=== PATIENT | male | born 1950 | race Caucasian/White ===

== ENCOUNTER → 2016-12-16 | Outpatient (CLI) | payer BC ==
[~2016-12-16] MED LIST: ASPI-232 PO; CRG625 PO; MELO7.5T5 PO; MULT-106 PO; OMEG120013 PO; RAMI5CAP PO
[2016-12-16 14:03] LABS: BASO % 0.3 %; BASO ABS # 0.02 K/uL (0-0.2); COMPLETE YES; EOS % 5.6 %; HEMATOCRIT 41.6 % (42-52); IG% 0.2 %; LYMPH % 34.9 %; LYMPH ABS # 2.01 K/uL (1.2-3.4); MEAN CELL VOLUME 87.9 fL (80-100); MEAN CORPUSCULAR HEMOGLOBIN 30.7 pg (25-34); MEAN CORPUSCULAR HGB CONC 34.9 g/dl (32-36); PLATELET COUNT 183 K/uL (130-400); RED BLOOD COUNT 4.73 M/uL (4.7-6.1); WHITE BLOOD COUNT 5.76 K/uL (4.8-10.8)
[2016-12-16 14:41] LABS: ALB/GLOB RATIO 1.2 (0.9-2); ALT/SGPT 40 U/L (12-78); AST/SGOT 21 U/L (15-37); BLOOD UREA NITROGEN 21 mg/dl (7-18); BUN/CREATININE RATIO 18.6 (10-20); CARBON DIOXIDE 28 mmol/L (21-32); CHLORIDE 106 mmol/L (98-107); GLUCOSE 117 mg/dl (70-99); POTASSIUM 4.4 mmol/L (3.5-5.1); SODIUM 141 mmol/L (136-145)
[2016-12-16 14:47] LABS: ALKALINE PHOSPHATASE 65 U/L (45-117); TOTAL IRON BINDING CAPACITY 312 mcg/dl (250-450)
[2016-12-16 15:02] LABS: CALCIUM 9.8 mg/dl (8.5-10.1)
--- NOTE | 2016-12-23 07:00 | CODING QUERY MEDICAL NECESSITY ---
CQSUPPORTING DIAGNOSIS NEEDED A supporting diagnosis is required for the test/procedure performed on this patient in order for us to be reimbursed by the patient's insurance. Please provide a supporting diagnosis for the following test/procedure listed below next to the test name along with your signature. *If there is no additional diagnosis for this patient that would support the following test/procedure please document that below next to the test/procedure. Test(s)/Procedure(s) that require a supporting diagnosis: DOS 12/16/16 PROSTATE SPECIFIC (PSA) TEST Provider Signature: Date: Thank you Gemini [facility] Once completed, please kindly fax back to [phone] For questions please call [phone]
== END | disposition home or self-care (01) ==
LOC: C.LABBC 10:42
PROVIDERS: ATTEND Family Medicine
DX: I10 Essential (primary) hypertension (principal); R39.9 Unspecified symptoms and signs involving the genitourinary system; D64.9 Anemia, unspecified; Z12.5 Encounter for screening for malignant neoplasm of prostate

== ENCOUNTER → 2017-04-16 | Outpatient (CLI) | payer BC ==
[2017-04-16 12:13] LABS: BASO % 0.5 %; BASO ABS # 0.03 K/uL (0-0.2); COMPLETE YES; HEMATOCRIT 39.4 % (42-52); IG% 0.3 %; LYMPH % 29.2 %; LYMPH ABS # 1.75 K/uL (1.2-3.4); MEAN CELL VOLUME 85.8 fL (80-100); MEAN CORPUSCULAR HEMOGLOBIN 31.2 pg (25-34); MEAN CORPUSCULAR HGB CONC 36.3 g/dl (32-36); MEAN PLATELET VOLUME 9.4 fL (7.4-10.4); MONO % 12.7 %; NEUT % 51.3 %; PLATELET COUNT 175 K/uL (130-400); RED BLOOD COUNT 4.59 M/uL (4.7-6.1)
[2017-04-16 12:26] LABS: ALT/SGPT 43 U/L (12-78); BLOOD UREA NITROGEN 20 mg/dl (7-18); BUN/CREATININE RATIO 20.3 (10-20); CALCIUM 9.5 mg/dl (8.5-10.1); CARBON DIOXIDE 29 mmol/L (21-32); CHLORIDE 105 mmol/L (98-107); CREATININE 0.98 mg/dl (0.60-1.40); GLUCOSE 99 mg/dl (70-99); POTASSIUM 4.3 mmol/L (3.5-5.1); SODIUM 138 mmol/L (136-145)
[2017-04-16 12:36] LABS: ALB/GLOB RATIO 1.1 (0.9-2); ALKALINE PHOSPHATASE 61 U/L (45-117); AST/SGOT 30 U/L (15-37)
[2017-04-16 13:49] LABS: LYME DISEASE AB IGM NEG (NEG)
[2017-04-16 13:52] LABS: LYME DISEASE AB IGG NEG (NEG)
== END | disposition home or self-care (01) ==
LOC: C.LAB1850 11:17
PROVIDERS: ATTEND Internal Medicine Cardiovascular Disease
DX: I25.10 Atherosclerotic heart disease of native coronary artery without angina pectoris (principal); I42.8 Other cardiomyopathies; I50.22 Chronic systolic (congestive) heart failure

== ENCOUNTER → 2017-06-09 | Outpatient (CLI) | payer BC ==
--- NOTE | 2017-06-09 15:59 | DIAGNOSTIC IMAGING REPORT ---
R FOOT MIN 3 VIEWS ROUTINE CLINICAL HISTORY: M77.40 Metatarsalgia Right foot pain at metatarsal area 1st thro pain COMPARISON: None. 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 Moderate degenerative change of the intertarsal joints. No evidence for fracture. There is no evidence for soft tissue swelling. IMPRESSION: Moderate generalized degenerative change of the intertarsal, tarsometatarsal joints, and to lesser extent interphalangeal joints. The above report was generated using voice recognition software. It may contain grammatical, syntax or spelling errors. Electronically signed by: Eliseo Rios M.D. 06/09/2017 3:58 PM Dictated Date/Time: 06/09/2017 3:56 PM
== END | disposition home or self-care (01) ==
LOC: C.RADBC 14:34
PROVIDERS: ATTEND Family Medicine
DX: M77.40 Metatarsalgia, unspecified foot (principal)

== ENCOUNTER → 2017-08-26 | Outpatient (CLI) | payer BC ==
[2017-08-26 10:14] LABS: BLOOD UREA NITROGEN 18 mg/dl (7-18); CALCIUM 9.4 mg/dl (8.5-10.1); CARBON DIOXIDE 28 mmol/L (21-32); CHOLESTEROL 159 mg/dl (0-200); CREATININE 1.03 mg/dl (0.60-1.40); GLUCOSE 103 mg/dl (70-99); POTASSIUM 4.1 mmol/L (3.5-5.1); SODIUM 140 mmol/L (136-145)
[2017-08-26 10:18] LABS: LDL CHOLESTEROL CALCULATED 96 mg/dl
== END | disposition home or self-care (01) ==
LOC: C.LAB1850 08:54
PROVIDERS: ATTEND Family Medicine
DX: I25.10 Atherosclerotic heart disease of native coronary artery without angina pectoris (principal); E78.00 Pure hypercholesterolemia, unspecified; I10 Essential (primary) hypertension

== ENCOUNTER → 2017-08-26 | Outpatient (CLI) | payer BC ==
--- NOTE | 2017-08-26 12:38 | DIAGNOSTIC IMAGING REPORT ---
R EXTREMITY NONVASCULAR LIMITED CLINICAL HISTORY: Injury of the plantar plate. COMPARISON STUDY: Right foot radiographs June 09, 2017. FINDINGS: Within the right first interspace, located between the first and second metatarsals, note is made of a 1 x 0.9 x 0.6 cm complex hypoechoic abnormality. This contains no color flow. There is a smaller adjacent 0.5 x 0.2 x 0.5 cm hypoechoic abnormality which is also nonspecific. IMPRESSION: 1. 1 cm hypoechoic abnormality within the right first interspace, located between the first and second metatarsals. The sonographic appearance is nonspecific and differential considerations include a distended bursa, small hematoma or a Das's neuroma. 2. Adjacent tiny 5 mm hypoechoic abnormality which is nonspecific. Electronically signed by: Tony Beaver M.D. 08/26/2017 12:36 PM Dictated Date/Time: 08/26/2017 12:28 PM
== END | disposition home or self-care (01) ==
LOC: C.ULTR 11:32
PROVIDERS: ATTEND Podiatrist Foot & Ankle Surgery
DX: M77.51 Other enthesopathy of right foot and ankle (principal); R93.7 Abnormal findings on diagnostic imaging of other parts of musculoskeletal system

== ENCOUNTER 2018-04-01 10:12 | Emergency (ER) | payer OTHER, BC ==
[~2018-04-01] VITALS: Ht 172.7 cm; Wt 80.2 kg
[2018-04-01 10:15] VITALS: TEMP 36.9; Ht 172.7 cm; Wt 80.2 kg
[2018-04-01] MEDS ORDERED: LIDOCAINE 1% BUFFERED INJ 20 ML VIAL INFIL STA (10:31)
[2018-04-01] MEDS ORDERED: PROPARACAINE HCL 0.5% OP SOLN 15 ML BTL OP STA (10:31)
[2018-04-01] MEDS ORDERED: CRG25 PO (10:44)
[2018-04-01] MEDS ORDERED: CIPROFLOXACIN HCL 0.3% OP SOLN 2.5 ML BTL OP STA (11:57)
--- NOTE | 2018-04-01 12:04 | EMERGENCY ROOM VISIT NOTE ---
ED Visit Note First contact with patient: 10:24 Chief Complaint: "Laceration inside of nose". History of Present Illness: This patient is a 67-year-old male who presents to the Emergency Department via private vehicle accompanied by female for evaluation of their right sided nasal laceration and right eye injury. Patient sustained the laceration while walking today when he struck his foot against a garbage can and fell forward injuring the nose and having his corrective glasses press against his face. They report a minimal amount of bleeding initially. They report no loss of consciousness. They deny any headache, visual disturbance, nausea, vomiting, or neck pain. Patient rates his current discomfort as a 0/10. Patient's Tetanus status is believed to be currently up-to -date. He notes burning of the right eye therefore prompting his arrival. Medications: As noted below Allergies: None PMH: No pertinent SHx: Patient is currently employed and lives locally. ROS: All pertinent positive and negative review of systems are appropriately documented in the History of Present Illness. Physical Exam: VITAL SIGNS - Vital signs and nursing notes were reviewed. Stable GENERAL -67-year-old male appearing his stated age. Communicates well with provider and answers questions appropriately. HEAD - Normocephalic, Atraumatic. No Lemon's Sign or Raccoon's Eyes. No depressed skull fractures palpable. EYES - PERRL with EOMI bilaterally. Sclera without noticeable foreign body or excoriations. There is mild conjunctival bulbar injection noted in the right eye. Without subconjunctival hemorrhage. Palpebral conjunctiva pink and moist with no injection or discharge noted. Slit lamp examination performed as further described. EARS - No deformities of external structures noted on gross examination bilaterally. Handle of malleus, umbo, cone of light, pars tensa/flaccid all easily visualized. NOSE - Midline and without cyanosis. Without discharge. MOUTH/OROPHARYNX - Without perioral cyanosis. Tongue midline with equal elevation of palate bilaterally. No tonsillar hypertrophy, erythema, or exudates noted. Fair dentition noted. NECK - FROM assessed. No cervical lymphadenopathy noted. Slit Lamp Examination was performed of the right eye(s). Alcaine drops were applied to the affected eye(s) for proper anesthetization. The affected eye(s) were stained with Fluorescein stain to precipitate adequate visualization of any conjunctival/scleral excoriations or ulcers. The patient's face was comfortably rested on the chin guard of the slit lamp apparatus. The lights were dimmed and the affected eye(s) were thoroughly examined under microscopy using the blue light. There was diffuse uptake was present within the entire right cornea with a small/mild area of sparing. Additionally, the eye(s) were examined under microscopy using the regular light. Close examination revealed suspect a corneal laceration. Patient tolerated the procedure well and no complications were met. ED Course: Patient was seen and evaluated by myself. Patient had no focal neurological deficits. Patient's exam is otherwise unremarkable. Patient reports no headaches , visual disturbances, nausea, vomiting, or over-lethargy. The laceration was very small. It will not require repair. It was cleansed. I was concerned about the eye. Slit-lamp reveals corneal laceration. I discussed this with the attending and subsequently the on-call eap specialist, Dr. Haynes. He will see the patient in the office. He recommended Ciloxan eyedrops. He will see the patient today in just over 1 hour at 1 PM. Patient was educated upon this and was discharged to go directly to the office. He was given Ciloxan eyedrops. Female driving. Patient educated on worrisome symptoms for return visit to the Emergency Department. Patient discharged to home in good condition. IMPRESSION: Eye Pain In the evaluation and treatment of this patient, the following differential diagnoses were considered: Corneal Abrasion, Conjunctivitis, Eye Contusion, Globe Injury, Orbital Floor Injury (Blowout Fracture), Corneal Ulcer, Keratitis , Herpes Zoster Opthalmic, Blepharitis, Orbital Cellulitis, Iritis, Scleritis/ Episcleritis, Uveitis, Temporal Arteritis, Subconjunctival hemorrhage. Problem List Medical Problems: (1) CAD (coronary artery disease) Status: Chronic (2) Cardiomyopathy Status: Chronic (3) HTN (hypertension) Status: Chronic (4) Hypercholesteremia Status: Chronic (5) Inguinal hernia Status: Chronic (6) Pacemaker Status: Chronic Surgical Problems: (1) H/O knee surgery Status: Resolved Current/Historical Medications Scheduled Aspirin (Aspir-81), 81 TAB PO QPM Carvedilol (Carvedilol), 25 MG PO BID Meloxicam (Mobic), 7.5 MG PO QPM Multiple Vitamins W/ Minerals (One Daily Mens), 1 TAB PO QPM Ramipril (Ramipril), 5 MG PO QPM Allergies Coded Allergies: No Known Allergies (Verified , `, 04/01/18) Vital Signs Date Time Temp Pulse Resp B/P (MAP) Pulse Ox O2 Delivery O2 Flow Rate FiO2 04/01/18 12:13 71 18 116/82 96 Room Air 04/01/18 10:15 36.9 68 18 108/69 97 Room Air Medications Administered Medications (Trade) Dose Ordered Sig/Sydnee Route Start Time Stop Time Status Last Admin Dose Admin Proparacaine HCl (Alcaine 0.5% Oph Soln) 2 drops NOW STAT OP 04/01/18 10:31 04/01/18 10:32 DC 04/01/18 12:12 2 DROPS Ciprofloxacin HCl (Ciprofloxacin 0.3% Op Soln) 2 drops NOW STAT OP 04/01/18 11:57 04/01/18 11:58 DC 04/01/18 12:12 2 DROPS Departure Information Impression Primary Impression: Corneal laceration of right eye Dispostion Home / Self-Care Condition GOOD Referrals Leia Rucker MD (PCP) Kavin Haynes M.D. Patient Instructions My [facility] Additional Instructions You have been treated in the Emergency Department for injury to your right eye. You were prescribed Ciloxan eyedrops to be used as directed by Dr. Haynes or 1 of his associates today. Until then 1 drop every 4 hours. This is an antibiotic. Stop this medication and contact a medical provider if you were to develop any significant adverse side effects including: wheezing, shortness of breath, passing out, vomiting, or a diffuse rash. Always take antibiotics as directed and COMPLETE the ENTIRE course regardless of the improvement of your symptoms. For pain control, you can use the following [id number] medicines (if >12 yo): - Regular strength (325mg/tab) Tylenol (acetaminophen) 2 tabs every 4-6 hours as needed. Do not exceed 12 tablets in a 24 hour period. Avoid taking more than 3 grams (3000 mg) of Tylenol per day. This includes any other sources of acetaminophen you may take on a regular basis. - Regular strength (200 mg/tab) Advil (ibuprofen) 1-2 tabs every 4-6 hours as needed. Do not exceed a dose of 3200 mg per day. Avoid rubbing your eyes for the next few days as this can cause irritation. Wear sunglasses when outside to help minimize your pain. You should relax in a quiet, dark room to help minimize your symptoms. You should seek evaluation of your right eye injury by an eap specialist following your visit to the Emergency Department. They will see you at 1:00 PM. Return to the emergency department if you develop the following symptoms despite treatment course outlined above: blurry vision, loss of vision, fever, intractable pain, increased redness, swelling, or purulent discharge.
[2018-04-01 12:13] VITALS: BP 116/82; PULSE 71; O2SAT 96
== END 2018-04-01 12:20 | disposition home or self-care (01) ==
LOC: C.EDB 10:13
DX: S05.31XA Ocular laceration without prolapse or loss of intraocular tissue, right eye, initial encounter (principal); S01.21XA Laceration without foreign body of nose, initial encounter; W01.10XA Fall on same level from slipping, tripping and stumbling with subsequent striking against unspecified object, initial encounter; I25.10 Atherosclerotic heart disease of native coronary artery without angina pectoris; I10 Essential (primary) hypertension; I42.9 Cardiomyopathy, unspecified; E78.5 Hyperlipidemia, unspecified; Z95.0 Presence of cardiac pacemaker; K40.90 Unilateral inguinal hernia, without obstruction or gangrene, not specified as recurrent; Z79.82 Long term (current) use of aspirin; Z79.899 Other long term (current) drug therapy

== ENCOUNTER 2022-08-08 18:19 | Inpatient (IN) ==
--- NOTE | 2022-08-08 18:42 | ED Triage Note ---
Date of Service August 08, 2022 History of Present Illness This patient was briefly evaluated while in triage. An abbreviated physical exam was performed. This patient is a 72-year-old Male who presents to the ED for evaluation of sharp pain in the right shoulder and shortness of breath. He had a bronchoscopy yesterday and states that symptoms started today. He called and was told to come in. He states it is very painful to take a deep breath. Physical Exam VITALS: Vitals are noted on the nurse's note and reviewed by myself. GENERAL: This is a 72-year-old male, in no acute distress, sitting up in chair. SKIN: The skin was without rashes. HEART: Regular rate and rhythm without murmurs gallops or rubs. LUNGS: Clear to auscultation bilaterally without wheezes, rales or rhonchi. No retractions or accessory muscle use. NEURO: Patient was alert and oriented to person place and time. Initial orders for labs and / or imaging were placed and patient was placed in the waiting area until a bed is available. Please see further documentation for the full ED course.
[2022-08-08] MEDS ORDERED: ONDANSETRON INJ 2 MG/ML 2 ML VIAL IV STA (18:58)
[2022-08-08] MEDS ORDERED: fentaNYL citrate 100 MCG/2 ML VIAL IV STA (18:59)
--- NOTE | 2022-08-08 19:08 | Emergency Department Note ---
Impression & Plan Pneumothorax ADMIT ED Provider Note HPI: The patient is a 72-year-old gentleman with history of idiopathic interstitial pneumonia, nonischemic cardiomyopathy, status post pacemaker, presents emergency department today with chief complaint of right-sided chest pain after he had a bronchoscopy done yesterday by Dr. Benjamin. Patient states that around 1 PM he developed some right-sided chest discomfort that was relatively high in his chest and back. Patient states he did feel some shortness of breath as well. On arrival here to the ED the patient is saturating at 89% on room air, he was placed on 2 L nasal cannula oxygen with good improvement. Patient is otherwise nontoxic-appearing on my initial assessment. ROS: -Cardio: Right-sided chest discomfort -Pulmonary: Shortness of breath *10 point review systems was conducted and is otherwise negative unless stated above *Outpatient medications and allergy history reviewed PE: General: Alert HEENT: Normocephalic, trachea midline Eyes: Extraocular eye movement is intact, no scleral erythema Pulmonary: Clear to auscultation bilaterally, no wheezing Cardio: Regular rate and rhythm GI: Abdomen is soft, nontender : No suprapubic tenderness MSK: No evidence of trauma or malformation of the extremities, no edema Skin: No evidence of rash Neuro: Alert, no focal deficits Psychiatric: Cooperative fashion consultant sales: - An order was placed for continuous cardiac monitoring - Patient was noted to be in paced rhythm with a rate of 80 EKG: Rate: 82 Rhythm: Paced rhythm Intervals: QRS 164 ms, QTC 549ms ST changes: No ST elevation Time: 1842 Interventions provided in ED: -Fentanyl, Zofran Medical Decision Making: Initial chest x-ray interpreted by myself did not show any obvious pneumothorax, given the patient's chest discomfort and recent bronchoscopy, CT angiography of the chest was ordered and does show evidence of a trace pneumothorax on the right side. There is also changes consistent with his interstitial lung disease and possible superimposed infectious or inflammatory pneumonitis. Patient does have a leukocytosis and a left shift, therefore cultures were drawn, patient remained stable on 2 L nasal cannula oxygen here in the ED. Venous blood gas shows some element of respiratory acidosis with hypercarbia, patient was therefore given DuoNeb breathing treatment and IV Solu-Medrol. Case was discussed with on-call pulmonology, Dr. Banks, who was in agreement for observation admission, initiation of IV antibiotics with Levaquin, and continuation of supplemental oxygen for the time being. Following our discussion chest tube will be deferred given that the patient is hemodynamically stable on 2 L nasal cannula oxygen in the pneumothoraxes small. Repeat chest x- ray will be performed in the morning and pulmonology will see the patient at that time to determine further management based off those results. On my reassessment the patient is resting comfortably in bed, he is in agreement to this plan, [facility] and the patient was placed for admission in stable condition. * CRITICAL CARE TIME: (45) minutes -Stabilization of hypoxia with oxygen saturations less than 90% on room air requiring supplemental oxygen for improvement, time spent at the bedside, discussion with other physicians and arrangement of admission. Diagnosis: 1. Hypoxia, acute 2. Trace pneumothorax, right-sided 3. Bilateral pneumonia 4. Interstitial lung disease patient 5. Respiratory acidosis with hypercarbia Disposition: Admission Eliseo Onofre DO Emergency Medicine Past Med/Surg History Medical History (Updated 08/08/22 @ 22:12 by Eliseo Onofre DO) Abnormal TSH noted 02/2020 due to use of prednisone, repeat labs normal in 03/2020 including TSI Bibasilar crackles Biventricular ICD (implantable cardioverter-defibrillator) in place original placed in 2013, follows with Dr Mcnulty; new one placed 06/2022, [facility] BPH with obstruction/lower urinary tract symptoms CAD (coronary artery disease) Chronic systolic congestive heart failure Dyspnea on exertion HTN (hypertension) Hx of gastric ulcer Hypercholesteremia Idiopathic interstitial pneumonia Interstitial lung disease Left bundle branch block Non-ischemic cardiomyopathy (04/14/14) Osteoarthritis Pneumothorax on left ~2013. chest tube drain placed and treated inpatient. Rib fractures hx Surgical History History of arthroscopy of knee right History of colonoscopy History of esophagogastroduodenoscopy (EGD) History of eye surgery at age 4 - right eye surgery History of inguinal hernia repair x 2 Hx of eye surgery age 4 Family History Father Emphysema, unspecified Mother Urinary bladder cancer Brother Prediabetes Denies family history of Ovarian cancer Prostate cancer Myocardial infarction Breast cancer Colorectal cancer Social History Smoking Status: Never smoker Second Hand Exposure: No; Hx Alcohol Use: No Hx Substance Use: No Preferred Language: Maltese Communication Ability: Effective Visual Impairment: No Limitations Hearing Ability: Normal Religious Studies Professor Required: No Beliefs That Will Affect Care: None marital status: Current Living Situation: Spouse current occupational status: retired current occupation: Retired [employer] for [employer]. 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 How many Children do You have: 2 Feels Safe at Home: Yes Childhood Exposure to Second-Hand Smoke: No Dental Care, Regularly: No Physical Activity Frequency: Daily Seatbelt Use: always Sunscreen Use: No Assistive Devices: None Allergies Allergies Allergy/AdvReac Type Severity Reaction Status Date / Time morphine Allergy Unknown Difficulty Verified 08/08/22 20:26 Breathing Home Meds Home Medications Medication Instructions Recorded Confirmed [id number] acid-vit 1 tab PO QPM 03/21/20 08/08/22 K-lycop 400 mcg-20 mcg-370 mcg tablet (One-A-Day Men's 50 Plus) cholecalciferol (vitamin D3) 50 2,000 unit PO QPM 04/13/21 08/08/22 mcg (2,000 unit) capsule ramipril 2.5 mg capsule 2.5 mg PO Q2D 10/24/21 08/08/22 cholecalciferol (vitamin D3) 25 25 mcg PO QAM 05/06/22 08/08/22 mcg (1,000 unit) capsule acetaminophen 500 mg tablet 1,000 mg PO Q6H PRN Pain 07/30/22 08/08/22 amiodarone 200 mg tablet 200 mg PO QPM 07/30/22 08/08/22 diphenhydramine 25 1 tab PO HS 07/30/22 08/08/22 mg-acetaminophen 500 mg tablet (Acetaminophen PM) albuterol sulfate 90 mcg/actuation 2 inh inhalation Q4 PRN shortness 08/08/22 08/08/22 aerosol inhaler of breath or wheezing aspirin 81 mg tablet,delayed 81 mg PO QPM 08/08/22 08/08/22 release tadalafil 5 mg tablet 5 mg PO DAILY 08/08/22 08/08/22 Previous Rx's Medication Instructions Recorded gabapentin 400 mg capsule 400 mg PO TID PRN Pain #270 caps 05/13/22 atorvastatin 10 mg tablet 10 mg PO QPM #90 tabs 06/13/22 carvedilol 12.5 mg tablet 12.5 mg PO BID #180 tabs 06/13/22 meloxicam 7.5 mg tablet 7.5 mg PO BID #180 tabs 08/07/22 Results & Data (ED) Vital Signs Vital Signs - 24 hr 08/08/22 18:36 08/08/22 18:39 08/08/22 19:19 Temperature 36.8 C Temperature Source Temporal Artery Scan Pulse Rate 76 Pulse Rate [Right Finger] Pulse Rhythm [Right Finger] Pulse Strength [Right Finger] Respiratory Rate 18 Respiratory Effort / Characteristics Non-Labored Spontaneous Spontaneous Respiratory Depth Normal Normal Respiratory Pattern Regular Blood Pressure 93/55 L Blood Pressure [Right Arm] Blood Pressure Mean 67 Blood Pressure Mean [Right Arm] Blood Pressure Position Sitting Pulse Oximetry 92 89 L Oxygen Delivery Method Room Air Room Air Room Air Oxygen Flow Rate Sepsis Recent Fever Within 48 Hours No Sepsis New/Unexplained Change in Mental Status No Sepsis Action Taken by Nursing No Action Required Oxygen Flow Rate - Titration 2 Pulse Oximetry Post Tiitration 98 08/08/22 21:54 Temperature Temperature Source Pulse Rate Pulse Rate [Right Finger] 87 Pulse Rhythm [Right Finger] Regular Pulse Strength [Right Finger] Normal Respiratory Rate 19 Respiratory Effort / Characteristics Non-Labored Spontaneous Respiratory Depth Normal Respiratory Pattern Regular Blood Pressure Blood Pressure [Right Arm] 102/65 Blood Pressure Mean Blood Pressure Mean [Right Arm] 77 Blood Pressure Position Pulse Oximetry 96 Oxygen Delivery Method Nasal Cannula Oxygen Flow Rate 2 Sepsis Recent Fever Within 48 Hours Sepsis New/Unexplained Change in Mental Status Sepsis Action Taken by Nursing Oxygen Flow Rate - Titration Pulse Oximetry Post Tiitration Laboratory Data Result diagrams: 08/08/22 18:48 08/08/22 18:48 Lab Results 08/08/22 08/08/22 08/08/22 Range/Units 18:48 18:48 20:16 WBC 11.16 H (4.8-10.8) K/ul RBC 3.87 L (4.63-6.08) M/uL Hgb 12.0 L (14.0-18.0) g/dl Hct 36.1 L (40.1-51.0) % MCV 93.3 (80.0-100.0) fL MCH 31.0 (25.0-34.0) pg MCHC 33.2 (32.0-36.0) g/dL RDW Std Deviation 43.7 (36.4-46.3) fL RDW Coeff of Bull 12.9 (11.5-14.5) % Plt Count 220 (130-400) K/uL MPV 9.3 L (9.4-12.4) fL Immature Gran % (Auto) 0.4 % Neut % (Auto) 68.4 % Lymph % (Auto) 18.5 % Sheridan % (Auto) 10.6 % Eos % (Auto) 1.7 % Baso % (Auto) 0.4 % Neut # (Auto) 7.63 H (1.4-6.5) K/uL Lymph # (Auto) 2.06 (1.2-3.4) K/uL Sheridan # (Auto) 1.18 H (0.24-0.82) K/uL Eos # (Auto) 0.19 (0-0.50) K/uL Baso # (Auto) 0.05 (0-0.2) K/uL Immature Gran # (Auto) 0.05 H (0.00-0.02) K/uL VBG pH 7.32 L (7.36-7.41) VBG pCO2 59 H (38-50) mmHg VBG pO2 26 mmHg VBG HCO3 30 mmol/L VBG O2 Saturation < 60.0 % VBG Base Excess 2.8 mEq/L Sodium 136 (136-145) mmol/L Potassium 4.1 (3.5-5.1) mmol/L Chloride 102 (98-107) mmol/L Carbon Dioxide 30 (21-32) mmol/L Anion Gap 4 (3-11) BUN 29 H (6-23) mg/dl Creatinine 1.31 (0.6-1.4) mg/dl Est Cr Clr Drug Dosing 48.6 ml/min Est GFR ( Amer) 62.2 ml/min Est GFR (Non-Af Amer) 53.6 ml/min BUN/Creatinine Ratio 22.1 H (10-20) Glucose 114 H (70-99(Fasting)) mg/dl Calcium 9.2 (8.5-10.1) mg/dl Total Bilirubin 1.2 H (0.2-1.0) mg/dl AST 22 (13-39) U/L ALT 22 (7-52) U/L Alkaline Phosphatase 106 H (34-104) U/L Troponin I High Sens 10.5 (0-20) pg/ml Total Protein 7.6 (6.0-8.3) gm/dl Albumin 3.5 (3.4-5.0) gm/dl Globulin 4.1 H (2.5-4.0) gm/dl Albumin/Globulin Ratio 0.9 (0.9-2) Administered Medications Levofloxacin/Dextrose (Levaquin/D5w) 750 mg in 150 mls @ 100 mls/hr IV NOW STA Stop: 08/08/22 22:46 Last Admin: 08/08/22 21:42 Dose: 100 mls/hr Documented By: SVETLANA Discontinued Medications Albuterol (Albut/Ipratrop 3mg/0.5mg Neb 3 Ml Vial) 3 ml NEB NOW STA; Protocol Stop: 08/08/22 21:01 Last Admin: 08/08/22 21:11 Dose: 3 ml Documented By: SVETLANA Fentanyl Citrate (Fentanyl Citrate 100 Mcg/2 Ml Vial) 50 mcg IV NOW STA Stop: 08/08/22 19:00 Last Admin: 08/08/22 19:17 Dose: 50 mcg Documented By: SVETLANA Sodium Chloride (Nss) 500 mls @ 999 mls/hr IV .Q31M ONE Stop: 08/08/22 19:39 Last Infusion: 08/08/22 19:53 Dose: 0 mls/hr Documented By: Admin: 08/08/22 19:13 Dose: 999 mls/hr Documented By: SVETLANA Ioversol (Optiray 320 500ml) 110 ml IV ONCE ONE Stop: 08/08/22 20:00 Last Admin: 08/08/22 20:01 Dose: 110 ml Documented By: THANH Methylprednisolone (Methylprednisolone 125 Mg/2 Ml Vial) 125 mg IV NOW STA Stop: 08/08/22 21:01 Last Admin: 08/08/22 21:09 Dose: 125 mg Documented By: SVETLANA Ondansetron HCl (Ondansetron Inj 2 Mg/Ml 2 Ml Vial) 4 mg IV NOW STA Stop: 08/08/22 18:59 Last Admin: 08/08/22 19:14 Dose: 4 mg Documented By: SVETLANA Imaging Data Radiologist's Impression: Chest X-Ray 08/08/22 18:38 SINGLE VIEW CHEST CLINICAL HISTORY: Shoulder pain. Dyspnea. Recent bronchoscopy. FINDINGS: An AP, portable, upright chest radiograph is compared to study dated 07/30/2022 and correlated with chest CT dated 07/24/2022. The examination is degraded by portable technique and patient rotation. A 3-lead cardiac AICD is unchanged in position and partially obscures the left lower chest. The heart is enlarged noting atherosclerotic calcification of the thoracic aorta. The pulmonary vasculature is noncongested. Bibasilar opacities and trace pleural effusions are similar previous. No pneumothorax is seen. The skeletal structures are osteopenic. The bony thorax is grossly intact. IMPRESSION: 1. Cardiomegaly and AICD without radiographic evidence of congestive failure. 2. Bibasilar opacities and trace pleural effusions are similar to previous. ACT 112: Negative or not required by law. Electronically signed by: Anders Gaspar M.D. 08/08/2022 7:20 PM Chest CTA 08/08/22 18:56 CT ANGIOGRAM OF THE CHEST CLINICAL HISTORY: Atypical chest pain. Recent bronchoscopy. COMPARISON STUDY: Chest CT dated 07/24/2022. Chest x-ray dated 08/08/2022. TECHNIQUE: Following the IV administration of 110 cc of Optiray 320, CT angiogram of the chest was performed from the upper abdomen to the thoracic inlet utilizing the pulmonary embolus protocol. Images are reviewed in the axial, sagittal, and coronal planes. 3-D MIPS images are created and assessed. IV contrast was administered without complication. A dose lowering technique was utilized adhering to the principles of ALARA. The examination is degraded by motion artifact. CT DOSE: 278.15 mGy.cm FINDINGS: Thyroid: Imaged portions of the thyroid gland are normal in size and attenuation. Thoracic aorta: There is atherosclerotic calcification of the thoracic aorta, which is normal in caliber and demonstrates standard 3-vessel arch anatomy. No dissection is seen. Pulmonary vasculature: The pulmonary trunk is normal in caliber. There are no filling defects identified in main, lobar, or segmental pulmonary branches to suggest pulmonary embolus. Heart: A cardiac AICD is present in the left chest wall. The heart is enlarged and without pericardial effusion. Lungs and pleural spaces: Evaluation of the lung parenchyma is degraded by motion artifact. There is trace right apical and basilar pneumothorax. Again seen is dense bibasilar consolidation/fibrosis. Milder airspace opacities/fibrotic change is seen in the upper lobes with a subpleural distribution. The trachea and central airways are clear. Trace pleural effusions are noted. There is no significant traction bronchiectasis. No honeycombing is seen. Scattered calcified granulomas are noted. Mediastinum: Mildly enlarged mediastinal lymph nodes are unchanged. These measure up to 11 mm short axis. Heike: There are enlarged bilateral hilar nodes. These measure up to 17 mm short axis. Axillae: There is no axillary lymphadenopathy. Upper abdomen: Partially visualized upper abdominal viscera is within normal limits. Skeletal structures: The skeletal structures are osteopenic. No lytic or blastic bony lesions are seen. There are healed left-sided rib fractures. IMPRESSION: 1. There is no evidence of pulmonary embolus in the main, lobar, or segmental pulmonary arteries. 2. Trace right apical and basilar pneumothorax. 3. Cardiomegaly and AICD. 4. Interstitial/fibrotic lung disease with a lower lobe predominance as above. This is similar to the 07/24/[address] Correlate clinically for evidence of a superimposed infectious/inflammatory pneumonitis. 5. Trace pleural effusions. 6. Enlarged mediastinal and hilar lymph nodes are nonspecific and likely related to chronic lung disease. 7. Additional findings as above. ACT 112: Negative or not required by law. Electronically signed by: Anders Gaspar M.D. 08/08/2022 8:43 PM Discharge Plan Visit Data Chief Complaint: Shortness of Breath/Dyspnea Stated Complaint: SHOULDER PAIN ED Provider: Eliseo Onofre Discharge Problem: Pneumothorax Patient Disposition: Admitted As Inpatient Condition: Good Forms Stand Alone Forms: My [facility] Prescriptions Prescriptions: No Action gabapentin 400 mg capsule 400 mg PO TID PRN (Reason: Pain) Qty: 270 3RF atorvastatin 10 mg tablet 10 mg PO QPM Qty: 90 3RF carvedilol 12.5 mg tablet 12.5 mg PO BID Qty: 180 3RF meloxicam 7.5 mg tablet 7.5 mg PO BID Qty: 180 1RF One-A-Day Men's 50 Plus 400-20-370 mcg tablet 1 tab PO QPM cholecalciferol (vitamin D3) 50 mcg (2,000 unit) capsule 2,000 unit PO QPM cholecalciferol (vitamin D3) 25 mcg (1,000 unit) capsule 25 mcg PO QAM ramipril 2.5 mg capsule 2.5 mg PO Q2D acetaminophen 500 mg Tablet 1,000 mg PO Q6H PRN (Reason: Pain) Label Comments: usually takes 2 tabs every morning and evening. diphenhydramine-acetaminophen [Acetaminophen PM] 25-500 mg Tablet 1 tab PO HS amiodarone 200 mg tablet 200 mg PO QPM tadalafil 5 mg tablet 5 mg PO DAILY Rx Instructions: take for 10 days ordered 08/06/22 albuterol sulfate 90 mcg/actuation HFA aerosol inhaler 2 inh inhalation Q4 PRN (Reason: shortness of breath or wheezing) aspirin [Aspirin Low-Strength] 81 mg Tablet,Delayed Release (Dr/Ec) 81 mg PO QPM Referrals Referrals: Shankar Aguirre III, CRNP [Primary Care Provider] -
[2022-08-08] MEDS ORDERED: SODIUM CHLORIDE 0.9% 500 ML IV ONE (19:09)
[2022-08-08 19:21] LABS: Basophils # (auto) 0.05 K/uL (0-0.2); Basophils % (auto) 0.4 %; Eosinophils # (auto) 0.19 K/uL (0-0.50); Eosinophils % (auto) 1.7 %; Hematocrit (blood only) 36.1 % (40.1-51.0); Immature Granulocytes # (auto) 0.05 K/uL (0.00-0.02); Immature Granulocytes % (auto) 0.4 %; Lymphocytes # (auto) 2.06 K/uL (1.2-3.4); Lymphocytes % (auto) 18.5 %; Mean Corpuscular Hgb Conc 33.2 g/dL (32.0-36.0); Mean Corpuscular Volume 93.3 fL (80.0-100.0); Mean Platelet Volume 9.3 fL (9.4-12.4); Monocytes # (auto) 1.18 K/uL (0.24-0.82); Monocytes % (auto) 10.6 %; Neutrophils # (auto) 7.63 K/uL (1.4-6.5); Neutrophils % (auto) 68.4 %; Platelet Count 220 K/uL (130-400); RDW Coefficient of Variation 12.9 % (11.5-14.5); RDW Standard Deviation 43.7 fL (36.4-46.3); Red Blood Count 3.87 M/uL (4.63-6.08); White Blood Count 11.16 K/ul (4.8-10.8)
--- NOTE | 2022-08-08 19:22 | XRay Report ---
SINGLE VIEW CHEST CLINICAL HISTORY: Shoulder pain. Dyspnea. Recent bronchoscopy. FINDINGS: An AP, portable, upright chest radiograph is compared to study dated 07/30/2022 and correla ambrosio with chest CT dated 07/24/2022. The examination is degraded by portable technique and patient rot ation. A 3-lead cardiac AICD is unchanged in position and partially obscures the left lower chest. Th e heart is enlarged noting atherosclerotic calcification of the thoracic aorta. The pulmonary vascula ture is noncongested. Bibasilar opacities and trace pleural effusions are similar previous. No pneumo thorax is seen. The skeletal structures are osteopenic. The bony thorax is grossly intact. IMPRESSION: 1. Cardiomegaly and AICD without radiographic evidence of congestive failure. 2. Bibasilar opacities and trace pleural effusions are similar to previous. ACT 112: Negative or not required by law. Electronically signed by: Anders Gaspar M.D. 08/08/2022 7:20 PM
[2022-08-08 19:28] LABS: Albumin Globulin Ratio 0.9 (0.9-2); Albumin Level 3.5 gm/dl (3.4-5.0); BUN Creatinine Ratio 22.1 (10-20); Bilirubin,Total 1.2 mg/dl (0.2-1.0); Calcium 9.2 mg/dl (8.5-10.1); Creatinine Clr Calc Pharmacy 48.6 ml/min; Est GFR (African American) 62.2 ml/min; Est GFR (Non-African American) 53.6 ml/min; Globulin 4.1 gm/dl (2.5-4.0); Potassium 4.1 mmol/L (3.5-5.1); Total Protein 7.6 gm/dl (6.0-8.3)
[2022-08-08 19:31] LABS: Troponin I High Sensitivity 10.5 pg/ml (0-20)
[2022-08-08] MEDS ORDERED: OPTIRAY 320 500ml IV ONE (19:59)
[2022-08-08 20:37] LABS: Base Excess VBG 2.8 mEq/L; HCO3 VBG 30 mmol/L; Oxygen Saturation VBG < 60.0 %; PCO2 VBG 59 mmHg (38-50); PO2 VBG 26 mmHg; pH VBG 7.32 (7.36-7.41)
--- NOTE | 2022-08-08 20:46 | CT Scan Report ---
CT ANGIOGRAM OF THE CHEST CLINICAL HISTORY: Atypical chest pain. Recent bronchoscopy. COMPARISON STUDY: Chest CT dated 07/24/2022. Chest x-ray dated 08/08/2022. TECHNIQUE: Following the IV administration of 110 cc of Optiray 320, CT angiogram of the chest was pe rformed from the upper abdomen to the thoracic inlet utilizing the pulmonary embolus protocol. Images are reviewed in the axial, sagittal, and coronal planes. 3-D MIPS images are created and assessed. I V contrast was administered without complication. A dose lowering technique was utilized adhering to the principles of ALARA. The examination is degraded by motion artifact. CT DOSE: 278.15 mGy.cm FINDINGS: Thyroid: Imaged portions of the thyroid gland are normal in size and attenuation. Thoracic aorta: There is atherosclerotic calcification of the thoracic aorta, which is normal in michael john and demonstrates standard 3-vessel arch anatomy. No dissection is seen. Pulmonary vasculature: The pulmonary trunk is normal in caliber. There are no filling defects identif ied in main, lobar, or segmental pulmonary branches to suggest pulmonary embolus. Heart: A cardiac AICD is present in the left chest wall. The heart is enlarged and without pericardia l effusion. Lungs and pleural spaces: Evaluation of the lung parenchyma is degraded by motion artifact. There is trace right apical and basilar pneumothorax. Again seen is dense bibasilar consolidation/fibrosis. Mi lder airspace opacities/fibrotic change is seen in the upper lobes with a subpleural distribution. Th e trachea and central airways are clear. Trace pleural effusions are noted. There is no significant t raction bronchiectasis. No honeycombing is seen. Scattered calcified granulomas are noted. Mediastinum: Mildly enlarged mediastinal lymph nodes are unchanged. These measure up to 11 mm short a xis. Heike: There are enlarged bilateral hilar nodes. These measure up to 17 mm short axis. Axillae: There is no axillary lymphadenopathy. Upper abdomen: Partially visualized upper abdominal viscera is within normal limits. Skeletal structures: The skeletal structures are osteopenic. No lytic or blastic bony lesions are see n. There are healed left-sided rib fractures. IMPRESSION: 1. There is no evidence of pulmonary embolus in the main, lobar, or segmental pulmonary arteries. 2. Trace right apical and basilar pneumothorax. 3. Cardiomegaly and AICD. 4. Interstitial/fibrotic lung disease with a lower lobe predominance as above. This is similar to the 07/24/[address] Correlate clinically for evidence of a superimposed infectious/inflammatory pne umonitis. 5. Trace pleural effusions. 6. Enlarged mediastinal and hilar lymph nodes are nonspecific and likely related to chronic lung dise ase. 7. Additional findings as above. ACT 112: Negative or not required by law. Electronically signed by: Anders Gaspar M.D. 08/08/2022 8:43 PM
[2022-08-08] MEDS ORDERED: ALBUT/IPRATROP 3MG/0.5MG NEB 3 ML VIAL NEB STA (21:00)
[2022-08-08] MEDS ORDERED: methylPREDNISolone 125 MG/2 ML VIAL IV STA (21:00)
[2022-08-08] MEDS ORDERED: levoFLOXacin/D5W 750 MG/150 ML BAG IV STA (21:17)
[2022-08-08 22:18] LABS: Influenza A virus by PCR Negative (Neg); Influenza B virus by PCR Negative (Neg); RSV by PCR Negative (Neg); SARS CoV2 RNA(COVID-19) Ceph NEGATIVE (Negative)
--- NOTE | 2022-08-08 22:26 | History & Physical Report ---
Date of Service August 08, 2022 Assessment & Plan (1) Pneumothorax: Plan: Hypoxia, SOB and pleuritic right-sided chest pain following bronchoscopy (with biopsies) on 08/07, with CTA chest showing trace right apical and basilar pneumothorax. Patient is hemodynamically stable. - VBG with pH 7.32/pCO2 59, pHCO3 30 - suggestive of acute on chronic respiratory acidosis, likely due to PTX as acute exacerbation of chronic interstitial lung disease - Pulmonary consulted and do not recommend urgent intervention and/or chest tube placement at this time - follow for further recs in AM - NPO pending Pulm evaluation - wean supplemental O2 as necessary to maintain sats >90% (2) Interstitial lung disease: Plan: Diagnosed in 06/2022, f/w [facility]. With progressive dyspnea on exertion and chronic cough for several months. S/p bronchoscopy/biopsies on 08/07 with biopsies pending; thus far Amiodarone toxicity is higher on ddx. Rheumatologic disorder also possibility although Rheumatology has low clinical suspicion for this - CB positive and reflex profile pending. - Pulm consulted as stated above - given Levofloxacin in ED - will defer further abx to primary team/pulmonology, as I have low suspicion patient has infectious lung disease at this time - of note patient's QTc is chronically elevated and was 549ms when checked today (although PPM/ICD in place) - check MRSA nares and procalcitonin - given SoluMedrol 125mg IV in ED - defer on further steroids as patient's SOB/hypoxia largely due to PTX - PRN Albuterol nebs ordered - trend CBC in AM (3) Paroxysmal atrial fibrillation: Plan: PPM in place, rate-controlled. On chronic Amiodarone and Carvedilol - continue both. - follow bronchoscopy path results - may need to have discussion with [facility] as outpatient if path results are concerning for Amiodarone-induced pneumonitis (4) Chronic systolic congestive heart failure: Plan: With non-ischemic/dilated cardiomyopathy, diagnosed in 2003, with ICD in place. EF 30-35% when checked in 03/2021. Appears euvolemic on exam. - check TTE - consider Entresto if not trialed thus far - defer to Cardiology (5) CAD (coronary artery disease): Plan: Non-obstructive. Continue home baby ASA. (6) HTN (hypertension): Plan: Normotensive. Continue home Carvedilol and Ramipril QOD. (7) Hypercholesteremia: Plan: Continue home Atorvastatin (8) BPH (benign prostatic hyperplasia): Plan: Continue home Tadalafil Plan FEN/GI: NPO DVT Prophylaxis: SCDs, defer chemoppx in case of possible Pulm procedure Code Status: DNR/DNI Disposition: med/tele History of Present Illness Primary Care Provider: Shankar Aguirre, III, [place] Piter Chapman is a 72yo male with PMHx significant for interstitial lung disease (diagnosed in 06/2022), idiopathic dilated cardiomyopathy, chronic HFrEF (last TTE in 03/2021 with EF 30-35%, s/p ICD/PPM), paroxysmal a-fib (on Amiodarone and Carvedilol, no AC), HTN and BPH. Patient presented to [facility] ED on 08/08 for right-sided pleuritic chest pain and shortness of breath following his bronchoscopy done on 08/[address] Frias ([facility]). Of note patient was diagnosed with interstitial lung disease in 06/2022 (largely bibasilar) and had bronchoscopy with biopsies done on 08/07, which are pending. Additionally CB was positive and reflex is pending. Patient denies fever/chills, congestion/cough, N/V, abdominal pain, diarrhea, dysuria or rash. He is a never smoker and denies alcohol/drug use. He is proficient in ADLs/iADLs. In the ED the patient was hypoxic to 89% on room air and improved to high 90s on 2L/min nasal cannula. Afebrile and hemodynamically stable. VBG with pH 7.32/pCO2 59, pHCO3 30. WBC 11.16 (neutrophilic predominance and mild L shift). Hgb 12 (from 13.4 on 07/29). COVID-19/flu/RSV negative. CTA chest showing trace right apical and basilar pneumothorax. Also with interstitial/fibrotic lung disease with a lower lobe predominance, similar to the 07/24/[address] Also with enlarged mediastinal and hilar lymph nodes that are nonspecific and likely related to chronic lung disease. In ED patient was given NSS 500cc bolus, Zofran 4mg IV, Fentanyl 50mcg x1, SoluMedrol 125mg IV, and Albuterol nebs. Was also given Levofloxacin 750mg IV, b lood cx taken before initiation of abx. Pulmonary was consulted by ED provider and did not recommend chest tube or urgent intervention for trace PTX. Allergies Allergy/AdvReac Type Severity Reaction Status Date / Time morphine Allergy Unknown Difficulty Verified 08/08/22 20:26 Breathing Home Medications Medication Instructions Recorded Confirmed Type iyaegdhhmocx-edg-zsikn acid-vit 1 tab PO QPM 03/21/20 08/08/22 History K-lycop 400 mcg-20 mcg-370 mcg tablet (One-A-Day Men's 50 Plus) cholecalciferol (vitamin D3) 50 2,000 unit PO QPM 04/13/21 08/08/22 History mcg (2,000 unit) capsule ramipril 2.5 mg capsule 2.5 mg PO Q2D 10/24/21 08/08/22 History cholecalciferol (vitamin D3) 25 25 mcg PO QAM 05/06/22 08/08/22 History mcg (1,000 unit) capsule gabapentin 400 mg capsule 400 mg PO TID PRN Pain #270 caps 05/13/22 08/08/22 Rx atorvastatin 10 mg tablet 10 mg PO QPM #90 tabs 06/13/22 08/08/22 Rx carvedilol 12.5 mg tablet 12.5 mg PO BID #180 tabs 06/13/22 08/08/22 Rx acetaminophen 500 mg tablet 1,000 mg PO Q6H PRN Pain 07/30/22 08/08/22 History amiodarone 200 mg tablet 200 mg PO QPM 07/30/22 08/08/22 History diphenhydramine 25 1 tab PO HS 07/30/22 08/08/22 History mg-acetaminophen 500 mg tablet (Acetaminophen PM) meloxicam 7.5 mg tablet 7.5 mg PO BID #180 tabs 08/07/22 08/08/22 Rx albuterol sulfate 90 mcg/actuation 2 inh inhalation Q4 PRN shortness 08/08/22 08/08/22 History aerosol inhaler of breath or wheezing aspirin 81 mg tablet,delayed 81 mg PO QPM 08/08/22 08/08/22 History release tadalafil 5 mg tablet 5 mg PO DAILY 08/08/22 08/08/22 History Past Med/Surg History Medical History (Updated 08/09/22 @ 08:00 by Saad Frias MD) Abnormal TSH noted 02/2020 due to use of prednisone, repeat labs normal in 03/2020 including TSI Bibasilar crackles Biventricular ICD (implantable cardioverter-defibrillator) in place original placed in 2013, follows with Dr Mcnulty; new one placed 06/2022, [facility] BPH with obstruction/lower urinary tract symptoms CAD (coronary artery disease) Chronic systolic congestive heart failure Dyspnea on exertion HTN (hypertension) Hx of gastric ulcer Hypercholesteremia Idiopathic interstitial pneumonia Interstitial lung disease Left bundle branch block Non-ischemic cardiomyopathy (04/14/14) Osteoarthritis Paroxysmal atrial fibrillation Pneumothorax on left ~2013. chest tube drain placed and treated inpatient. Rib fractures hx Surgical History History of arthroscopy of knee right History of colonoscopy History of esophagogastroduodenoscopy (EGD) History of eye surgery at age 4 - right eye surgery History of inguinal hernia repair x 2 Hx of eye surgery age 4 Family History Father Emphysema, unspecified Mother Urinary bladder cancer Brother Prediabetes Denies family history of Ovarian cancer Prostate cancer Myocardial infarction Breast cancer Colorectal cancer Social History Smoking Status: Never smoker Second Hand Exposure: No; Do You Dip or Chew Tobacco: No; Tobacco Cessation Education Requested by Patient: No Hx Alcohol Use: No Hx Substance Use: No Preferred Language: Greek Communication Ability: Effective Visual Impairment: No Limitations Hearing Ability: Normal Automobile Body Repair Chief Required: No Beliefs That Will Affect Care: None marital status: Current Living Situation: Spouse current occupational status: retired 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 How many Children do You have: 2 Other Information That Helps Us Care for You: No Feels Safe at Home: Yes Safety Concerns: Feels Safe At This Time Childhood Exposure to Second-Hand Smoke: No Dental Care, Regularly: No Physical Activity Frequency: Daily Seatbelt Use: always Sunscreen Use: No Assistive Devices: None Review of Systems Review of Systems: All systems reviewed & are unremarkable except as noted in HPI & below Physical Exam Physical Exam: General: A&Ox3. NAD. Cooperative. HEENT: Atraumatic, normocephalic. Pulm: Bibasilar rales without wheezes/rhonchi. Symmetrical chest rise. No increase work of breathing. No respiratory distress. Cardiac: RRR, -mrg. Radial pulses intact and symmetrical. No LE edema. Chest: no increase in chest pain with palpation of chest wall Abdominal: soft, non-tender, non-distended, BS x 4 Skin: warm, dry, no rash Results & Data Results & Data ([facility]) Vital Signs (Past 12 Hours) Vital Signs Temp Pulse Pulse Resp BP BP Pulse Ox 08/08/22 21:54 87 19 102/65 96 08/08/22 19:19 89 L 08/08/22 18:39 08/08/22 18:36 36.8 C 76 18 93/55 L 92 O2 Del Method O2 Flow Rate 08/08/22 21:54 Nasal Cannula 2 08/08/22 19:19 Room Air 08/08/22 18:39 Room Air 08/08/22 18:36 Room Air Supervising Physician Co-Signing Physician Notes Pt seen and examined in concert with . Agree with the documented findings as noted in the resident documentation in both the history and the Physical eaxma and discussed with him the overall plan in detail. Resident Activity Tracking Resident Involvement: Resident Care Provided Care Provided: Adult Hospital Medicine (1) Pneumothorax Pneumothorax type: other pneumothorax Qualified Code(s): J93.83 - Other pneumothorax
[2022-08-09] MEDS ORDERED: ACETAMINOPHEN 1,000 MG/100 ML VIAL IV PRN (00:47)
[2022-08-09] MEDS ORDERED: RAMIPRIL 2.5 MG PO SCH (00:47)
[2022-08-09] MEDS ORDERED: GABAPENTIN 400 MG CAP PO PRN (00:47)
[2022-08-09] MEDS ORDERED: ALBUTEROL 0.083% NEBU SOLN 3 ML VIAL NEB PRN (00:47)
[2022-08-09] MEDS ORDERED: COUGH DROP (SUGAR FREE) LOZ 24 LOZ/1 BOX BUCCAL STA (02:10)
--- NOTE | 2022-08-09 06:45 | Hospitalist Progress Note ---
Date of Service August 09, 2022 Assessment & Plan (1) Pneumothorax: Plan: 72 year old male w/ PmHx of significant for interstitial lung disease (diagnosed in 06/2022), idiopathic dilated cardiomyopathy, chronic HFrEF (last TTE in 03/2021 with EF 30-35%, s/p ICD/PPM), paroxysmal a-fib (on Amiodarone and Carvedilol, no AC), HTN and BPH admitted for acute hypoxic respiratory failure and pneumothorax. Acute Hypoxic Respiratory Failure/Pneumothorax: -CTA demonstrating trace R apical and basilar pneumothorax, not visible on repeat CXR. Appreciate pulmonary recommendations, should resolve on own, nothing over 5lbs next 2 weeks. ILD: -Follows with pulmonology, possibly side effect of amiodarone use. Per pulmonology, start prednisone 40mg 10 days, empirically treat w/ cefdinir and doxy for 7 days; serologic workup negative, Riya 1 antibody pending. Stopped amiodarone. Paroxysmal atrial fibrillation: -Rate controlled, amiodarone stopped in setting of possible amiodarone induced lung injury. Cardiology consulted, stop amiodarone and continue carvedilol, follow up outpatient. Chronic systolic CHF: -TTE w/ EF 35-40%, moderate global hypokinesis. Per cardiology may be a good candidate for spironolactone or SGLT2 inhibitor. Trend I&O's, daily weights. CAD: -Non-obstructive. Continue home baby ASA. Hypertension: -Normotensive. Continue home Carvedilol and Ramipril QOD. Hyperlipidemia: Continue home Atorvastatin BPH: Continue home Tadalafil FEN/GI: NPO DVT Prophylaxis: SCDs, can add chemoprophylaxis if staying tomorrow. Code Status: DNR/DNI Disposition: med/tele. (2) Interstitial lung disease: (3) Paroxysmal atrial fibrillation: (4) Chronic systolic congestive heart failure: (5) CAD (coronary artery disease): (6) HTN (hypertension): (7) Hypercholesteremia: (8) BPH (benign prostatic hyperplasia): Admission and Anticipated Discharge Date Admission Date: August 08, 2022 Supervising Physician Co-Signing Physician Notes Attending attestation Pt seen and examined in concert with Dr. Omer. In agreement with the documented findings as noted in the resident documentation with any exceptions or additions as noted here. Gradual improvement in subjective respiratory complaint without fever, chills, chest pain. VS, nursing notes reviewed. On examination, S1/S2 nl RRR no MCG. CTAB. Abd NT/ND BS+ve Acute hypoxic respiratory failure - O2 per protocol, treatment of inciting factors below. ILD with interstitial PNA - pulm consultation - empiric abx therapy with doxy and cefdinir. 10 day pred burst to start today. d/c amiodarone after d/w cardiology Paroxysmal atrial fibrillation - cardiology consult - agree w/ intention to d/c amiodarone if available options for appropriate control. Contniue carvediol. Moderate-high risk for PE, so would advise re: AC unless contraindicated. Pneumothorax - monitor to resolution Else see resident documentation as noted. Subjective Patient seen at the bedside this morning saying he came in to the hospital due to right sided chest pain that developed last night. He states he usually has a degree of shortness of breath due to his lung condition. Denies any current chest pain, worsening shortness of breath, fevers, chills. Review of Systems Review of Systems: As per HPI. Physical Exam Constitutional: WD/WN, vitals as above Eyes: PERRL, conjunctivae normal, anicteric sclerae Respiratory: Bilateral bibasilar crackles, clear to auscultation elsewhere. Cardiovascular: RRR, no murmur, no edema Gastrointestinal (Abdomen): normal bowel sounds, soft, nontender, no hepatosplenomegaly Psychiatric: A+Ox3, euthymic affect Results & Data Results & Data ([facility]) Vital Signs (Past 12 Hours) Vital Signs Temp Pulse Pulse Resp BP Pulse Ox Pulse Ox 08/09/22 04:14 77 08/09/22 03:55 36.3 C L 77 18 136/77 96 08/09/22 03:55 08/09/22 00:38 08/09/22 01:00 74 22 118/70 99 08/09/22 00:47 99 08/08/22 23:30 36.6 C 77 18 127/86 98 08/08/22 21:54 87 19 102/65 96 08/08/22 19:19 89 L O2 Del Method O2 Del Method O2 Flow Rate O2 Flow Rate 08/09/22 04:14 08/09/22 03:55 Nasal Cannula 2 08/09/22 03:55 Nasal Cannula 2 08/09/22 00:38 Nasal Cannula 2 08/09/22 01:00 Nasal Cannula 2 08/09/22 00:47 Nasal Cannula 2 08/08/22 23:30 Room Air 08/08/22 21:54 Nasal Cannula 2 08/08/22 19:19 Room Air Resident Activity Tracking Resident Involvement: Resident Care Provided Care Provided: Adult Hospital Medicine (1) Pneumothorax Pneumothorax type: other pneumothorax Qualified Code(s): J93.83 - Other pneumothorax
--- NOTE | 2022-08-09 08:04 | Pulmonary Consultation ---
Date of Consultation August 09, 2022 Assessment & Plan (1) Idiopathic interstitial pneumonia: Possible [employer] from amio induced lung injury. D/c amio. Start prednisone at 40 mg for 10 days. Stop amio. Consult cards for a fib. Empirically treat with cefdinir and doxy for 7 days. Bronchoscopy results nonspecific. Mixed inflammation noted on cell counts. Biopsy results do not reveal granulomas. Multiple giant nucleated cells seen possibly related to ILD. Serologic work-up for ILD essentially unremarkable. Riya 1 antibody pending. (2) Pneumothorax: Tiny. Will resolve without intervention. Repeat cxr today. Avoid lifting over 5 lbs next two weeks. Avoid over strenuous activity next month. Pneumothorax type: other pneumothorax Qualified Code(s): J93.83 - Other pneumothorax (3) Paroxysmal atrial fibrillation: cards consult (4) On amiodarone therapy: Discontinue due to lung injury Plan Okay for discharge home tomorrow. History of Present Illness Reason for Consultation: Pneumothorax and ILD Attending Physician: Asher Perez MD History of Present Illness 72-year-old male with a history of an abnormal CT chest recently underwent bronchoscopy and had a small iatrogenic pneumothorax. He is chronically on amiodarone for atrial fibrillation. Presents for increasing shortness of breath and chest pain. Found to have a small pneumo on CT chest. Vital signs otherwise stable. Saturating well with supplemental nasal cannula. No other acute concerns. Chest pain has largely resolved. Allergies Allergy/AdvReac Type Severity Reaction Status Date / Time morphine Allergy Unknown Difficulty Verified 08/08/22 20:26 Breathing Home Medications Medication Instructions Recorded Confirmed Type abrdxarrsgrk-flc-ytjxj acid-vit 1 tab PO QPM 03/21/20 08/08/22 History K-lycop 400 mcg-20 mcg-370 mcg tablet (One-A-Day Men's 50 Plus) cholecalciferol (vitamin D3) 50 2,000 unit PO QPM 04/13/21 08/08/22 History mcg (2,000 unit) capsule ramipril 2.5 mg capsule 2.5 mg PO Q2D 10/24/21 08/08/22 History cholecalciferol (vitamin D3) 25 25 mcg PO QAM 05/06/22 08/08/22 History mcg (1,000 unit) capsule gabapentin 400 mg capsule 400 mg PO TID PRN Pain #270 caps 05/13/22 08/08/22 Rx atorvastatin 10 mg tablet 10 mg PO QPM #90 tabs 06/13/22 08/08/22 Rx carvedilol 12.5 mg tablet 12.5 mg PO BID #180 tabs 06/13/22 08/08/22 Rx acetaminophen 500 mg tablet 1,000 mg PO Q6H PRN Pain 07/30/22 08/08/22 History amiodarone 200 mg tablet 200 mg PO QPM 07/30/22 08/08/22 History diphenhydramine 25 1 tab PO HS 07/30/22 08/08/22 History mg-acetaminophen 500 mg tablet (Acetaminophen PM) meloxicam 7.5 mg tablet 7.5 mg PO BID #180 tabs 08/07/22 08/08/22 Rx albuterol sulfate 90 mcg/actuation 2 inh inhalation Q4 PRN shortness 08/08/22 08/08/22 History aerosol inhaler of breath or wheezing aspirin 81 mg tablet,delayed 81 mg PO QPM 08/08/22 08/08/22 History release tadalafil 5 mg tablet 5 mg PO DAILY 08/08/22 08/08/22 History Patient History Medical History (Updated 08/09/22 @ 08:00 by Saad Frias MD) Abnormal TSH noted 02/2020 due to use of prednisone, repeat labs normal in 03/2020 including TSI Bibasilar crackles Biventricular ICD (implantable cardioverter-defibrillator) in place original placed in 2013, follows with Dr Mcnulty; new one placed 06/2022, [facility] BPH with obstruction/lower urinary tract symptoms CAD (coronary artery disease) Chronic systolic congestive heart failure Dyspnea on exertion HTN (hypertension) Hx of gastric ulcer Hypercholesteremia Idiopathic interstitial pneumonia Interstitial lung disease Left bundle branch block Non-ischemic cardiomyopathy (04/14/14) Osteoarthritis Paroxysmal atrial fibrillation Pneumothorax on left ~2013. chest tube drain placed and treated inpatient. Rib fractures hx Surgical History History of arthroscopy of knee right History of colonoscopy History of esophagogastroduodenoscopy (EGD) History of eye surgery at age 4 - right eye surgery History of inguinal hernia repair x 2 Hx of eye surgery age 4 Family History Father Emphysema, unspecified Mother Urinary bladder cancer Brother Prediabetes Denies family history of Ovarian cancer Prostate cancer Myocardial infarction Breast cancer Colorectal cancer Social History Smoking Status: Never smoker Second Hand Exposure: No; Do You Dip or Chew Tobacco: No; Tobacco Cessation Education Requested by Patient: No Hx Alcohol Use: No Hx Substance Use: No Preferred Language: Hebrew Communication Ability: Effective Visual Impairment: No Limitations Hearing Ability: Normal Blow Down Operator Required: No Beliefs That Will Affect Care: None marital status: Current Living Situation: Spouse current occupational status: retired 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 How many Children do You have: 2 Other Information That Helps Us Care for You: No Feels Safe at Home: Yes Safety Concerns: Feels Safe At This Time Childhood Exposure to Second-Hand Smoke: No Dental Care, Regularly: No Physical Activity Frequency: Daily Seatbelt Use: always Sunscreen Use: No Assistive Devices: None Review of Systems Review of Systems: All systems reviewed & are unremarkable except as noted in HPI & below Physical Exam Physical Exam: Constitutional: Patient appears to be of their stated age. Patient is in no apparent distress. Patient is well-developed. Eyes: Pupils are equal round and reactive to light. Conjunctivae are normal. Anicteric sclera. Ears nose, mouth and throat: Deferred Neck: Trachea is midline. Visual inspection is normal. Respiratory: Fine Velcro crackles noted bilaterally. No increased work of breathing. Cardiovascular: Regular rate and rhythm. No murmurs. No edema. Gastrointestinal: Normal bowel sounds, soft, nontender and nondistended. No hepatosplenomegaly noted. Musculoskeletal: No cyanosis. Patient is able to move all extremities. Strength is 5 out of 5 in the upper and lower extremities. Skin: No rashes, warm dry and intact. Neurologic: No obvious focal neurological deficits seen. Psychiatric: Alert and oriented x3 with a euthymic affect. Results & Data Results & Data ([facility]) Vital Signs (Past 12 Hours) Vital Signs Temp Pulse Pulse Resp BP Pulse Ox Pulse Ox 08/09/22 07:54 36.4 C L 84 18 122/69 91 08/09/22 04:14 77 08/09/22 03:55 36.3 C L 77 18 136/77 96 08/09/22 03:55 08/09/22 00:38 08/09/22 01:00 74 22 118/70 99 08/09/22 00:47 99 08/08/22 23:30 36.6 C 77 18 127/86 98 08/08/22 21:54 87 19 102/65 96 O2 Del Method O2 Del Method O2 Flow Rate O2 Flow Rate 08/09/22 07:54 Nasal Cannula 2 08/09/22 04:14 08/09/22 03:55 Nasal Cannula 2 08/09/22 03:55 Nasal Cannula 2 08/09/22 00:38 Nasal Cannula 2 08/09/22 01:00 Nasal Cannula 2 08/09/22 00:47 Nasal Cannula 2 08/08/22 23:30 Room Air 08/08/22 21:54 Nasal Cannula 2 PG Care Time/CCT Total # of Minutes Spent Total Time Spent with Patient: Total time spent is greater than 50% in coordination of care (as documented) at patient's floor/unit and/or counseling patient: Coding Level of Care Code 30749 Initial Inpt Care Lvl 2 Diagnoses Idiopathic interstitial pneumonia J84.111 Pneumothorax J93.83 Pneumothorax type: other pneumothorax Paroxysmal atrial fibrillation I48.0 On amiodarone therapy Z79.899
--- NOTE | 2022-08-09 08:31 | XCELERA ---
[id number]
[2022-08-09] MEDS ORDERED: ENALAPRIL MALEATE 10 MG TAB PO SCH (09:00)
--- NOTE | 2022-08-09 09:24 | XRay Report ---
TWO VIEW CHEST CLINICAL HISTORY: Follow-up pneumothorax. FINDINGS: PA and lateral chest radiographs are compared to chest x-ray and chest CT dated 08/08/2022. A 3-lead cardiac AICD is unchanged in position and partially obscures the left lower chest. The hea rt is enlarged noting atherosclerotic calcification of the thoracic aorta. The pulmonary vasculature is noncongested. Bibasilar opacities and trace pleural effusions are similar previous. No pneumothora x is seen by x-ray. The skeletal structures are osteopenic. The bony thorax is grossly intact. IMPRESSION: 1. Cardiomegaly and AICD without radiographic evidence of congestive failure. 2. Bibasilar opacities and trace pleural effusions are similar to previous. 3. The trace right pneumothorax seen by CT is not apparent on x-ray. ACT 112: Negative or not required by law. Electronically signed by: Anders Gaspar M.D. 08/09/2022 9:23 AM
[2022-08-09] MEDS: CEFDINIR 300 MG CAP PO SCH ×2 (09:25→21:10)
[2022-08-09] MEDS: DOXYCYCLINE HYCLATE 100 MG CAP PO SCH ×2 (09:25→21:09)
[2022-08-09] MEDS: carvediloL 12.5 MG TAB PO SCH ×2 (09:26→21:10)
[2022-08-09] MEDS: predniSONE 20 MG TAB PO SCH (09:27)
--- NOTE | 2022-08-09 12:56 | Electrocardiogram Report ---
Test Reason : Blood Pressure : / mmHG Vent. Rate : 082 BPM Atrial Rate : 082 BPM P-R Int : 176 ms QRS Dur : 164 ms QT Int : 470 ms P-R-T Axes : 000 -12 205 degrees QTc Int : 549 ms AV dual-paced rhythm Abnormal ECG When compared with ECG of 07-AUG-2022 12:12, Vent. rate has increased BY 7 BPM Confirmed by Barry Liang ([id number]) on 08/09/2022 12:55:41 PM Referred By: REFERRED SELF Confirmed By:Giovanny Liang
--- NOTE | 2022-08-09 17:28 | Cardiology Consultation ---
Date of Consultation August 09, 2022 Assessment & Plan (1) Paroxysmal atrial fibrillation: (2) Non-ischemic cardiomyopathy: (3) CAD (coronary artery disease): (4) Left bundle branch block: (5) Biventricular ICD (implantable cardioverter-defibrillator) in place: Plan 1. Initial lung disease: There is some concern that he has experienced pulmonary toxicity from amiodarone. While there is no definitive test in this regard, supportive evidence would be his CT scan and predominant some macrophages on biopsy specimens. It seems that he was started on amiodarone in 2019 after his defibrillator detected several episodes rapid ventricular rates. This is felt to represent one-to-one conduction of an ectopic atrial tachycardia. This arrhythmia peers to have been variably described in his record as an ectopic atrial tachycardia, paroxysmal atrial flutter and/or atrial fibrillation. He has no symptoms of palpitations. More recent device interrogations have not revealed any atrial arrhythmias. He was seem reasonable discontinue the amiodarone and monitor him through his device. He will continue his carvedilol. Recurrent arrhythmias could be treated with alternative antiarrhythmic such as dofetilide or dronedarone. The patient currently has a biventricular ICD in the ultimate treatment would be AV node ablation. 2. Nonischemic cardiomyopathy: Patient currently on carvedilol and low-dose ramipril. He continues to have severely reduced LV systolic function. Intensification of his medical regimen seems to be hampered by relatively low blood pressures. He may be a good candidate for the addition of spironolactone and an SGLT 2 inhibitor. well compensated currently. 3. Normally functioning biventricular ICD 4. Coronary disease: Nonobstructive at the time of evaluation several years ago. Continue aggressive secondary prevention with daily dose of aspirin and atorvastatin History of Present Illness Reason for Consultation: Possible amiodarone toxicity Requesting Physician: Altagracia Attending Physician: Asher Perez MD History of Present Illness The patient is a 72-year-old gentleman with a longstanding history of nonischemic cardiomyopathy, nonobstructive coronary disease, left bundle branch block and prior implantation of a biventricular ICD who recently underwent invasive evaluation for interstitial lung disease. Patient underwent bronchoscopy due to significant changes on high-resolution CT obtained recently. Subsequently the patient had significant chest discomfort and was readmitted to the hospital with diagnosis of pneumonia and pneumothorax. Biopsies taken during his bronchoscopy revealed predominant some macrophages. CT scan was felt to be consistent with drug toxicity. Patient states that he is not severely limited by breathing difficulty. When at ascending stairs or working in cold weather he does have breathing trouble. He can walk on flat surfaces without limitation. He denies chest pain. He has not noticed any palpitations. No dizziness or lightheadedness. No coughing or subjective fevers or chills. Allergies Allergy/AdvReac Type Severity Reaction Status Date / Time morphine Allergy Unknown Difficulty Verified 08/08/22 20:26 Breathing Home Medications Medication Instructions Recorded Confirmed Type [id number] acid-vit 1 tab PO QPM 03/21/20 08/08/22 History K-lycop 400 mcg-20 mcg-370 mcg tablet (One-A-Day Men's 50 Plus) cholecalciferol (vitamin D3) 50 2,000 unit PO QPM 04/13/21 08/08/22 History mcg (2,000 unit) capsule ramipril 2.5 mg capsule 2.5 mg PO Q2D 10/24/21 08/08/22 History cholecalciferol (vitamin D3) 25 25 mcg PO QAM 05/06/22 08/08/22 History mcg (1,000 unit) capsule gabapentin 400 mg capsule 400 mg PO TID PRN Pain #270 caps 05/13/22 08/08/22 Rx atorvastatin 10 mg tablet 10 mg PO QPM #90 tabs 06/13/22 08/08/22 Rx carvedilol 12.5 mg tablet 12.5 mg PO BID #180 tabs 06/13/22 08/08/22 Rx acetaminophen 500 mg tablet 1,000 mg PO Q6H PRN Pain 07/30/22 08/08/22 History amiodarone 200 mg tablet 200 mg PO QPM 07/30/22 08/08/22 History diphenhydramine 25 1 tab PO HS 07/30/22 08/08/22 History mg-acetaminophen 500 mg tablet (Acetaminophen PM) meloxicam 7.5 mg tablet 7.5 mg PO BID #180 tabs 08/07/22 08/08/22 Rx albuterol sulfate 90 mcg/actuation 2 inh inhalation Q4 PRN shortness 08/08/22 08/08/22 History aerosol inhaler of breath or wheezing aspirin 81 mg tablet,delayed 81 mg PO QPM 08/08/22 08/08/22 History release tadalafil 5 mg tablet 5 mg PO DAILY 08/08/22 08/08/22 History Patient History Medical History (Updated 08/09/22 @ 08:00 by Saad Frias MD) Abnormal TSH noted 02/2020 due to use of prednisone, repeat labs normal in 03/2020 including TSI Bibasilar crackles Biventricular ICD (implantable cardioverter-defibrillator) in place original placed in 2013, follows with Dr Mcnulty; new one placed 06/2022, [facility] BPH with obstruction/lower urinary tract symptoms CAD (coronary artery disease) Chronic systolic congestive heart failure Dyspnea on exertion HTN (hypertension) Hx of gastric ulcer Hypercholesteremia Idiopathic interstitial pneumonia Interstitial lung disease Left bundle branch block Non-ischemic cardiomyopathy (04/14/14) Osteoarthritis Paroxysmal atrial fibrillation Pneumothorax on left ~2013. chest tube drain placed and treated inpatient. Rib fractures hx Surgical History History of arthroscopy of knee right History of colonoscopy History of esophagogastroduodenoscopy (EGD) History of eye surgery at age 4 - right eye surgery History of inguinal hernia repair x 2 Hx of eye surgery age 4 Family History Father Emphysema, unspecified Mother Urinary bladder cancer Brother Prediabetes Denies family history of Ovarian cancer Prostate cancer Myocardial infarction Breast cancer Colorectal cancer Social History Smoking Status: Never smoker Second Hand Exposure: No; Do You Dip or Chew Tobacco: No; Tobacco Cessation Education Requested by Patient: No Hx Alcohol Use: No Hx Substance Use: No Preferred Language: Vincentian Communication Ability: Effective Visual Impairment: No Limitations Hearing Ability: Normal Morale Officer Required: No Beliefs That Will Affect Care: None marital status: Current Living Situation: Spouse current occupational status: retired 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 How many Children do You have: 2 Other Information That Helps Us Care for You: No Feels Safe at Home: Yes Safety Concerns: Feels Safe At This Time Childhood Exposure to Second-Hand Smoke: No Dental Care, Regularly: No Physical Activity Frequency: Daily Seatbelt Use: always Sunscreen Use: No Assistive Devices: None Review of Systems Review of Systems: Per HPI Physical Exam Physical Exam: The patient is alert and oriented. Mood and affect appeared normal. He answered all questions appropriately. HEENT: Pupils are equal and reactive to light and accommodation. Extraocular movements are intact. The sclerae are anicteric. Neuro: Cranial nerves intact Lungs: Clear to auscultation bilaterally. Occasional crackle in the right base. Cardiac: Heart demonstrates a regular rate and rhythm. Normal S1 and S2. Holosystolic murmur. Pulses: The patient has palpable radial pulses bilaterally that are equal in intensity Extremities: There was no evidence of hypoperfusion. There is no cyanosis or clubbing. There is no edema. Skin: I did not appreciate any rashes on examination today. Results & Data ([facility]) Vital Signs (Past 12 Hours) Vital Signs Temp Pulse Pulse Resp BP Pulse Ox O2 Del Method 08/09/22 15:56 37.0 C 75 18 108/66 96 Room Air 08/09/22 15:00 77 08/09/22 11:23 36.5 C 81 18 120/68 92 Nasal Cannula 08/09/22 07:15 73 08/09/22 07:15 Nasal Cannula 08/09/22 08:36 36.7 C 78 16 120/71 97 Nasal Cannula 08/09/22 07:54 36.4 C L 84 18 122/69 91 Nasal Cannula O2 Flow Rate 08/09/22 15:56 08/09/22 15:00 08/09/22 11:23 2 08/09/22 07:15 08/09/22 07:15 2 08/09/22 08:36 2 08/09/22 07:54 2 Laboratory Results Abnormal Lab Results 08/08/22 08/08/22 08/08/22 18:48 18:48 18:48 WBC 11.16 H RBC 3.87 L Hgb 12.0 L Hct 36.1 L MCV 93.3 MCH 31.0 MCHC 33.2 RDW Std Deviation 43.7 RDW Coeff of Bull 12.9 Plt Count 220 MPV 9.3 L Immature Gran % (Auto) 0.4 Neut % (Auto) 68.4 Lymph % (Auto) 18.5 Banner % (Auto) 10.6 Eos % (Auto) 1.7 Baso % (Auto) 0.4 Neut # (Auto) 7.63 H Lymph # (Auto) 2.06 Banner # (Auto) 1.18 H Eos # (Auto) 0.19 Baso # (Auto) 0.05 Immature Gran # (Auto) 0.05 H VBG pH VBG pCO2 VBG pO2 VBG HCO3 VBG O2 Saturation VBG Base Excess Sodium 136 Potassium 4.1 Chloride 102 Carbon Dioxide 30 Anion Gap 4 BUN 29 H Creatinine 1.31 Est Cr Clr Drug Dosing 48.6 Est GFR ( Amer) 62.2 Est GFR (Non-Af Amer) 53.6 BUN/Creatinine Ratio 22.1 H Glucose 114 H Calcium 9.2 Total Bilirubin 1.2 H AST 22 ALT 22 Alkaline Phosphatase 106 H Troponin I High Sens 10.5 C-Reactive Protein Total Protein 7.6 Albumin 3.5 Globulin 4.1 H Albumin/Globulin Ratio 0.9 Procalcitonin 0.05 Nasal Screen MRSA (PCR) SARS-CoV-2 (PCR) Influenza Type A (PCR) Influenza Type B (PCR) RSV (RT-PCR) 08/08/22 08/08/22 08/08/22 20:16 20:16 21:13 WBC RBC Hgb Hct MCV MCH MCHC RDW Std Deviation RDW Coeff of Bull Plt Count MPV Immature Gran % (Auto) Neut % (Auto) Lymph % (Auto) Banner % (Auto) Eos % (Auto) Baso % (Auto) Neut # (Auto) Lymph # (Auto) Banner # (Auto) Eos # (Auto) Baso # (Auto) Immature Gran # (Auto) VBG pH 7.32 L VBG pCO2 59 H VBG pO2 26 VBG HCO3 30 VBG O2 Saturation < 60.0 VBG Base Excess 2.8 Sodium Potassium Chloride Carbon Dioxide Anion Gap BUN Creatinine Est Cr Clr Drug Dosing Est GFR ( Amer) Est GFR (Non-Af Amer) BUN/Creatinine Ratio Glucose Calcium Total Bilirubin AST ALT Alkaline Phosphatase Troponin I High Sens C-Reactive Protein 1.67 H Total Protein Albumin Globulin Albumin/Globulin Ratio Procalcitonin Nasal Screen MRSA (PCR) SARS-CoV-2 (PCR) NEGATIVE Influenza Type A (PCR) Negative Influenza Type B (PCR) Negative RSV (RT-PCR) Negative 08/08/22 23:46 WBC RBC Hgb Hct MCV MCH MCHC RDW Std Deviation RDW Coeff of Bull Plt Count MPV Immature Gran % (Auto) Neut % (Auto) Lymph % (Auto) Banner % (Auto) Eos % (Auto) Baso % (Auto) Neut # (Auto) Lymph # (Auto) Banner # (Auto) Eos # (Auto) Baso # (Auto) Immature Gran # (Auto) VBG pH VBG pCO2 VBG pO2 VBG HCO3 VBG O2 Saturation VBG Base Excess Sodium Potassium Chloride Carbon Dioxide Anion Gap BUN Creatinine Est Cr Clr Drug Dosing Est GFR ( Amer) Est GFR (Non-Af Amer) BUN/Creatinine Ratio Glucose Calcium Total Bilirubin AST ALT Alkaline Phosphatase Troponin I High Sens C-Reactive Protein Total Protein Albumin Globulin Albumin/Globulin Ratio Procalcitonin Nasal Screen MRSA (PCR) Negative SARS-CoV-2 (PCR) Influenza Type A (PCR) Influenza Type B (PCR) RSV (RT-PCR) Diagnostic Findings Echocardiogram obtained today revealed moderately reduced LV systolic function with ejection fraction 35-40%. Stage I diastolic dysfunction. Mild aortic regurgitation and moderate to severe mitral regurgitation. PG Care Time/CCT Total # of Minutes Spent Total Time Spent with Patient: Total time spent is greater than 50% in coordination of care (as documented) at patient's floor/unit and/or counseling patient: Coding Level of Care Code 39987 Initial Inpt Care Lvl 3 Diagnoses Paroxysmal atrial fibrillation I48.0 Non-ischemic cardiomyopathy I42.8 CAD (coronary artery disease) I25.10 Left bundle branch block I44.7 Biventricular ICD (implantable cardioverter-defibrillator) in place Z95.810
[2022-08-09] MEDS ORDERED: ATORVASTATIN 10 MG TAB PO SCH (21:00)
[2022-08-09] MEDS ORDERED: ASPIRIN 81 MG ECTAB PO SCH (21:00)
[2022-08-09] MEDS ORDERED: AMIODARONE 200 MG TAB PO SCH (21:00)
[2022-08-10 07:34] LABS: Basophils # (auto) 0.02 K/uL (0-0.2); Basophils % (auto) 0.2 %; Eosinophils # (auto) 0.06 K/uL (0-0.50); Eosinophils % (auto) 0.5 %; Hematocrit (blood only) 34.4 % (40.1-51.0); Hemoglobin 11.7 g/dl (14.0-18.0); Immature Granulocytes # (auto) 0.08 K/uL (0.00-0.02); Immature Granulocytes % (auto) 0.6 %; Mean Corpuscular Hemoglobin 30.9 pg (25.0-34.0); Mean Corpuscular Volume 90.8 fL (80.0-100.0); Mean Platelet Volume 9.7 fL (9.4-12.4); Monocytes # (auto) 1.37 K/uL (0.24-0.82); Monocytes % (auto) 10.4 %; Neutrophils % (auto) 69.3 %; Platelet Count 236 K/uL (130-400); RDW Coefficient of Variation 12.6 % (11.5-14.5); RDW Standard Deviation 41.2 fL (36.4-46.3); Red Blood Count 3.79 M/uL (4.63-6.08); White Blood Count 13.13 K/ul (4.8-10.8)
[2022-08-10 08:05] LABS: BUN Creatinine Ratio 35.2 (10-20); Calcium 9.1 mg/dl (8.5-10.1); Creatinine Clr Calc Pharmacy 69.9 ml/min; Est GFR (African American) 96.6 ml/min; Est GFR (Non-African American) 83.3 ml/min; Potassium 4.2 mmol/L (3.5-5.1)
[2022-08-10] MEDS: carvediloL 12.5 MG TAB PO SCH (08:39)
[2022-08-10] MEDS: CEFDINIR 300 MG CAP PO SCH (08:40)
[2022-08-10] MEDS: DOXYCYCLINE HYCLATE 100 MG CAP PO SCH (08:40)
[2022-08-10] MEDS: predniSONE 20 MG TAB PO SCH (08:40)
--- NOTE | 2022-08-10 12:35 | Pulmonology Progress Note ---
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 D/c amio. Start prednisone at 40 mg for 10 days. Stop amio. Consult cards for a fib. Empirically treat with cefdinir and doxy for 7 days. Bronchoscopy results nonspecific. Mixed inflammation noted on cell counts. Biopsy results do not reveal granulomas. Multiple giant nucleated cells seen possibly related to ILD. Serologic work-up for ILD essentially unremarkable. Riya 1 antibody pending. Will need outpatient follow-up with me. (2) Pneumothorax: Plan: Avoid lifting over 5 lbs next two weeks. Avoid over strenuous activity next month. Pneumothorax type: other pneumothorax Qualified Code(s): J93.83 - Other pneumothorax (3) Paroxysmal atrial fibrillation: Plan: Appreciate cardiology input. (4) On amiodarone therapy: Plan: Discontinued due to lung injury Plan Okay for discharge home. Admission and Anticipated Discharge Date Admission Date: August 08, 2022 Subjective Patient seen and examined. Less pain today. Cough is improved. Minimal shortness of breath at rest. Review of Systems Review of Systems: All systems reviewed & are unremarkable except as noted in HPI & below Physical Exam Physical Exam: Constitutional: Patient appears to be of their stated age. Patient is in no apparent distress. Patient is well-developed. Eyes: Pupils are equal round and reactive to light. Conjunctivae are normal. Anicteric sclera. Ears nose, mouth and throat: Deferred Neck: Trachea is midline. Visual inspection is normal. Respiratory: Fine Velcro crackles noted bilaterally. No increased work of breathing. Cardiovascular: Regular rate and rhythm. No murmurs. No edema. Gastrointestinal: Normal bowel sounds, soft, nontender and nondistended. No hepatosplenomegaly noted. Musculoskeletal: No cyanosis. Patient is able to move all extremities. Strength is 5 out of 5 in the upper and lower extremities. Skin: No rashes, warm dry and intact. Neurologic: No obvious focal neurological deficits seen. Psychiatric: Alert and oriented x3 with a euthymic affect. Results & Data Results & Data ([facility]) Vital Signs (Past 12 Hours) Vital Signs Temp Pulse Resp BP Pulse Ox O2 Del Method O2 Flow Rate 08/10/22 12:24 36.5 C 75 18 106/66 95 08/10/22 11:21 Nasal Cannula 2 08/10/22 11:20 36.5 C 75 18 106/66 95 Room Air 08/10/22 08:07 36.5 C 77 20 121/76 96 Room Air 08/10/22 04:02 36.6 C 76 20 112/67 93 Nasal Cannula 2 PG Care Time/CCT Total # of Minutes Spent Total Time Spent with Patient: Total time spent is greater than 50% in coordination of care (as documented) at patient's floor/unit and/or counseling patient: Coding Level of Care Code 75918 Subseq Hosp Care Lvl 1 Diagnoses Idiopathic interstitial pneumonia J84.111 Pneumothorax J93.83 Pneumothorax type: other pneumothorax Paroxysmal atrial fibrillation I48.0 On amiodarone therapy Z79.899
--- NOTE | 2022-08-10 14:29 | Discharge Summary ---
Date of Service August 10, 2022 Admission HPI Per Admitting Provider Piter Chapman is a 72yo male with PMHx significant for interstitial lung disease (diagnosed in 06/2022), idiopathic dilated cardiomyopathy, chronic HFrEF (last TTE in 03/2021 with EF 30-35%, s/p ICD/PPM), paroxysmal a-fib (on Amiodarone and Carvedilol, no AC), HTN and BPH. Patient presented to [facility] ED on 08/08 for right-sided pleuritic chest pain and shortness of breath following his bronchoscopy done on 08/[address] Frias ([facility]). Of note patient was diagnosed with interstitial lung disease in 06/2022 (largely bibasilar) and had bronchoscopy with biopsies done on 08/07, which are pending. Additionally CB was positive and reflex is pending. Patient denies fever/chills, congestion/cough, N/V, abdominal pain, diarrhea, dysuria or rash. He is a never smoker and denies alcohol/drug use. He is pr oficient in ADLs/iADLs. In the ED the patient was hypoxic to 89% on room air and improved to high 90s on 2L/min nasal cannula. Afebrile and hemodynamically stable. VBG with pH 7.32/pCO2 59, pHCO3 30. WBC 11.16 (neutrophilic predominance and mild L shift). Hgb 12 (from 13.4 on 07/29). COVID-19/flu/RSV negative. CTA chest showing trace right apical and basilar pneumothorax. Also with interstitial/fibrotic lung disease with a lower lobe predominance, similar to the 07/24/[address] Also with enlarged mediastinal and hilar lymph nodes that are nonspecific and likely related to chronic lung disease. In ED patient was given NSS 500cc bolus, Zofran 4mg IV, Fentanyl 50mcg x1, SoluMedrol 125mg IV, and Albuterol nebs. Was also given Levofloxacin 750mg IV, blood cx taken before initiation of abx. Pulmonary was consulted by ED provider and did not recommend chest tube or urgent intervention for trace PTX. Principal Diagnosis Interstitial lung disease secondary to amiodarone Discharge Exam Constitutional WD/WN, vitals as above Eyes + anicteric sclerae Neck trachea midline, no thyromegaly Respiratory normal respiratory effort; no respiratory distress Auscultation: lungs clear to auscultation bilaterally Cardiovascular RRR, no murmur, no edema Chest (Breasts) Chest: + pacemaker Gastrointestinal (Abdomen) Percussion/Palpation: abdomen soft; abdomen nontender Musculoskeletal Head/Neck/Chest: head atraumatic Skin no rashes, warm and dry Neurologic moves all extremities Psychiatric A+Ox3, euthymic affect Discharge Data Allergies Allergy/AdvReac Type Severity Reaction Status Date / Time morphine Allergy Unknown Difficulty Verified 08/08/22 20:26 Breathing Consultations 08/08/22 21:18 Consult Pulmonology Routine 08/08/22 21:41 ED Decision to Admit Stat 08/09/22 07:55 Consult Cardiology Routine Ordered Studies 08/08/22 18:56 CT angio chest PE protocol Stat Hospital Course (1) Pneumothorax: 72 year old male w/ PmHx of significant for interstitial lung disease (diagnosed in 06/2022), idiopathic dilated cardiomyopathy, chronic HFrEF (last TTE in 03/2021 with EF 30-35%, s/p ICD/PPM), paroxysmal a-fib (on Amiodarone and Carvedilol, no AC), HTN and BPH admitted for acute hypoxic respiratory failure and pneumothorax. Acute Hypoxic Respiratory Failure/Pneumothorax: -CTA demonstrating trace R apical and basilar pneumothorax, not visible on repeat CXR. Appreciate pulmonary recommendations, should resolve on own, nothing over 5lbs next 2 weeks. ILD: -Follows with pulmonology, possibly side effect of amiodarone use. Per pulmonology, start prednisone 40mg 10 days, empirically treat w/ cefdinir and doxy for 7 days; serologic workup negative, Riya 1 antibody pending. Stopped amiodarone. Meds sent to pharmacy. Paroxysmal atrial fibrillation: -Rate controlled, amiodarone stopped in setting of possible amiodarone induced lung injury. Cardiology consulted, stop amiodarone and continue carvedilol, follow up outpatient. Chronic systolic CHF: -TTE w/ EF 35-40%, moderate global hypokinesis. Per cardiology may be a good candidate for spironolactone or SGLT2 inhibitor. CAD: -Non-obstructive. Continue home baby ASA. Hypertension: -Normotensive. Continue home Carvedilol and Ramipril QOD. Hyperlipidemia: Continue home Atorvastatin BPH: Continue home Tadalafil FEN/GI: Regular Code Status: DNR/DNI Disposition: D/C home (2) Interstitial lung disease: (3) Paroxysmal atrial fibrillation: (4) Chronic systolic congestive heart failure: (5) CAD (coronary artery disease): (6) HTN (hypertension): (7) Hypercholesteremia: (8) BPH (benign prostatic hyperplasia): Total Time Total Time Spent Total Time Spent (In Minutes): 30 Discharge Plan Discharge Items Patient Disposition: Home - Self-Care Reason For Visit: TRACE RIGHT PNEUMOTHORAX, HYPOXIA Discharge Diagnosis: Pneumothorax Condition on Discharge: Good Activity: Per Instructions section Non-emergency contact: Primary Care Provider, Remedial Reading Teacher and Filler Shredder Machine Call non-emergency contact if: your symptoms worsen, your pain is worsening and your temperature is above 101 Follow-up/Referrals: Kavin Mcnulty MD [Physician] - (next appt. is scheduled for 09/27/2022 *please call if sooner appt. is indicated) Shankar Aguirre III, CRNP [Primary Care Provider] - (*call to schedule for 1 week follow up next scheduled appt is 11/18/2022) Saad Frias MD [Physician] - (next appt. 08/26/2022 *please call if sooner appointment is indicated.) Diet: Regular Addtl Attending Provider Instructions: A discharge summary will be sent to your primary care physician to ensure continuity of care. You came into the hospital for right sided chest pain and shortness of breath. On imaging you were found to have air in the space in between your lung and the chest wall, otherwise known as a pneumothorax, as well as some fluid at the bases of your lungs. A repeat chest X-ray was obtained which did not show any worsening of the pneumothorax. The amiodarone you were on was stopped while you were in the hospital and you were started on three new medications to take short term, as listed below. Please be sure to avoid lifting anything over 5lbs over the next two weeks and please avoid strenuous activity over the next month. Follow-up: * You should be seen by your primary physician within the next week. * You should follow up with your all around patternmaker within the next few weeks. * You should follow up with your supervisor machine setter within the next few weeks. Medications: Your medication list has been reviewed and reconciled upon discharge to ensure accuracy and continuity of care. An updated list of all your medications is included with your hospital discharge paperwork. Please review this list close ly, and make note of any changes. * You were started on the steroid medication prednisone while in the hospital. Please continue to take prednisone 40mg daily for another 9 days. * You were started on the antibiotics cefdinir and doxycycline while in the hospital. Please complete the course of antibiotics by taking the Cefdinir 300mg twice a day and Doxycycline 100mg twice a day for 6 more days (7 days total). * Please stop taking your amiodarone and follow up with cardiology outpatient for further medication management. Take your medications as instructed; do not skip a dose of your medicines. Make sure all of your doctors know every medicine you are taking (including qxfu-uny-fkacaws medicines, vitamins, and supplements). let your primary care provider know before taking any new medicines because some of these may interact with your current medications, or may make your symptoms worse. CONTACT YOUR PRIMARY CARE PROVIDER if you experience any of the following: * Fevers or shaking chills * Shortness of breath not relieved by inhalers, fainting * Sudden abdominal distension not relieved by catheterization. * Difficulty following your treatment plan, or difficulty taking medications CALL 911 OR GO TO THE EMERGENCY DEPARTMENT if you experience any of the following: * Sudden, severe abdominal pain or nausea/vomiting * Severe chest pain, or chest pain that radiates (moves) to your jaw or arm * Sudden, severe shortness of breath or difficulty breathing It was was our pleasure taking care of you here at [facility] . Thank you for allowing us to participate in your care. Pending Studies at Discharge: No Stand-Alone Forms: My [facility], Smoking Cessation Medications and DC Order Prescriptions: New doxycycline hyclate 100 mg Capsule 100 mg PO BID 6 Days Qty: 12 0RF prednisone 20 mg Tablet 40 mg PO DAILY 9 Days Qty: 18 0RF cefdinir 300 mg Capsule 300 mg PO BID 6 Days Qty: 12 0RF Continued gabapentin 400 mg capsule 400 mg PO TID PRN (Reason: Pain) Qty: 270 3RF atorvastatin 10 mg tablet 10 mg PO QPM Qty: 90 3RF carvedilol 12.5 mg tablet 12.5 mg PO BID Qty: 180 3RF meloxicam 7.5 mg tablet 7.5 mg PO BID Qty: 180 1RF One-A-Day Men's 50 Plus 400-20-370 mcg tablet 1 tab PO QPM cholecalciferol (vitamin D3) 50 mcg (2,000 unit) capsule 2,000 unit PO QPM cholecalciferol (vitamin D3) 25 mcg (1,000 unit) capsule 25 mcg PO QAM ramipril 2.5 mg capsule 2.5 mg PO Q2D acetaminophen 500 mg Tablet 1,000 mg PO Q6H PRN (Reason: Pain) Label Comments: usually takes 2 tabs every morning and evening. diphenhydramine-acetaminophen [Acetaminophen PM] 25-500 mg Tablet 1 tab PO HS tadalafil 5 mg tablet 5 mg PO DAILY Rx Instructions: take for 10 days ordered 08/06/22 albuterol sulfate 90 mcg/actuation HFA aerosol inhaler 2 inh inhalation Q4 PRN (Reason: shortness of breath or wheezing) aspirin 81 mg Tablet,Delayed Release (Dr/Ec) 81 mg PO QPM Discontinued amiodarone 200 mg tablet 200 mg PO QPM Discharge Orders: Discharge Order (Routine); Ordered 08/10/22 Ordered By: Paul Carlson/Other Patient Handouts: Pneumothorax (Collapsed Lung) Admission Data Admit Date/Time: 08/08/22 22:51 Attending Provider: Asher Perez Admit Provider: Gabe Jeff Primary Care Provider: Shankar Aguirre III Other Providers: Saad Frias ; Chun Viera ; Ced Aparicio ; Kd Mcdermott ; Kavin Mcnulty ; Erick Kowalski ; Josh Yang ; Casa Thomason Jr ; Sd Wright ; Lynn Valle ; Caroline Antonio ; Asher Villanueva ; Barry Liang ; Piter Phillips ; Jovanna Fallon ; Sakina Godoy ; Tomi Easley ; Kyle Ibarra ; Luis M Inman ; Erick Mckeon V. Other Interventions: Discharge Summary Assessment (RN) Last Done: 08/10/22 12:24 Supervising Physician Co-Signing Physician Notes Attending attestation Pt seen and examined in concert with Dr. Rucker. In agreement with the documented findings as noted in the resident documentation with any exceptions or additions as noted here. Ongoing mild nonproductive cough with baseline respiratory status subjectively. VS, nursing notes reviewed. On examination, S1/S2 nl RRR no MCG. CTAB. Abd NT/ND BS+ve Acute hypoxic respiratory failure with interstitial PNA - pulm consult - complete course of cefdinir, doxycycline and prednisone. Riya 1 ab pending. Amiodarone discontinued, see below. Paroxysmal atrial fibrillation HFrEF - would be good candidate for spironolactone or SGLT2i, consider at follow up Else see resident documentation as noted. Total attending physician time spent with this patient's care on the day of disharge: 40 minutes.
== END 2022-08-10 14:10 | disposition home or self-care (01) | DRG 166 ==
LOC: ED 18:19 → EDINP 22:51 → SUATTDRO 22:51 → 2W 08-09 00:47

== ENCOUNTER 2023-08-13 11:01 | Inpatient (IN) ==
[2023-08-13 12:12] LABS: Basophils # (auto) 0.04 K/uL (0.00-0.20); Basophils % (auto) 0.5 %; Eosinophils # (auto) 0.22 K/uL (0.00-0.50); Eosinophils % (auto) 2.5 %; Hematocrit (blood only) 42.3 % (42.0-52.0); Hemoglobin 13.7 g/dl (14.0-18.0); Immature Granulocytes # (auto) 0.04 K/uL (0.01-0.20); Immature Granulocytes % (auto) 0.5 %; Lymphocytes # (auto) 2.77 K/uL (1.20-3.40); Lymphocytes % (auto) 31.7 %; Mean Corpuscular Hemoglobin 30.9 pg (25.0-34.0); Mean Corpuscular Hgb Conc 32.4 g/dL (32.0-36.0); Mean Corpuscular Volume 95.5 fL (80.0-100.0); Monocytes # (auto) 0.95 K/uL (0.11-0.59); Monocytes % (auto) 10.9 %; Neutrophils # (auto) 4.72 K/uL (1.40-6.50); Neutrophils % (auto) 53.9 %; Platelet Count 245 K/uL (130-400); RDW Coefficient of Variation 14.1 % (11.5-14.5); RDW Standard Deviation 48.9 fL (36.4-46.3); Red Blood Count 4.43 M/uL (4.70-6.10); White Blood Count 8.74 K/ul (4.8-10.8)
[2023-08-13 12:27] LABS: Albumin Globulin Ratio 1.1 (0.9-2); Calcium 9.7 mg/dl (8.6-10.3); Creatinine Clr Calc Pharmacy 47.3 ml/min; Est GFR (African American) 63.5 ml/min; Est GFR (Non-African American) 54.8 ml/min; Globulin 3.7 gm/dl (2.5-4.0); Potassium 4.4 mmol/L (3.5-5.1); Total Protein 7.7 gm/dl (6.0-8.3)
--- NOTE | 2023-08-13 12:31 | XRay Report ---
XR chest 1V not portable CLINICAL HISTORY: Shortness of breath. COMPARISON STUDY: Chest CT November 27, 2022. Chest radiograph August 12, 2023. FINDINGS: Left subclavian pacer/ICD is in place. Cardiomegaly is unchanged. No pneumothorax or pleura l effusion is present. Lower lung interstitial thickening and opacities are similar to prior exam. Pu lmonary vascularity is within normal limits. The appearance of the chest is unchanged. IMPRESSION: 1. No significant change in appearance of chest. Lower lung interstitial thickening and opacities whi ch are probably chronic. No superimposed consolidation. 2. Cardiomegaly. No evidence for pulmonary edema. ACT 112: Negative or not required by law. Electronically signed by: Tony Beaver M.D. 08/13/2023 12:30 PM
[2023-08-13] MEDS ORDERED: OPTIRAY 320 500ml IV ONE (13:26)
--- NOTE | 2023-08-13 13:55 | CT Scan Report ---
CT SCAN OF THE ABDOMEN AND PELVIS WITH IV CONTRAST CLINICAL HISTORY: Generalized abdominal pain. COMPARISON STUDY: Renal ultrasound dated 01/01/2021. TECHNIQUE: Following the IV administration of 90 cc of Optiray 320, CT scan of the abdomen and pelvi s is performed from the lung bases to the proximal femora. Images are reviewed in the axial, sagittal , and coronal planes. IV contrast was administered without complication. A dose lowering technique wa s utilized adhering to the principles of ALARA. CT DOSE: 837.74 mGy.cm FINDINGS: Lung bases: The heart is markedly enlarged and without pericardial effusion. Pacemaker leads are in p lace. There are [id number] pleural effusions with dependent consolidation. Intralobular septal thickening is seen at both lung bases. Liver: The contrast-enhanced liver is enlarged, measuring 19.8 cm in length. Attenuation is heterogen eous. Nodularity of the hepatic surface contour suggest morphologic changes of cirrhosis. There is no intrahepatic biliary ductal dilatation. The main portal vein appears patent. There are small calcifi ed hepatic granulomas. Gallbladder: Gallstones are noted. The gallbladder is distended, and the wall is thickened/edematous. There is pericholecystic infiltration and fluid. Findings are suspicious for acute cholecystitis. Spleen: The spleen is mildly enlarged, measuring 13.3 cm in length. Pancreas: Unremarkable. Adrenal glands: Unremarkable. Kidneys: The contrast enhanced kidneys are normal in size and without hydronephrosis. The kidneys enh ance symmetrically. A 4.7 cm exophytic cyst arises from the right kidney. Abdominal vasculature: The abdominal aorta is normal in course and caliber noting moderate atheroscle rotic calcification. Bowel: There is no bowel obstruction. The appendix is well-visualized and normal. Peritoneum: No intraperitoneal free air is identified. There is a small volume of perihepatic and per isplenic ascites. Ascitic fluid is also seen in the pelvis. There is a fat-containing umbilical herni a. Lymphadenopathy: None. Pelvic viscera: The prostate gland is enlarged and heterogeneous. The bladder wall is thickened and t rabeculated indicating chronic outlet obstruction. There is pericystic inflammation. Skeletal structures: The skeletal structures are osteopenic. No lytic or blastic lesions are seen. Th ere is mild to moderate lumbosacral spondylosis. IMPRESSION: 1. Marked cardiomegaly and cardiac pacemaker with evidence of congestive failure. 2. Small to moderate pleural effusions with dependent consolidation. 3. The liver is enlarged, heterogeneous, and with morphologic change of cirrhosis. 4. There are calcified gallstones, and the gallbladder is distended. The gallbladder wall is thickene d and edematous with pericholecystic infiltration and fluid. Although these findings could be related to adjacent hepatocellular disease and fluid overload, acute cholecystitis is not excluded. Clinical correlation will be required. If warranted a nuclear hepatobiliary scan could be considered for furt her assessment. 5. Small volume abdominopelvic ascites. 6. Mild splenomegaly. 7. Prostatomegaly with evidence of chronic bladder outlet obstruction. There is pericystic infiltrati on. Correlate with clinical findings and urinalysis. 8. Additional findings as above. ACT 112: Negative or not required by law. Electronically signed by: Anders Gaspar M.D. 08/13/2023 1:54 PM
--- NOTE | 2023-08-13 14:31 | Emergency Department Note ---
Impression & Plan Abdominal pain ED Provider Note HISTORY OF PRESENT ILLNESS: Patient is a 73-year-old male presenting with lower abdominal pain. Patient reports that he started having lower abdominal pain the last few days. States the pain initially was generalized on his abdomen but seems to have localized in his right upper and lower quadrants and across his lower abdomen over the last 24 hours. He reports that the pain was significantly worse last night when he was lying on his side. He denies any abdominal surgical history. Denies any fevers. Denies any nausea, vomiting or diarrhea. He denies any chest pain. He reports he has been having a cough and shortness of breath over the last few days. He denies any changes in bowel habits. He states that in the last week he has had subjective fevers and chills ROS: as above PHYSICAL EXAM: Constitutional: Patient appears in no acute distress. HENT: Head: Normocephalic and atraumatic. Eyes: EOMI, PERRL Mouth/Throat: Mucous membranes moist. Neck: Trachea midline. Neck supple. Cardiovascular: RRR, No murmurs, rubs or gallops. Intact distal pulses. Pulmonary/Chest: No respiratory distress. Breath sounds clear and equal bilaterally. No wheezes or rales. Abdominal: Abdomen soft, no rebound or guarding. Generalized tenderness to palpation Musculoskeletal: No edema, tenderness or deformity noted. Skin: Warm and dry. No rash, erythema, pallor or cyanosis Psychiatric: Appropriate mood and affect for situation. Neurological: Alert and keenly responsive. CN II-XII grossly intact, moving all extremities equally and fully. MDM: - Vitals signs showed tachycardia - History obtained via patient. Patient presents with lower abdominal pain. Patient reports started having lower abdominal pain in the last few days. Pain was initially generalized to his abdomen but seems to be localized to his right lower and upper quadrants and across his lower abdomen. Reports pain was significantly worse last night while he was lying on his side. Denies any history of abdominal surgeries. Denies any measured fevers at home, but reports in the last week he has had subjective fevers and chills - Chronic conditions affecting care: paroxysmal Afib; HTN; CAD; HLD - Differential diagnoses include, but are not limited to: appendicitis; cholecystitis; viral syndrome; diverticulitis; colitis; dehydration; electrolyte abnormality - Order placed for continuous cardiac monitoring. At this time, monitor showed rate of 85 bpm with normal sinus rhythm, per my interpretation. - External medical records reviewed. - Laboratory workup interpreted by myself showed normal WBC; stable electrolytes; elevated bilirubin (2.0); normal lipase - CXR negative for pneumonia, per my interpretation. - COVID/flu/RSV negative - CT abdomen/pelvis with IV contrast showed small to moderate pleural effusions, cirrhosis, also noted to have a gallbladder that is distended with calcified gallstones with some pericholecystic infiltration and fluid. Differential includes related to adjacent hepatocellular disease and fluid overload versus acute cholecystitis. - Patient offered pain meds in ER but declined. - US RUQ showed findings consistent with US. Bravo's sign equivocal. - On reassessment, patient reports pain is worse after his ultrasound. He does not want pain medication at this time. - HIDA scan was ordered, but cannot be obtained until morning. - Discussed case with surgeon director of teacher education, Dr. Gibson. He reviewed the images and patient's past medical history and recommended admission to medicine. Recommended that HIDA scan be obtained and cardiac clearance for surgery be performed by the inpatient medicine team. Reports that his PA-C will evaluate in evening. Requests zosyn be ordered. - IV zosyn ordered. - Discussion was had with neonatal intensive care unit nurse about patient's case and need for admission - Hospitalist, Dr. Hinkle, consulted for admission - Patient admitted to [facility] hospitalist service for further evaluation and management. ASSESSMENT AND PLAN: Diagnosis: abdominal pain Plan: admit Past Med/Surg History Medical History Defibrillator discharge Sustained ventricular tachycardia NSVT (nonsustained ventricular tachycardia) Pneumothorax Community acquired pneumonia Idiopathic interstitial pneumonia Hypotension Presence of combination internal cardiac defibrillator (ICD) and pacemaker Paroxysmal atrial fibrillation Idiopathic interstitial pneumonia Interstitial lung disease Dyspnea on exertion Bibasilar crackles Hx of gastric ulcer BPH with obstruction/lower urinary tract symptoms Abnormal TSH Biventricular ICD (implantable cardioverter-defibrillator) in place Chronic systolic congestive heart failure Left bundle branch block Osteoarthritis Rib fractures Pneumothorax on left HTN (hypertension) Hypercholesteremia CAD (coronary artery disease) Non-ischemic cardiomyopathy (04/14/14) Surgical History Hx of eye surgery History of esophagogastroduodenoscopy (EGD) History of colonoscopy History of inguinal hernia repair History of arthroscopy of knee History of eye surgery Family History Father Emphysema, unspecified Mother Urinary bladder cancer Brother Prediabetes Denies family history of Ovarian cancer Prostate cancer Myocardial infarction Breast cancer Colorectal cancer Social History Smoking Status: Never smoker Second Hand Exposure: Yes (father smoked); Do You Dip or Chew Tobacco: No; Hx Alcohol Use: No Hx Substance Use: No Preferred Language: Bulgarian Communication Ability: Effective Visual Impairment: No Limitations Hearing Ability: Normal Timber Framer Required: No Beliefs That Will Affect Care: None marital status: Current Living Situation: Spouse current occupational status: retired current occupation: Retired [employer]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 How many Children do You have: 2 Feels Safe at Home: Yes Childhood Exposure to Second-Hand Smoke: No Diet: regular Dental Care, Regularly: No Physical Activity Frequency: Daily Seatbelt Use: always Sunscreen Use: No Assistive Devices: Denture - Upper, Denture - Lower and Glasses Allergies Allergies Allergy/AdvReac Type Severity Reaction Status Date / Time morphine Allergy Unknown Difficulty Verified 08/13/23 10:26 Breathing mycophenolate mofetil AdvReac Intermediate Dizziness Verified 08/13/23 10:26 Home Meds Home Medications Medication Instructions Recorded Confirmed [id number]-ydj-tyeyt acid-vit 1 tab PO QPM 03/21/20 08/13/23 K-lycop 400 mcg-20 mcg-370 mcg tablet (One-A-Day Men's 50 Plus (with vitamin K)) acetaminophen 500 mg tablet 1,000 mg PO Q6H PRN Pain 07/30/22 08/13/23 aspirin 81 mg tablet,delayed 81 mg PO QPM 08/08/22 08/13/23 release cholecalciferol (vitamin D3) 25 25 mcg PO QPM 03/05/23 08/13/23 mcg (1,000 unit) capsule cholecalciferol (vitamin D3) 50 50 mcg PO QAM 03/05/23 08/13/23 mcg (2,000 unit) capsule tadalafil 5 mg tablet 5 mg PO QPM 06/17/23 08/13/23 ferrous sulfate 325 mg (65 mg 325 mg PO DAILY 06/25/23 08/13/23 iron) tablet Previous Rx's Medication Instructions Recorded albuterol sulfate 90 mcg/actuation 2 inh inhalation Q4 PRN shortness 01/20/23 aerosol inhaler of breath or wheezing #3 Inhalers gabapentin 400 mg capsule 400 mg PO TID PRN Pain #270 caps 04/21/23 atorvastatin 10 mg tablet 10 mg PO QPM #90 tabs 06/18/23 metoprolol succinate 25 mg 25 mg PO DAILY #90 tabs 06/25/23 tablet,extended release 24 hr clarithromycin 500 mg tablet 500 mg PO BID #28 tabs 06/30/23 metronidazole 500 mg tablet 500 mg PO TID #42 tabs 06/30/23 meloxicam 7.5 mg tablet 7.5 mg PO BID #180 tabs 07/01/23 pantoprazole 40 mg tablet,delayed See Rx Instructions .Route 07/30/23 release .COMPLEX #60 tabs Results & Data (ED) Vital Signs Vital Signs - 24 hr 08/13/23 11:13 08/13/23 13:30 08/13/23 15:37 Temperature 36.5 C Temperature Source Temporal Artery Scan Pulse Rate 123 H Pulse Rate [Left Finger] 77 85 Respiratory Rate 18 20 18 Respiratory Depth Normal Blood Pressure 115/81 Blood Pressure [Right Arm] 105/76 108/82 Blood Pressure Mean 92 Blood Pressure Mean [Right Arm] 85 90 Blood Pressure Position Sitting Blood Pressure Position [Right Arm] Sitting Pulse Oximetry 98 98 96 Oxygen Delivery Method Room Air Sepsis Recent Fever Within 48 Hours No Sepsis New/Unexplained Change in Mental Status No Sepsis Action Taken by Nursing No Action Required 08/13/23 17:40 08/13/23 17:40 08/13/23 17:44 Temperature Temperature Source Pulse Rate 119 H 122 H Pulse Rate [Left Finger] 119 H Respiratory Rate 24 24 Respiratory Depth Blood Pressure Blood Pressure [Right Arm] 121/90 Blood Pressure Mean Blood Pressure Mean [Right Arm] 100 Blood Pressure Position Blood Pressure Position [Right Arm] Pulse Oximetry 95 98 Oxygen Delivery Method Room Air Room Air Sepsis Recent Fever Within 48 Hours Sepsis New/Unexplained Change in Mental Status Sepsis Action Taken by Nursing Laboratory Data 08/13/23 11:32 08/13/23 11:32 Lab Results 08/13/23 08/13/23 08/13/23 Range/Units 11:32 14:42 16:23 WBC 8.74 (4.8-10.8) K/ul RBC 4.43 L (4.70-6.10) M/uL Hgb 13.7 L (14.0-18.0) g/dl Hct 42.3 (42.0-52.0) % MCV 95.5 (80.0-100.0) fL MCH 30.9 (25.0-34.0) pg MCHC 32.4 (32.0-36.0) g/dL RDW Std Deviation 48.9 H (36.4-46.3) fL RDW Coeff of Bull 14.1 (11.5-14.5) % Plt Count 245 (130-400) K/uL MPV 10.0 (9.4-12.4) fL Immature Gran % (Auto) 0.5 % Neut % (Auto) 53.9 % Lymph % (Auto) 31.7 % [place] % (Auto) 10.9 % Eos % (Auto) 2.5 % Baso % (Auto) 0.5 % Neut # (Auto) 4.72 (1.40-6.50) K/uL Lymph # (Auto) 2.77 (1.20-3.40) K/uL [place] # (Auto) 0.95 H (0.11-0.59) K/uL Eos # (Auto) 0.22 (0.00-0.50) K/uL Baso # (Auto) 0.04 (0.00-0.20) K/uL Immature Gran # (Auto) 0.04 (0.01-0.20) K/uL Sodium 138 (136-145) mmol/L Potassium 4.4 (3.5-5.1) mmol/L Chloride 105 (98-107) mmol/L Carbon Dioxide 26 (21-32) mmol/L Anion Gap 7 (3-11) BUN 23 (6-23) mg/dl Creatinine 1.28 (0.6-1.4) mg/dl Est Cr Clr Drug Dosing 47.3 ml/min Est GFR ( Amer) 63.5 ml/min Est GFR (Non-Af Amer) 54.8 ml/min BUN/Creatinine Ratio 18.0 (10-20) Glucose 105 H (70-99(Fasting)) mg/dl Calcium 9.7 (8.6-10.3) mg/dl Total Bilirubin 2.0 H (0.2-1.0) mg/dl AST 25 (13-39) U/L ALT 17 (7-52) U/L Alkaline Phosphatase 144 H (34-104) U/L Total Protein 7.7 (6.0-8.3) gm/dl Albumin 4.0 (3.4-5.0) gm/dl Globulin 3.7 (2.5-4.0) gm/dl Albumin/Globulin Ratio 1.1 (0.9-2) Lipase 21 (11-82) U/L Urine Color Dark Yellow Urine Appearance Clear (Clear) Urine pH 5.5 (4.5-7.5) Ur Specific [place] > 1.045 H (1.000-1.030) Urine Protein Negative (Negative) Urine Glucose (UA) Negative (Negative) Urine Ketones Negative (Negative) Urine Blood Negative (Negative) Urine Nitrite Negative (Negative) Urine Bilirubin Negative (Negative) Urine Urobilinogen Negative (Negative) Ur Leukocyte Esterase Negative (Negative) SARS-CoV-2 (PCR) NEGATIVE (Negative) Influenza Type A (PCR) Negative (Neg) Influenza Type B (PCR) Negative (Neg) RSV (RT-PCR) Negative (Neg) Administered Medications Discontinued Medications Ioversol (Optiray 320 500ml) 90 ml IV ONCE ONE Stop: 08/13/23 13:27 Last Admin: 08/13/23 13:26 Dose: 90 ml Documented By: JULIANNA Imaging Data Radiologist's Impression: Abdomen/Pelvis CT 08/13/23 11:19 CT SCAN OF THE ABDOMEN AND PELVIS WITH IV CONTRAST CLINICAL HISTORY: Generalized abdominal pain. COMPARISON STUDY: Renal ultrasound dated 01/01/2021. TECHNIQUE: Following the IV administration of 90 cc of Optiray 320, CT scan of the abdomen and pelvis is performed from the lung bases to the proximal femora. Images are reviewed in the axial, sagittal, and coronal planes. IV contrast was administered without complication. A dose lowering technique was utilized adhering to the principles of ALARA. CT DOSE: 837.74 mGy.cm FINDINGS: Lung bases: The heart is markedly enlarged and without pericardial effusion. Pacemaker leads are in place. There are uopox-lw-dlewlaes pleural effusions with dependent consolidation. Intralobular septal thickening is seen at both lung bases. Liver: The contrast-enhanced liver is enlarged, measuring 19.8 cm in length. Attenuation is heterogeneous. Nodularity of the hepatic surface contour suggest morphologic changes of cirrhosis. There is no intrahepatic biliary ductal dilatation. The main portal vein appears patent. There are small calcified hepatic granulomas. Gallbladder: Gallstones are noted. The gallbladder is distended, and the wall is thickened/edematous. There is pericholecystic infiltration and fluid. Findings are suspicious for acute cholecystitis. Spleen: The spleen is mildly enlarged, measuring 13.3 cm in length. Pancreas: Unremarkable. Adrenal glands: Unremarkable. Kidneys: The contrast enhanced kidneys are normal in size and without hydronephrosis. The kidneys enhance symmetrically. A 4.7 cm exophytic cyst arises from the right kidney. Abdominal vasculature: The abdominal aorta is normal in course and caliber noting moderate atherosclerotic calcification. Bowel: There is no bowel obstruction. The appendix is well-visualized and normal. Peritoneum: No intraperitoneal free air is identified. There is a small volume of perihepatic and perisplenic ascites. Ascitic fluid is also seen in the pelvis. There is a fat-containing umbilical hernia. Lymphadenopathy: None. Pelvic viscera: The prostate gland is enlarged and heterogeneous. The bladder wall is thickened and trabeculated indicating chronic outlet obstruction. There is pericystic inflammation. Skeletal structures: The skeletal structures are osteopenic. No lytic or blastic lesions are seen. There is mild to moderate lumbosacral spondylosis. IMPRESSION: 1. Marked cardiomegaly and cardiac pacemaker with evidence of congestive failure. 2. Small to moderate pleural effusions with dependent consolidation. 3. The liver is enlarged, heterogeneous, and with morphologic change of cirrhosis. 4. There are calcified gallstones, and the gallbladder is distended. The gallbladder wall is thickened and edematous with pericholecystic infiltration and fluid. Although these findings could be related to adjacent hepatocellular disease and fluid overload, acute cholecystitis is not excluded. Clinical correlation will be required. If warranted a nuclear hepatobiliary scan could be considered for further assessment. 5. Small volume abdominopelvic ascites. 6. Mild splenomegaly. 7. Prostatomegaly with evidence of chronic bladder outlet obstruction. There is pericystic infiltration. Correlate with clinical findings and urinalysis. 8. Additional findings as above. ACT 112: Negative or not required by law. Electronically signed by: Anders Gaspar M.D. 08/13/2023 1:54 PM Chest X-Ray 08/13/23 11:19 XR chest 1V not portable CLINICAL HISTORY: Shortness of breath. COMPARISON STUDY: Chest CT November 27, 2022. Chest radiograph August 12, 2023. FINDINGS: Left subclavian pacer/ICD is in place. Cardiomegaly is unchanged. No pneumothorax or pleural effusion is present. Lower lung interstitial thickening and opacities are similar to prior exam. Pulmonary vascularity is within normal limits. The appearance of the chest is unchanged. IMPRESSION: 1. No significant change in appearance of chest. Lower lung interstitial thickening and opacities which are probably chronic. No superimposed consolidation. 2. Cardiomegaly. No evidence for pulmonary edema. ACT 112: Negative or not required by law. Electronically signed by: Tony Beaver M.D. 08/13/2023 12:30 PM Gallbladder Ultrasound 08/13/23 15:56 ULTRASOUND RIGHT UPPER QUADRANT ABDOMEN CLINICAL HISTORY: Generalized abdominal pain. COMPARISON STUDY: Abdominal CT dated 08/13/2023 TECHNIQUE: Real-time, grayscale, and color flow sonography of the right upper quadrant of the abdomen was performed. Images are reviewed in the transverse and longitudinal planes. FINDINGS: Liver: The liver is enlarged, cirrhotic in morphology, and heterogeneous in echotexture. There is nodularity of the hepatic surface contour. There is no intrahepatic biliary ductal dilatation. The main portal vein is patent. Gallbladder: There are small gallstones and the gallbladder is distended. The gallbladder wall is thickened and edematous, with trace pericholecystic fluid. A sonographic Bravo's sign is equivocal. The common bile duct measures up to 0.5 cm in diameter. Pancreas: Not visualized due to overlying bowel gas. Right kidney: Survey images of the right kidney demonstrate normal size and echotexture. There is no hydronephrosis. A 6 cm cyst is incidentally noted. Ascites: There is trace perihepatic ascites. Pleural spaces: A right pleural effusion is noted. IMPRESSION: 1. The liver is enlarged, heterogeneous, and cirrhotic in morphology. 2. Cholelithiasis within an abnormal appearing gallbladder as detailed above. This could be related to fluid overload and adjacent hepatocellular disease. Acute cholecystitis is not excluded. If there is concern for acute cholecystitis a nuclear hepatobiliary scan should be obtained. 3. There is no intra or extrahepatic biliary ductal dilatation. 4. Small volume perihepatic ascites and right pleural effusion. ACT 112: Negative or not required by law. Electronically signed by: Anders Gaspar M.D. 08/13/2023 5:14 PM Discharge Plan Visit Data Chief Complaint: Abdominal Pain Stated Complaint: ABD PAIN ED Provider: Chelle Mcduffie Discharge Problem: Abdominal pain Forms Stand Alone Forms: [facility] [employer] Prescriptions Prescriptions: No Action albuterol sulfate 90 mcg/actuation HFA aerosol inhaler 2 inh inhalation Q4 PRN (Reason: shortness of breath or wheezing) Qty: 3 3RF gabapentin 400 mg capsule 400 mg PO TID PRN (Reason: Pain) Qty: 270 3RF atorvastatin 10 mg tablet 10 mg PO QPM Qty: 90 3RF clarithromycin 500 mg tablet 500 mg PO BID Qty: 28 0RF metronidazole 500 mg tablet 500 mg PO TID Qty: 42 0RF meloxicam 7.5 mg tablet 7.5 mg PO BID Qty: 180 3RF pantoprazole 40 mg tablet,delayed release (DR/EC) See Rx Instructions .ROUTE .COMPLEX Qty: 60 5RF Dose Instruction: TAKE 1 TABLET BY MOUTH TWICE A DAY Rx Instructions: TAKE 1 TABLET BY MOUTH TWICE A DAY One-A-Day Men's 50 Plus(vit K) 400-20-370 mcg tablet 1 tab PO QPM cholecalciferol (vitamin D3) 50 mcg (2,000 unit) capsule 50 mcg PO QAM cholecalciferol (vitamin D3) 25 mcg (1,000 unit) capsule 25 mcg PO QPM ferrous sulfate 325 mg (65 mg iron) tablet 325 mg PO DAILY metoprolol succinate 25 mg tablet extended release 24 hr 25 mg PO DAILY Qty: 90 3RF acetaminophen 500 mg Tablet 1,000 mg PO Q6H PRN (Reason: Pain) Patient Comments: usually takes 2 tabs every morning and evening. aspirin 81 mg Tablet,Delayed Release (Dr/Ec) 81 mg PO QPM tadalafil 5 mg tablet 5 mg PO QPM Referrals Referrals: Shankar Aguirre III, CRNP [Primary Care Provider] -
[2023-08-13 15:41] LABS: Influenza A virus by PCR Negative (Neg); Influenza B virus by PCR Negative (Neg); RSV by PCR Negative (Neg); SARS CoV2 RNA(COVID-19) Ceph NEGATIVE (Negative)
--- NOTE | 2023-08-13 17:16 | Ultrasound Report ---
ULTRASOUND RIGHT UPPER QUADRANT ABDOMEN CLINICAL HISTORY: Generalized abdominal pain. COMPARISON STUDY: Abdominal CT dated 08/13/2023 TECHNIQUE: Real-time, grayscale, and color flow sonography of the right upper quadrant of the abdomen was performed. Images are reviewed in the transverse and longitudinal planes. FINDINGS: Liver: The liver is enlarged, cirrhotic in morphology, and heterogeneous in echotexture. There is nod ularity of the hepatic surface contour. There is no intrahepatic biliary ductal dilatation. The main portal vein is patent. Gallbladder: There are small gallstones and the gallbladder is distended. The gallbladder wall is thi ckened and edematous, with trace pericholecystic fluid. A sonographic Bravo's sign is equivocal. The common bile duct measures up to 0.5 cm in diameter. Pancreas: Not visualized due to overlying bowel gas. Right kidney: Survey images of the right kidney demonstrate normal size and echotexture. There is no hydronephrosis. A 6 cm cyst is incidentally noted. Ascites: There is trace perihepatic ascites. Pleural spaces: A right pleural effusion is noted. IMPRESSION: 1. The liver is enlarged, heterogeneous, and cirrhotic in morphology. 2. Cholelithiasis within an abnormal appearing gallbladder as detailed above. This could be related t o fluid overload and adjacent hepatocellular disease. Acute cholecystitis is not excluded. If there i s concern for acute cholecystitis a nuclear hepatobiliary scan should be obtained. 3. There is no intra or extrahepatic biliary ductal dilatation. 4. Small volume perihepatic ascites and right pleural effusion. ACT 112: Negative or not required by law. Electronically signed by: Anders Gaspar M.D. 08/13/2023 5:14 PM
[2023-08-13 17:20] LABS: Appearance Urine Clear (Clear); Bilirubin Urine Negative (Negative); Blood Urine Negative (Negative); Color Urine Dark Yellow; Glucose Urine UA Negative (Negative); Ketones Urine Negative (Negative); Leukocyte Esterase Urine Negative (Negative); Nitrite Urine Negative (Negative); Protein Urine Negative (Negative); Specific Gravity Urine > 1.045 (1.000-1.030); Urobilinogen Urine Negative (Negative); pH Urine 5.5 (4.5-7.5)
[2023-08-13] MEDS ORDERED: PIPERACILLIN/TAZOBACTAM 4.5 GM/100 ML BAG IV ONE (17:44)
--- NOTE | 2023-08-13 18:01 | History & Physical Report ---
Date of Service August 13, 2023 Assessment & Plan (1) Abdominal pain: Plan: Acute generalized abdominal pain on the evening of 08/12 patient was lying on his side in bed No leukocytosis; afebrile Abdomen/pelvic CT revealed gallbladder distention/wall thickening, which might correlate with hepatocellular disease or acute cholecystitis; enlarged liver; small abdominal pelvic ascites Gallbladder ultrasound revealed liver enlargement/cirrhosis; cannot rule out acute cholecystitis and recommended nuclear hepatobiliary scan HIDA scan ordered; will be done on 08/14 General surgery consulted Elevated total bilirubin at 2.0 Elevated alk phos at 144 Lipase WNL UA negative Of note, patient was previously on metronidazole and clarithromycin for stomach infection, and reports he just finished the course on 08/13 Started on Zosyn 4.5 g IV in the ED Continue Zosyn 4.5 g IV q6h in the setting of acute cholecystitis Hepatitis panel ordered, pending CB and anti-smooth muscle ab (ASMA), ordered, pending; variants of autoimmune hepatitis; anti-LKM-1 unavailable per lab A.m. CBC, BMP, LFTs (2) CAD (coronary artery disease): Plan: Hold aspirin the night of 08/13, then restart 08/14 pending general surgery (3) Interstitial lung disease: Plan: Patient notes ongoing JUAN CXR reveals cardiomegaly but no significant changes in appearance; lower lung interstitial thickening; chronic (4) BPH (benign prostatic hyperplasia): Plan: Continue to hold tadalafil (5) Hypercholesteremia: Plan: Continue atorvastatin (6) Tachycardia: Plan: Patient in the 120-130 bpm range in the ED EKG revealed an atrial sensed ventricular paced rhythm at 119 bpm; QTc 492 Pacemaker interrogation ordered, pending Heparin drip started overnight Continuous telemetry monitoring (7) Pleural effusion: Plan: Abdomen/pelvic CT revealed small to moderate pleural effusions with dependent consolidation Lasix 40 mg IV daily BNP ordered, pending (8) Biventricular ICD (implantable cardioverter-defibrillator) in place: Plan: Pacemaker interrogated in the ED; full report attached to paper chart Per [employer], episodes of nighttime sinus tachycardia have been increasing since mid July; suspected due to elevated transthoracic fluid or increased fluid status in setting of heart failure or new ascites Cardiology consulted Plan Disposition: Admit to [facility] telemetry DNR/DNI Keep n.p.o. for now, then advance to AHA diet as tolerated VTE PPx: SCDs, heparin drip History of Present Illness Chief Complaint: Abdominal pain Primary Care Provider: Shankar Aguirre III, BRADFORD Piter is a pleasant 73-year-old male with PMH of ILD, BPH, biventricular ICD, CHF, HTN, and CAD. Patient presented for transverse umbilical pain with acute worsening while lying in bed last night on 08/12. He first noticed the pain in and he was lying on his right side. Rates it 4 out of 10 at worst. He characterizes it as an achy pain to palpation. Lying still alleviates the pain, however it is worse with movement and going to the bathroom. He has had no prior experiences like this 1. He denies recent changes in diet over the holiday season. He denies right scapular pain. No sick contacts. Of note, he also endorses increased fatigue; no energy. He has been had ongoing JUAN secondary to his ILD, however he has noticed it has been worse when getting up to go to the bathroom. Cold air also makes the JUAN worse. He denies SOB at rest. He was also recently on a course of metronidazole and clarithromycin for stomach infection, but reports that he finished his course today. He took all of his regular morning medications. He declines pain medication at time of admission. He denies history of alcohol use, tobacco use, or recreational drug use. Father with history of liver disease (may have been due to alcohol); however, step-brother with liver disease, which may not have been due to alcohol. He is tachycardic at 121 bpm at time of admission; vitals otherwise stable. ED Course: Zosyn 4.5 g IV ROS: Patient endorses chills, cold sweats (lasted week), mild ALDANA, dizziness, lightheadedness, JUAN (ongoing), and generalized abdominal pain. Patient denies fever, chest pain, chest palpitations, N/V/D, dysuria, blood in urine/stool, burning with urination, or numbness/tingling going down the legs. Allergies Allergy/AdvReac Type Severity Reaction Status Date / Time morphine Allergy Unknown Difficulty Verified 08/13/23 10:26 Breathing mycophenolate mofetil AdvReac Intermediate Dizziness Verified 08/13/23 10:26 Home Medications Medication Instructions Recorded Confirmed Type [id number] acid-vit 1 tab PO QPM 03/21/20 08/13/23 History K-lycop 400 mcg-20 mcg-370 mcg tablet (One-A-Day Men's 50 Plus (with vitamin K)) acetaminophen 500 mg tablet 1,000 mg PO Q6H PRN Pain 07/30/22 08/13/23 History aspirin 81 mg tablet,delayed 81 mg PO QPM 08/08/22 08/13/23 History release albuterol sulfate 90 mcg/actuation 2 inh inhalation Q4 PRN shortness 01/20/23 08/13/23 Rx aerosol inhaler of breath or wheezing #3 Inhalers cholecalciferol (vitamin D3) 25 25 mcg PO QPM 03/05/23 08/13/23 History mcg (1,000 unit) capsule cholecalciferol (vitamin D3) 50 50 mcg PO QAM 03/05/23 08/13/23 History mcg (2,000 unit) capsule gabapentin 400 mg capsule 400 mg PO TID PRN Pain #270 caps 04/21/23 08/13/23 Rx tadalafil 5 mg tablet 5 mg PO QPM 06/17/23 08/13/23 History atorvastatin 10 mg tablet 10 mg PO QPM #90 tabs 06/18/23 08/13/23 Rx ferrous sulfate 325 mg (65 mg 325 mg PO DAILY 06/25/23 08/13/23 History iron) tablet metoprolol succinate 25 mg 25 mg PO DAILY #90 tabs 06/25/23 08/13/23 Rx tablet,extended release 24 hr clarithromycin 500 mg tablet 500 mg PO BID #28 tabs 06/30/23 08/13/23 Rx metronidazole 500 mg tablet 500 mg PO TID #42 tabs 06/30/23 08/13/23 Rx meloxicam 7.5 mg tablet 7.5 mg PO BID #180 tabs 07/01/23 08/13/23 Rx pantoprazole 40 mg tablet,delayed See Rx Instructions .Route 07/30/23 08/13/23 Rx release .COMPLEX #60 tabs Past Med/Surg History Medical History Defibrillator discharge Sustained ventricular tachycardia NSVT (nonsustained ventricular tachycardia) Pneumothorax Community acquired pneumonia Idiopathic interstitial pneumonia Hypotension recent [place] cardio visit --- checks BP at home and hypotensive, light headed. see cardio note. Presence of combination internal cardiac defibrillator (ICD) and pacemaker medtronic. checked 1 mo [address] Mcnulty. Paroxysmal atrial fibrillation Idiopathic interstitial pneumonia Interstitial lung disease Dyspnea on exertion Bibasilar crackles Hx of gastric ulcer BPH with obstruction/lower urinary tract symptoms Abnormal TSH noted 02/2020 due to use of prednisone, repeat labs normal in 03/2020 including TSI Biventricular ICD (implantable cardioverter-defibrillator) in place original placed in 2013, follows with Dr Mcnulty; new one placed 06/2022, [facility] Chronic systolic congestive heart failure Left bundle branch block Osteoarthritis Rib fractures hx Pneumothorax on left ~2013. chest tube drain placed and treated inpatient. HTN (hypertension) Hypercholesteremia CAD (coronary artery disease) Non-ischemic cardiomyopathy (04/14/14) Surgical History Hx of eye surgery age 4 History of esophagogastroduodenoscopy (EGD) History of colonoscopy History of inguinal hernia repair x 2 History of arthroscopy of knee right History of eye surgery at age 4 - right eye surgery Family History Father Emphysema, unspecified Mother Urinary bladder cancer Brother Prediabetes Denies family history of Ovarian cancer Prostate cancer Myocardial infarction Breast cancer Colorectal cancer Social History Smoking Status: Never smoker Second Hand Exposure: Yes (father smoked); Do You Dip or Chew Tobacco: No; Hx Alcohol Use: No Hx Substance Use: No Preferred Language: Cymraes Communication Ability: Effective Visual Impairment: No Limitations Hearing Ability: Normal Supervisor [employer] Required: No Beliefs That Will Affect Care: None marital status: Current Living Situation: Spouse current occupational status: retired 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 How many Children do You have: 2 Feels Safe at Home: Yes Childhood Exposure to Second-Hand Smoke: No Diet: regular Dental Care, Regularly: No Physical Activity Frequency: Daily Seatbelt Use: always Sunscreen Use: No Assistive Devices: Denture - Upper, Denture - Lower and Glasses Review of Systems Review of Systems: See HPI above Physical Exam Physical Exam: General: no acute distress; pleasant affect; non-toxic appearing; well- nourished; cooperative HEENT: normocephalic, atraumatic; no scleral icterus; moist mucus membrane; vision and hearing grossly intact Neck: supple; no lymphadenopathy; trachea midline Skin: warm, dry without signs of tenting; no cyanosis; no rashes, bruising, lesions, or erythema noted CV: chest wall NTP; RR, tachycardic at 120 bpm; S1/S2 normal; no murmurs/rubs/gallops; pulses intact and symmetric at radial, DP, and PT Lungs: no acute respiratory distress; symmetrical chest wall expansion; wheezing across the lower lung barbosa bilaterally best auscultated posteriorly ABD: Soft; BS present; positive for rebound/guarding in the RUQ; positive for small abdominopelvic ascites; LUQ NTP; positive Bravo sign; negative Rovsing sign MSK: no tics or fasciculations; no edema noted in the LEs b/l, nonerythematous Neuro: A&Ox3; normal mood and affect; fluent speech; no focal deficits; sensation grossly intact in LEs B/L Results & Data Results & Data Vital Signs (Past 12 Hours) Vital Signs Temp Pulse Pulse Resp BP BP Pulse Ox 08/13/23 17:44 122 H 08/13/23 17:40 119 H 24 121/90 98 08/13/23 17:40 119 H 24 95 08/13/23 15:37 85 18 108/82 96 08/13/23 13:30 77 20 105/76 98 08/13/23 11:13 36.5 C 123 H 18 115/81 98 O2 Del Method 08/13/23 17:44 08/13/23 17:40 Room Air 08/13/23 17:40 Room Air 08/13/23 15:37 08/13/23 13:30 08/13/23 11:13 Room Air Laboratory Results Abnormal lab results 08/13/23 08/13/23 Range/Units 11:32 16:23 RBC 4.43 L (4.70-6.10) M/uL Hgb 13.7 L (14.0-18.0) g/dl RDW Std Deviation 48.9 H (36.4-46.3) fL [place] # (Auto) 0.95 H (0.11-0.59) K/uL Glucose 105 H (70-99(Fasting)) mg/dl Total Bilirubin 2.0 H (0.2-1.0) mg/dl Alkaline Phosphatase 144 H (34-104) U/L Ur Specific [place] > 1.045 H (1.000-1.030) Diagnostic Findings Abdomen/Pelvis CT 08/13/23 11:19 CT SCAN OF THE ABDOMEN AND PELVIS WITH IV CONTRAST CLINICAL HISTORY: Generalized abdominal pain. COMPARISON STUDY: Renal ultrasound dated 01/01/2021. TECHNIQUE: Following the IV administration of 90 cc of Optiray 320, CT scan of the abdomen and pelvis is performed from the lung bases to the proximal femora. Images are reviewed in the axial, sagittal, and coronal planes. IV contrast was administered without complication. A dose lowering technique was utilized adhering to the principles of ALARA. CT DOSE: 837.74 mGy.cm FINDINGS: Lung bases: The heart is markedly enlarged and without pericardial effusion. Pacemaker leads are in place. There are sfsvh-hy-zvmhtkvn pleural effusions with dependent consolidation. Intralobular septal thickening is seen at both lung bases. Liver: The contrast-enhanced liver is enlarged, measuring 19.8 cm in length. Attenuation is heterogeneous. Nodularity of the hepatic surface contour suggest morphologic changes of cirrhosis. There is no intrahepatic biliary ductal dilatation. The main portal vein appears patent. There are small calcified hepatic granulomas. Gallbladder: Gallstones are noted. The gallbladder is distended, and the wall is thickened/edematous. There is pericholecystic infiltration and fluid. Findings are suspicious for acute cholecystitis. Spleen: The spleen is mildly enlarged, measuring 13.3 cm in length. Pancreas: Unremarkable. Adrenal glands: Unremarkable. Kidneys: The contrast enhanced kidneys are normal in size and without hydronephrosis. The kidneys enhance symmetrically. A 4.7 cm exophytic cyst arises from the right kidney. Abdominal vasculature: The abdominal aorta is normal in course and caliber noting moderate atherosclerotic calcification. Bowel: There is no bowel obstruction. The appendix is well-visualized and normal. Peritoneum: No intraperitoneal free air is identified. There is a small volume o f perihepatic and perisplenic ascites. Ascitic fluid is also seen in the pelvis. There is a fat-containing umbilical hernia. Lymphadenopathy: None. Pelvic viscera: The prostate gland is enlarged and heterogeneous. The bladder wall is thickened and trabeculated indicating chronic outlet obstruction. There is pericystic inflammation. Skeletal structures: The skeletal structures are osteopenic. No lytic or blastic lesions are seen. There is mild to moderate lumbosacral spondylosis. IMPRESSION: 1. Marked cardiomegaly and cardiac pacemaker with evidence of congestive failure. 2. Small to moderate pleural effusions with dependent consolidation. 3. The liver is enlarged, heterogeneous, and with morphologic change of cirrhosis. 4. There are calcified gallstones, and the gallbladder is distended. The gallbladder wall is thickened and edematous with pericholecystic infiltration and fluid. Although these findings could be related to adjacent hepatocellular disease and fluid overload, acute cholecystitis is not excluded. Clinical correlation will be required. If warranted a nuclear hepatobiliary scan could be considered for further assessment. 5. Small volume abdominopelvic ascites. 6. Mild splenomegaly. 7. Prostatomegaly with evidence of chronic bladder outlet obstruction. There is pericystic infiltration. Correlate with clinical findings and urinalysis. 8. Additional findings as above. ACT 112: Negative or not required by law. Electronically signed by: Anders Gaspar M.D. 08/13/2023 1:54 PM Chest X-Ray 08/13/23 11:19 XR chest 1V not portable CLINICAL HISTORY: Shortness of breath. COMPARISON STUDY: Chest CT November 27, 2022. Chest radiograph August 12, 2023. FINDINGS: Left subclavian pacer/ICD is in place. Cardiomegaly is unchanged. No pneumothorax or pleural effusion is present. Lower lung interstitial thickening and opacities are similar to prior exam. Pulmonary vascularity is within normal limits. The appearance of the chest is unchanged. IMPRESSION: 1. No significant change in appearance of chest. Lower lung interstitial thickening and opacities which are probably chronic. No superimposed cons olidation. 2. Cardiomegaly. No evidence for pulmonary edema. ACT 112: Negative or not required by law. Electronically signed by: Tony Beaver M.D. 08/13/2023 12:30 PM Gallbladder Ultrasound 08/13/23 15:56 ULTRASOUND RIGHT UPPER QUADRANT ABDOMEN CLINICAL HISTORY: Generalized abdominal pain. COMPARISON STUDY: Abdominal CT dated 08/13/2023 TECHNIQUE: Real-time, grayscale, and color flow sonography of the right upper quadrant of the abdomen was performed. Images are reviewed in the transverse and longitudinal planes. FINDINGS: Liver: The liver is enlarged, cirrhotic in morphology, and heterogeneous in echotexture. There is nodularity of the hepatic surface contour. There is no intrahepatic biliary ductal dilatation. The main portal vein is patent. Gallbladder: There are small gallstones and the gallbladder is distended. The gallbladder wall is thickened and edematous, with trace pericholecystic fluid. A sonographic Bravo's sign is equivocal. The common bile duct measures up to 0.5 cm in diameter. Pancreas: Not visualized due to overlying bowel gas. Right kidney: Survey images of the right kidney demonstrate normal size and ec hotexture. There is no hydronephrosis. A 6 cm cyst is incidentally noted. Ascites: There is trace perihepatic ascites. Pleural spaces: A right pleural effusion is noted. IMPRESSION: 1. The liver is enlarged, heterogeneous, and cirrhotic in morphology. 2. Cholelithiasis within an abnormal appearing gallbladder as detailed above. This could be related to fluid overload and adjacent hepatocellular disease. Acute cholecystitis is not excluded. If there is concern for acute cholecystitis a nuclear hepatobiliary scan should be obtained. 3. There is no intra or extrahepatic biliary ductal dilatation. 4. Small volume perihepatic ascites and right pleural effusion. ACT 112: Negative or not required by law. Electronically signed by: Anders Gaspar M.D. 08/13/2023 5:14 PM Code Status & VTE Plan Code Status DNR/DNI VTE Prophylaxis Plan VTE Prophylaxis will be ordered: Yes Supervising Physician Co-Signing Physician Notes Patient seen and examined, chart reviewed, case discussed with JONES Herzog PA-C and I agree with the assessment and plan as above except as otherwise noted Labs and images reviewed 73-year-old male who is recommended for admission for suspected Meron with abnormal gallbladder on ultrasound. Changes could be due to adjacent hepatocellular disease, patient is pending a HIDA scan 08/14/2023 and is n.p.o. pending this. He has had no chest pain; however he does have a history of chronic systolic congestive heart failure and nonischemic cardiomyopathy with biventricular ICD in place. Interrogation for this is pending. He reports he is also been in A-fib in the past although is not currently on a blood thinner. Patient is in a atrial sensed ventricular paced tachycardia rhythm on EKG, normal Trope. Patient is placed on a heparin drip for prophylactic coverage due to history of pAfib on admission this can be held 6 hours prior to any anticipated surgery. No signs of ischemia. Do not recommend progression to surgery until patient is volume optimized, currently w/ has evidence of CHF with pleural effusion and tachycardic. Patient has cirrhosis on CT. He has no history of alcohol abuse or drug use. His cirrhosis is with associated small volume of abdominopelvic ascites. He has limited knowledge of his family history but does know that both his father and stepbrother had liver issues, father may have been due to alcohol but stepbrothers was not. Will obtain acute hepatitis panel and autoimmune serologies. Volume of ascites is small and may not be amenable to first-time diagnostic tap, therapeutic tap not currently required. Can discuss with IR during the daytime. He does have a hx of CHF, Patient does have some shortness of breath, suspect this is due to small-moderate pleural effusions with dependent consolidation, although no significant pleural edema is noted on x- ray. Interrogation reviewed, sinus tach which has been ? due to thoracic fluid in the past. Diuresis with 40mg IV lasix BID ordered, BNP is 2270. Agree/w above. PG Care Time/CCT Total # of Minutes Spent Total Time Spent with Patient: Total time spent is greater than 50% in coordination of care (as documented) at patient's floor/unit and/or counseling patient: Coding [place] [address] INT INP/OBS CARE 3/75MIN Patient Type Established Medical Decision Making High Complexity Diagnoses Abdominal pain R10.9 Coronary artery disease involving tribe coronary artery of tribe heart without angina pectoris I25.10 Associated angina: without angina Coronary Disease-Associated Artery/Lesion type: tribe artery [place] vs. transplanted heart: tribe heart Interstitial lung disease J84.9 BPH (benign prostatic hyperplasia) N40.0 Hypercholesteremia E78.00 Tachycardia R00.0 Pleural effusion J90 Biventricular ICD (implantable cardioverter-defibrillator) in place Z95.810 (2) CAD (coronary artery disease) Associated angina: without angina Coronary Disease-Associated Artery/Lesion type: tribe artery [place] vs. transplanted heart: tribe heart Qualified Code(s): I25.10 - Atherosclerotic heart disease of tribe coronary artery without angina pectoris
--- NOTE | 2023-08-13 19:12 | Surgery Consultation ---
Date of Consultation August 13, 2023 Assessment & Plan (1) Cholelithiasis: The patient has been admitted on the hospital service. From surgical perspective we recommend the following: It is unclear as to the cause of the patient's abdominal pain. He does have an abnormal appearing gall bladder on both CAT scan and ultrasound with noted gallstones. There is also concern the patient has cirrhotic appearing morphology of his liver. Due to the patient's other medical comorbidities feel be prudent to ascertain whether or not he is suffering from cholecystitis, and therefore a HIDA scan has been ordered which will likely be completed tomorrow. If the patient's HIDA scan is positive for cholecystitis, a consult with cardiology will be prudent as the patient does have symptoms consistent with congestive heart failure (paroxysmal nocturnal dyspnea, dyspnea on exertion) and he will require cardiac clearance/optimization. If the patient is felt to be too high risk for surgical intervention in the setting of cholecystitis less invasive measures (cholecystostomy tube,AXIOS stent) can be discussed with the patient at that time. If the patient's HIDA scan is negative for acute cholecystitis additional etiologies of his abdominal pain should be considered. Of note the patient does have a recent history of H. pylori infection/gastritis and this could certainly be contributing to his abdominal pain. Additional recommendations to be forthcoming based on his clinical course as unfolds and pending items as they are completed Supervising Physician Co-Signing Physician Notes Pnt d/w RUI Pena, labs and imaging reviewed, agree with above. admitted with dyspnea and abd pain, CT and US concerning for cholelithiasis and gbw edema. No post prandial pain, has had epigastric and RUQ pain. Wbc normal. Will obtain HIDA. Significant medical comorbidities, needs cards consult given history of chf and bvICD. If too high risk and concern for HIDA, may need perc malena tube or axio stent. History of Present Illness Reason for Consultation: Right upper quadrant abdominal pain History of Present Illness This is a 73-year-old male who presented to the emergency department at the recommendation of his primary care provider as the patient has been having increased shortness of breath and fatigue over the past several weeks. The patient was seen by his primary care team where he underwent and a chest x-ray that was that was negative for pneumonia and did not appear to have findings co nsistent with CHF. The patient does have a significant cardiovascular history and due to his symptomatology was felt that emergency room visit was best for the patient. I visited with the patient in the emergency department and he does note that he has been more short of breath and fatigued as noted above. He notes that he is more short of breath with even minimal activity. He says that since 08/04/2023 he has gained approximately 8 pounds. He denies any lower extremity edema but he does report paroxysmal nocturnal dyspnea. He denies orthopnea. Patient reports he has a significant history of cardiovascular disease including nonobstructive coronary artery disease. He has had a biventricular ICD placed and follows locally with Dr. Kavin Mcnulty. He was most recently seen in the cardiology office on 07/09/2023 where he was noted to be stable and was without significant cardiovascular symptoms at that time. Review of Dr. Mcnulty's notes show that back in 2001 patient was noted to have an ejection fraction of 20 to 25% but with appropriate medical treatment his ejection fraction had improved to approximate 35 to 40% x 2021. The patient does deny any chest pain. He notes that he tries to stay active but he says that even walking short distances make him short of breath. He does note that his defibrillator did fire approximately 1 month ago. General surgery was asked to see the patient due to concern for abdominal pain. With in addition to the symptoms noted above the patient says that last night he developed some right upper quadrant pain that persisted through today. He specifically denied any nausea or vomiting denies any fevers, shakes, or chills. He denies any postprandial pain over the past several months. He denies any abdominal surgeries other than a right inguinal herniorrhaphy. Patient also does report a history of a gastric ulcer. He has undergone an EGD for this problem in June 2023. Patient did have biopsies taken at that time where patient was noted to have chronic gastritis and he was noted to be positive for H. pylori. He notes that he has completed treatment for H. pylori. Since arrival to the emergency department the patient has had labs and imaging which independent reviewed. A chest x-ray showed no evidence of pulmonary edema or pneumonia. Patient had a CT scan of the abdomen pelvis. This showed the patient had small to moderate pleural effusions. He was noted to have calcified gallstones with a distended gallbladder. The gallbladder wall did appear thickened with pericholecystic infiltration and fluid. A gallbladder ultrasound was performed that showed gallstones with an abnormal appearing gallbladderthe gallbladder was noted to be distended and the gallbladder wall was noted be thickened and edematous with trace pericholecystic fluid. Of note, the patient's liver was noted to be enlarged and appear to be cirrhotic in morphology. Labs include a CBC her white blood cell count and platelet count were normal. Hemoglobin hematocrit 13.7 and 42.3. Chemistry profile showed sodium and potassium along with the BUN and creatinine were normal. Patient did have an elevated total bilirubin at 2.0 (review of records show that patient's bilirubin is chronically elevated ranging from 1.2-2.0 (, there is no elevation of transaminases, alkaline phosphatase had a slight elevation at 144, and the lipase was nonelevated. Urinalysis was negative for infection. Patient was tested for COVID, influenza a and B, as well as RSV all of which were negative. At the time of my interview the patient was resting comfortably in bed and he was in no distress Allergies Allergy/AdvReac Type Severity Reaction Status Date / Time morphine Allergy Unknown Difficulty Verified 08/13/23 10:26 Breathing mycophenolate mofetil AdvReac Intermediate Dizziness Verified 08/13/23 10:26 Home Medications Medication Instructions Recorded Confirmed Type redztoamjiia-hdg-tpazq acid-vit 1 tab PO QPM 03/21/20 08/13/23 History K-lycop 400 mcg-20 mcg-370 mcg tablet (One-A-Day Men's 50 Plus (with vitamin K)) acetaminophen 500 mg tablet 1,000 mg PO Q6H PRN Pain 07/30/22 08/13/23 History aspirin 81 mg tablet,delayed 81 mg PO QPM 08/08/22 08/13/23 History release albuterol sulfate 90 mcg/actuation 2 inh inhalation Q4 PRN shortness 01/20/23 08/13/23 Rx aerosol inhaler of breath or wheezing #3 Inhalers cholecalciferol (vitamin D3) 25 25 mcg PO QPM 03/05/23 08/13/23 History mcg (1,000 unit) capsule cholecalciferol (vitamin D3) 50 50 mcg PO QAM 03/05/23 08/13/23 History mcg (2,000 unit) capsule gabapentin 400 mg capsule 400 mg PO TID PRN Pain #270 caps 04/21/23 08/13/23 Rx tadalafil 5 mg tablet 5 mg PO QPM 06/17/23 08/13/23 History atorvastatin 10 mg tablet 10 mg PO QPM #90 tabs 06/18/23 08/13/23 Rx ferrous sulfate 325 mg (65 mg 325 mg PO DAILY 06/25/23 08/13/23 History iron) tablet metoprolol succinate 25 mg 25 mg PO DAILY #90 tabs 06/25/23 08/13/23 Rx tablet,extended release 24 hr clarithromycin 500 mg tablet 500 mg PO BID #28 tabs 06/30/23 08/13/23 Rx metronidazole 500 mg tablet 500 mg PO TID #42 tabs 06/30/23 08/13/23 Rx meloxicam 7.5 mg tablet 7.5 mg PO BID #180 tabs 07/01/23 08/13/23 Rx pantoprazole 40 mg tablet,delayed See Rx Instructions .Route 07/30/23 08/13/23 Rx release .COMPLEX #60 tabs Patient History Medical History Defibrillator discharge Sustained ventricular tachycardia NSVT (nonsustained ventricular tachycardia) Pneumothorax Community acquired pneumonia Idiopathic interstitial pneumonia Hypotension recent [facility] cardio visit --- checks BP at home and hypotensive, light headed. see cardio note. Presence of combination internal cardiac defibrillator (ICD) and pacemaker medtronic. checked 1 mo [address] Mcnulty. Paroxysmal atrial fibrillation Idiopathic interstitial pneumonia Interstitial lung disease Dyspnea on exertion Bibasilar crackles Hx of gastric ulcer BPH with obstruction/lower urinary tract symptoms Abnormal TSH noted 02/2020 due to use of prednisone, repeat labs normal in 03/2020 including TSI Biventricular ICD (implantable cardioverter-defibrillator) in place original placed in 2013, follows with Dr Mcnulty; new one placed 06/2022, [facility] Chronic systolic congestive heart failure Left bundle branch block Osteoarthritis Rib fractures hx Pneumothorax on left ~2013. chest tube drain placed and treated inpatient. HTN (hypertension) Hypercholesteremia CAD (coronary artery disease) Non-ischemic cardiomyopathy (04/14/14) Surgical History Hx of eye surgery age 4 History of esophagogastroduodenoscopy (EGD) History of colonoscopy History of inguinal hernia repair x 2 History of arthroscopy of knee right History of eye surgery at age 4 - right eye surgery Family History Father Emphysema, unspecified Mother Urinary bladder cancer Brother Prediabetes Denies family history of Ovarian cancer Prostate cancer Myocardial infarction Breast cancer Colorectal cancer Social History Smoking Status: Never smoker Second Hand Exposure: Yes (father smoked); Do You Dip or Chew Tobacco: No; Hx Alcohol Use: No Hx Substance Use: No Preferred Language: German Communication Ability: Effective Visual Impairment: No Limitations Hearing Ability: Normal Homoeopath Required: No Beliefs That Will Affect Care: None marital status: Current Living Situation: Spouse current occupational status: retired current occupation: Retired [employer] for [employer]. 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 How many Children do You have: 2 Feels Safe at Home: Yes Childhood Exposure to Second-Hand Smoke: No Diet: regular Dental Care, Regularly: No Physical Activity Frequency: Daily Seatbelt Use: always Sunscreen Use: No Assistive Devices: Denture - Upper, Denture - Lower and Glasses Review of Systems Constitutional: + fatigue and + weight gain; no fever an d no chills Eyes: + corrective lenses Ear, Nose, Mouth, Throat: no hearing loss Respiratory: + dyspnea on exertion; no cough Cardiovascular: + paroxysmal nocturnal dyspnea; no chest pain, no palpitations, no syncope and no edema Gastrointestinal: + abdominal pain; no vomiting Genitourinary: no dysuria Musculoskeletal: no back pain Integumentary: no rash Neurologic: no localized weakness Physical Exam Constitutional: WD/WN, vitals as above Eyes: no conjunctival abnormality ENMT: Ears: no hearing impairment and no external ear abnormality Mouth: no oropharynx abnormality Neck: trachea midline Respiratory: normal respiratory effort; no respiratory distress and no labored breathing Cardiovascular: Rate/Rhythm: regular rate and regular rhythm Vessels: rad ial pulses present Gastrointestinal (Abdomen): Abdomen soft, nonrigid, nondistended. There is no rebound tenderness or guarding but patient did have pain with palpation in the right upper quadrant and also the epigastric areas Musculoskeletal: No calf tenderness, no lower extremity edema Skin: no rashes Neurologic: moves all extremities Psychiatric: A+Ox3, euthymic affect Results & Data Vital Signs (Past 12 Hours) Vital Signs Temp Pulse Pulse Resp BP BP Pulse Ox 08/13/23 18:30 109/77 08/13/23 18:30 121 H 18 98 08/13/23 18:00 120 H 20 97 08/13/23 18:00 121/90 08/13/23 18:00 121/90 08/13/23 17:44 119 H 18 98 08/13/23 17:44 122 H 08/13/23 17:40 119 H 24 121/90 98 08/13/23 17:40 119 H 24 95 08/13/23 15:37 85 18 108/82 96 08/13/23 13:30 77 20 105/76 98 08/13/23 11:13 36.5 C 123 H 18 115/81 98 O2 Del Method 08/13/23 18:30 08/13/23 18:30 08/13/23 18:00 08/13/23 18:00 08/13/23 18:00 08/13/23 17:44 08/13/23 17:44 08/13/23 17:40 Room Air 08/13/23 17:40 Room Air 08/13/23 15:37 08/13/23 13:30 08/13/23 11:13 Room Air PG Care Time/CCT Total # of Minutes Spent Total Time Spent with Patient: Total time spent is greater than 50% in coordination of care (as documented) at patient's floor/unit and/or counseling patient: Coding Level of Care Code 35027 INT INP/OBS CARE MIN Diagnoses Cholelithiasis K80.20
[2023-08-13] MEDS ORDERED: Heparin IV Adult Wt-Based Low-Dose *NO* INITIAL Bolus Protocol IV SCH (20:00)
[2023-08-13] MEDS: HEPARIN SODIUM/DEXTROSE 25,000 UNITS/500 ML BAG IV SCH (20:44)
[2023-08-13] MEDS ORDERED: FUROSEMIDE 40 MG/4 ML VIAL IV ONE (20:54)
[2023-08-13 20:58] LABS: INR 1.2 (0.9-1.1); Partial Thromboplastin Time 29 Seconds (21-31); Prothrombin Time 13.5 Seconds (9.0-12.0)
[2023-08-13] MEDS ORDERED: ALBUTEROL HFA 8 GM INHALER INH PRN (22:06)
[2023-08-13] MEDS: CHOLECALCIFEROL 1,000 UNITS 25 MCG TAB PO SCH (23:46)
[2023-08-13] MEDS: PIPERACILLIN/TAZOBACTAM 4.5 GM in DEXTROSE 5% MINI-B 100 ML IV SCH (23:46)
[2023-08-13] MEDS: PANTOprazole 40 MG TAB PO SCH (23:46)
[2023-08-13] MEDS: ATORVASTATIN 10 MG TAB PO SCH (23:46)
[2023-08-14 03:07] LABS: Basophils # (auto) 0.05 K/uL (0.00-0.20); Basophils % (auto) 0.6 %; Eosinophils # (auto) 0.17 K/uL (0.00-0.50); Eosinophils % (auto) 1.9 %; Hematocrit (blood only) 40.5 % (42.0-52.0); Hemoglobin 13.3 g/dl (14.0-18.0); Immature Granulocytes # (auto) 0.04 K/uL (0.01-0.20); Immature Granulocytes % (auto) 0.5 %; Lymphocytes # (auto) 2.06 K/uL (1.20-3.40); Lymphocytes % (auto) 23.5 %; Mean Corpuscular Hgb Conc 32.8 g/dL (32.0-36.0); Mean Corpuscular Volume 94.4 fL (80.0-100.0); Monocytes # (auto) 0.95 K/uL (0.11-0.59); Monocytes % (auto) 10.8 %; Neutrophils # (auto) 5.49 K/uL (1.40-6.50); Neutrophils % (auto) 62.7 %; Platelet Count 232 K/uL (130-400); RDW Coefficient of Variation 14.2 % (11.5-14.5); RDW Standard Deviation 48.9 fL (36.4-46.3); Red Blood Count 4.29 M/uL (4.70-6.10); White Blood Count 8.76 K/ul (4.8-10.8)
[2023-08-14 03:17] LABS: Albumin Level 3.7 gm/dl (3.4-5.0); BUN Creatinine Ratio 17.7 (10-20); Bilirubin Direct 0.6 mg/dl (0-0.2); Bilirubin,Total 2.6 mg/dl (0.2-1.0); Calcium 9.1 mg/dl (8.6-10.3); Creatinine Clr Calc Pharmacy 46.6 ml/min; Est GFR (African American) 62.3 ml/min; Est GFR (Non-African American) 53.8 ml/min; Potassium 4.3 mmol/L (3.5-5.1); Total Protein 7.1 gm/dl (6.0-8.3)
[2023-08-14 03:33] LABS: ANTI-Xa, UFH(UnfractionatedHep < 0.10 IU/ml (0.3-0.7)
[2023-08-14] MEDS ORDERED: Nursing to Pharmacy Communication SCH (04:00)
[2023-08-14] MEDS ORDERED: HEPARIN IV BOLUS 4,500 UNITS in SYRINGE 0 ML IV ONE (04:00)
[2023-08-14 04:23] LABS: Magnesium 1.9 mg/dl (1.7-2.4)
[2023-08-14] MEDS ORDERED: FUROSEMIDE 40 MG/4 ML VIAL IV SCH (09:00)
[2023-08-14] MEDS: PIPERACILLIN/TAZOBACTAM 4.5 GM in DEXTROSE 5% MINI-B 100 ML IV SCH ×3 (09:26→23:26)
[2023-08-14] MEDS: METOPROLOL SUCC 25MG EXT REL TAB PO SCH (09:27)
[2023-08-14] MEDS: FUROSEMIDE 40 MG/4 ML VIAL IV SCH ×2 (09:27→18:44)
[2023-08-14] MEDS: FERROUS SULFATE 325 MG TAB PO SCH (09:28)
[2023-08-14] MEDS: CHOLECALCIFEROL 1,000 UNITS 25 MCG TAB PO SCH ×2 (09:28→20:25)
[2023-08-14] MEDS: PANTOprazole 40 MG TAB PO SCH ×2 (09:30→20:25)
[2023-08-14 10:09] LABS: ANTI-Xa, UFH(UnfractionatedHep 0.32 IU/ml (0.3-0.7)
--- NOTE | 2023-08-14 11:01 | Nuclear Medicine Report ---
NUCLEAR MEDICINE HEPATOBILIARY SCAN HISTORY: RUQ abdominal pain COMPARISON: Abdominal ultrasound 08/13/2023.. TECHNIQUE: Immediately following the intravenous administration of 4.8 mCi Tc-99m Choletec, dynamic a nterior abdominal imaging was performed. FINDINGS: Uniform hepatic tracer accumulation is shown. Prompt intrahepatic biliary excretion is seen. The gall bladder, common bile duct, and small bowel are all visualized by 30 minutes. This appearance represen ts the normal sequence of biliary excretion. IMPRESSION: 1. No evidence for cystic duct obstruction. ACT 112: Negative or not required by law. Electronically signed by: Henry Burton M.D. 08/14/2023 11:00 AM
--- NOTE | 2023-08-14 12:07 | Surgery Progress Note ---
Date of Service August 14, 2023 Assessment & Plan (1) Cholelithiasis: Plan: mult med problems and comorbidities, cholelithiasis w/ poss chronic cholecystitis, but HIDA shows no acute cholecystitis, wbc normal. Appears to have chf exacerbation. No indication for acute surgical intervention pnt may start diet from surgery standpoint high risk for surgery given cardiac history surgery will sign off, call with questions or concerns (2) Biventricular ICD (implantable cardioverter-defibrillator) in place: (3) CAD (coronary artery disease): (4) Chronic systolic congestive heart failure: Admission and Anticipated Discharge Date Admission Date: August 13, 2023 Subjective admitted with chf and dyspnea, abd pain. CT and RUQUS with cholelithiasis, thickened gbw, HIDA just completed and negative. Pain more mid abdomen banding. No postprandial pain. Would like something to eat. Physical Exam Constitutional: WD/WN, vitals as above Gastrointestinal (Abdomen): normal bowel sounds, soft, nontender, no hepatosplenomegaly Results & Data Vital Signs (Past 12 Hours) Vital Signs Temp Pulse Pulse Resp BP BP Pulse Ox 08/14/23 11:14 36.4 C L 129 H 18 110/73 97 08/14/23 09:00 117 H 21 97 08/14/23 08:13 36.8 C 127 H 24 116/91 97 08/14/23 08:11 116/91 08/14/23 08:11 128 H 16 97 08/14/23 08:00 128 H 17 97 08/14/23 07:51 130 H 08/14/23 07:00 126 H 25 H 96 08/14/23 06:00 126 H 21 95 08/14/23 05:49 100 H 19 97 08/14/23 05:00 124 H 20 111/92 95 08/14/23 04:30 124 H 21 115/87 91 08/14/23 04:00 124 H 22 120/86 94 08/14/23 03:45 130 H 22 122/82 96 08/14/23 03:16 145 H 20 117/89 98 08/14/23 03:07 127 H 17 122/75 96 08/14/23 02:30 136 H 21 97 08/14/23 02:12 121 H 08/14/23 02:00 126 H 19 132/79 93 08/14/23 01:00 123 H 23 95 O2 Del Method 08/14/23 11:14 Room Air 08/14/23 09:00 08/14/23 08:13 Room Air 08/14/23 08:11 08/14/23 08:11 08/14/23 08:00 08/14/23 07:51 08/14/23 07:00 08/14/23 06:00 08/14/23 05:49 Room Air 08/14/23 05:00 Room Air 08/14/23 04:30 Room Air 08/14/23 04:00 Room Air 08/14/23 03:45 Room Air 08/14/23 03:16 Room Air 08/14/23 03:07 Room Air 08/14/23 02:30 Room Air 08/14/23 02:12 08/14/23 02:00 08/14/23 01:00 Laboratory Results Laboratory Results - last 24 hr 08/13/23 08/13/23 08/13/23 11:32 14:42 16:23 WBC 8.74 RBC 4.43 L Hgb 13.7 L Hct 42.3 MCV 95.5 MCH 30.9 MCHC 32.4 RDW Std Deviation 48.9 H RDW Coeff of Bull 14.1 Plt Count 245 MPV 10.0 Immature Gran % (Auto) 0.5 Neut % (Auto) 53.9 Lymph % (Auto) 31.7 [place] % (Auto) 10.9 Eos % (Auto) 2.5 Baso % (Auto) 0.5 Neut # (Auto) 4.72 Lymph # (Auto) 2.77 [place] # (Auto) 0.95 H Eos # (Auto) 0.22 Baso # (Auto) 0.04 Immature Gran # (Auto) 0.04 PT INR APTT PTT Ratio Heparin Anti-Xa, Unfract Sodium 138 Potassium 4.4 Chloride 105 Carbon Dioxide 26 Anion Gap 7 BUN 23 Creatinine 1.28 Est Cr Clr Drug Dosing 47.3 Est GFR ( Amer) 63.5 Est GFR (Non-Af Amer) 54.8 BUN/Creatinine Ratio 18.0 Glucose 105 H Calcium 9.7 Magnesium Total Bilirubin 2.0 H Direct Bilirubin AST 25 ALT 17 Alkaline Phosphatase 144 H B-Natriuretic Peptide Total Protein 7.7 Albumin 4.0 Globulin 3.7 Albumin/Globulin Ratio 1.1 Lipase 21 Urine Color Dark Yellow Urine Appearance Clear Urine pH 5.5 Ur Specific [place] > 1.045 H Urine Protein Negative Urine Glucose (UA) Negative Urine Ketones Negative Urine Blood Negative Urine Nitrite Negative Urine Bilirubin Negative Urine Urobilinogen Negative Ur Leukocyte Esterase Negative CB Screen Anti-Mitochondrial Ab Anti-Smooth Muscle Ab SARS-CoV-2 (PCR) NEGATIVE Hepatitis A IgM Ab Hep Bs Antigen Hep Bs Ag Confirmation Hep B Core IgM Ab Hepatitis C Ab (EIA) Influenza Type A (PCR) Negative Influenza Type B (PCR) Negative RSV (RT-PCR) Negative 08/13/23 08/14/23 08/14/23 19:59 02:43 09:23 WBC 8.76 RBC 4.29 L Hgb 13.3 L Hct 40.5 L MCV 94.4 MCH 31.0 MCHC 32.8 RDW Std Deviation 48.9 H RDW Coeff of Bull 14.2 Plt Count 232 MPV 10.0 Immature Gran % (Auto) 0.5 Neut % (Auto) 62.7 Lymph % (Auto) 23.5 [place] % (Auto) 10.8 Eos % (Auto) 1.9 Baso % (Auto) 0.6 Neut # (Auto) 5.49 Lymph # (Auto) 2.06 [place] # (Auto) 0.95 H Eos # (Auto) 0.17 Baso # (Auto) 0.05 Immature Gran # (Auto) 0.04 PT 13.5 H INR 1.2 H APTT 29 PTT Ratio 1.0 Heparin Anti-Xa, Unfract < 0.10 L 0.32 Sodium 137 Potassium 4.3 Chloride 103 Carbon Dioxide 24 Anion Gap 10 BUN 23 Creatinine 1.30 Est Cr Clr Drug Dosing 46.6 Est GFR ( Amer) 62.3 Est GFR (Non-Af Amer) 53.8 BUN/Creatinine Ratio 17.7 Glucose 93 Calcium 9.1 Magnesium 1.9 Total Bilirubin 2.6 H Direct Bilirubin 0.6 H AST 23 ALT 17 Alkaline Phosphatase 121 H B-Natriuretic Peptide 2270 H Total Protein 7.1 Albumin 3.7 Globulin Albumin/Globulin Ratio Lipase Urine Color Urine Appearance Urine pH Ur Specific [place] Urine Protein Urine Glucose (UA) Urine Ketones Urine Blood Urine Nitrite Urine Bilirubin Urine Urobilinogen Ur Leukocyte Esterase CB Screen Pending Anti-Mitochondrial Ab Pending Anti-Smooth Muscle Ab Pending SARS-CoV-2 (PCR) Hepatitis A IgM Ab Pending Hep Bs Antigen Pending Hep Bs Ag Confirmation Pending Hep B Core IgM Ab Pending Hepatitis C Ab (EIA) Pending Influenza Type A (PCR) Influenza Type B (PCR) RSV (RT-PCR) Diagnostic Findings NUCLEAR MEDICINE HEPATOBILIARY SCAN HISTORY: RUQ abdominal pain COMPARISON: Abdominal ultrasound 08/13/2023.. TECHNIQUE: Immediately following the intravenous administration of 4.8 mCi Tc- 99m Choletec, dynamic anterior abdominal imaging was performed. FINDINGS: Uniform hepatic tracer accumulation is shown. Prompt intrahepatic biliary excretion is seen. The gallbladder, common bile duct, and small bowel are all visualized by 30 minutes. This appearance represents the normal sequence of biliary excretion. IMPRESSION: 1. No evidence for cystic duct obstruction. PG Care Time/CCT Total # of Minutes Spent Total Time Spent with Patient: Total time spent is greater than 50% in coordination of care (as documented) at patient's floor/unit and/or counseling patient: Coding Level of Care Code 51158 SUB INP/OBS CARE MIN Diagnoses Calculus of gallbladder without cholecystitis without obstruction K80.20 Cholelithiasis location: gallbladder Cholecystitis presence: without cholecystitis Biliary obstruction: without biliary obstruction Biventricular ICD (implantable cardioverter-defibrillator) in place Z95.810 Coronary artery disease involving elim [place] coronary artery of [place] heart without angina pectoris I25.10 Coronary Disease-Associated Artery/Lesion type: elim [place] artery [place] vs. transplanted heart: elim [place] heart Associated angina: without angina Chronic systolic congestive heart failure I50.22 (1) Cholelithiasis Cholelithiasis location: gallbladder Cholecystitis presence: without cholecystitis Biliary obstruction: without biliary obstruction Qualified Cod e(s): K80.20 - Calculus of gallbladder without cholecystitis without obstruction (3) CAD (coronary artery disease) Coronary Disease-Associated Artery/Lesion type: [place] artery [place] vs. transplanted heart: elim [place] heart Associated angina: without angina Qualified Code(s): I25.10 - Atherosclerotic heart disease of elim ira coronary artery without angina pectoris
--- NOTE | 2023-08-14 14:20 | Electrocardiogram Report ---
Test Reason : Blood Pressure : / mmHG Vent. Rate : 119 BPM Atrial Rate : 119 BPM P-R Int : 138 ms QRS Dur : 138 ms QT Int : 350 ms P-R-T Axes : 265 261 061 degrees QTc Int : 492 ms Atrial-sensed ventricular-paced rhythm Biventricular pacemaker detected Abnormal ECG When compared with ECG of 10-JUN-2023 14:10, (unconfirmed) Vent. rate has increased BY 42 BPM Confirmed by Kavin Mcnulty ([id number]) on 08/14/2023 2:19:49 PM Referred By: Shankar Aguirre Confirmed By:Kavin Mcnulty
--- NOTE | 2023-08-14 15:38 | Cardiology Consultation ---
Date of Consultation August 14, 2023 Assessment & Plan (1) Chronic systolic congestive heart failure: -mild decompensation currently. -recent weight gain, increase in dyspnea, PND, and elevated neck veins on examination. -agree with intravenous Lasix 40 mg b.i.d. -continue diuretics until BUN and creatinine increase. (2) Non-ischemic cardiomyopathy: -minimal disease on cardiac catheterization 2001. -intolerant to ACEI/ARB secondary to hypotension. -continue metoprolol succinate. (3) Biventricular ICD (implantable cardioverter-defibrillator) in place: -functioning properly on interrogation yesterday. (4) Abdominal pain: -workup in progress. (5) Preop cardiovascular exam: -acceptable cardiac risk for surgery once CHF is compensated. History of Present Illness Attending Physician: Julio aSez MD History of Present Illness Mr. Chapman is a 73-year-old male admitted yesterday with abdominal discomfort and possible acute cholecystitis. He was also in mild volume overload. This consultation was ordered to assist in his cardiac management. Note, patient is well known to me from the outpatient setting. The patient was in his usual state of health until approximately 24 hours prior to presentation. He began to note significant abdominal discomfort, especially in the right upper quadrant. He presented to the emergency room for further evaluation. Gallbladder distention with wall thickening consistent with acute cholecystitis. He is also found to have cirrhosis. Over the last week, he has noted progressive exertional dyspnea has had numerous episodes of PND. His weight has gone from his typical dry weight of 155 lb up to 162 lb. He was started on diuretics in the emergency room and has noted significant improvement. He has a longstanding history of an idiopathic dilated cardiomyopathy. He does follow daily weights at home, however, has never require diuretic therapy. He is intolerant to ACEI/ARB therapy due to hypotension. He also carries a history of nonobstructive coronary artery disease. A cardiac catheterization performed in 2001 noted luminal irregularities in the right coronary artery. He has never experienced exertional angina pectoris. Interrogation of his device has revealed very brief episodes of atrial fibrillation and atrial flutter lasting no more than several seconds. He has never panel on anticoagulation therapy. Currently, patient is resting comfortably in bed without complaints. Past medical and surgical history 1. Nonobstructive coronary artery disease-2001, see above 2. Idiopathic dilated cardiomyopathy 3. Moderate left ventricular aewrmchpcgc-57-96%, July 2022 4. Chronic systolic CHF 5. LBBB 6. Biventricular ICD-June 2022 7. Paroxysmal atrial fibrillation/flutter-Very brief episodes, no anticoagulation 8. Paroxysmal ventricular tachycardia 9. Hypertension 10. Statin intolerant hypercholesterolemia 11. Idiopathic interstitial lung disease 12. History of gastric ulcer 13. BPH 14. Inguinal hernia repair x2 Social history and lives with his No tobacco alcohol Family history Noncontributory Review of systems A 10 point review systems was undertaken and negative except that described above. Allergies Allergy/AdvReac Type Severity Reaction Status Date / Time morphine Allergy Unknown Difficulty Verified 08/13/23 10:26 Breathing mycophenolate mofetil AdvReac Intermediate Dizziness Verified 08/13/23 10:26 Home Medications Medication Instructions Recorded Confirmed Type hnqelxeokxtg-omp-lumlk acid-vit 1 tab PO QPM 03/21/20 08/13/23 History K-lycop 400 mcg-20 mcg-370 mcg tablet (One-A-Day Men's 50 Plus (with vitamin K)) acetaminophen 500 mg tablet 1,000 mg PO Q6H PRN Pain 07/30/22 08/13/23 History aspirin 81 mg tablet,delayed 81 mg PO QPM 08/08/22 08/13/23 History release albuterol sulfate 90 mcg/actuation 2 inh inhalation Q4 PRN shortness 01/20/23 08/13/23 Rx aerosol inhaler of breath or wheezing #3 Inhalers cholecalciferol (vitamin D3) 25 25 mcg PO QPM 03/05/23 08/13/23 History mcg (1,000 unit) capsule cholecalciferol (vitamin D3) 50 50 mcg PO QAM 03/05/23 08/13/23 History mcg (2,000 unit) capsule gabapentin 400 mg capsule 400 mg PO TID PRN Pain #270 caps 04/21/23 08/13/23 Rx tadalafil 5 mg tablet 5 mg PO QPM 06/17/23 08/13/23 History atorvastatin 10 mg tablet 10 mg PO QPM #90 tabs 06/18/23 08/13/23 Rx ferrous sulfate 325 mg (65 mg 325 mg PO DAILY 06/25/23 08/13/23 History iron) tablet metoprolol succinate 25 mg 25 mg PO DAILY #90 tabs 06/25/23 08/13/23 Rx tablet,extended release 24 hr clarithromycin 500 mg tablet 500 mg PO BID #28 tabs 06/30/23 08/13/23 Rx metronidazole 500 mg tablet 500 mg PO TID #42 tabs 06/30/23 08/13/23 Rx meloxicam 7.5 mg tablet 7.5 mg PO BID #180 tabs 07/01/23 08/13/23 Rx pantoprazole 40 mg tablet,delayed See Rx Instructions .Route 07/30/23 08/13/23 Rx release .COMPLEX #60 tabs Patient History Medical History Defibrillator discharge Sustained ventricular tachycardia NSVT (nonsustained ventricular tachycardia) Pneumothorax Community acquired pneumonia Idiopathic interstitial pneumonia Hypotension recent [place] cardio visit --- checks BP at home and hypotensive, light headed. see cardio note. Presence of combination internal cardiac defibrillator (ICD) and pacemaker medtronic. checked [address] Mcnulty. Paroxysmal atrial fibrillation Idiopathic interstitial pneumonia Interstitial lung disease Dyspnea on exertion Bibasilar crackles Hx of gastric ulcer BPH with obstruction/lower urinary tract symptoms Abnormal TSH noted 02/2020 due to use of prednisone, repeat labs normal in 03/2020 including TSI Biventricular ICD (implantable cardioverter-defibrillator) in place original placed in 2013, follows with Dr Mcnulty; new one placed 06/2022, [facility] Chronic systolic congestive heart failure Left bundle branch block Osteoarthritis Rib fractures hx Pneumothorax on left ~2013. chest tube drain placed and treated inpatient. HTN (hypertension) Hypercholesteremia CAD (coronary artery disease) Non-ischemic cardiomyopathy (04/14/14) Surgical History Hx of eye surgery age 4 History of esophagogastroduodenoscopy (EGD) History of colonoscopy History of inguinal hernia repair x 2 History of arthroscopy of knee right History of eye surgery at age 4 - right eye surgery Family History Father Emphysema, unspecified Mother Urinary bladder cancer Brother Prediabetes Denies family history of Ovarian cancer Prostate cancer Myocardial infarction Breast cancer Colorectal cancer Social History Smoking Status: Never smoker Second Hand Exposure: No; Do You Dip or Chew Tobacco: No; Hx Alcohol Use: No Hx Substance Use: No Preferred Language: [place] Communication Ability: Effective Visual Impairment: No Limitations Hearing Ability: Normal Oracle Ebs Consultant Required: No Beliefs That Will Affect Care: None marital status: Current Living Situation: Spouse current occupational status: retired 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 How many Children do You have: 2 Feels Safe at Home: Yes Childhood Exposure to Second-Hand Smoke: No Diet: regular Dental Care, Regularly: No Physical Activity Frequency: Daily Seatbelt Use: always Sunscreen Use: No Assistive Devices: Glasses Physical Exam Physical Exam: In general this is a well-developed well-nourished white male in no acute distress. HEENT exam is negative. Neck reveals normal carotid upstrokes without bruits. Jugular venous pressure is 8 cm of water at 90. There is no thyromegaly. Cardiovascular exam reveals a regular rhythm with a normal S1 and S2. No murmurs, S3, or S4 are noted. Lungs are clear without rales, rhonchi, or wheezes. Chest reveals a palpable device in the left subclavicular region. Abdomen is soft without bruits. Extremities reveal intact radial artery and posterior tibial pulses bilaterally. There is no peripheral edema. Results & Data Vital Signs (Past 12 Hours) Vital Signs Temp Pulse Pulse Resp BP BP Pulse Ox 08/14/23 12:27 129 H 08/14/23 11:14 36.4 C L 129 H 18 110/73 97 08/14/23 09:00 117 H 21 97 08/14/23 08:13 36.8 C 127 H 24 116/91 97 08/14/23 08:11 116/91 08/14/23 08:11 128 H 16 97 08/14/23 08:00 128 H 17 97 08/14/23 07:51 130 H 08/14/23 07:00 126 H 25 H 96 08/14/23 06:00 126 H 21 95 08/14/23 05:49 100 H 19 97 08/14/23 05:00 124 H 20 111/92 95 08/14/23 04:30 124 H 21 115/87 91 08/14/23 04:00 124 H 22 120/86 94 08/14/23 03:45 130 H 22 122/82 96 08/14/23 03:16 145 H 20 117/89 98 O2 Del Method 08/14/23 12:27 08/14/23 11:14 Room Air 08/14/23 09:00 08/14/23 08:13 Room Air 08/14/23 08:11 08/14/23 08:11 08/14/23 08:00 08/14/23 07:51 08/14/23 07:00 08/14/23 06:00 08/14/23 05:49 Room Air 08/14/23 05:00 Room Air 08/14/23 04:30 Room Air 08/14/23 04:00 Room Air 08/14/23 03:45 Room Air 08/14/23 03:16 Room Air Laboratory Results CBC notes hemoglobin 13.3, hematocrit of 40.5, white count 8.76, and platelet count of 211100. Electrolytes note a sodium of 137, potassium 4.3, chloride 103, bicarb 24, BUN twenty-three, creatinine 1.3, and glucose of 93. BNP is elevated 2207. Diagnostic Findings EKG notes sinus tachycardia with appropriate biventricular pacing. PG Care Time/CCT Total # of Minutes Spent Total Time Spent with Patient: Total time spent is greater than 50% in coordination of care (as documented) at patient's floor/unit and/or counseling patient: Coding Level of Care Code 19043 INT INP/OBS CARE MIN Diagnoses Chronic systolic congestive heart failure I50.22 Non-ischemic cardiomyopathy I42.8 Biventricular ICD (implantable cardioverter-defibrillator) in place Z95.810 Abdominal pain R10.9 Preop cardiovascular exam Z01.810
[2023-08-14 17:56] LABS: ANTI-Xa, UFH(UnfractionatedHep 0.12 IU/ml (0.3-0.7)
[2023-08-14] MEDS ORDERED: HEPARIN SOD (PORCINE) 1000 UNIT/ML IV ONE (19:30)
[2023-08-14] MEDS: HEPARIN SODIUM/DEXTROSE 25,000 UNITS/500 ML BAG IV SCH (20:23)
[2023-08-14] MEDS: GABAPENTIN 400 MG CAP PO PRN (20:24)
[2023-08-14] MEDS: ATORVASTATIN 10 MG TAB PO SCH (20:24)
[2023-08-14] MEDS: ASPIRIN 81 MG ECTAB PO SCH (20:25)
--- NOTE | 2023-08-14 20:25 | Hospitalist Progress Note ---
Date of Service August 14, 2023 Assessment & Plan (1) Abdominal pain: Plan: etiology? biliary tract disease? musculoskeletal abdominal wall pain? other? although CT abd and RUQ U/s show gallstones, GB wall thickening, etc -- HIDA scan was negative he still has mild RUQ pain but tolerated clears t.bili/d.bili and alk phos are both mildly high but this is chronic lipase is normal u/a is unremarkable remains on zosyn to cover for possibility of cholecystitis cont clears repeat LFTs in am serial exams appreciate gen surg consultation (2) Cholelithiasis: Plan: see discussion above in #1 acute cholecystitis? but HIDA negative (3) Acute on chronic systolic heart failure: Plan: radiographic and clinical evidence of decompensated CHF cont IV lasix BID cont BB last echo 07/2022 - EF 35-40% uncertain why he is not on Entresto or BORIS/ARB therapy (4) CAD (coronary artery disease): Plan: cont asa cont metoprolol cont lipitor (5) Interstitial lung disease: Plan: noted (6) BPH (benign prostatic hyperplasia): Plan: Continue to hold tadalafil (7) Hypercholesteremia: Plan: Continue atorvastatin (8) Tachycardia: Plan: pacer interrogation completed report suggests he had had a 9 min run of VT that was not shocked? some episodes of paroxysmal atrial tachycardia or afib was noted uncertain why he is being paced in the 120s and 130s pacemaker mediated tachycardia? sinus tach? (which would be appropriate in the setting of decompensated CHF) other? defer management to cardiology (9) Pleural effusion: Plan: 2nd decompensated CHF cont diuresis (10) Biventricular ICD (implantable cardioverter-defibrillator) in place: Plan: as above (11) Non-ischemic cardiomyopathy: (12) Paroxysmal atrial fibrillation: Plan: heparin drip ?a.fib seen on pacemaker interrogation? (13) Sustained ventricular tachycardia: Plan: history of and pacemaker interrogation suggested nearly a 10-min episode of VT which did not lead to a shock? (14) Gastritis: Plan: as seen on EGD fall 2022 cont PPI (15) H. pylori infection: Plan: was H Pylori + on biopsy from stomach via EGD completed antibiotic treatment for such Plan family updated at bedside cared d/w cardiology Admission and Anticipated Discharge Date Admission Date: August 13, 2023 Subjective tele overnight - tachycardia with pacing patient reports no dyspnea at rest ongoing dyspnea with exertion no chest pain abd pain is improved first he stated that the pain was a band-like discomfort near the umbilical area that stretched from left to right when he rolled over in bed he "noticed the pain" and that moving seemed to bring it on the pain then shifted to closer to the RUQ he never had vomiting no chest pain daughter was present and said that while in the ER his pain was worsened when he would stand up and walk to the bathroom he did report that he took the clear liquids and this did NOT cause any abdominal pain Review of Systems Review of Systems: gen - no fevers, no chills cv - no chest pain GI - no blood per rectum pulm - no cough Physical Exam Physical Exam: gen - NAD, nontoxic, looks well eyes - no icterus mouth - MMM heart - tachy, s1 s2 neck - JVD present 1/2 way up back lungs - b/l basilar rales, no increased work of breathing abd - tender RUQ w/ deep palpation, ND, soft, no HSM, no peritoneal signs ext - no edema, pulses 2+ b/l psych - a/o x 3 Results & Data Results & Data Vital Signs (Past 12 Hours) Vital Signs Temp Pulse Pulse Resp BP Pulse Ox O2 Del Method 08/14/23 19:56 36.5 C 125 H 18 97/62 L 96 Room Air 08/14/23 16:52 133 H 08/14/23 15:39 36.7 C 125 H 14 101/69 95 Room Air 08/14/23 12:27 129 H 08/14/23 11:14 36.4 C L 129 H 18 110/73 97 Room Air 08/14/23 09:00 117 H 21 97 Laboratory Results Laboratory Results - last 24 hr 08/13/23 08/14/23 08/14/23 19:59 02:43 09:23 WBC 8.76 RBC 4.29 L Hgb 13.3 L Hct 40.5 L MCV 94.4 MCH 31.0 MCHC 32.8 RDW Std Deviation 48.9 H RDW Coeff of Bull 14.2 Plt Count 232 MPV 10.0 Immature Gran % (Auto) 0.5 Neut % (Auto) 62.7 Lymph % (Auto) 23.5 [place] % (Auto) 10.8 Eos % (Auto) 1.9 Baso % (Auto) 0.6 Neut # (Auto) 5.49 Lymph # (Auto) 2.06 [place] # (Auto) 0.95 H Eos # (Auto) 0.17 Baso # (Auto) 0.05 Immature Gran # (Auto) 0.04 PT 13.5 H INR 1.2 H APTT 29 PTT Ratio 1.0 Heparin Anti-Xa, Unfract < 0.10 L 0.32 Sodium 137 Potassium 4.3 Chloride 103 Carbon Dioxide 24 Anion Gap 10 BUN 23 Creatinine 1.30 Est Cr Clr Drug Dosing 46.6 Est GFR ( Amer) 62.3 Est GFR (Non-Af Amer) 53.8 BUN/Creatinine Ratio 17.7 Glucose 93 Calcium 9.1 Magnesium 1.9 Total Bilirubin 2.6 H Direct Bilirubin 0.6 H AST 23 ALT 17 Alkaline Phosphatase 121 H B-Natriuretic Peptide 2270 H Total Protein 7.1 Albumin 3.7 CB Screen Pending Anti-Mitochondrial Ab Pending Anti-Smooth Muscle Ab Pending Hepatitis A IgM Ab Pending Hep Bs Antigen Pending Hep Bs Ag Confirmation Pending Hep B Core IgM Ab Pending Hepatitis C Ab (EIA) Pending 08/14/23 17:09 WBC RBC Hgb Hct MCV MCH MCHC RDW Std Deviation RDW Coeff of Bull Plt Count MPV Immature Gran % (Auto) Neut % (Auto) Lymph % (Auto) [place] % (Auto) Eos % (Auto) Baso % (Auto) Neut # (Auto) Lymph # (Auto) [place] # (Auto) Eos # (Auto) Baso # (Auto) Immature Gran # (Auto) PT INR APTT PTT Ratio Heparin Anti-Xa, Unfract 0.12 L Sodium Potassium Chloride Carbon Dioxide Anion Gap BUN Creatinine Est Cr Clr Drug Dosing Est GFR ( Amer) Est GFR (Non-Af Amer) BUN/Creatinine Ratio Glucose Calcium Magnesium Total Bilirubin Direct Bilirubin AST ALT Alkaline Phosphatase B-Natriuretic Peptide Total Protein Albumin CB Screen Anti-Mitochondrial Ab Anti-Smooth Muscle Ab Hepatitis A IgM Ab Hep Bs Antigen Hep Bs Ag Confirmation Hep B Core IgM Ab Hepatitis C Ab (EIA) PG Care Time/CCT Total # of Minutes Spent Total Time Spent with Patient: Total time spent is greater than 50% in coordination of care (as documented) at patient's floor/unit and/or counseling patient: Coding Level of Care Code 88128 SUB INP/OBS CARE 50MIN Diagnoses Abdominal pain R10.9 Calculus of gallbladder without cholecystitis without obstruction K80.20 Cholelithiasis location: gallbladder Cholecystitis presence: without cholecystitis Biliary obstruction: without biliary obstruction Acute on chronic systolic heart failure I50.23 Coronary artery disease involving [place] coronary artery of [place] heart without angina pectoris I25.10 Associated angina: without angina Coronary Disease-Associated Artery/Lesion type: [place] artery [place] vs. transplanted heart: [place] heart Interstitial lung disease J84.9 BPH (benign prostatic hyperplasia) N40.0 Hypercholesteremia E78.00 Tachycardia R00.0 Pleural effusion J90 Biventricular ICD (implantable cardioverter-defibrillator) in place Z95.810 Non-ischemic cardiomyopathy I42.8 Paroxysmal atrial fibrillation I48.0 Sustained ventricular tachycardia I47.20 Gastritis K29.70 H. pylori infection A04.8 (2) Cholelithiasis Cholelithiasis location: gallbladder Cholecystitis presence: without cholecystitis Biliary obstruction: without biliary obstruction Qualified Code( s): K80.20 - Calculus of gallbladder without cholecystitis without obstruction (4) CAD (coronary artery disease) Associated angina: without angina Coronary Disease-Associated Artery/Lesion type: [place] artery [place] vs. transplanted heart: [place] heart Qualified Code(s): I25.10 - Atherosclerotic heart disease of [place] coronary artery without angina pectoris
[2023-08-14] MEDS: ACETAMINOPHEN 325 MG TAB PO PRN (20:27)
[2023-08-15 02:52] LABS: Basophils # (auto) 0.04 K/uL (0.00-0.20); Basophils % (auto) 0.5 %; Eosinophils # (auto) 0.31 K/uL (0.00-0.50); Eosinophils % (auto) 4.2 %; Hematocrit (blood only) 38.3 % (42.0-52.0); Hemoglobin 12.8 g/dl (14.0-18.0); Immature Granulocytes # (auto) 0.02 K/uL (0.01-0.20); Immature Granulocytes % (auto) 0.3 %; Lymphocytes # (auto) 2.67 K/uL (1.20-3.40); Lymphocytes % (auto) 36.1 %; Mean Corpuscular Hemoglobin 31.1 pg (25.0-34.0); Mean Corpuscular Hgb Conc 33.4 g/dL (32.0-36.0); Mean Corpuscular Volume 93.2 fL (80.0-100.0); Mean Platelet Volume 9.6 fL (9.4-12.4); Monocytes # (auto) 0.94 K/uL (0.11-0.59); Monocytes % (auto) 12.7 %; Neutrophils # (auto) 3.42 K/uL (1.40-6.50); Neutrophils % (auto) 46.2 %; Platelet Count 241 K/uL (130-400); RDW Coefficient of Variation 13.9 % (11.5-14.5); RDW Standard Deviation 46.9 fL (36.4-46.3); Red Blood Count 4.11 M/uL (4.70-6.10)
[2023-08-15 03:02] LABS: ANTI-Xa, UFH(UnfractionatedHep 0.41 IU/ml (0.3-0.7)
[2023-08-15 03:10] LABS: Albumin Level 3.4 gm/dl (3.4-5.0); BUN Creatinine Ratio 14.7 (10-20); Bilirubin Direct 0.5 mg/dl (0-0.2); Bilirubin,Total 2.3 mg/dl (0.2-1.0); Calcium 8.6 mg/dl (8.6-10.3); Creatinine Clr Calc Pharmacy 40.4 ml/min; Est GFR (African American) 52.4 ml/min; Est GFR (Non-African American) 45.2 ml/min; Potassium 3.5 mmol/L (3.5-5.1); Total Protein 6.9 gm/dl (6.0-8.3)
[2023-08-15] MEDS: PIPERACILLIN/TAZOBACTAM 4.5 GM in DEXTROSE 5% MINI-B 100 ML IV SCH ×3 (08:04→23:45)
[2023-08-15] MEDS: PANTOprazole 40 MG TAB PO SCH ×2 (10:23→20:08)
[2023-08-15] MEDS: METOPROLOL SUCC 25MG EXT REL TAB PO SCH (10:23)
[2023-08-15] MEDS: CHOLECALCIFEROL 1,000 UNITS 25 MCG TAB PO SCH ×2 (10:23→20:08)
[2023-08-15] MEDS: FERROUS SULFATE 325 MG TAB PO SCH (10:23)
[2023-08-15] MEDS: GABAPENTIN 400 MG CAP PO PRN ×2 (10:23→20:08)
--- NOTE | 2023-08-15 10:53 | XRay Report ---
KUB CLINICAL HISTORY: Generalized abdominal pain. FINDINGS: 2 AP supine abdominal radiographs are correlated with abdominal CT dated 08/13/2023. There is a nonobstructed abdominal bowel gas pattern. Mild fecal retention is seen throughout the colon. No e vidence of intraperitoneal free air is identified on these supine images. There are no abnormal abdom inal calcifications. Phleboliths are noted in the pelvis. The skeletal structures are osteopenic and appear intact. There is moderate lumbosacral spondylosis. The heart is enlarged and pacemaker leads a re partially imaged. There are small pleural effusions. IMPRESSION: No acute intra-abdominal abnormality is identified. Electronically signed by: Anders Gaspar M.D. 08/15/2023 10:51 AM
[2023-08-15] MEDS: FUROSEMIDE 40 MG/4 ML VIAL IV SCH (12:10)
--- NOTE | 2023-08-15 12:24 | Cardiology Progress Note ---
Date of Service August 15, 2023 Assessment & Plan (1) Chronic systolic congestive heart failure: Plan: -improved with intravenous Lasix. -we discussed the concept of daily weights and sliding-scale diuretics. -he will use Lasix 40 mg p.o. daily p.r.n. weight gain on hospital discharge. (2) Non-ischemic cardiomyopathy: Plan: -minimal disease on cardiac catheterization 2001. -intolerant to ACEI/ARB secondary to hypotension. -continue metoprolol succinate. (3) Biventricular ICD (implantable cardioverter-defibrillator) in place: Plan: -functioning properly on interrogation. (4) Abdominal pain: Plan: -workup in progress. (5) Paroxysmal ventricular tachycardia: Plan: -noted on telemetry and recent interrogation. -fortunately, no recent defibrillations. -continue metoprolol succinate. Admission and Anticipated Discharge Date Admission Date: August 13, 2023 Subjective The patient is resting comfortably in bed without complaints of chest pain or dyspnea. No PND overnight. He is anxious for hospital discharge. Physical Exam Physical Exam: In general this is a well-developed well-nourished white male in no acute distress. HEENT exam is negative. Neck reveals normal carotid upstrokes without bruits. Jugular venous pressure is 6 cm of water at 90. There is no thyromegaly. Cardiovascular exam reveals a regular rhythm with a normal S1 and S2. No murmurs, S3, or S4 are noted. Lungs are clear without rales, rhonchi, or wheezes. Chest reveals a palpable device in the left subclavicular region. Abdomen is soft without bruits. Extremities reveal intact radial artery and posterior tibial pulses bilaterally. There is no peripheral edema. Results & Data Vital Signs (Past 12 Hours) Vital Signs Temp Pulse Resp BP Pulse Ox O2 Del Method 08/15/23 07:24 36.5 C 94 H 16 95/63 L 95 Room Air 08/15/23 04:04 36.4 C 89 16 101/74 97 Room Air Diagnostic Findings manager monitoring notes paroxysmal ventricular tachycardia and appropriate ventricular pacing. No defibrillations. No atrial fibrillation. PG Care Time/CCT Total # of Minutes Spent Total Time Spent with Patient: Total time spent is greater than 50% in coordination of care (as documented) at patient's floor/unit and/or counseling patient: Coding Level of Care Code 19890 SUB INP/OBS CARE 3/50MIN Diagnoses Chronic systolic congestive heart failure I50.22 Non-ischemic cardiomyopathy I42.8 Biventricular ICD (implantable cardioverter-defibrillator) in place Z95.810 Abdominal pain R10.9 Paroxysmal ventricular tachycardia I47.29
[2023-08-15 17:23] LABS: Adenovirus F 40/41 PCR Not Detected (NotDetected); Astrovirus PCR Not Detected (NotDetected); Campylobacter PCR Not Detected (NotDetected); Cryptosporidium PCR Not Detected (NotDetected); Cyclospora cayetanensis PCR Not Detected (NotDetected); Entamoeba histolytica PCR Not Detected (NotDetected); Enteroaggregative E.coli(EAEC) Not Detected (NotDetected); Enteropathogenic E.coli (EPEC) Not Detected (NotDetected); Enterotoxigenic E.coli (ETEC) Not Detected (NotDetected); Giardia lamblia PCR Not Detected (NotDetected); Norovirus GI/GII PCR Not Detected (NotDetected); Plesiomonas shigelloides PCR Not Detected (NotDetected); Rotavirus A PCR Not Detected (NotDetected); Salmonella PCR Not Detected (NotDetected); Sapovirus PCR Not Detected (NotDetected); Shiga-like Toxin E.coli (STEC) Not Detected (NotDetected); Shigella/Enteroinvasive E.coli Not Detected (NotDetected); Vibrio cholerae PCR Not Detected (NotDetected); Vibrio species PCR Not Detected (NotDetected); Yersinia enterocolitica PCR Not Detected (NotDetected)
[2023-08-15] MEDS: ASPIRIN 81 MG ECTAB PO SCH (20:08)
[2023-08-15] MEDS: ATORVASTATIN 10 MG TAB PO SCH (20:08)
[2023-08-15] MEDS: ACETAMINOPHEN 325 MG TAB PO PRN (20:12)
--- NOTE | 2023-08-15 20:22 | Hospitalist Progress Note ---
Date of Service August 15, 2023 Assessment & Plan (1) Abdominal pain: Plan: etiology? biliary tract disease? musculoskeletal abdominal wall pain? other? although CT abd and RUQ U/s show gallstones, GB wall thickening, etc -- HIDA scan was negative he still has mild RUQ pain but tolerating clears - AND pain is better today no N/V t.bili/d.bili and alk phos are both mildly high but this is chronic lipase is normal u/a is unremarkable remains on zosyn to cover for possibility of cholecystitis advanced to full liquids then low fat diet in am repeat LFTs in am serial exams appreciate gen surg consultation no plans for surgical intervention of gall bladder KUB x-ray - normal checked c diff and stool panel due to liquid stools -- fully negative diarrhea likely abx-associated diarrhea (2) Cholelithiasis: Plan: see discussion above in #1 acute cholecystitis? but HIDA negative (3) Acute on chronic systolic heart failure: Plan: pt's dry weight is 155# he is 155.5# today Cr philip overnight likely euvolemic thus placed IV lasix on hold resume PO lasix tomorrow if Cr is stable cont BB last echo 07/2022 - EF 35-40% per Dr Mcnulty not on Entresto or BORIS/ARB therapy due to issues with hypotension and med intolerance (4) CAD (coronary artery disease): Plan: cont asa cont metoprolol cont lipitor no ischemic symptoms (5) Interstitial lung disease: Plan: noted mild (6) BPH (benign prostatic hyperplasia): Plan: Continue to hold tadalafil (7) Hypercholesteremia: Plan: Continue atorvastatin (8) Tachycardia: Plan: pacer interrogation completed report suggests he had had a 9 min run of VT that was not shocked? some episodes of paroxysmal atrial tachycardia or afib were noted uncertain why he is being paced in the 120s and 130s pacemaker mediated tachycardia? sinus tach? (which would be appropriate in the setting of decompensated CHF) other? defer management to cardiology Dr Mcnulty reports that pacer interrogations only show brief (seconds in duration) a.fib thus anticoagulation has been deferred (9) Pleural effusion: Plan: 2nd decompensated CHF cont diuresis improved (10) Biventricular ICD (implantable cardioverter-defibrillator) in place: Plan: as above (11) Non-ischemic cardiomyopathy: (12) Paroxysmal atrial fibrillation: Plan: stop heparin drip see discussion above re: tachycardia (13) Sustained ventricular tachycardia: Plan: history of and pacemaker interrogation suggested nearly a 10-min episode of VT which did not lead to a shock? defer management to cardiology (14) Gastritis: Plan: as seen on EGD fall 2022 cont PPI (15) H. pylori infection: Plan: was H Pylori + on biopsy from stomach via EGD completed antibiotic treatment for such Plan family updated at bedside cared d/w cardiology home tomorrow if tolerating diet, labs are stable, and abdominal pain is minimal or resolved if pain persists MRCP? other? Admission and Anticipated Discharge Date Admission Date: August 13, 2023 Subjective tele - rates >100 often times with pacing pt feels better today abd pain is much better tolerating clear liquid diet - isn't making his pain any worse no nausea no vomiting having multiple liquid stools breathing is improved no orthopnea or PND no chest pain took multiple laps in hallway - dyspnea on exertion near baseline Review of Systems Review of Systems: gen - no fevers or chills cv - no edema pulm - no cough GI - abd pain much improved Physical Exam Physical Exam: gen - NAD, looks well eyes - no icterus mouth - MMM heart - tachy, s1 s2, no murmur neck - JVD appears resolved lungs - CTA b/l, no rales or wheezes abd - tender RUQ w/ deep palpation but not as severe as yesterday, ND, soft, no HSM, no peritoneal signs ext - no edema, pulses 2+ b/l psych - a/o x 3 Results & Data Results & Data Vital Signs (Past 12 Hours) Vital Signs Temp Pulse Resp BP Pulse Ox O2 Del Method 08/15/23 18:25 36.4 C L 95 H 16 106/71 96 Room Air 08/15/23 15:13 36.7 C 121 H 16 102/72 98 Room Air 08/15/23 12:19 35.5 C L 91 H 16 95/64 L 96 Room Air Laboratory Results Laboratory Results - last 24 hr 08/15/23 08/15/23 08/15/23 02:31 15:25 15:35 WBC 7.40 RBC 4.11 L Hgb 12.8 L Hct 38.3 L MCV 93.2 MCH 31.1 MCHC 33.4 RDW Std Deviation 46.9 H RDW Coeff of Bull 13.9 Plt Count 241 MPV 9.6 Immature Gran % (Auto) 0.3 Neut % (Auto) 46.2 Lymph % (Auto) 36.1 [place] % (Auto) 12.7 Eos % (Auto) 4.2 Baso % (Auto) 0.5 Neut # (Auto) 3.42 Lymph # (Auto) 2.67 [place] # (Auto) 0.94 H Eos # (Auto) 0.31 Baso # (Auto) 0.04 Immature Gran # (Auto) 0.02 Heparin Anti-Xa, Unfract 0.41 Sodium 136 Potassium 3.5 Chloride 97 L Carbon Dioxide 29 Anion Gap 10 BUN 22 Creatinine 1.50 H Est Cr Clr Drug Dosing 40.4 Est GFR ( Amer) 52.4 Est GFR (Non-Af Amer) 45.2 BUN/Creatinine Ratio 14.7 Glucose 154 H Calcium 8.6 Total Bilirubin 2.3 H Direct Bilirubin 0.5 H AST 20 ALT 15 Alkaline Phosphatase 105 H Total Protein 6.9 Albumin 3.4 Stl C. cayetanensis PCR Not Detected Stool Rotavirus A PCR Not Detected Stl Adenov F 40/41 PCR Not Detected Stool Astrovirus (PCR) Not Detected Stool Campylobacter PCR Not Detected Stl C. diff Tox B Gene Negative Cdiff Gene Stool Cryptosporidium PCR Not Detected Stl E.coli Shiga Tox PCR Not Detected Stl Enterotoxigenic E PCR Not Detected Stool EPEC (PCR) Not Detected Stool EAEC (PCR) Not Detected Stl E. histolytica PCR Not Detected Stool Giardia [place]lia PCR Not Detected Stool Salmonella PCR Not Detected Stool Sapovirus (PCR) Not Detected Stl P. shigelloides PCR Not Detected Stl Shigella/EIEC PCR Not Detected St Y.enterocolitica PCR Not Detected Stool Vibrio (PCR) Not Detected Stl Vibrio cholerae PCR Not Detected Stl Norovirus GI/GII PCR Not Detected C. difficile Tox B Gene Cancelled Diagnostic Findings KUB X-Ray 08/15/23 09:33 KUB CLINICAL HISTORY: Generalized abdominal pain. FINDINGS: 2 AP supine abdominal radiographs are correlated with abdominal CT dated 08/13/2023. There is a nonobstructed abdominal bowel gas pattern. Mild fecal retention is seen throughout the colon. No evidence of intraperitoneal free air is identified on these supine images. There are no abnormal abdominal calcifications. Phleboliths are noted in the pelvis. The skeletal structures are osteopenic and appear intact. There is moderate lumbosacral spondylosis. The heart is enlarged and pacemaker leads are partially imaged. There are small pleural effusions. IMPRESSION: No acute intra-abdominal abnormality is identified. Electronically signed by: Anders Gaspar M.D. 08/15/2023 10:51 AM PG Care Time/CCT Total # of Minutes Spent Total Time Spent with Patient: Total time spent is greater than 50% in coordination of care (as documented) at patient's floor/unit and/or counseling patient: Coding Level of Care Code 81944 SUB INP/OBS CARE 3/50MIN Diagnoses Abdominal pain R10.9 Calculus of gallbladder without cholecystitis without obstruction K80.20 Biliary obstruction: without biliary obstruction Cholecystitis presence: without cholecystitis Cholelithiasis location: gallbladder Acute on chronic systolic heart failure I50.23 Coronary artery disease involving [place] coronary artery of [place] heart without angina pectoris I25.10 Associated angina: without angina Coronary Disease-Associated Artery/Lesion type: [place] artery [place] vs. transplanted heart: [place] heart Interstitial lung disease J84.9 BPH (benign prostatic hyperplasia) N40.0 Hypercholesteremia E78.00 Tachycardia R00.0 Pleural effusion J90 Biventricular ICD (implantable cardioverter-defibrillator) in place Z95.810 Non-ischemic cardiomyopathy I42.8 Paroxysmal atrial fibrillation I48.0 Sustained ventricular tachycardia I47.20 Gastritis K29.70 H. pylori infection A04.8 (2) Cholelithiasis Biliary obstruction: without biliary obstruction Cholecystitis presence: without cholecystitis Cholelithiasis location: gallbladder Qualified Code(s): K80.20 - Calculus of gallbladder without cholecystitis without obstruction (4) CAD (coronary artery disease) Associated angina: without angina Coronary Disease-Associated Artery/Lesion type: [place] artery [place] vs. transplanted heart: [place] heart Qualified Code(s): I25.10 - Atherosclerotic heart disease of [place] coronary artery without angina pectoris
[2023-08-16 07:16] LABS: Basophils # (auto) 0.04 K/uL (0.00-0.20); Basophils % (auto) 0.5 %; Eosinophils # (auto) 0.38 K/uL (0.00-0.50); Eosinophils % (auto) 4.9 %; Hematocrit (blood only) 37.7 % (42.0-52.0); Hemoglobin 12.5 g/dl (14.0-18.0); Immature Granulocytes # (auto) 0.02 K/uL (0.01-0.20); Immature Granulocytes % (auto) 0.3 %; Lymphocytes # (auto) 2.43 K/uL (1.20-3.40); Lymphocytes % (auto) 31.6 %; Mean Corpuscular Hemoglobin 31.3 pg (25.0-34.0); Mean Corpuscular Hgb Conc 33.2 g/dL (32.0-36.0); Mean Corpuscular Volume 94.5 fL (80.0-100.0); Mean Platelet Volume 9.6 fL (9.4-12.4); Monocytes # (auto) 1.01 K/uL (0.11-0.59); Monocytes % (auto) 13.1 %; Neutrophils # (auto) 3.81 K/uL (1.40-6.50); Neutrophils % (auto) 49.6 %; Platelet Count 261 K/uL (130-400); RDW Coefficient of Variation 13.8 % (11.5-14.5); RDW Standard Deviation 47.1 fL (36.4-46.3); Red Blood Count 3.99 M/uL (4.70-6.10); White Blood Count 7.69 K/ul (4.8-10.8)
[2023-08-16 07:37] LABS: Albumin Level 3.6 gm/dl (3.4-5.0); BUN Creatinine Ratio 12.9 (10-20); Bilirubin Direct 0.4 mg/dl (0-0.2); Bilirubin,Total 1.8 mg/dl (0.2-1.0); Calcium 9.2 mg/dl (8.6-10.3); Creatinine Clr Calc Pharmacy 48.9 ml/min; Est GFR (Non-African American) 56.9 ml/min; Potassium 3.3 mmol/L (3.5-5.1); Total Protein 7.1 gm/dl (6.0-8.3)
[2023-08-16] MEDS ORDERED: POTASSIUM CHLORIDE CRTAB 20 MEQ TABCR PO STA (08:09)
[2023-08-16] MEDS: PANTOprazole 40 MG TAB PO SCH ×2 (08:27→20:34)
[2023-08-16] MEDS: CHOLECALCIFEROL 1,000 UNITS 25 MCG TAB PO SCH ×2 (08:28→20:34)
[2023-08-16] MEDS: FERROUS SULFATE 325 MG TAB PO SCH (08:28)
[2023-08-16] MEDS: METOPROLOL SUCC 25MG EXT REL TAB PO SCH (08:28)
[2023-08-16] MEDS: PIPERACILLIN/TAZOBACTAM 4.5 GM in DEXTROSE 5% MINI-B 100 ML IV SCH ×3 (08:28→23:19)
[2023-08-16] MEDS: GABAPENTIN 400 MG CAP PO PRN ×2 (08:29→20:34)
[2023-08-16] MEDS ORDERED: FUROSEMIDE 40 MG TAB PO SCH (09:00)
[2023-08-16] MEDS ORDERED: METOPROLOL TARTRATE 1 MG/ML VIAL IV ONE ×4 (16:09→16:54)
[2023-08-16] MEDS: METOPROLOL TARTRATE 1 MG/ML VIAL IV SCH ×2 (16:20→17:15)
[2023-08-16 17:06] LABS: BUN Creatinine Ratio 12.6 (10-20); Calcium 9.4 mg/dl (8.6-10.3); Creatinine Clr Calc Pharmacy 38.1 ml/min; Est GFR (African American) 48.8 ml/min; Est GFR (Non-African American) 42.1 ml/min; Potassium 4.1 mmol/L (3.5-5.1); Troponin I High Sensitivity 45.1 pg/ml (0-20)
--- NOTE | 2023-08-16 17:09 | Billing Data ---
Date of Service August 16, 2023 Coding Level of Care Code 13207 CRITICAL CARE
--- NOTE | 2023-08-16 17:09 | Critical Care Consultation ---
Date of Consultation August 16, 2023 Assessment & Plan (1) Acute dyspnea: (2) Wide-complex tachycardia: (3) Abdominal pain: (4) Cholelithiasis: (5) H. pylori infection: (6) Gastritis: (7) Paroxysmal atrial fibrillation: (8) Acute on chronic systolic heart failure: (9) BPH (benign prostatic hyperplasia): (10) CAD (coronary artery disease): Plan (1) Acute dyspnea/chest tightness/syncopal-like episode - code purple called - trend HS troponins: 45 - EKG --> atrial-sensed, ventricular-paced rhythm - patient given total of 15 mg metoprolol, IV (2) Abdominal pain/cholelithiasis biliary tract disease, musculoskeletal abdominal wall pain, other all possibilities although CT abd and RUQ U/s show gallstones, GB wall thickening, etc -- HIDA scan was negative he still has mild RUQ pain but tolerating clears - AND pain is better today no N/V t.bili/d.bili and alk phos are both mildly high but this is chronic lipase is normal, UA was unremarkable remains on Zosyn to cover for possibility of cholecystitis advanced to full liquids then low fat diet in am repeat LFTs, serial exams gen surg consultation: no plans for surgical intervention of gall bladder KUB x-ray - normal checked c diff and stool panel due to liquid stools -- fully negative diarrhea likely abx-associated diarrhea possibly acute cholecystitis, but HIDA negative (3) Acute on chronic systolic heart failure: pt's dry weight is 155 lbs, he is 155.5 lbs today Cr philip overnight, 1.59 <-- 1.24 <-- 1.50 <-- 1.30 likely euvolemic thus placed IV lasix on hold, resume PO lasix tomorrow if Cr is stable continue beta-jean last echo 07/2022 - EF 35-40% per Dr Mcnulty not on Entresto or BORIS/ARB therapy due to issues with hypotension and med intolerance (4) CAD (coronary artery disease): cont aspirin, metoprolol, Lipitor no ischemic symptoms (5) Interstitial lung disease noted, mild in nature (6) BPH (benign prostatic hyperplasia) Continue to hold tadalafil (7) Hypercholesteremia: Continue atorvastatin (8) Tachycardia: pacer interrogation completed report suggests he had had a 9 min run of VT that was not shocked?\\ some episodes of paroxysmal atrial tachycardia or afib were noted pacemaker mediated tachycardia? defer management to cardiology Dr Mcnulty reports that pacer interrogations only show brief (seconds in duration) a.fib thus anticoagulation has been deferred (9) Pleural effusion 2nd decompensated CHF cont diuresis, improved (10) Biventricular ICD (implantable cardioverter-defibrillator) in place as above (11) Non-ischemic cardiomyopathy: (12) Paroxysmal atrial fibrillation: stop heparin drip see discussion above re: tachycardia (13) Sustained ventricular tachycardia, Hx of and pacemaker interrogation suggested nearly a 10-min episode of VT which did not lead to a shock defer management to cardiology (15) Gastritis/ H. pylori infection as seen on EGD fall 2022 was H Pylori + on biopsy from stomach via EGD completed antibiotic treatment for such, continue PPI Supervising Physician Co-Signing Physician Notes Dr. Carranza was resident physician during care of patient. I separately evaluated patient for velasco portions of the history and the exam. I was present during the critical portion of medical decision making, and I discussed the case with the resident. I generally agree with the findings and plan. Responded to code purple, patient has a wide-complex tachycardia. Per discussion with cardiology and the hospitalist medicine patient has a history of atrial tachycardia paroxysmal atrial fibrillation, he is typically 100% pacemak er dependent: Atrial sensed ventricularly paced. Bedside evaluation he was tachycardic 130s to 160s with [id number] variability. His blood pressure was high 80s lower 90s systolic MAP greater than 65 and he maintained normal mentation. I believe the rhythm to be atrial in nature given the [id number] variability. 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 He was treated with multiple aliquots of 2.5 mg metoprolol and mildly volume expanded with 500 mL of saline. He is down approximately 6 kg during this admission from diuresis secondary to volume overload. I believe he can tolerate mild volume expansion, we are obtaining an echo to further evaluate his left ventricular function which I suspect could be mildly improved given significant diuresis during his hospital course. Repeat electrolytes are pending: He has a very mild acute kidney injury, I suspect we have reached his dry weight. Potassium was greater than 4 magnesium was greater than 2. At no point was the patient complaining of chest pain he did have mild shortness of breath. He received a total of 15 mg of IV metoprolol, current vital signs revealed a paced tachycardia at 116, blood pressure is 85/64 patient feels improved compared to the toni lozano. We are obtaining an echocardiogram, the pacemaker has been interrogated, cardiology has been in touch with electrophysiology who will weigh in on underlying rhythms and antiarrhythmics. Will get an extra dose of metoprolol 25 mg by mouth, he may require mildly increasing his dose. He is on antibiotics for possible biliary tract infection, I have reviewed his HIDA scan which did not demonstrate evidence of cystic duct obstruction, gallbladder ultrasound was reviewed. At baseline he has cholelithiasis. Repeat troponin is mildly elevated, I will's obtain another at approximately 2100. I have personally spent 70 minutes of critical care time in the direct management of this patient. This is a life/limb threatening event. This includes time spent evaluating patient, direct bedside care, chart review, placing orders, interpretation of diagnostic studies, discussion with consultants, patient, and/or family members regarding treatment decisions, as well as other required patient management activities. This time is exclusive of all separately billable procedures, and teaching time and separate from and in addition to any other critical care service time. History of Present Illness Reason for Consultation: Toni lozano, patient felt extremely tired, "wiped out" while sitting in armchair, did not lose consciousness Attending Physician: Julio Saez MD History of Present Illness Piter griggs a pleasant 73 yo M with PMHx of ILD, BPH, biventricular ICD, CHF, HTN, and CAD. Patient presented for transverse umbilical pain with acute worsening while lying in bed last night on 08/12. He first noticed the pain in and he was lying on his right side. Rates it 4 out of 10 at worst. He characterizes it as an achy pain to palpation. Lying still alleviates the pain, however it is worse with movement and going to the bathroom. Patient never experienced similar pain prior to this. Denied recent changes in diet over the holiday season. Denied right scapular pain. Toni lozano was called on patient while on hospital due to patient's apparent respiratory distress. Patient described the episode as feeling like he was severely "wiped out", very tired, w/ chest tightness, shortness of breath, but that he did not lose consciousness. Allergies Allergy/AdvReac Type Severity Reaction Status Date / Time morphine Allergy Unknown Difficulty Verified 08/13/23 10:26 Breathing mycophenolate mofetil AdvReac Intermediate Dizziness Verified 08/13/23 10:26 Home Medications Medication Instructions Recorded Confirmed Type [id number] acid-vit 1 tab PO QPM 03/21/20 08/13/23 History K-lycop 400 mcg-20 mcg-370 mcg tablet (One-A-Day Men's 50 Plus (with vitamin K)) acetaminophen 500 mg tablet 1,000 mg PO Q6H PRN Pain 07/30/22 08/13/23 History aspirin 81 mg tablet,delayed 81 mg PO QPM 08/08/22 08/13/23 History release albuterol sulfate 90 mcg/actuation 2 inh inhalation Q4 PRN shortness 01/20/23 08/13/23 Rx aerosol inhaler of breath or wheezing #3 Inhalers cholecalciferol (vitamin D3) 25 25 mcg PO QPM 03/05/23 08/13/23 History mcg (1,000 unit) capsule cholecalciferol (vitamin D3) 50 50 mcg PO QAM 03/05/23 08/13/23 History mcg (2,000 unit) capsule gabapentin 400 mg capsule 400 mg PO TID PRN Pain #270 caps 04/21/23 08/13/23 Rx tadalafil 5 mg tablet 5 mg PO QPM 06/17/23 08/13/23 History atorvastatin 10 mg tablet 10 mg PO QPM #90 tabs 06/18/23 08/13/23 Rx ferrous sulfate 325 mg (65 mg 325 mg PO DAILY 06/25/23 08/13/23 History iron) tablet metoprolol succinate 25 mg 25 mg PO DAILY #90 tabs 06/25/23 08/13/23 Rx tablet,extended release 24 hr clarithromycin 500 mg tablet 500 mg PO BID #28 tabs 06/30/23 08/13/23 Rx metronidazole 500 mg tablet 500 mg PO TID #42 tabs 06/30/23 08/13/23 Rx meloxicam 7.5 mg tablet 7.5 mg PO BID #180 tabs 07/01/23 08/13/23 Rx pantoprazole 40 mg tablet,delayed See Rx Instructions .Route 07/30/23 08/13/23 Rx release .COMPLEX #60 tabs Patient History Medical History (Updated 08/16/23 @ 18:56 by Barry Carranza MD) Sustained ventricular tachycardia Paroxysmal atrial fibrillation Defibrillator discharge NSVT (nonsustained ventricular tachycardia) Pneumothorax Community acquired pneumonia Idiopathic interstitial pneumonia Hypotension recent PR cardio visit --- checks BP at home and hypotensive, light headed. see cardio note. Presence of combination internal cardiac defibrillator (ICD) and pacemaker medtronic. checked [address] Mcnulty. Idiopathic interstitial pneumonia Interstitial lung disease Dyspnea on exertion Bibasilar crackles Hx of gastric ulcer BPH with obstruction/lower urinary tract symptoms Abnormal TSH noted 02/2020 due to use of prednisone, repeat labs normal in 03/2020 including TSI Biventricular ICD (implantable cardioverter-defibrillator) in place original placed in 2013, follows with Dr Mcnulty; new one placed 06/2022, [facility] Chronic systolic congestive heart failure Left bundle branch block Osteoarthritis Rib fractures hx Pneumothorax on left ~2013. chest tube drain placed and treated inpatient. HTN (hypertension) Hypercholesteremia CAD (coronary artery disease) Non-ischemic cardiomyopathy (04/14/14) Surgical History Hx of eye surgery age 4 History of esophagogastroduodenoscopy (EGD) History of colonoscopy History of inguinal hernia repair x 2 History of arthroscopy of knee right History of eye surgery at age 4 - right eye surgery Family History Father Emphysema, unspecified Mother Urinary bladder cancer Brother Prediabetes Denies family history of Ovarian cancer Prostate cancer Myocardial infarction Breast cancer Colorectal cancer Social History Smoking Status: Never smoker Second Hand Exposure: No; Do You Dip or Chew Tobacco: No; Hx Alcohol Use: No Hx Substance Use: No Preferred Language: Persian Communication Ability: Effective Visual Impairment: No Limitations Hearing Ability: Normal Mobile Developer Required: No Beliefs That Will Affect Care: None marital status: Current Living Situation: Spouse current occupational status: retired 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 How many Children do You have: 2 Feels Safe at Home: Yes Childhood Exposure to Second-Hand Smoke: No Diet: regular Dental Care, Regularly: No Physical Activity Frequency: Daily Seatbelt Use: always Sunscreen Use: No Assistive Devices: Glasses Review of Systems Constitutional: + fatigue, + weakness and + weight gain (secondary to fluid retention); no fever Eyes: no acute changes Respiratory: + cough (m) and + dyspnea; no chest christiana estion and no hemoptysis Cardiovascular: + chest pain at rest (chest pain starts in bottom of chest, radiating to top of chest); no radiating jaw, neck or arm pain Gastrointestinal: + abdominal pain (RUQ pain); no nausea a nd no vomiting Neurologic: no loss of sensation, no tingling and no numbness Physical Exam Constitutional: well nourished, healthy appearing and cooperative Respiratory: normal respiratory effort, lungs clear to auscultation Cardiovascular: Rate/Rhythm: regular rhythm and + tachycardic Gastrointestinal (Abdomen): Percussion/Palpation: + abdomen tender (positive Bravo's sign, pain w/ inspiration in RUQ) Neurologic: PERRL, EOMI, accommodation nl, no face palsy, no dysarthria CN's II-XI intact bilaterally Psychiatric: A+Ox3, euthymic affect Results & Data Results & Data Vital Signs (Past 12 Hours) Vital Signs Temp Pulse Pulse Resp BP BP Pulse Ox 08/16/23 17:06 104 H 85/64 L 08/16/23 17:01 111 H 93/70 L 08/16/23 16:38 111 H 91/70 L 08/16/23 16:37 111 H 89/66 L 08/16/23 16:36 112 H 89/66 L 08/16/23 16:35 120 H 88/70 L 08/16/23 16:15 125 H 08/16/23 16:10 140 H 08/16/23 15:03 36.8 C 122 H 18 94/62 L 94 08/16/23 11:35 36.8 C 114 H 18 94/69 L 92 08/16/23 07:54 08/16/23 07:42 36.5 C 108 H 18 105/74 96 08/16/23 06:27 36.8 C 111 H 18 98/66 L 95 O2 Del Method 08/16/23 17:06 08/16/23 17:01 08/16/23 16:38 08/16/23 16:37 08/16/23 16:36 08/16/23 16:35 08/16/23 16:15 08/16/23 16:10 08/16/23 15:03 Room Air 08/16/23 11:35 Room Air 08/16/23 07:54 Room Air 08/16/23 07:42 Room Air 08/16/23 06:27 Room Air (4) Cholelithiasis Cholelithiasis location: gallbladder Cholecystitis presence: without cholecystitis Biliary obstruction: without biliary obstruction Qualified Code(s): K80.20 - Calculus of gallbladder without cholecystitis without obstruction (10) CAD (coronary artery disease) Coronary Disease-Associated Artery/Lesion type: [place] artery [place] vs. transplanted heart: [place] heart Associated angina: without angina Qualified Code(s): I25.10 - Atherosclerotic heart disease of [place] coronary artery without angina pectoris
[2023-08-16] MEDS ORDERED: Nursing to Pharmacy Communication SCH (17:15)
[2023-08-16] MEDS ORDERED: METOPROLOL TARTRATE 25 MG TAB PO STA (17:19)
--- NOTE | 2023-08-16 17:24 | Hospitalist Progress Note ---
Date of Service August 16, 2023 Assessment & Plan (1) Wide-complex tachycardia: Plan: Patient has prior h/o sustained VT, nonsustained VT, PAF, and PAT. He has a LBBB at baseline. Recent pacemaker interrogation done earlier in this hospitalization showed VT. There has been NSVT on telemetry during the stay. During the patient's code purple today he was weak and had chest tightness. He was tachycardic in the 130s. Underlying rhythm? wide-complex atrial based rhythm vs VT. Again he has had multiple atrial and ventricular rhythms in the past. He has not tolerated amiodarone in the past per records. Appreciate the assistance of on-call cardiology as well as Dr Sorto from ICU. Plan - replete any low K or low mag (labs pending). STAT device interrogation. STAT echocardiogram. Hopefully with the repeat interrogation we can identify the rhythm and then determine the best treatment for it. (2) Abdominal pain: Plan: IMPROVED etiology? biliary tract disease? musculoskeletal abdominal wall pain? other? although CT abd and RUQ U/s show gallstones, GB wall thickening, etc -- HIDA scan was negative has minimal RUQ pain - only has it with palpation of the abdomen (and it is in a focal area of about 1 inch). tolerating full liquids. advance diet to low-fat / AHA. t.bili/d.bili and alk phos remain mildly high but this is chronic lipase is normal u/a is unremarkable remains on zosyn to cover for possibility of cholecystitis serial exams appreciate gen surg consultation no plans for surgical intervention of gall bladder checked c diff and stool panel due to liquid stools -- fully negative diarrhea likely abx-associated diarrhea (3) Cholelithiasis: Plan: see discussion above in #1 acute cholecystitis? but HIDA negative (4) Acute on chronic systolic heart failure: Plan: pt's dry weight is 155# he is about 155 pounds today but has mild JVD on exam with crackles in the bases uncertain if rales are from his ILD or pulmonary edema will give PO lasix today 40mg x 1 continue metoprolol succinate last echo 07/2022 - EF 35-40% per Dr Mcnulty not on Entresto or BORIS/ARB therapy due to issues with hypotension and med intolerance (5) CAD (coronary artery disease): Plan: per old records he had a cath in the early showing minimal luminal irregularities cont asa cont metoprolol cont lipitor no ischemic symptoms to date although had chest tightness this afternoon -- however, I do not suspect the tightness is ischemic in nature (6) Interstitial lung disease: Plan: mild not on O2 at home has JUAN at baseline likely due to his ILD (7) BPH (benign prostatic hyperplasia): Plan: Continue to hold tadalafil (8) Hypercholesteremia: Plan: Continue atorvastatin (9) Pleural effusion: Plan: 2nd decompensated CHF improved with diuresis (10) Biventricular ICD (implantable cardioverter-defibrillator) in place: Plan: interrogation done earlier in the stay will repeat interrogation now (11) Non-ischemic cardiomyopathy: Plan: again heart cath early did not show any obstructive CAD --> only minimal luminal irregularities seen thus, cardiomyopathy is non-ischemic in nature (12) Paroxysmal atrial fibrillation: Plan: h/o brief episodes of such in the past none seen recently no anticoagulation needed at this time (13) Sustained ventricular tachycardia: Plan: history of see #1 above (14) Gastritis: Plan: as seen on EGD fall 2022 cont PPI (15) H. pylori infection: Plan: was H Pylori + on biopsy from stomach via EGD completed antibiotic treatment for such Plan updated pt's daughter, Jennifer, at [phone] shortly after the toni lozano complex medical management including multiple bedside visits, toni lozano involvement, discussions with cardiology, discussions with ICU, etc total time 90 minutes Admission and Anticipated Discharge Date Admission Date: August 13, 2023 Subjective saw patient twice today first visit was this am he reported minimal to no RUQ abd pain he still is having a slight discomfort over the central abdomen that travels horizontally from right to left and vice versa does not radiate to the flanks or back moving makes the latter discomfort worse no nausea no vomiting JUAN is at baseline he is tolerating full liquids 2nd visit was mid-afternoon I wanted to see how his lunch had gone and if it had caused any abdominal symptoms when I came to see him he was lying in bed he looked ashen he said "I feel really weak doc" he c/o chest tightness all across the chest with no radiation to the jaw or either arm denied feeling sweaty or hot denied dyspnea he stated he had gone for walk earlier in the afternoon (did 4-5 laps without incident), then took a shower after the above he sat in the chair about 30 minutes after sitting in the chair he had the sudden onset of severe weakness it was nearly to the point of feeling like he could pass out he managed to walk back to the bed patient placed on monitor and EKG obtained EKG showed ventricular paced rhythm at ~125 BPM I asked staff to call a code purple Additional IV was placed BSG was >100 Initial BP was upper 90s systolic O2 sats were normal the entire time he continued to c/o chest tightness and weakness I sent the EKG via [place] to on-call cardiology By this point Dr Sorto from the ICU was at bedside Dr Wright, on-call cardiology, suggested a dose of IV lopressor 2.5mg to try & identify the rhythm labs were sent at this point including BMP/mag/troponin 250cc bolus was given just prior to the first dose of lopressor While preparations were being made to transfer Mr Chapman to ICU additional fluid boluses in 250cc aliquots were given and additional doses of IV lopressor 2.5mg were ordered by Dr Sorto patient then transferred to ICU thereafter Review of Systems Review of Systems: gen - no fevers or chills cv - chest tightness during code purple; no chest pain/tightness prior to today; no orthopnea; no PND; no edema pulm - no cough; baseline JUNA GI - minimal RUQ discomfort - NOT worsened with eating; no N/V; had liquid stool yesterday, none today Physical Exam Physical Exam: on AM rounds: gen - NAD, looks well mouth - MMM heart - tachy, s1 s2, no murmur neck - ? mild JVD lungs - mild b/l basilar rales, apices clear; no wheezes abd - focal tenderness (over about a 1" area) in the RUQ w/ deep palpation only; pain nearly resolved;, ND, soft, no HSM, no peritoneal signs ext - no edema, pulses 2+ b/l psych - a/o x 3 Results & Data Results & Data Vital Signs (Past 12 Hours) Vital Signs Temp Pulse Pulse Resp BP BP Pulse Ox 08/16/23 17:06 104 H 85/64 L 08/16/23 17:01 111 H 93/70 L 08/16/23 16:38 111 H 91/70 L 08/16/23 16:37 111 H 89/66 L 08/16/23 16:36 112 H 89/66 L 08/16/23 16:35 120 H 88/70 L 08/16/23 16:15 125 H 08/16/23 16:10 140 H 08/16/23 15:03 36.8 C 122 H 18 94/62 L 94 08/16/23 11:35 36.8 C 114 H 18 94/69 L 92 08/16/23 07:54 08/16/23 07:42 36.5 C 108 H 18 105/74 96 08/16/23 06:27 36.8 C 111 H 18 98/66 L 95 O2 Del Method 08/16/23 17:06 08/16/23 17:01 08/16/23 16:38 08/16/23 16:37 08/16/23 16:36 08/16/23 16:35 08/16/23 16:15 08/16/23 16:10 08/16/23 15:03 Room Air 08/16/23 11:35 Room Air 08/16/23 07:54 Room Air 08/16/23 07:42 Room Air 08/16/23 06:27 Room Air Laboratory Results Laboratory Results - last 24 hr 08/16/23 08/16/23 08/16/23 06:42 15:56 15:57 WBC 7.69 RBC 3.99 L Hgb 12.5 L Hct 37.7 L MCV 94.5 MCH 31.3 MCHC 33.2 RDW Std Deviation 47.1 H RDW Coeff of Bull 13.8 Plt Count 261 MPV 9.6 Immature Gran % (Auto) 0.3 Neut % (Auto) 49.6 Lymph % (Auto) 31.6 [place] % (Auto) 13.1 Eos % (Auto) 4.9 Baso % (Auto) 0.5 Neut # (Auto) 3.81 Lymph # (Auto) 2.43 [place] # (Auto) 1.01 H Eos # (Auto) 0.38 Baso # (Auto) 0.04 Immature Gran # (Auto) 0.02 Sodium 135 L 132 L Potassium 3.3 L 4.1 D Chloride 98 98 Carbon Dioxide 31 26 Anion Gap 6 8 BUN 16 20 Creatinine 1.24 1.59 H D Est Cr Clr Drug Dosing 48.9 38.1 Est GFR ( Amer) 66.0 48.8 Est GFR (Non-Af Amer) 56.9 42.1 BUN/Creatinine Ratio 12.9 12.6 Glucose 91 97 POC Glucose 117 H Calcium 9.2 9.4 Magnesium 2.0 Total Bilirubin 1.8 H Direct Bilirubin 0.4 H AST 22 ALT 16 Alkaline Phosphatase 101 Troponin I High Sens 45.1 H Total Protein 7.1 Albumin 3.6 Diagnostic Findings EKG this afternoon - ventricular paced rhythm at 125 BPM PG Care Time/CCT Total # of Minutes Spent Total Time Spent with Patient: Total time spent is greater than 50% in coordination of care (as documented) at patient's floor/unit and/or counseling patient: Prolonged Care Time Prolonged Care Time: Yes Total Prolonged Care Time: 90 Coding Level of Care Code 83320 SUB INP/OBS CARE 3/50MIN (25 - SIGNIFICANT, SEPARATELY IDENTIFIABLE ) Diagnoses Wide-complex tachycardia R00.0 Abdominal pain R10.9 Calculus of gallbladder without cholecystitis without obstruction K80.20 Cholelithiasis location: gallbladder Cholecystitis presence: without cholecystitis Biliary obstruction: without biliary obstruction Acute on chronic systolic heart failure I50.23 Coronary artery disease involving [place] coronary artery of [place] heart without angina pectoris I25.10 Coronary Disease-Associated Artery/Lesion type: [place] artery [place] vs. transplanted heart: [place] heart Associated angina: without angina Interstitial lung disease J84.9 BPH (benign prostatic hyperplasia) N40.0 Hypercholesteremia E78.00 Pleural effusion J90 Biventricular ICD (implantable cardioverter-defibrillator) in place Z95.810 Non-ischemic cardiomyopathy I42.8 Paroxysmal atrial fibrillation I48.0 Sustained ventricular tachycardia I47.20 Gastritis K29.70 H. pylori infection A04.8 Additional Codes Prolonged Care Time - Prolonged Care Time: Yes ([id number]) (3) Cholelithiasis Cholelithiasis location: gallbladder Cholecystitis presence: without cholecystitis Biliary obstruction: without biliary obstruction Qualified Code(s): K80.20 - Calculus of gallbladder without cholecystitis without obstruction (5) CAD (coronary artery disease) Coronary Disease-Associated Artery/Lesion type: [place] artery [place] vs. transplanted heart: [place] heart Associated angina: without angina Qualified Code(s): I25.10 - Atherosclerotic heart disease of [place] coronary artery without angina pectoris
[2023-08-16] MEDS: MAGNESIUM SULFATE / D5W 1 GM/100 ML BAG IV SCH ×2 (20:33→23:14)
[2023-08-16] MEDS: ASPIRIN 81 MG ECTAB PO SCH (20:34)
[2023-08-16] MEDS: ATORVASTATIN 10 MG TAB PO SCH (20:34)
--- NOTE | 2023-08-16 20:50 | XCELERA ---
[id number]
[2023-08-16] MEDS ORDERED: ACETAMINOPHEN 325 MG TAB PO PRN (21:10)
[2023-08-16] MEDS ORDERED: LIDOCAINE 5% 1 PATCH TD STA (21:14)
--- NOTE | 2023-08-16 21:23 | Communication Note ---
Date of Service: August 16, [id number]: Called to bedside for patient with reported uncontrollable pain. He initially called to the EMD and was transferred to the charge nurse because he was in severe pain, however he did not push his call mahan or complain to the nurse that is taking care of him. His pain is on his right side, sharp in nature and hurts worse when he breaths in or moves the pain is not constant and waxes and wanes. Palpated the area and is worse in his intercostals along the last 3 ribs when palpated. Abdomen is soft without evidence of acute abdomen. He has had this throughout his admission and was originally evaluated and worked up for cholecystitis and is without evidence of gall stones or gallbladder disease with imaging and HIDA scan. KUB from this morning reveals non- obstructive bowel gas pattern and fecal retention. He feels that he can just not get comfortable and also has multiple complaints regarding the temperature in his room as well as the noise from the vent. Will continue to provide reassurance and follow physical exam through the evening. A/P - Acute pain- appears at this time to be most consistent with musculoskeletal pain along the intercostals on the right side. This may also be attributed to fluid volume status in relation to hepatic congestion from worsening EF and heart failure. He has been started on a diet and appears to have been tolerating this per review of medicine notes. - Will add simethicone for gas pain - Start stool softener - Tylenol - Lidocaine patch for rib pain - If this does not relieve his pain consider dose of Toradol. - He is continued on his Protonix - He also remains on Zosyn for gallbladder coverage. 2144- Patient complain of numbness in tingling in his right hand, which appears new- this was then followed by total body rigors and bilateral hands. His fingers are white from middle knuckles to finger tips and he says he can feel me. He has strong Doppler pulses on his bilateral radial and ulnar arteries. He remembers this only happening one other time when he was in [place]. Concerns at this time as he may have acute gallbladder attack, Raynaud's secondary to cold and/or hyperadrenergic response, cold agglutinin antibodies. He is with low SPO2 however he is with severe rigors and is not dyspneic or feeling short of breath. With this constellation of symptoms and rapid change did discuss case real time with Dr. Sorto in regards to the overall picture over the past hour and plan outlined below. Patient covered with warm blankets to hands legs and head wrapped, shivering stopped after approx 15 minutes as well as return of normal color to bilateral hands and fingers. Sensation has returned, and his rib pain has also resolved. SPO2 remains low, but improving with resolution of shivering. He is without respiratory distress, alterations in mentation, and likely related to increase consumption from shivering. His blood pressure is improved and HR is stable 90s at NSR. It may also be possible with his HR in the 90s with his MR that he prefers higher HR in the 100s. Will obtain the following: - Lactate- 3.7 - VBG- 7.34/48/<20/26 - CBC- WBC increase to 12.4, HGB 14, Plt 279 - PTT/INR- pending - LFTS- pending - GGT- pending - Blood culture x2 Will also broaden out Antibiotic Coverage with addition of Vancomycin Johnny FELDER ([facility]-)
[2023-08-16] MEDS: SIMETHICONE 80 MG CHEW PO PRN (21:31)
[2023-08-16 21:33] LABS: Thyroid Stimulating Hormone 0.935 uIu/ml (0.300-4.500)
[2023-08-16 21:35] LABS: T4 Free Thyroxine 1.23 ng/dl (0.61-1.60)
[2023-08-16] MEDS: ACETAMINOPHEN 325 MG TAB PO PRN (21:35)
[2023-08-16] MEDS ORDERED: THIAMINE HCL 200 MG in SODIUM CHLORIDE 0.9% 50 ML IV STA (22:22)
[2023-08-16 22:48] LABS: Basophils # (auto) 0.04 K/uL (0.00-0.20); Basophils % (auto) 0.3 %; Eosinophils # (auto) 0.04 K/uL (0.00-0.50); Eosinophils % (auto) 0.3 %; Hematocrit (blood only) 44.2 % (42.0-52.0); Hemoglobin 14.4 g/dl (14.0-18.0); Immature Granulocytes # (auto) 0.05 K/uL (0.01-0.20); Immature Granulocytes % (auto) 0.4 %; Mean Corpuscular Hemoglobin 31.4 pg (25.0-34.0); Mean Corpuscular Hgb Conc 32.6 g/dL (32.0-36.0); Mean Corpuscular Volume 96.3 fL (80.0-100.0); Mean Platelet Volume 9.7 fL (9.4-12.4); Monocytes # (auto) 0.97 K/uL (0.11-0.59); Monocytes % (auto) 7.8 %; Neutrophils # (auto) 9.37 K/uL (1.40-6.50); Neutrophils % (auto) 75.2 %; Platelet Count 279 K/uL (130-400); RDW Coefficient of Variation 14.2 % (11.5-14.5); RDW Standard Deviation 49.6 fL (36.4-46.3); Red Blood Count 4.59 M/uL (4.70-6.10); White Blood Count 12.47 K/ul (4.8-10.8)
[2023-08-16 22:50] LABS: Base Excess VBG -0.4 mEq/L; HCO3 VBG 26 mmol/L; Oxygen Saturation VBG < 60.0 %; PCO2 VBG 48 mmHg (38-50); PO2 VBG < 20 mmHg; pH VBG 7.34 (7.36-7.41)
[2023-08-16] MEDS ORDERED: VANCOMYCIN CONSULT ACTIVE PRN ×2 (23:02)
[2023-08-16 23:03] LABS: Albumin Level 4.2 gm/dl (3.4-5.0); Bilirubin Direct 0.6 mg/dl (0-0.2); Bilirubin,Total 2.1 mg/dl (0.2-1.0); Total Protein 8.2 gm/dl (6.0-8.3)
[2023-08-16] MEDS ORDERED: VANCOMYCIN HCL 1,500 MG in SODIUM CHLORIDE 0.9% 500 ML IV STA (23:08)
[2023-08-16] MEDS ORDERED: METOPROLOL TARTRATE 1 MG/ML VIAL IV PRN (23:14)
[2023-08-16] MEDS: METOPROLOL TARTRATE 25 MG TAB PO SCH (23:15)
[2023-08-17] MEDS ORDERED: OPTIRAY 320 125ml IV ONE (00:21)
[2023-08-17 01:20] LABS: INR 1.2 (0.9-1.1); Prothrombin Time 13.5 Seconds (9.0-12.0)
--- NOTE | 2023-08-17 01:30 | CT Scan Report ---
Exam(s): CTA CHEST IV Amt: 117 ml opti 320 EXAM: CT Angiography Chest With Intravenous Contrast CLINICAL HISTORY: Reason for exam: PE. TECHNIQUE: Axial computed tomographic angiography images of the chest with intravenous contrast. Automated exposure control was utilized for the study. A dose lowering technique was utilized adhering to the principles of ALARA. MIP reconstructed images were created and reviewed. COMPARISON: No relevant prior studies available. FINDINGS: There is a left chest AICD-pacemaker with leads extending to the right atrium, right ventricle, and coronary sinus. Patient has undergone previous sternotomy and CABG. Heart is enlarged. Coronary arteries are calcified. There is no RV strain or pericardial effusion. There are mildly enlarged right hilar as well as subcarinal lymph nodes, nonspecific. Calcified subcarinal lymph node is compatible with chronic granulomatous disease. There is no thoracic aortic aneurysm or dissection. There is adequate pulmonary artery opacification. Main pulmonary artery is normal in caliber. No pulmonary embolism is visualized to the proximal segmental level. There is symmetric bilateral loss of distal pulmonary artery branch opacification, likely artifact of cardiac output and contrast timing. This prevents exclusion of distal pulmonary artery emboli. There are small bilateral pleural effusions. There is no pneumothorax. There is widespread bilateral interstitial and ground-glass opacity. More confluent bibasilar opacities are noted. There is reflux of contrast into the hepatic veins consistent with elevated right heart pressure. There are no acute osseous findings. IMPRESSION: 1. Cardiomegaly. Elevated right heart pressure. 2. Small pleural effusions. Pulmonary edema. 3. More confluent opacities in the dependent lower lobes bilaterally, favored to represent atelectasis over pneumonia. Correlate clinically. 4. No pulmonary embolism visualized to the proximal segmental level. Due to poor cardiac output and contrast timing, the distal pulmonary artery branches are not opacified. Therefore, distal pulmonary emboli cannot be excluded. Electronically signed by: Bunny Carbajal M.D. 08/17/23 01:29 AM
[2023-08-17 05:03] LABS: Basophils # (auto) 0.05 K/uL (0.00-0.20); Basophils % (auto) 0.3 %; Eosinophils # (auto) 0.01 K/uL (0.00-0.50); Eosinophils % (auto) 0.1 %; Hematocrit (blood only) 39.3 % (42.0-52.0); Hemoglobin 13.3 g/dl (14.0-18.0); Immature Granulocytes # (auto) 0.09 K/uL (0.01-0.20); Immature Granulocytes % (auto) 0.5 %; Lymphocytes % (auto) 11.4 %; Mean Corpuscular Hemoglobin 31.6 pg (25.0-34.0); Mean Corpuscular Hgb Conc 33.8 g/dL (32.0-36.0); Mean Corpuscular Volume 93.3 fL (80.0-100.0); Monocytes % (auto) 9.6 %; Neutrophils # (auto) 12.99 K/uL (1.40-6.50); Neutrophils % (auto) 78.1 %; Platelet Count 228 K/uL (130-400); RDW Coefficient of Variation 13.8 % (11.5-14.5); RDW Standard Deviation 46.9 fL (36.4-46.3); Red Blood Count 4.21 M/uL (4.70-6.10); White Blood Count 16.64 K/ul (4.8-10.8)
[2023-08-17 05:15] LABS: BUN Creatinine Ratio 18.5 (10-20); Calcium 9.2 mg/dl (8.6-10.3); Creatinine Clr Calc Pharmacy 44.9 ml/min; Est GFR (African American) 59.5 ml/min; Est GFR (Non-African American) 51.4 ml/min; Magnesium 2.3 mg/dl (1.7-2.4); Phosphorus 3.5 mg/dl (2.5-4.9); Potassium 4.5 mmol/L (3.5-5.1)
[2023-08-17] MEDS: METOPROLOL TARTRATE 25 MG TAB PO SCH ×4 (06:15→18:14)
[2023-08-17] MEDS: PIPERACILLIN/TAZOBACTAM 4.5 GM in DEXTROSE 5% MINI-B 100 ML IV SCH ×2 (07:51→16:16)
[2023-08-17] MEDS: FERROUS SULFATE 325 MG TAB PO SCH (07:58)
[2023-08-17] MEDS: CHOLECALCIFEROL 1,000 UNITS 25 MCG TAB PO SCH ×2 (07:58→20:13)
[2023-08-17] MEDS: PANTOprazole 40 MG TAB PO SCH ×2 (07:59→20:13)
[2023-08-17] MEDS ORDERED: DOCUSATE SODIUM/SENNA 50/8.6MG TAB PO SCH (09:00)
[2023-08-17] MEDS: ACETAMINOPHEN 325 MG TAB PO PRN (09:07)
[2023-08-17] MEDS: SIMETHICONE 80 MG CHEW PO PRN (10:00)
[2023-08-17] MEDS ORDERED: fentaNYL citrate PF 100 MCG/2 ML VIAL IV PRN (11:24)
--- NOTE | 2023-08-17 11:41 | Pharmacy Report ---
Pharmacy PK ABX Note - Date of Service August 17, 2023 - Assessment and Plan Assessment * 73 year old M receiving Zosyn and vancomycin empirically. * Pertinent microbiologic data includes: blood cultures pending * SCr has been labile, going up and down, ranging from 1.24-1.59 mg/dL over the last 3 days * Will obtain early level tomorrow Plan Vancomycin * Loading dose: 1500 mg IV x 1 * Maintenance dose: 1000 mg IV every 24 hours * Regimen is predicted to achieve target AUC/ARNALDO of 400-600 mg/L.hr * Random level ordered for tomorrow AM Pharmacy will continue to follow and will adjust dose/frequency as necessary. Thank you. Pharmacy has transitioned to AUC monitoring for vancomycin. AUC/ARNALDO is the preferred PK/PD target and is associated with decreased risk of nephrotoxicity compared to traditional trough targets.
--- NOTE | 2023-08-17 12:58 | Critical Care Progress Note ---
Date of Service August 17, 2023 Assessment & Plan (1) Acute dyspnea: Plan: Reason Critically Ill: [] PLAN: Neuro: [] - [] Resp: [] - [] CV: Ischemic cardiomyopathy -Echo completed 05/16: Worsening EF and worsening mitral and tricuspid regurgitation Acute on chronic congestive heart failure -Maintain current dose of beta-blockers, attempt gentle diuresis Status post pacemaker Ventricular tachycardia: Nonsustained History paroxysmal atrial fibrillation and atrial tachycardia -Cardiology following, recent pacemaker interrogation -Given multiple doses of beta-jean which has improved heart rate Fluids/Renal: Hyponatremia: Mild Lactic acid acidosis -Suspect hepatic insufficiency secondary to probable congestive hepatopathy versus cholelithiasis -Thiamine 100 mg IV daily History recent LEONILA: Creatinine improved however not at baseline Recheck lactic acid to see if patient is showing worsening signs of hypoperfusion ID: Leukocytosis, afebrile -Zosyn day 4, vancomycin day 1 -Blood cultures obtained yesterday: Pending GI/Nutrition: Right upper quadrant pain Transaminitis -Hepatic congestion secondary to underlying cardiac disease versus biliary dysfunction versus cholelithiasis -Pain recurred after liberalization of diet yesterday clinically consistent with pain emanating from biliary tree -Discussed with hospitalist medicine will obtain surgery consult patient would certainly be high risk and may necessitate transfer Biliary colic -Trial of diet: Low-fat diet started yesterday Systemic inflammatory response syndrome -Difficult to tell if this is cardiogenic versus infectious: Biliary source or aspects of both, cultures pending Hospitalist medicine discussed possible surgical management with the patient if he felt that he would desire to undergo cholecystectomy. Patient is agreeable. Hospitalist medicine will contact surgery to weigh in. -I think the patient is having clinical pain/biliary colic, gallbladder imaging shows functional gallbladder however patient certainly has aspects of anasarca/fluid retention/congestive heart failure which could lead to conflicting and confounding imaging findings as noted on the ultrasound (thickened wall). Underlying low-grade SIRS/sepsis could drive cardiac dysfunction as well. Agree with surgical evaluation, given multiple complexiti es patient's resource need may exceed our capabilities and may require transfer to tertiary care center with readily available subspecialties including but not limited to electrophysiology, interventional radiology. Heme: Anemia: Mild DVT prophylaxis: SCDs, no significant contraindication to Lovenox 40 mg daily Endocrine: ICU hyperglycemia protocol TSH undetectable in January 2023, within normal limits this hospital admission -Free T4 within normal limits Vascular access: Peripheral IVs Code Status: DNR/DNI in event of cardiac arrest Disposition: ICU, patient's blood pressure is marginal and if there is continued evidence of hypoperfusion would strongly consider vasoactive medication administration. (2) Wide-complex tachycardia: (3) Paroxysmal atrial fibrillation: (4) Acute on chronic systolic heart failure: (5) Cholelithiasis: (6) Abdominal pain: (7) Pacemaker: (8) Non-ischemic cardiomyopathy: (9) Interstitial lung disease: (10) Chronic systolic congestive heart failure: Admission and Anticipated Discharge Date Admission Date: August 13, 2023 Supervising Physician Co-Signing Physician Notes I have personally spent 55 minutes of critical care time in the direct management of this patient. This is a life/limb threatening event. This includes time spent evaluating patient, direct bedside care, chart review, placing orders, interpretation of diagnostic studies, discussion with consultants, patient, and/or family members regarding treatment decisions, as well as other required patient management activities. This time is exclusive of all separately billable procedures, and teaching time and separate from and in addition to any other critical care service time. Subjective Overnight patient had continued right-sided chest wall/upper abdominal pain. A CT of the chest was obtained and the report was reviewed. Physical Exam Physical Exam: General: Alert. nontoxic. Skin: Warm, dry, Head: Atraumatic Ears, nose, mouth and throat: airway patent Cardiovascular: Normal peripheral perfusion, paced wide-complex tachycardia ranging from 100-1 15 on bedside monitor Respiratory: no respiratory distress Gastrointestinal: [] Musculoskeletal: No deformity Results & Data Results & Data Vital Signs (Past 12 Hours) Vital Signs Pulse Resp BP Pulse Ox Pulse Ox O2 Del Method O2 Del Method 08/17/23 10:00 101 H 27 H 08/17/23 09:00 108 H 13 99 08/17/23 09:00 86/63 L 08/17/23 08:01 108 H 33 H 98 08/17/23 08:01 86/65 L 08/17/23 08:00 76 20 98 08/17/23 07:51 Nasal Cannula 08/17/23 07:00 108 H 32 H 99 08/17/23 06:12 92 Room Air 08/17/23 06:00 109/79 08/17/23 06:00 110 H 24 08/17/23 05:30 112 H 17 78 L 08/17/23 05:00 109 H 18 08/17/23 05:00 95/67 L 08/17/23 04:30 110 H 30 H 08/17/23 04:00 116 H 19 08/17/23 04:00 102/71 08/17/23 03:30 110 H 35 H 82 L 08/17/23 03:00 98/69 L 08/17/23 03:00 113 H 08/17/23 02:30 112 H 28 H 08/17/23 02:00 96/76 L 08/17/23 02:00 113 H 20 08/17/23 01:30 112 H 16 94 08/17/23 01:00 88/68 L 08/17/23 01:00 115 H 34 H 96 O2 Flow Rate O2 Flow Rate 08/17/23 10:00 08/17/23 09:00 08/17/23 09:00 08/17/23 08:01 08/17/23 08:01 08/17/23 08:00 08/17/23 07:51 4 08/17/23 07:00 08/17/23 06:12 4 08/17/23 06:00 08/17/23 06:00 08/17/23 05:30 08/17/23 05:00 08/17/23 05:00 08/17/23 04:30 08/17/23 04:00 08/17/23 04:00 08/17/23 03:30 08/17/23 03:00 08/17/23 03:00 08/17/23 02:30 08/17/23 02:00 08/17/23 02:00 08/17/23 01:30 08/17/23 01:00 08/17/23 01:00 Critical Care Results & Data Vital Signs (Past 12 Hours) Vital Signs Pulse Resp BP Pulse Ox Pulse Ox O2 Del Method O2 Del Method 08/17/23 10:00 101 H 27 H 08/17/23 09:00 108 H 13 99 08/17/23 09:00 86/63 L 08/17/23 08:01 108 H 33 H 98 08/17/23 08:01 86/65 L 08/17/23 08:00 76 20 98 08/17/23 07:51 Nasal Cannula 08/17/23 07:00 108 H 32 H 99 08/17/23 06:12 92 Room Air 08/17/23 06:00 109/79 08/17/23 06:00 110 H 24 08/17/23 05:30 112 H 17 78 L 08/17/23 05:00 109 H 18 08/17/23 05:00 95/67 L 08/17/23 04:30 110 H 30 H 08/17/23 04:00 116 H 19 08/17/23 04:00 102/71 08/17/23 03:30 110 H 35 H 82 L 08/17/23 03:00 98/69 L 08/17/23 03:00 113 H 08/17/23 02:30 112 H 28 H 08/17/23 02:00 96/76 L 08/17/23 02:00 113 H 20 08/17/23 01:30 112 H 16 94 08/17/23 01:00 88/68 L 08/17/23 01:00 115 H 34 H 96 O2 Flow Rate O2 Flow Rate 08/17/23 10:00 08/17/23 09:00 08/17/23 09:00 08/17/23 08:01 08/17/23 08:01 08/17/23 08:00 08/17/23 07:51 4 08/17/23 07:00 08/17/23 06:12 4 08/17/23 06:00 08/17/23 06:00 08/17/23 05:30 08/17/23 05:00 08/17/23 05:00 08/17/23 04:30 08/17/23 04:00 08/17/23 04:00 08/17/23 03:30 08/17/23 03:00 08/17/23 03:00 08/17/23 02:30 08/17/23 02:00 08/17/23 02:00 08/17/23 01:30 08/17/23 01:00 08/17/23 01:00 Lab & Micro Results (Past 24 Hours) RBC 4.21 M/uL (4.70-6.10) L 08/17/23 WBC 16.64 K/ul (4.8-10.8) H 08/17/23 Hgb 13.3 g/dl (14.0-18.0) L 08/17/23 Hct 39.3 % (42.0-52.0) L 08/17/23 MCV 93.3 fL (80.0-100.0) 08/17/23 MCH 31.6 pg (25.0-34.0) 08/17/23 MCHC 33.8 g/dL (32.0-36.0) 08/17/23 RDW Standard Deviation 46.9 fL (36.4-46.3) H 08/17/23 RDW Coefficient of Variation 13.8 % (11.5-14.5) 08/17/23 Plt Count 228 K/uL (130-400) 08/17/23 MPV 10.0 fL (9.4-12.4) 08/17/23 Neutrophils (%) (Auto) 78.1 % 08/17/23 Lymphocytes (%) (Auto) 11.4 % 08/17/23 Monocytes # (Auto) 1.60 K/uL (0.11-0.59) H 08/17/23 Eosinophils # (Auto) 0.01 K/uL (0.00-0.50) 08/17/23 Immature Granulocyte % (Auto) 0.5 % 08/17/23 Neutrophils # (Auto) 12.99 K/uL (1.40-6.50) H 08/17/23 Lymphocytes # (Auto) 1.90 K/uL (1.20-3.40) 08/17/23 Monocytes # (Auto) 1.60 K/uL (0.11-0.59) H 08/17/23 Eosinophils # (Auto) 0.01 K/uL (0.00-0.50) 08/17/23 Basophils # (Auto) 0.05 K/uL (0.00-0.20) 08/17/23 Immature Granulocyte # (Auto) 0.09 K/uL (0.01-0.20) 4 Na 133 mmol/L (136-145) L 08/17/23 K 4.5 mmol/L (3.5-5.1) 08/17/23 Cl 99 mmol/L (98-107) 08/17/23 CO2 24 mmol/L (21-32) 08/17/23 Anion Gap 10 (3-11) 08/17/23 BUN 25 mg/dl (6-23) H 08/17/23 Creatinine 1.35 mg/dl (0.6-1.4) 08/17/23 Estimated GFR ( Amer) 59.5 ml/min 08/17/23 Estimated GFR (Non-Af Amer) 51.4 ml/min 08/17/23 BUN/Creatinine Ratio 18.5 (10-20) 08/17/23 Glu 108 mg/dl (70-99(Fasting)) H 08/17/23 Ca 9.2 mg/dl (8.6-10.3) 08/17/23 Phosphorus Level 3.5 mg/dl (2.5-4.9) 08/17/23 Total Bilirubin 2.1 mg/dl (0.2-1.0) H 08/16/23 Direct Bilirubin 0.6 mg/dl (0-0.2) H 08/16/23 AST 106 U/L (13-39) H 08/16/23 ALT 57 U/L (7-52) H 08/16/23 Alkaline Phosphatase 193 U/L (34-104) H 08/16/23 TP 8.2 gm/dl (6.0-8.3) 08/16/23 Albumin 4.2 gm/dl (3.4-5.0) 08/16/23 GGT Pending 08/16/23 Mg 2.3 mg/dl (1.7-2.4) 08/17/23 04:42 Calcium Level 9.2 mg/dl (8.6-10.3) 08/17/23 04:42 Ionized Calcium 1.12 mmol/L (1.12-1.32) 08/17/23 04:42 Prothromb Time International Ratio 1.2 (0.9-1.1) H 08/17/23 00 :35 Venous Blood pH 7.34 (7.36-7.41) L 08/16/23 22:34 Venous Blood Partial Pressure CO2 48 mmHg (38-50) 08/16/23 22:3 4 Venous Blood Partial Pressure O2 < 20 mmHg 08/16/23 22:34 Venous Blood HCO3 26 mmol/L 08/16/23 22:34 Venous Blood Base Excess -0.4 mEq/L 01/06/24 22:34 Venous Blood Oxygen Saturation < 60.0 % 08/16/23 22:34 Diagnostic Findings (Past 24 Hours) Chest CTA 08/16/23 23:46 Exam(s): CTA CHEST IV Amt: 117 ml opti 320 EXAM: CT Angiography Chest With Intravenous Contrast CLINICAL HISTORY: Reason for exam: PE. TECHNIQUE: Axial computed tomographic angiography images of the chest with intravenous contrast. Automated exposure control was utilized for the study. A dose lowering technique was utilized adhering to the principles of ALARA. MIP reconstructed images were created and reviewed. COMPARISON: No relevant prior studies available. FINDINGS: There is a left chest AICD-pacemaker with leads extending to the right atrium, right ventricle, and coronary sinus. Patient has undergone previous sternotomy and CABG. Heart is enlarged. Coronary arteries are calcified. There is no RV strain or pericardial effusion. There are mildly enlarged right hilar as well as subcarinal lymph nodes, nonspecific. Calcified subcarinal lymph node is compatible with chronic granulomatous disease. There is no thoracic aortic aneurysm or dissection. There is adequate pulmonary artery opacification. Main pulmonary artery is normal in caliber. No pulmonary embolism is visualized to the proximal segmental level. There is symmetric bilateral loss of distal pulmonary artery branch opacification, likely artifact of cardiac output and contrast timing. This prevents exclusion of distal pulmonary artery emboli. There are small bilateral pleural effusions. There is no pneumothorax. There is widespread bilateral interstitial and ground-glass opacity. More confluent bibasilar opacities are noted. There is reflux of contrast into the hepatic veins consistent with elevated right heart pressure. There are no acute osseous findings. IMPRESSION: 1. Cardiomegaly. Elevated right heart pressure. 2. Small pleural effusions. Pulmonary edema. 3. More confluent opacities in the dependent lower lobes bilaterally, favored to represent atelectasis over pneumonia. Correlate clinically. 4. No pulmonary embolism visualized to the proximal segmental level. Due to poor cardiac output and contrast timing, the distal pulmonary artery branches are not opacified. Therefore, distal pulmonary emboli cannot be excluded. Electronically signed by: Bunny Carbajal M.D. 08/17/23 01:29 AM I & O Totals 24 Hours 08/16/23 08/17/23 08/18/23 06:59 06:59 06:59 Intake Total 2140 / 2140 2521.583 / 2521.583 100 / 100 Output Total 300 / 300 325 / 325 Balance 1840 / 1840 2196.583 / 2196.583 100 / 100 Cumulative 08/13/23 11:01 thru 08/17/23 12:13 Intake Total 6454.566 Output Total 3525 Balance 2929.566 RT Ventilator Mngmt (Last Documented) Ventilator Ordered Settings Respiratory Rate 27 08/17/23 10:00 Ventilator - PT Measurements Respiratory Rate 27 Coding Level of Care Code 01348 CRITICAL CARE 1ST 30-74M Diagnoses Acute dyspnea R06.00 Wide-complex tachycardia R00.0 Paroxysmal atrial fibrillation I48.0 Acute on chronic systolic heart failure I50.23 Calculus of gallbladder without cholecystitis without obstruction K80.20 Cholelithiasis location: gallbladder Cholecystitis presence: without cholecystitis Biliary obstruction: without biliary obstruction Abdominal pain R10.9 Pacemaker Z95.0 Non-ischemic cardiomyopathy I42.8 Interstitial lung disease J84.9 Chronic systolic congestive heart failure I50.22 (5) Cholelithiasis Cholelithiasis location: gallbladder Cholecystitis presence: without cholecystitis Biliary obstruction: without biliary obstruction Qualified Co de(s): K80.20 - Calculus of gallbladder without cholecystitis without obstruction
--- NOTE | 2023-08-17 13:14 | Surgery Consultation ---
Date of Consultation August 17, 2023 Assessment & Plan (1) Cholelithiasis: (2) Tachycardia: (3) Wide-complex tachycardia: Plan Patient has been admitted with CHF exacerbation as well as with evidence for GB disease. Throughout his conservative course for GB management while his CHF treatment was initiated, he seemed to be doing well with some improvement. He seems now to be having worsened GB complication after initiating oral intake with acute onset of RUQ pain, increased leukocytosis and transaminitis D. bili elevation in addition to exacerbation of CHF symptoms after activity yesterday. The GB issues very well may be contributing to the ongoing cardiac symptoms as well. His blood pressures remains soft this am, tachycardiac in the one teens and SOB present. At this time, the patient would likely benefit from decompression of the GB with percutaneous drainage. May follow up with surgery as an outpatient to consider surgical cholecystectomy once his cardiac function is stabilized and medications are optimal. Unfortunately we do not currently offer IR for percutaneous cholecystomy tube insertion and the patient would require transfer to a center where this service is available. History of Present Illness Attending Physician: Julio Saez MD History of Present Illness This is a 73-year-old male who presented to the emergency department at the recommendation of his primary care provider as the patient has been having increased shortness of breath and fatigue over the past several weeks. The patient was seen by his primary care team where he underwent and a chest x-ray that was that was negative for pneumonia and did not appear to have findings consistent with CHF. The patient does have a significant cardiovascular history and due to his symptomatology was felt that emergency room visit was best for the patient. Surgery was consulted at his initial admission on 08/13/23 noting he has been more short of breath and fatigued as noted above. He noted that he is more short of breath with even minimal activity. He says that since 08/04/2023 he has gained approximately 8 pounds. He denies any lower extremity edema but he does report paroxysmal nocturnal dyspnea. He denies orthopnea. Patient reports he has a significant history of cardiovascular disease including nonobstructive coronary artery disease. He has had a biventricular ICD placed and follows locally with Dr. Kavin Mcnulty. He was most recently seen in the cardiology office on 07/09/2023 where he was noted to be stable and was without significant cardiovascular symptoms at that time. Review of Dr. Mcnulty's notes show that back in 2001 patient was noted to have an ejection fraction of 20 to 25% but with appropriate medical treatment his ejection fraction had improved to approximate 35 to 40% x 2021. The patient does deny any chest pain. He notes that he tries to stay active but he says that even walking short distances make him short of breath. He does note that his defibrillator did fire approximately 1 month ago. General surgery was asked to see the patient due to concern for abdominal pain. In addition to the symptoms noted above the patient said that night prior he developed some right upper quadrant pain that persisted through the following day. He specifically denied any nausea or vomiting denies any fevers, shakes, o r chills. He denied any postprandial pain over the past several months. He denied any abdominal surgeries other than a right inguinal herniorrhaphy. Patient also reported a history of a gastric ulcer. He has undergone an EGD for this problem in June 2023. Patient did have biopsies taken at that time where patient was noted to have chronic gastritis and he was noted to be positive for H. pylori. He notes that he has completed treatment for H. pylori. At admission patient had a CT scan of the abdomen pelvis. This showed the patient had small to moderate pleural effusions. He was noted to have calcified gallstones with a distended gallbladder. The gallbladder wall did appear thickened with pericholecystic infiltration and fluid. A gallbladder ultrasound was performed that showed gallstones with an abnormal appearing gallbladderthe gallbladder was noted to be distended and the gallbladder wall was noted be thickened and edematous with trace pericholecystic fluid. Of note, the patient's liver was noted to be enlarged and appear to be cirrhotic in morphology. WBC at that time was normal. No acute surgical intervention was undertaken secondary to CHF symptoms. Cardiology consult states he would be an acceptable cardiac risk once CHF was compensated. He was admitted to medicine for conservative management on IV antibiotics which was initially showing improvement and surgery signed off until he was advanced to a regular diet yesterday. The patient was a code purple at some point yesterday. As per documentation he developed recurrence chest tightness, weakness tachy to the 130's and was transferred to the ICU. Labs revealed a sudden return of leukocytosis yesterday to over 12,000 and this am has further increased to over 16,000 in the setting of ongoing IV antibiotics. His LFTs have also bumped to T bili 2.1 with 0.6 direct, AST 106, ALT 57 and Alk P 193 which were normal prior days as well as Troponin. He subsequently developed RUQ pain today. Surgery is re-consulted. I presented to the ICU to see the patient. He says yesterday he thought he was feeling pretty good. He says he had cream of mushroom soup yesterday evening but initially thought all was well. He walked around and took a shower. Immediately after, he felt very "wiped" out which initiated the code purple because he was so flushed. He says he noticed RUQ pain this am which he tells me he did note have previously. Allergies Allergy/AdvReac Type Severity Reaction Status Date / Time morphine Allergy Unknown Difficulty Verified 08/13/23 10:26 Breathing mycophenolate mofetil AdvReac Intermediate Dizziness Verified 08/13/23 10:26 Home Medications Medication Instructions Recorded Confirmed Type [id number] acid-vit 1 tab PO QPM 03/21/20 08/13/23 History K-lycop 400 mcg-20 mcg-370 mcg tablet (One-A-Day Men's 50 Plus (with vitamin K)) acetaminophen 500 mg tablet 1,000 mg PO Q6H PRN Pain 07/30/22 08/13/23 History aspirin 81 mg tablet,delayed 81 mg PO QPM 08/08/22 08/13/23 History release albuterol sulfate 90 mcg/actuation 2 inh inhalation Q4 PRN shortness 01/20/23 08/13/23 Rx aerosol inhaler of breath or wheezing #3 Inhalers cholecalciferol (vitamin D3) 25 25 mcg PO QPM 03/05/23 08/13/23 History mcg (1,000 unit) capsule cholecalciferol (vitamin D3) 50 50 mcg PO QAM 03/05/23 08/13/23 History mcg (2,000 unit) capsule gabapentin 400 mg capsule 400 mg PO TID PRN Pain #270 caps 04/21/23 08/13/23 Rx tadalafil 5 mg tablet 5 mg PO QPM 06/17/23 08/13/23 History atorvastatin 10 mg tablet 10 mg PO QPM #90 tabs 06/18/23 08/13/23 Rx ferrous sulfate 325 mg (65 mg 325 mg PO DAILY 06/25/23 08/13/23 History iron) tablet metoprolol succinate 25 mg 25 mg PO DAILY #90 tabs 06/25/23 08/13/23 Rx tablet,extended release 24 hr clarithromycin 500 mg tablet 500 mg PO BID #28 tabs 06/30/23 08/13/23 Rx metronidazole 500 mg tablet 500 mg PO TID #42 tabs 06/30/23 08/13/23 Rx meloxicam 7.5 mg tablet 7.5 mg PO BID #180 tabs 07/01/23 08/13/23 Rx pantoprazole 40 mg tablet,delayed See Rx Instructions .Route 07/30/23 08/13/23 Rx release .COMPLEX #60 tabs Patient History Medical History (Updated 08/16/23 @ 18:56 by Barry Carranza MD) Sustained ventricular tachycardia Paroxysmal atrial fibrillation Defibrillator discharge NSVT (nonsustained ventricular tachycardia) Pneumothorax Community acquired pneumonia Idiopathic interstitial pneumonia Hypotension recent [place] cardio visit --- checks BP at home and hypotensive, light headed. see cardio note. Presence of combination internal cardiac defibrillator (ICD) and pacemaker medtronic. checked [address] Mcnulty. Idiopathic interstitial pneumonia Interstitial lung disease Dyspnea on exertion Bibasilar crackles Hx of gastric ulcer BPH with obstruction/lower urinary tract symptoms Abnormal TSH noted 02/2020 due to use of prednisone, repeat labs normal in 03/2020 including TSI Biventricular ICD (implantable cardioverter-defibrillator) in place original placed in 2013, follows with Dr Mcnulty; new one placed 06/2022, [facility] Chronic systolic congestive heart failure Left bundle branch block Osteoarthritis Rib fractures hx Pneumothorax on left ~2013. chest tube drain placed and treated inpatient. HTN (hypertension) Hypercholesteremia CAD (coronary artery disease) Non-ischemic cardiomyopathy (04/14/14) Surgical History Hx of eye surgery age 4 History of esophagogastroduodenoscopy (EGD) History of colonoscopy History of inguinal hernia repair x 2 History of arthroscopy of knee right History of eye surgery at age 4 - right eye surgery Family History Father Emphysema, unspecified Mother Urinary bladder cancer Brother Prediabetes Denies family history of Ovarian cancer Prostate cancer Myocardial infarction Breast cancer Colorectal cancer Social History Smoking Status: Never smoker Second Hand Exposure: No; Do You Dip or Chew Tobacco: No; Hx Alcohol Use: No Hx Substance Use: No Preferred Language: [place] Communication Ability: Effective Visual Impairment: No Limitations Hearing Ability: Normal Soda Fountain Clerk Required: No Beliefs That Will Affect Care: None marital status: Current Living Situation: Spouse current occupational status: retired 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 How many Children do You have: 2 Feels Safe at Home: Yes Childhood Exposure to Second-Hand Smoke: No Diet: regular Dental Care, Regularly: No Physical Activity Frequency: Daily Seatbelt Use: always Sunscreen Use: No Assistive Devices: Glasses Review of Systems Constitutional: AAOx3, NAD, tired, admits to sweats and chills yesterday Respiratory: + dyspnea; no cough, no chest congestion , no hemoptysis and no wheezing Gastrointestinal: + abdominal pain; no nausea, no vomiting and no melena Physical Exam Constitutional: no acute distress and not diaphoretic Respiratory: + tachypneic; no respiratory distress, n o labored breathing and no cough Cardiovascular: Rate/Rhythm: + tachycardic Extremities: no pedal edema and no edema Gastrointestinal (Abdomen): Abdomen is soft with TTP epigastric area as well as RUQ No peritonitis Results & Data Vital Signs (Past 12 Hours) Vital Signs Pulse Resp BP Pulse Ox Pulse Ox O2 Del Method O2 Del Method 08/17/23 10:00 101 H 27 H 08/17/23 09:00 108 H 13 99 08/17/23 09:00 86/63 L 08/17/23 08:01 108 H 33 H 98 08/17/23 08:01 86/65 L 08/17/23 08:00 76 20 98 08/17/23 07:51 Nasal Cannula 08/17/23 07:00 108 H 32 H 99 08/17/23 06:12 92 Room Air 08/17/23 06:00 109/79 08/17/23 06:00 110 H 24 08/17/23 05:30 112 H 17 78 L 08/17/23 05:00 109 H 18 08/17/23 05:00 95/67 L 08/17/23 04:30 110 H 30 H 08/17/23 04:00 116 H 19 08/17/23 04:00 102/71 08/17/23 03:30 110 H 35 H 82 L 08/17/23 03:00 98/69 L 08/17/23 03:00 113 H 08/17/23 02:30 112 H 28 H 08/17/23 02:00 96/76 L 08/17/23 02:00 113 H 20 08/17/23 01:30 112 H 16 94 O2 Flow Rate O2 Flow Rate 08/17/23 10:00 08/17/23 09:00 08/17/23 09:00 08/17/23 08:01 08/17/23 08:01 08/17/23 08:00 08/17/23 07:51 4 08/17/23 07:00 08/17/23 06:12 4 08/17/23 06:00 08/17/23 06:00 08/17/23 05:30 08/17/23 05:00 08/17/23 05:00 08/17/23 04:30 08/17/23 04:00 08/17/23 04:00 08/17/23 03:30 08/17/23 03:00 08/17/23 03:00 08/17/23 02:30 08/17/23 02:00 08/17/23 02:00 08/17/23 01:30 PG Care Time/CCT Total # of Minutes Spent Total Time Spent with Patient: Total time spent is greater than 50% in coordination of care (as documented) at patient's floor/unit and/or counseling patient: C[place] [address] INT INP/OBS CARE 2/55MIN Patient Type Established History Comprehensive Exam Expanded Problem Focused Medical Decision Making Moderate Complexity Diagnoses Calculus of gallbladder without cholecystitis without obstruction K80.20 Cholelithiasis location: gallbladder Cholecystitis presence: without cholecystitis Biliary obstruction: without biliary obstruction Tachycardia R00.0 Wide-complex tachycardia R00.0 (1) Cholelithiasis Cholelithiasis location: gallbladder Cholecystitis presence: without cholecystitis Biliary obstruction: without biliary obstruction Qualified Code(s): K80.20 - Calculus of gallbladder without cholecystitis without obstruction
[2023-08-17] MEDS ORDERED: ENOXAPARIN INJ 40 MG/0.4 ML SYR SQ SCH (13:15)
--- NOTE | 2023-08-17 15:21 | Cardiology Progress Note ---
Date of Service August 17, 2023 Assessment & Plan (1) Atrial tachycardia: (2) HFrEF (heart failure with reduced ejection fraction): (3) Non-ischemic cardiomyopathy: (4) Mitral regurgitation: (5) Tricuspid regurgitation: (6) Paroxysmal ventricular tachycardia: (7) Biventricular ICD (implantable cardioverter-defibrillator) in place: Plan ASSESSMENT/PLAN: 1. Probable atrial tachycardia: Had sustained tachycardia that at times was not well-tolerated on 08/16/2023 based on primary hospitalist evaluation. Now has episodes of sinus rhythm with normal heart rates after initiation of beta- jean. Continue beta-jean as tolerated. Discussed with electrophysiology. Dr. Yang plans on potentially reprogramming his device if possible tomorrow. 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 2. Cardiomyopathy: LV systolic function is severely reduced and RV moderately reduced. Continue metoprolol as above and at time of discharge, would recommend metoprolol succinate. Given hypotension, further titrating medications would be challenging at this time. If able in the future, would consider Entresto and spironolactone. Biventricular ICD in place. 3. Mitral and tricuspid regurgitation: Severe. Optimize medical therapy for heart failure with reduced EF and continue to monitor. Long-term management as per primary websphere message broker developer. 4. Heart failure with reduced EF: He appears hypervolemic. Recommend gently diuresing as able if blood pressure allows, but also now concerning for sepsis given rigors and leukocytosis. With most recent systolic blood pressure in the 80s, will hold off on ordering diuretics for now but if improved, consider gentle diuresing. Will leave to the critical care team who is managing his overall care. Beta-jean as above. ARNI in the future if blood pressure allows, as well as SGLT2 inhibitor and spironolactone. Given concern for sepsis, would not aggressively titrate medications now. 5. Sepsis/abdominal pain: Concern for underlying infection. Surgical consultation performed and recommended gallbladder decompression and possible MRCP and/or ERCP. On broad-spectrum antibiotics. 6. Ventricular tachycardia: Reportedly concern for pulmonary toxicity from amiodarone in the past. Continue beta-jean. 7. Disposition: Critically ill patient. Multiple comorbidities. Cardiology will continue to follow. His primary websphere message broker developer is Dr. Mcnulty. Dr. Yang of electrophysiology plans to further evaluate his ICD with possible reprogramming to see if can better control his atrial arrhythmia. Patient care communicated with critical care team (Dr. Sorto) and primary hospitalist service (Dr. Saez). Patient care discussed with nursing staff at the bedside as well. 43 min of critical care time. Admission and Anticipated Discharge Date Admission Date: August 13, 2023 Subjective Patient seen earlier this morning. Yesterday's events have been discussed in detail with Dr. Sorto and Dr. Saez yesterday. Appreciate Dr. Yang assistance from an EP standpoint with pacer interrogation review. Patient has not noted any significant palpitations. While in the room, he appeared to be in atrial tachycardia, converted to sinus with heart rates in the 70s, and then after a few minutes, once again likely atrial tachycardia. With these changes noted on telemetry, Mr. Chapman noted no significant change in symptoms. His biggest issue today is right lower quadrant/flank pain. Overnight he apparently had rigors. Antibiotic therapy was adjusted by the critical care team. He has shortness of breath but denies chest pain, syncope, or palpitations. He was alone in his hospital room. Physical Exam Physical Exam: Gen.: No acute distress. Alert. HEENT: Anicteric sclera. Neck: Elevated JVD. Cardiac: Regular and tachycardic. Normal S1-S2. 1/6 systolic murmur. Pulmonary: Clear to auscultation bilaterally without wheezes, rales, or rhonchi. Abdomen: Soft, nondistended, with normoactive bowel sounds. No bruits noted. Tenderness noted in the right lower quadrant and periumbilical area. Extremities: 2+ radial pulses bilaterally. 2+ posterior tibialis pulses bilaterally. No edema or cyanosis. Psychiatric: Affect appears appropriate. Results & Data Vital Signs (Past 12 Hours) Vital Signs Pulse Resp BP Pulse Ox Pulse Ox O2 Del Method O2 Del Method 08/17/23 10:00 101 H 27 H 08/17/23 09:00 108 H 13 99 08/17/23 09:00 86/63 L 08/17/23 08:01 108 H 33 H 98 08/17/23 08:01 86/65 L 08/17/23 08:00 76 20 98 08/17/23 07:51 Nasal Cannula 08/17/23 07:00 108 H 32 H 99 01/07/24 06:12 92 Room Air 08/17/23 06:00 109/79 08/17/23 06:00 110 H 24 08/17/23 05:30 112 H 17 78 L 08/17/23 05:00 109 H 18 08/17/23 05:00 95/67 L 08/17/23 04:30 110 H 30 H 08/17/23 04:00 116 H 19 08/17/23 04:00 102/71 08/17/23 03:30 110 H 35 H 82 L 08/17/23 03:00 98/69 L 08/17/23 03:00 113 H 08/17/23 02:30 112 H 28 H 08/17/23 02:00 96/76 L 08/17/23 02:00 113 H 20 08/17/23 01:30 112 H 16 94 08/17/23 01:00 88/68 L 08/17/23 01:00 115 H 34 H 96 08/17/23 00:38 112 H 32 H 08/17/23 00:38 87/65 L O2 Flow Rate O2 Flow Rate 08/17/23 10:00 08/17/23 09:00 08/17/23 09:00 08/17/23 08:01 08/17/23 08:01 08/17/23 08:00 08/17/23 07:51 4 08/17/23 07:00 08/17/23 06:12 4 08/17/23 06:00 08/17/23 06:00 08/17/23 05:30 08/17/23 05:00 08/17/23 05:00 08/17/23 04:30 08/17/23 04:00 08/17/23 04:00 08/17/23 03:30 08/17/23 03:00 08/17/23 03:00 08/17/23 02:30 08/17/23 02:00 08/17/23 02:00 08/17/23 01:30 08/17/23 01:00 08/17/23 01:00 08/17/23 00:38 08/17/23 00:38 Intake & Output 08/15/23 08/16/23 08/17/23 08/18/23 06:59 06:59 06:59 06:59 Intake Total 1366.05 / 1366.05 2140 / 2140 2521.583 / 2521.583 100 / 100 Output Total 950 / 950 300 / 300 325 / 325 250 / 250 Balance 416.05 / 416.05 1840 / 1840 2196.583 / 2196.583 -150 / -150 Weight 154 lb 5.177 oz 155 lb 3.287 oz Laboratory Results Laboratory Results - last 24 hr 08/16/23 08/16/23 08/16/23 15:56 15:57 20:46 WBC RBC Hgb Hct MCV MCH MCHC RDW Std Deviation RDW Coeff of Bull Plt Count MPV Immature Gran % (Auto) Neut % (Auto) Lymph % (Auto) Kleberg % (Auto) Eos % (Auto) Baso % (Auto) Neut # (Auto) Lymph # (Auto) Kleberg # (Auto) Eos # (Auto) Baso # (Auto) Immature Gran # (Auto) PT INR VBG pH VBG pCO2 VBG pO2 VBG HCO3 VBG O2 Saturation VBG Base Excess Sodium 132 L Potassium 4.1 D Chloride 98 Carbon Dioxide 26 Anion Gap 8 BUN 20 Creatinine 1.59 H D Est Cr Clr Drug Dosing 38.1 Est GFR ( Amer) 48.8 Est GFR (Non-Af Amer) 42.1 BUN/Creatinine Ratio 12.6 Glucose 97 POC Glucose 117 H Lactate Calcium 9.4 Ionized Calcium Phosphorus Magnesium 2.0 Total Bilirubin Direct Bilirubin GGT AST ALT Alkaline Phosphatase Troponin I High Sens 45.1 H 46.5 H Total Protein Albumin TSH 0.935 Free T4 1.23 08/16/23 08/17/23 08/17/23 22:34 00:34 00:35 WBC 12.47 H RBC 4.59 L Hgb 14.4 Hct 44.2 MCV 96.3 MCH 31.4 MCHC 32.6 RDW Std Deviation 49.6 H RDW Coeff of Bull 14.2 Plt Count 279 MPV 9.7 Immature Gran % (Auto) 0.4 Neut % (Auto) 75.2 Lymph % (Auto) 16.0 Kleberg % (Auto) 7.8 Eos % (Auto) 0.3 Baso % (Auto) 0.3 Neut # (Auto) 9.37 H Lymph # (Auto) 2.00 Kleberg # (Auto) 0.97 H Eos # (Auto) 0.04 Baso # (Auto) 0.04 Immature Gran # (Auto) 0.05 PT 13.5 H INR 1.2 H VBG pH 7.34 L VBG pCO2 48 VBG pO2 < 20 VBG HCO3 26 VBG O2 Saturation < 60.0 VBG Base Excess -0.4 Sodium Potassium Chloride Carbon Dioxide Anion Gap BUN Creatinine Est Cr Clr Drug Dosing Est GFR ( Amer) Est GFR (Non-Af Amer) BUN/Creatinine Ratio Glucose POC Glucose Lactate 3.7 H* 2.2 H* Calcium Ionized Calcium Phosphorus Magnesium Total Bilirubin 2.1 H Direct Bilirubin 0.6 H GGT Pending AST 106 H ALT 57 H Alkaline Phosphatase 193 H Troponin I High Sens Total Protein 8.2 Albumin 4.2 TSH Free T4 08/17/23 08/17/23 04:42 14:03 WBC 16.64 H RBC 4.21 L Hgb 13.3 L Hct 39.3 L MCV 93.3 MCH 31.6 MCHC 33.8 RDW Std Deviation 46.9 H RDW Coeff of Bull 13.8 Plt Count 228 MPV 10.0 Immature Gran % (Auto) 0.5 Neut % (Auto) 78.1 Lymph % (Auto) 11.4 Kleberg % (Auto) 9.6 Eos % (Auto) 0.1 Baso % (Auto) 0.3 Neut # (Auto) 12.99 H Lymph # (Auto) 1.90 Kleberg # (Auto) 1.60 H Eos # (Auto) 0.01 Baso # (Auto) 0.05 Immature Gran # (Auto) 0.09 PT INR VBG pH VBG pCO2 VBG pO2 VBG HCO3 VBG O2 Saturation VBG Base Excess Sodium 133 L Potassium 4.5 Chloride 99 Carbon Dioxide 24 Anion Gap 10 BUN 25 H Creatinine 1.35 Est Cr Clr Drug Dosing 44.9 Est GFR ( Amer) 59.5 Est GFR (Non-Af Amer) 51.4 BUN/Creatinine Ratio 18.5 Glucose 108 H POC Glucose Lactate 2.6 H* Calcium 9.2 Ionized Calcium 1.12 Phosphorus 3.5 Magnesium 2.3 Total Bilirubin Direct Bilirubin GGT AST ALT Alkaline Phosphatase Troponin I High Sens Total Protein Albumin TSH Free T4 Diagnostic Findings Telemetry personally reviewed: Possible episodes of atrial tachycardia but now with intermittent sinus rhythm. While in sinus, heart rate 70s while at the bedside. Pacemaker interrogation performed yesterday and reviewed by electrophysiology reported likely atrial tachycardia but mechanism not definite. Critical care consultation report reviewed. ECGs personally reviewed: ECG 08/17/2023 at 6:42 AM: Atrial sensed and ventricular paced at 111 bpm. ECG 08/17/2023 at 10:53 AM: Sinus rhythm, atrial sensed and ventricular paced 81 bpm. P wave morphology different than previous ECG. ECG 08/17/2023 at 10:53 AM: Sinus rhythm with atrial sensing and ventricular paced at 79 bpm. Intermittent AV pacing. Labs notable for developing and worsening leukocytosis, mild anemia, stable renal function, normal potassium, elevated lactate, mildly elevated high- sensitivity troponin, normal TSH. CTA chest 08/16/2023: Elevated right heart pressure. Small pleural effusions. Pulmonary edema. Opacities in the dependent lower lobes bilaterally favored to represent atelectasis per radiology. No PE visualized. Distal pulmonary artery branches were not opacified. Echo 08/16/2023: Mildly dilated LV. EF 15 to 20%. Global hypokinesis. Moderately dilated RV with moderately reduced systolic function. Severe biatri al dilation. Severe MR. Severe TR. Medications Administered Current Inpatient Medications Acetaminophen (Acetaminophen 325 Mg Tab) 650 mg PO Q4H PRN PRN Reason: Pain or Fever Stop: 09/12/23 22:05 Last Admin: 08/17/23 09:07 Dose: 650 mg Albuterol (Albuterol Hfa 8 Gm Inhaler) 2 puffs INH Q4 PRN PRN Reason: shortness of breath or wheezin Stop: 09/12/23 22:05 Aspirin (Aspirin 81 Mg Ectab) 81 mg PO QPM JUNG Stop: 09/13/23 20:59 Last Admin: 08/16/23 20:34 Dose: 81 mg Atorvastatin Calcium (Atorvastatin 10 Mg Tab) 10 mg PO QPM JUNG Stop: 09/12/23 22:05 Last Admin: 08/16/23 20:34 Dose: 10 mg Enoxaparin Sodium (Enoxaparin Inj 40 Mg/0.4 Ml Syr) 40 mg SQ QAM JUNG Stop: 09/16/23 13:14 Fentanyl Citrate (Fentanyl Citrate Pf 100 Mcg/2 Ml Vial) 25 mcg IV Q2H PRN PRN Reason: Pain Stop: 08/31/23 11:23 Last Admin: 08/17/23 14:12 Dose: 25 mcg Ferrous Sulfate (Ferrous Sulfate 325 Mg Tab) 325 mg PO DAILY [facility] Stop: 09/13/23 08:59 Last Admin: 08/17/23 07:58 Dose: 325 mg Gabapentin (Gabapentin 400 Mg Cap) 400 mg PO TID PRN PRN Reason: Pain Stop: 09/12/23 22:05 Last Admin: 08/16/23 20:34 Dose: 400 mg Piperacillin Sod/Tazobactam (Sod 4.5 gm/ Dextrose) 100 mls @ 25 mls/hr IV Q8H [facility]; Protocol Stop: 08/18/23 00:00 Last Infusion: 08/17/23 12:13 Dose: Infused Vancomycin HCl 1,000 mg/ (Sodium Chloride) 270 mls @ 200 mls/hr IV Q24H [facility] Stop: 08/19/23 17:59 Metoprolol Succinate (Metoprolol Succ 25mg Ext Rel Tab) 25 mg PO DAILY [facility] Stop: 09/13/23 08:59 Last Admin: 08/16/23 08:28 Dose: 25 mg Metoprolol Tartrate (Metoprolol Tartrate 1 Mg/Ml Vial) 2.5 mg IV 1600,1610 [facility] Stop: 08/17/23 16:11 Last Admin: 08/16/23 17:15 Dose: 2.5 mg Metoprolol Tartrate (Metoprolol Tartrate 25 Mg Tab) 25 mg PO Q6 [facility] Stop: 09/16/23 00:00 Last Admin: 08/17/23 06:15 Dose: 25 mg Metoprolol Tartrate (Metoprolol Tartrate 1 Mg/Ml Vial) 5 mg IV Q4H PRN PRN Reason: HR >120 sustained Stop: 09/15/23 23:13 Last Admin: 08/16/23 23:35 Dose: 5 mg Miscellaneous Information (Vancomycin Consult Active) 1 each N/A UD PRN PRN Reason: Consult Stop: 09/15/23 23:01 Pantoprazole Sodium (Pantoprazole 40 Mg Tab) 40 mg PO BID [facility] Stop: 09/12/23 22:05 Last Admin: 08/17/23 07:59 Dose: 40 mg Senna/Docusate Sodium (Docusate Sodium/Senna 50/8.6mg Tab) 1 tab PO QAM [facility] Stop: 09/16/23 08:59 Last Admin: 08/17/23 07:57 Dose: Not Given Simethicone (Simethicone 80 Mg Chew) 80 mg PO Q6H PRN PRN Reason: Flatulence Stop: 09/15/23 21:09 Last Admin: 08/17/23 10:00 Dose: 80 mg Vitamin D (Cholecalciferol 1,000 Units 25 Mcg Tab) 1,000 units PO QPM JUNG Stop: 09/12/23 22:05 Last Admin: 08/16/23 20:34 Dose: 1,000 units Vitamin D (Cholecalciferol 1,000 Units 25 Mcg Tab) 2,000 units PO QAM JUNG Stop: 09/13/23 08:59 Last Admin: 08/17/23 07:58 Dose: 2,000 units PG Care Time/CCT Total # of Minutes Spent Total Time Spent with Patient: Total time spent is greater than 50% in coordination of care (as documented) at patient's floor/unit and/or counseling patient: Critical Care Time: Yes Total Critical Care Time: 43 Coding Level of Care Code 69901 CRITICAL CARE 1ST 30-74M Diagnoses Atrial tachycardia I47.19 HFrEF (heart failure with reduced ejection fraction) I50.20 Non-ischemic cardiomyopathy I42.8 Mitral regurgitation I34.0 Tricuspid regurgitation I07.1 Paroxysmal ventricular tachycardia I47.29 Biventricular ICD (implantable cardioverter-defibrillator) in place Z95.810 Additional Codes Critical Care Time - Critical Care Time: Yes ([id number])
[2023-08-17] MEDS ORDERED: ACETAMINOPHEN 1,000 MG/100 ML VIAL IV PRN (17:03)
[2023-08-17] MEDS ORDERED: VANCOMYCIN HCL 1,000 MG in SODIUM CHLORIDE 0.9% 250 ML IV SCH (18:00)
--- NOTE | 2023-08-17 18:34 | Discharge Summary ---
Date of Service August 17, 2023 Admission HPI Per Admitting Provider Piter is a pleasant 73-year-old male with PMH of ILD, BPH, biventricular ICD, CHF, HTN, and CAD. Patient presented for transverse umbilical pain with acute worsening while lying in bed last night on 08/12. He first noticed the pain in and he was lying on his right side. Rates it 4 out of 10 at worst. He characterizes it as an achy pain to palpation. Lying still alleviates the pain, however it is worse with movement and going to the bathroom. He has had no prior experiences like this 1. He denies recent changes in diet over the holiday season. He denies right scapular pain. No sick contacts. Of note, he also endorses increased fatigue; no energy. He has been had ongoing JUAN secondary to his ILD, however he has noticed it has been worse when getting up to go to the bathroom. Cold air also makes the JUAN worse. He denies SOB at rest. He was also recently on a course of metronidazole and clarithromycin for stomach infection, but reports that he finished his course today. He took all of his regular morning medications. He declines pain medication at time of admission. He denies history of alcohol use, tobacco use, or recreational drug use. Father with history of liver disease (may have been due to alcohol); however, step-brother with liver disease, which may not have been due to alcohol. He is tachycardic at 121 bpm at time of admission; vitals otherwise stable. ED Course: Zosyn 4.5 g IV ROS: Patient endorses chills, cold sweats (lasted week), mild ALDANA, dizziness, lightheadedness, JUAN (ongoing), and generalized abdominal pain. Patient denies fever, chest pain, chest palpitations, N/V/D, dysuria, blood in urine/stool, burning with urination, or numbness/tingling going down the legs. Discharge Exam on AM rounds: gen - NAD, looks well mouth - MMM heart - tachy, s1 s2, no murmur neck - ? mild JVD lungs - mild b/l basilar rales, apices clear; no wheezes abd - focal tenderness (over about a 1" area) in the RUQ w/ deep palpation only; pain nearly resolved;, ND, soft, no HSM, no peritoneal signs ext - no edema, pulses 2+ b/l psych - a/o x 3 Discharge Data Allergies Allergy/AdvReac Type Severity Reaction Status Date / Time morphine Allergy Unknown Difficulty Verified 08/13/23 10:26 Breathing mycophenolate mofetil AdvReac Intermediate Dizziness Verified 08/13/23 10:26 Consultations 08/13/23 17:45 Consult General Surgery Stat 08/13/23 17:53 ED Decision to Admit Stat 08/13/23 20:06 Consult Cardiology Routine 08/17/23 14:14 Consult General Surgery Routine Ordered Studies 08/13/23 11:19 CT Abd and Pelvis [CT abd pelvis IV con only] Stat 08/13/23 15:56 US gallbladder Stat 08/16/23 23:46 CT angio chest PE protocol Stat Hospital Course (1) Wide-complex tachycardia: Patient has prior h/o sustained VT, nonsustained VT, PAF, and PAT. He has a LBBB at baseline. Recent pacemaker interrogation done earlier in this hospitalization showed VT. There has been NSVT on telemetry during the stay. During the patient's code purple today he was weak and had chest tightness. He was tachycardic in the 130s. Underlying rhythm? wide-complex atrial based rhythm vs VT. Again he has had multiple atrial and ventricular rhythms in the past. He has not tolerated amiodarone in the past per records. Appreciate the assistance of on-call cardiology as well as Dr Sorto from ICU. Plan - replete any low K or low mag (labs pending). STAT device interrogation. STAT echocardiogram. Hopefully with the repeat interrogation we can identify the rhythm and then determine the best treatment for it. (2) Abdominal pain: IMPROVED etiology? biliary tract disease? musculoskeletal abdominal wall pain? other? although CT abd and RUQ U/s show gallstones, GB wall thickening, etc -- HIDA scan was negative has minimal RUQ pain - only has it with palpation of the abdomen (and it is in a focal area of about 1 inch). tolerating full liquids. advance diet to low-fat / AHA. t.bili/d.bili and alk phos remain mildly high but this is chronic lipase is normal u/a is unremarkable remains on zosyn to cover for possibility of cholecystitis serial exams appreciate gen surg consultation no plans for surgical intervention of gall bladder checked c diff and stool panel due to liquid stools -- fully negative diarrhea likely abx-associated diarrhea (3) Cholelithiasis: see discussion above in #1 acute cholecystitis? but HIDA negative (4) Acute on chronic systolic heart failure: pt's dry weight is 155# he is about 155 pounds today but has mild JVD on exam with crackles in the bases uncertain if rales are from his ILD or pulmonary edema will give PO lasix today 40mg x 1 continue metoprolol succinate last echo 07/2022 - EF 35-40% per Dr Mcnulty not on Entresto or BORIS/ARB therapy due to issues with hypotension and med intolerance (5) CAD (coronary artery disease): per old records he had a cath in the early 1999s showing minimal luminal irregularities cont asa cont metoprolol cont lipitor no ischemic symptoms to date although had chest tightness this afternoon -- however, I do not suspect the tightness is ischemic in nature (6) Interstitial lung disease: mild not on O2 at home has JUAN at baseline likely due to his ILD (7) BPH (benign prostatic hyperplasia): Continue to hold tadalafil (8) Hypercholesteremia: Continue atorvastatin (9) Pleural effusion: 2nd decompensated CHF improved with diuresis (10) Biventricular ICD (implantable cardioverter-defibrillator) in place: interrogation done earlier in the stay will repeat interrogation now (11) Non-ischemic cardiomyopathy: again heart cath early did not show any obstructive CAD --> only minimal luminal irregularities seen thus, cardiomyopathy is non-ischemic in nature (12) Paroxysmal atrial fibrillation: h/o brief episodes of such in the past none seen recently no anticoagulation needed at this time (13) Sustained ventricular tachycardia: history of see #1 above (14) Gastritis: as seen on EGD fall 2022 cont PPI (15) H. pylori infection: was H Pylori + on biopsy from stomach via EGD completed antibiotic treatment for such Plan updated pt's daughter, Jennifer, at [phone] shortly after the toni lozano complex medical management including multiple bedside visits, toni lozano involvement, discussions with cardiology, discussions with ICU, etc total time 90 minutes Discharge Plan Discharge Items Patient Disposition: Transfer Acute Care Hospital Reason For Visit: ABDOMINAL PAIN Discharge Diagnosis: 1. concern for acute cholecystitis 2. abnormal LFTs - either 2nd to #1 or hepatic congestion from decompensated CHF 3. acute on chronic systolic CHF - EF 15-20% 4. atrial tachycardia 5. prior history of paroxysmal a.fib & a.flutter 6. history of sustained ventricular tachycardia 7. Non-ischemic cardiomyopathy 8. Valvular heart disease including tricuspid regurgitation & mitral regurgitation 9. gastritis 10. H.pylori infection - s/p treatment late 2022 11. Pacemaker/ICD status 12. LBBB 13. BPH 14. interstitial lung disease Activity: As commented below Activity Comment: oob to commode only Non-emergency contact: Primary Care Provider and Logistics Team Lead Call non-emergency contact if: you have any medication questions Follow-up/Referrals: Shankar Aguirre III, CRNP [Primary Care Provider] - Diet: Nothing by Mouth Addtl Attending Provider Instructions: Further instructions to follow after your hospitalization at [facility]. Pending Studies at Discharge: No Stand-Alone Forms: My [facility] Skilled Items Patient informed of condition?: Yes DNR: Yes Discharge Level of Care: Other Communicable Disease: No Discharge Prognosis: Deteriorating Lines: Peripheral IV Urinary Catheter: No Medications and DC Order Prescriptions: Continued albuterol sulfate 90 mcg/actuation HFA aerosol inhaler 2 inh inhalation Q4 PRN (Reason: shortness of breath or wheezing) Qty: 3 3RF gabapentin 400 mg capsule 400 mg PO TID PRN (Reason: Pain) Qty: 270 3RF pantoprazole 40 mg tablet,delayed release (DR/EC) See Rx Instructions .ROUTE .COMPLEX Qty: 60 5RF Dose Instruction: TAKE 1 TABLET BY MOUTH TWICE A DAY Rx Instructions: TAKE 1 TABLET BY MOUTH TWICE A DAY One-A-Day Men's 50 Plus(vit K) 400-20-370 mcg tablet 1 tab PO QPM cholecalciferol (vitamin D3) 50 mcg (2,000 unit) capsule 50 mcg PO QAM cholecalciferol (vitamin D3) 25 mcg (1,000 unit) capsule 25 mcg PO QPM ferrous sulfate 325 mg (65 mg iron) tablet 325 mg PO DAILY metoprolol succinate 25 mg tablet extended release 24 hr 25 mg PO DAILY Qty: 90 3RF acetaminophen 500 mg Tablet 1,000 mg PO Q6H PRN (Reason: Pain) Patient Comments: usually takes 2 tabs every morning and evening. aspirin 81 mg Tablet,Delayed Release (Dr/Ec) 81 mg PO QPM tadalafil 5 mg tablet 5 mg PO QPM Held atorvastatin 10 mg tablet 10 mg PO QPM Qty: 90 3RF Hold Instructions: hold due to abnormal LFTs Discontinued clarithromycin 500 mg tablet 500 mg PO BID Qty: 28 0RF metronidazole 500 mg tablet 500 mg PO TID Qty: 42 0RF meloxicam 7.5 mg tablet 7.5 mg PO BID Qty: 180 3RF Discharge Orders: Discharge Order (Routine); Ordered 08/17/23 Ordered By: Julio Saez Admission Data Admit Date/Time: 08/13/23 18:38 Attending Provider: Julio Saez Admit Provider: Dre Hinkle Primary Care Provider: Shankar Aguirre III Other Providers: Manoj Gibson; Dre Hinkle; Kavin Mcnulty; Rosalia Stanley Coding Diagnoses Wide-complex tachycardia R00.0 Abdominal pain R10.9 Calculus of gallbladder without cholecystitis without obstruction K80.20 Cholelithiasis location: gallbladder Cholecystitis presence: without cholecystitis Biliary obstruction: without biliary obstruction Acute on chronic systolic heart failure I50.23 Coronary artery disease involving [place] coronary artery of [place] heart without angina pectoris I25.10 Coronary Disease-Associated Artery/Lesion type: qu[place] artery [place] vs. transplanted heart: qu[place] heart Associated angina: without angina Interstitial lung disease J84.9 BPH (benign prostatic hyperplasia) N40.0 Hypercholesteremia E78.00 Pleural effusion J90 Biventricular ICD (implantable cardioverter-defibrillator) in place Z95.810 Non-ischemic cardiomyopathy I42.8 Paroxysmal atrial fibrillation I48.0 Sustained ventricular tachycardia I47.20 Gastritis K29.70 H. pylori infection A04.8
--- NOTE | 2023-08-17 18:41 | Communication Note ---
Date of Service: August 17, 2023 Notified by staff that they are unable to obtain EMS transfer secondary to staffing issues. Reported that there is no available EMS unit. Patient not me eting rigid criteria for helicopter transport beyond unavailability of ground services. I notified the social welfare administrator prisoner classification interviewer regarding concerns of unavailable ground transport while there is bed availability at referral facility which may be become unavailable in a 12-hour timeframe for current anticipated EMS availability. Patient has been updated of concerns by medical staff, treatment teams aware. Coding Level of Care Code None
[2023-08-17] MEDS: ATORVASTATIN 10 MG TAB PO SCH (20:13)
[2023-08-17] MEDS: ASPIRIN 81 MG ECTAB PO SCH (20:13)
--- NOTE | 2023-08-18 00:10 | Electrocardiogram Report ---
Test Reason : Blood Pressure : / mmHG Vent. Rate : 126 BPM Atrial Rate : 133 BPM P-R Int : 000 ms QRS Dur : 154 ms QT Int : 382 ms P-R-T Axes : 000 147 -76 degrees QTc Int : 553 ms Ventricular-paced rhythm Abnormal ECG When compared with ECG of 13-AUG-2023 19:18, Vent. rate has increased BY 7 BPM Confirmed by Sd Wright ([id number]) on 08/18/2023 12:10:37 AM Referred By: Shankar Aguirre Confirmed By:Sd Wright
--- NOTE | 2023-08-18 00:18 | Electrocardiogram Report ---
Test Reason : Blood Pressure : / mmHG Vent. Rate : 111 BPM Atrial Rate : 111 BPM P-R Int : 134 ms QRS Dur : 154 ms QT Int : 430 ms P-R-T Axes : 000 257 047 degrees QTc Int : 584 ms Atrial-sensed ventricular-paced rhythm Biventricular pacemaker detected Abnormal ECG When compared with ECG of 16-AUG-2023 15:39, Vent. rate has decreased BY 15 BPM Confirmed by Sd Wright ([id number]) on 08/18/2023 12:18:36 AM Referred By: Shankar Aguirre Confirmed By:Sd Wright
--- NOTE | 2023-08-18 00:23 | Electrocardiogram Report ---
Test Reason : Blood Pressure : / mmHG Vent. Rate : 081 BPM Atrial Rate : 081 BPM P-R Int : 148 ms QRS Dur : 140 ms QT Int : 430 ms P-R-T Axes : 009 239 103 degrees QTc Int : 499 ms Atrial-sensed ventricular-paced rhythm Sinus rhythm Biventricular pacemaker detected Abnormal ECG When compared with ECG of 17-AUG-2023 06:42, Vent. rate has decreased BY 30 BPM Confirmed by Sd Wright ([id number]) on 08/18/2023 12:23:02 AM Referred By: Shankar Aguirre Confirmed By:Sd Wright
--- NOTE | 2023-08-18 00:24 | Electrocardiogram Report ---
Test Reason : Blood Pressure : / mmHG Vent. Rate : 079 BPM Atrial Rate : 079 BPM P-R Int : 000 ms QRS Dur : 132 ms QT Int : 454 ms P-R-T Axes : 031 228 -28 degrees QTc Int : 520 ms Atrial-sensed ventricular-paced rhythm with intermittent AV pacing Abnormal ECG When compared with ECG of 17-AUG-2023 10:53, Vent. rate has decreased BY 2 BPM Confirmed by Sd Wright ([id number]) on 08/18/2023 12:24:11 AM Referred By: Shankar Aguirre Confirmed By:Sd Wright
[2023-08-18] MEDS: PIPERACILLIN/TAZOBACTAM 4.5 GM in DEXTROSE 5% MINI-B 100 ML IV SCH (01:00)
[2023-08-18] MEDS: METOPROLOL TARTRATE 25 MG TAB PO SCH ×2 (01:00→05:52)
[2023-08-18 05:30] LABS: Basophils # (auto) 0.06 K/uL (0.00-0.20); Basophils % (auto) 0.5 %; Eosinophils # (auto) 0.04 K/uL (0.00-0.50); Eosinophils % (auto) 0.3 %; Hematocrit (blood only) 39.9 % (42.0-52.0); Hemoglobin 13.5 g/dl (14.0-18.0); Immature Granulocytes # (auto) 0.18 K/uL (0.01-0.20); Immature Granulocytes % (auto) 1.5 %; Lymphocytes # (auto) 3.02 K/uL (1.20-3.40); Lymphocytes % (auto) 25.4 %; Mean Corpuscular Hemoglobin 31.9 pg (25.0-34.0); Mean Corpuscular Hgb Conc 33.8 g/dL (32.0-36.0); Mean Corpuscular Volume 94.3 fL (80.0-100.0); Mean Platelet Volume 10.4 fL (9.4-12.4); Monocytes # (auto) 1.43 K/uL (0.11-0.59); Neutrophils # (auto) 7.17 K/uL (1.40-6.50); Neutrophils % (auto) 60.3 %; Platelet Count 229 K/uL (130-400); RDW Standard Deviation 47.9 fL (36.4-46.3); Red Blood Count 4.23 M/uL (4.70-6.10)
[2023-08-18 05:46] LABS: BUN Creatinine Ratio 22.9 (10-20); Calcium 9.6 mg/dl (8.6-10.3); Creatinine Clr Calc Pharmacy 34.6 ml/min; Est GFR (African American) 43.5 ml/min; Est GFR (Non-African American) 37.5 ml/min; Magnesium 2.6 mg/dl (1.7-2.4); Phosphorus 4.3 mg/dl (2.5-4.9); Potassium 4.5 mmol/L (3.5-5.1)
[2023-08-19 08:47] LABS: Anti Mitochondrial Antibody NEGATIVE (NEGATIVE); Anti Nuclear Antibody Screen POSITIVE (NEGATIVE); HBSAG NON-REACTIVE (NON-REACTIVE); Hepatitis A Antibody IgM NON-REACTIVE (NON-REACTIVE); Hepatitis B Core Antibody IgM NON-REACTIVE (NON-REACTIVE); Smooth Muscle Antibody NEGATIVE (NEGATIVE)
[2023-08-19 09:45] LABS: ANA Pattern Cytoplasmic; ANA Pattern 2 Nuclear, Speckled; ANA Titer 1:40 titer; ANA Titer 2 1:40 titer
== END 2023-08-18 07:30 | disposition short-term general hospital (02) | DRG 444 ==
LOC: ED 11:01 → SUATTDRO 18:38 → EDINP 18:38 → 2N 22:07 → 1E 08-16 16:28

== ENCOUNTER 2023-09-15 16:18 | Inpatient (IN) ==
--- NOTE | 2023-09-15 17:03 | ED Triage Note ---
Date of Service September 15, 2023 Provider in Triage Author: Raquel Crane History of Present Illness This patient was briefly evaluated while in triage. An abbreviated physical exam was performed. This patient is a 73-year-old Male who presents to the ED for evaluation of crackles in lungs, hx heart failure. Sent by home health nurse. BLE pitting edema. States pacer alarm has been going off. Physical Exam Initial orders for labs and / or imaging were placed and patient was placed in the waiting area until a bed is available. Please see further documentation for the full ED course.
--- NOTE | 2023-09-15 17:57 | XRay Report ---
XR chest 1V not portable CLINICAL HISTORY: Chest pain, nonspecific. COMPARISON STUDY: Chest radiograph August 13, 2023. Chest CT August 17, 2023. FINDINGS: A left subclavian biventricular pacer/AICD is in place. There is a probable left PICC. Ther e is no pneumothorax. Trace bilateral pleural effusions are present. Cardiomegaly is unchanged. Media stinal contours are stable. Chronic interstitial thickening is again noted. There has been interval d evelopment of perihilar opacities, right greater than left. IMPRESSION: 1. Interval development of perihilar opacities, right greater than left. The findings favor alveolar pulmonary edema. Pneumonia could appear similar. Radiographic follow-up to ensure resolution is recom mended. 2. Suspected underlying interstitial lung disease. ACT 112: Negative or not required by law. Electronically signed by: Tony Beaver M.D. 09/15/2023 5:56 PM
[2023-09-15 18:28] LABS: Basophils # (auto) 0.01 K/uL (0.00-0.20); Basophils % (auto) 0.1 %; Eosinophils # (auto) 0.02 K/uL (0.00-0.50); Eosinophils % (auto) 0.2 %; Hematocrit (blood only) 29.5 % (42.0-52.0); Immature Granulocytes # (auto) 0.12 K/uL (0.01-0.20); Lymphocytes # (auto) 1.24 K/uL (1.20-3.40); Lymphocytes % (auto) 10.6 %; Mean Corpuscular Hemoglobin 30.5 pg (25.0-34.0); Mean Corpuscular Hgb Conc 33.9 g/dL (32.0-36.0); Mean Corpuscular Volume 89.9 fL (80.0-100.0); Mean Platelet Volume 9.3 fL (9.4-12.4); Monocytes # (auto) 1.21 K/uL (0.11-0.59); Monocytes % (auto) 10.3 %; Neutrophils # (auto) 9.12 K/uL (1.40-6.50); Neutrophils % (auto) 77.8 %; Platelet Count 250 K/uL (130-400); RDW Standard Deviation 45.2 fL (36.4-46.3); Red Blood Count 3.28 M/uL (4.70-6.10); White Blood Count 11.72 K/ul (4.8-10.8)
[2023-09-15 18:46] LABS: Alanine Aminotransferase 39 U/L (7-52); Albumin Globulin Ratio 0.8 (0.9-2); Albumin Level 2.7 gm/dl (3.4-5.0); Alkaline Phosphatase 381 U/L (34-104); Anion Gap 9 (3-11); Aspartate Aminotransferase 28 U/L (13-39); BUN Creatinine Ratio 21.7 (10-20); Bilirubin,Total 3.4 mg/dl (0.2-1.0); Blood Urea Nitrogen 46 mg/dl (6-23); Calcium 8.3 mg/dl (8.6-10.3); Carbon Dioxide 29 mmol/L (21-32); Chloride 82 mmol/L (98-107); Est GFR (African American) 34.5 ml/min; Est GFR (Non-African American) 29.8 ml/min; Globulin 3.6 gm/dl (2.5-4.0); Glucose 101 mg/dl (70-99(Fasting)); Potassium 3.9 mmol/L (3.5-5.1); Sodium 120 mmol/L (136-145); Total Protein 6.3 gm/dl (6.0-8.3)
[2023-09-15 18:52] LABS: Troponin I High Sensitivity 30.5 pg/ml (0-20)
--- NOTE | 2023-09-15 19:15 | Emergency Department Note ---
Impression & Plan Acute hypotension, CHF (congestive heart failure), Shortness of breath, LEONILA (acute kidney injury) ED Provider Note NAME: RAMON ALBARRAN AGE: 73 SEX: M : 1950 ARRIVES VIA: Walk-In INFORMANT: Patient ED PROVIDER(S): Min Lind DO CHIEF COMPLAINT: Weakness HPI: Patient is a 73-year-old male with a past medical history of heart failure with reduced ejection fraction, mitral regurg, tricuspid regurg, wide-complex tachycardia, VT, A-fib who presents to the ER with an ICD in place on a milrinone drip. He notes he has been very weak and rundown since being discharged from [facility]. He denies any headache or change in vision. No new chest pain or significant shortness of breath. He does admit to worsening cough. No belly pain, nausea, vomiting, or diarrhea. No dysuria, urgency, or frequency. He has been taking his diuretics but has been having increased swelling in the legs. He notes he is short of breath when he lays flat. He was referred in due to a 5 to 6 pound weight gain. ADDITIONAL HISTORY OBTAINED: Per HPI Chronic Medical/Social Conditions Affecting Care: Per HPI PAST MEDICAL HISTORY:See Below PAST SURGICAL HISTORY:See Below FAMILY HISTORY:See Below SOCIAL HISTORY:See Below HOME MEDICATIONS:See Below ALLERGIES:See Below VITALS:See Below PHYSICAL EXAMINATION: GENERAL: Sitting up in bed, alert, ill-appearing, disheveled EYE EXAM: normal conjunctiva. OROPHARYNX: no exudate, no erythema, lips, buccal mucosa, and tongue normal and mucous membranes are moist NECK: supple, no nuchal rigidity, no adenopathy, non-tender LUNGS: Crackles at the bilateral bases. Normal chest wall mechanics HEART: no murmurs, S1 normal and S2 normal ABDOMEN: abdomen soft, non-tender, normo-active bowel sounds, no masses, no rebound or guarding. BACK: Back is symmetrical on inspection and there is no deformity, no midline tenderness, no CVA tenderness. SKIN: no rashes and no bruising UPPER EXTREMITIES: upper extremities are grossly normal. LOWER EXTREMITIES: Pitting edema in the lower extremities. NEURO EXAM: Normal sensorium, cranial nerves II-XII grossly intact, normal speech, no gross weakness of arms, no gross weakness of legs. MEDICAL DECISION MAKING: Patient is a 73-year-old male who presents ER for above-stated complaint. IV was established blood work was obtained. Labs show mild leukocytosis 11,000. Mild anemia 10. BMP with a significant hyponatremia at 120. Creatinine at 2.1 which is increased from his last baseline of about 1.7. LFTs were unremarkable. Slightly elevated troponin due to fevers likely secondary to the milrinone and CHF. UA was negative. He does have pitting edema and crackles supported by chest x-ray which shows CHF and a 5 pound weight gain. Did order Bumex but hospitalist recommended holding at this time. Pressures increased from the 80s to low 100s. He was updated bedside and discussed case with Dr. Terrance Matute for further evaluation management treatment. Also discussed with Dr. Wright. Consults/Care Managements Discussions: Per MDM Triage Nursing notes reviewed. Limited review of prior medical records performed Vital Signs: reviewed and remarkable for hypotension Differential diagnosis: Infection, dehydration, metabolic abnormality, hypo/hyperglycemia, electrolyte disturbance, anemia, hypoxia, cardiac sources, intracerebral event, toxicologic, neurologic, as well as other pathologies. ER treatment provided: See below Diagnostics interpreted by me include EKG and cardiac monitoring as listed below: -Cardiac Monitoring: An order was placed for continuous cardiac monitoring. The monitor shows a rate of 101 with sinus rhythm. -ECG: Atrial sensed ventricular paced rate of 105 Left axis QTc 565 -Laboratory studies:Interpreted by me as stated above in MDM and shown below. Imaging studies: Xrays: As interpreted by me: Portable AP upright 1 view of the chest shows pulmonary edema CTs show: none Procedures:none Critical Care: None Past Med/Surg History Medical History (Updated 09/15/23 @ 21:16 by Min Lind DO) Mitral regurgitation Atrial tachycardia Tachycardia Sustained ventricular tachycardia Paroxysmal atrial fibrillation Defibrillator discharge NSVT (nonsustained ventricular tachycardia) Pneumothorax Community acquired pneumonia Idiopathic interstitial pneumonia Hypotension recent [place] cardio visit --- checks BP at home and hypotensive, light headed. see cardio note. Presence of combination internal cardiac defibrillator (ICD) and pacemaker medtronic. checked [address] Mcnulty. Idiopathic interstitial pneumonia Interstitial lung disease Dyspnea on exertion Bibasilar crackles Hx of gastric ulcer BPH with obstruction/lower urinary tract symptoms Abnormal TSH noted 02/2020 due to use of prednisone, repeat labs normal in 03/2020 including TSI Biventricular ICD (implantable cardioverter-defibrillator) in place original placed in 2013, follows with Dr Mcnulty; new one placed 06/2022, [facility] Chronic systolic congestive heart failure Left bundle branch block Osteoarthritis Rib fractures hx Pneumothorax on left ~2013. chest tube drain placed and treated inpatient. HTN (hypertension) Hypercholesteremia CAD (coronary artery disease) Non-ischemic cardiomyopathy (04/14/14) Surgical History Hx of eye surgery age 4 History of esophagogastroduodenoscopy (EGD) History of colonoscopy History of inguinal hernia repair x 2 History of arthroscopy of knee right History of eye surgery at age 4 - right eye surgery Family History Father Emphysema, unspecified Mother Urinary bladder cancer Brother Prediabetes Denies family history of Ovarian cancer Prostate cancer Myocardial infarction Breast cancer Colorectal cancer Social History Smoking Status: Never smoker Second Hand Exposure: No; Do You Dip or Chew Tobacco: No; Hx Alcohol Use: No Hx Substance Use: No Preferred Language: Monegasque Communication Ability: Effective Visual Impairment: No Limitations Hearing Ability: Normal Marketing Support Specialist Required: No Beliefs That Will Affect Care: None marital status: Current Living Situation: Spouse current occupational status: retired 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 How many Children do You have: 2 Feels Safe at Home: Yes Childhood Exposure to Second-Hand Smoke: No Diet: regular Dental Care, Regularly: No Physical Activity Frequency: Daily Seatbelt Use: always Sunscreen Use: No Assistive Devices: Glasses Allergies Allergies Allergy/AdvReac Type Severity Reaction Status Date / Time morphine Allergy Unknown Difficulty Verified 08/13/23 10:26 Breathing mycophenolate mofetil AdvReac Intermediate Dizziness Verified 08/13/23 10:26 Home Meds Home Medications Medication Instructions Recorded Confirmed rravpfbiroim-gla-pzdor acid-vit 1 tab PO QPM 03/21/20 09/15/23 K-lycop 400 mcg-20 mcg-370 mcg tablet (One-A-Day Men's 50 Plus (with vitamin K)) acetaminophen 500 mg tablet 1,000 mg PO Q6H PRN Pain 07/30/22 09/15/23 cholecalciferol (vitamin D3) 50 50 mcg PO QAM 03/05/23 09/15/23 mcg (2,000 unit) capsule ferrous sulfate 325 mg (65 mg 325 mg PO DAILY 06/25/23 09/15/23 iron) tablet amiodarone 200 mg tablet 200 mg PO DAILY 09/12/23 09/15/23 apixaban 5 mg tablet (Eliquis) 5 mg PO BID 09/12/23 09/15/23 bumetanide 1 mg tablet 2 mg PO BID 09/12/23 09/15/23 chlorothiazide 250 mg/5 mL oral 250 mg PO .COMPLEX 09/12/23 09/15/23 suspension empagliflozin 10 mg tablet 10 mg PO DAILY 09/12/23 09/15/23 (Jardiance) fluticasone propionate 50 1 spray intranasal DAILY 09/12/23 09/15/23 mcg/actuation nasal spray,suspension (Allergy Relief (fluticasone)) milrinone 1 mg/mL intravenous See Rx Instructions continuous IV 09/12/23 09/15/23 solution infusion .COMPLEX spironolactone 25 mg tablet 12.5 mg PO DAILY 09/12/23 09/15/23 diphenhydramine 25 1 tab PO UD 09/15/23 09/15/23 mg-acetaminophen 500 mg tablet (Tylenol PM Extra Strength) melatonin See Rx Instructions .Route .COMPLEX 09/15/23 09/15/23 Previous Rx's Medication Instructions Recorded albuterol sulfate 90 mcg/actuation 2 inh inhalation Q4 PRN shortness 01/20/23 aerosol inhaler of breath or wheezing #3 Inhalers gabapentin 400 mg capsule 400 mg PO TID PRN Pain #270 caps 04/21/23 atorvastatin 10 mg tablet 10 mg PO QPM #90 tabs 06/18/23 metoprolol succinate 25 mg 25 mg PO DAILY #90 tabs 06/25/23 tablet,extended release 24 hr pantoprazole 40 mg tablet,delayed See Rx Instructions .Route 07/30/23 release .COMPLEX #60 tabs Results & Data (ED) Vital Signs Vital Signs - 24 hr 09/15/23 17:01 09/15/23 18:45 09/15/23 18:45 Temperature 36.9 C Temperature Source Temporal Artery Scan Pulse Rate 104 H 103 H Pulse Rate [Left Apical] 103 H Respiratory Rate 16 18 Respiratory Effort / Characteristics Non-Labored Spontaneous Non-Labored Respiratory Depth Normal Normal Respiratory Pattern Regular Blood Pressure 103/69 Blood Pressure [Right Arm] 89/67 L Blood Pressure Mean 80 Blood Pressure Mean [Right Arm] 74 Blood Pressure Position Sitting Pulse Oximetry 96 93 Oxygen Delivery Method Room Air Room Air Sepsis Recent Fever Within 48 Hours No Sepsis New/Unexplained Change in Mental Status N/A Sepsis Action Taken by Nursing No Action Required 09/15/23 19:00 09/15/23 19:55 09/15/23 20:00 Temperature Temperature Source Pulse Rate 99 H 101 H 101 H Pulse Rate [Left Apical] Respiratory Rate 25 H 23 23 Respiratory Effort / Characteristics Respiratory Depth Respiratory Pattern Blood Pressure 89/65 L 94/67 L 100/69 Blood Pressure [Right Arm] Blood Pressure Mean 73 76 79 Blood Pressure Mean [Right Arm] Blood Pressure Position Pulse Oximetry 97 94 94 Oxygen Delivery Method Room Air Room Air Room Air Sepsis Recent Fever Within 48 Hours Sepsis New/Unexplained Change in Mental Status Sepsis Action Taken by Nursing 09/15/23 20:30 09/15/23 21:00 Temperature Temperature Source Pulse Rate 101 H 101 H Pulse Rate [Left Apical] Respiratory Rate 22 21 Respiratory Effort / Characteristics Respiratory Depth Respiratory Pattern Blood Pressure 97/71 L 99/70 L Blood Pressure [Right Arm] Blood Pressure Mean 79 79 Blood Pressure Mean [Right Arm] Blood Pressure Position Pulse Oximetry 92 92 Oxygen Delivery Method Room Air Room Air Sepsis Recent Fever Within 48 Hours Sepsis New/Unexplained Change in Mental Status Sepsis Action Taken by Nursing Laboratory Data 09/15/23 18:08 09/15/23 18:08 Lab Results 09/15/23 09/15/23 09/15/23 Range/Units 18:08 19:19 19:50 WBC 11.72 H (4.8-10.8) K/ul RBC 3.28 L (4.70-6.10) M/uL Hgb 10.0 L (14.0-18.0) g/dl Hct 29.5 L (42.0-52.0) % MCV 89.9 (80.0-100.0) fL MCH 30.5 (25.0-34.0) pg MCHC 33.9 (32.0-36.0) g/dL RDW Std Deviation 45.2 (36.4-46.3) fL RDW Coeff of Bull 14.0 (11.5-14.5) % Plt Count 250 (130-400) K/uL MPV 9.3 L (9.4-12.4) fL Immature Gran % (Auto) 1.0 % Neut % (Auto) 77.8 % Lymph % (Auto) 10.6 % [place] % (Auto) 10.3 % Eos % (Auto) 0.2 % Baso % (Auto) 0.1 % Neut # (Auto) 9.12 H (1.40-6.50) K/uL Lymph # (Auto) 1.24 (1.20-3.40) K/uL [place] # (Auto) 1.21 H (0.11-0.59) K/uL Eos # (Auto) 0.02 (0.00-0.50) K/uL Baso # (Auto) 0.01 (0.00-0.20) K/uL Immature Gran # (Auto) 0.12 (0.01-0.20) K/uL Sodium 120 L (136-145) mmol/L Potassium 3.9 (3.5-5.1) mmol/L Chloride 82 L (98-107) mmol/L Carbon Dioxide 29 (21-32) mmol/L Anion Gap 9 (3-11) BUN 46 H (6-23) mg/dl Creatinine 2.12 H (0.6-1.4) mg/dl Est Cr Clr Drug Dosing Not Reportable Est GFR ( Amer) 34.5 ml/min Est GFR (Non-Af Amer) 29.8 ml/min BUN/Creatinine Ratio 21.7 H (10-20) Glucose 101 H (70-99(Fasting)) mg/dl Osmolality 265 L (280-300) mOsm/kg Calcium 8.3 L (8.6-10.3) mg/dl Total Bilirubin 3.4 H (0.2-1.0) mg/dl AST 28 (13-39) U/L ALT 39 (7-52) U/L Alkaline Phosphatase 381 H (34-104) U/L Troponin I High Sens 30.5 H 26.2 H (0-20) pg/ml B-Natriuretic Peptide 2504 H (0-100) pg/ml Total Protein 6.3 (6.0-8.3) gm/dl Albumin 2.7 L (3.4-5.0) gm/dl Globulin 3.6 (2.5-4.0) gm/dl Albumin/Globulin Ratio 0.8 L (0.9-2) Urine Color Yellow Urine Appearance Clear (Clear) Urine pH 7.0 (4.5-7.5) Ur Specific [place] 1.009 (1.000-1.030) Urine Protein Negative (Negative) Urine Glucose (UA) 1+ H (Negative) Urine Ketones Negative (Negative) Urine Blood Negative (Negative) Urine Nitrite Negative (Negative) Urine Bilirubin Negative (Negative) Urine Urobilinogen Negative (Negative) Ur Leukocyte Esterase Negative (Negative) Urine Osmolality 290 L (500-800) mOsm/kg Ur Random Sodium 42 mmol/L Administered Medications Albumin Human (Albumin 25%) 25 gm in 100 mls @ 50 mls/hr IV ONE ONE Stop: 09/15/23 22:40 Last Admin: 09/15/23 20:58 Dose: 50 mls/hr Documented By: [facility] Discontinued Medications Bumetanide 1 mg/ Syringe 4 mls @ 4 mls/min IV ONE ONE Stop: 09/15/23 19:16 Last Admin: 09/15/23 20:08 Dose: Not Given Documented By: [facility] Imaging Data Radiologist's Impression: Chest X-Ray 09/15/23 17:03 XR chest 1V not portable CLINICAL HISTORY: Chest pain, nonspecific. COMPARISON STUDY: Chest radiograph August 13, 2023. Chest CT August 17, 2023. FINDINGS: A left subclavian biventricular pacer/AICD is in place. There is a probable left PICC. There is no pneumothorax. Trace bilateral pleural effusions are present. Cardiomegaly is unchanged. Mediastinal contours are stable. Chronic interstitial thickening is again noted. There has been interval development of perihilar opacities, right greater than left. IMPRESSION: 1. Interval development of perihilar opacities, right greater than left. The findings favor alveolar pulmonary edema. Pneumonia could appear similar. Radiographic follow-up to ensure resolution is recommended. 2. Suspected underlying interstitial lung disease. ACT 112: Negative or not required by law. Electronically signed by: Tony Beaver M.D. 09/15/2023 5:56 PM Discharge Plan Visit Data Chief Complaint: Cardiac Assessment Stated Complaint: HEART FAILURE,NEEDS FLUID REMOVED ED Provider: Min Lind Discharge Problem: Acute hypotension, CHF (congestive heart failure), Shortness of breath, LEONILA (acute kidney injury) Forms Stand Alone Forms: My [facility] Prescriptions Prescriptions: No Action albuterol sulfate 90 mcg/actuation HFA aerosol inhaler 2 inh inhalation Q4 PRN (Reason: shortness of breath or wheezing) Qty: 3 3RF gabapentin 400 mg capsule 400 mg PO TID PRN (Reason: Pain) Qty: 270 3RF atorvastatin 10 mg tablet 10 mg PO QPM Qty: 90 3RF Rx Instructions: takes at supper pantoprazole 40 mg tablet,delayed release (DR/EC) See Rx Instructions .ROUTE .COMPLEX Qty: 60 5RF Dose Instruction: TAKE 1 TABLET BY MOUTH TWICE A DAY Rx Instructions: TAKE 1 TABLET BY MOUTH TWICE A DAY amiodarone 200 mg tablet 200 mg PO DAILY Patient Comments: CONFIR[place] [facility] [place] AND WITH PT'S DAUGHTER 2/2 Eliquis 5 mg tablet 5 mg PO BID Patient Comments: CONFIRMED ON [facility] [place] SUMMARY AND WITH PT'S DAUGHTER 2/2 bumetanide 1 mg tablet 2 mg PO BID Patient Comments: CONFIRMED ON [facility] [place] SUMMARY AND WITH PT'S DAUGHTER 2/2 Jardiance 10 mg tablet 10 mg PO DAILY Patient Comments: CONFIRMED ON [facility] [place] SUMMARY AND WITH PT'S DAUGHTER 2/2 fluticasone propionate [Allergy Relief (fluticasone)] 50 mcg/actuation spray,suspension 1 spray intranasal DAILY Patient Comments: CONFIRMED [place] [facility] [place] AND WITH PT'S DAUGHTER 2/2 Rx Instructions: administer into each nostril spironolactone 25 mg tablet 12.5 mg PO DAILY Patient Comments: CONFIRMED ON [facility] [place] SUMMARY AND WITH PT'S DAUGHTER 2/2 milrinone 1 mg/mL solution See Rx Instructions continuous IV infusion .COMPLEX Patient Comments: CONFIRMED ON [facility] [place] SUMMARY AND WITH PT'S DAUGHTER 2/2 Rx Instructions: 0.375mcg/ kg/ min. via continuous IV infusion; chlorothiazide 250 mg/5 mL suspension 250 mg PO .COMPLEX Patient Comments: CONFIRMED ON [facility] [place] SUMMARY AND W/ PT'S DAUGHTER 2/2 Rx Instructions: 250MG (5ML) ON FRIDAY AND FRIDAY One-A-Day Men's 50 Plus(vit K) 400-20-370 mcg tablet 1 tab PO QPM cholecalciferol (vitamin D3) 50 mcg (2,000 unit) capsule 50 mcg PO QAM Rx Instructions: 3,000 units ferrous sulfate 325 mg (65 mg iron) tablet 325 mg PO DAILY metoprolol succinate 25 mg tablet extended release 24 hr 25 mg PO DAILY Qty: 90 3RF acetaminophen 500 mg Tablet 1,000 mg PO Q6H PRN (Reason: Pain) Patient Comments: usually takes 2 tabs every morning and evening. diphenhydramine-acetaminophen [Tylenol PM Extra Strength] 25-500 mg Tablet 1 tab PO UD Rx Instructions: per daughter at home he takes Tylenol pm melatonin See Rx Instructions .ROUTE .COMPLEX Rx Instructions: Per daughter they gave him this at facility. Referrals Referrals: Shankar Aguirre III, CRNP [Primary Care Provider] - Discharge Problem: CHF (congestive heart failure) Qualifiers: Heart failure type: unspecified Heart failure chronicity: unspecified Qualified Code(s): I50.9 - Heart failure, unspecified
[2023-09-15 19:30] LABS: Appearance Urine Clear (Clear); Bilirubin Urine Negative (Negative); Blood Urine Negative (Negative); Color Urine Yellow; Glucose Urine UA 1+ (Negative); Ketones Urine Negative (Negative); Leukocyte Esterase Urine Negative (Negative); Nitrite Urine Negative (Negative); Protein Urine Negative (Negative); Specific Gravity Urine 1.009 (1.000-1.030); Urobilinogen Urine Negative (Negative)
[2023-09-15] MEDS: BUMETANIDE 1 MG in SYRINGE 0 ML IV ONE (20:08)
[2023-09-15] MEDS ORDERED: DOBUTamine / D5W 500 MG/250 ML BAG IV PRN (20:41)
[2023-09-15] MEDS: ALBUMIN 25% 25 GM/100 ML VIAL IV ONE (20:58)
--- NOTE | 2023-09-15 20:59 | History & Physical Report ---
Date of Service September 15, 2023 Assessment & Plan (1) HFrEF (heart failure with reduced ejection fraction): (2) CHF (congestive heart failure): (3) Acute hypotension: (4) LEONILA (acute kidney injury): (5) Shortness of breath: (6) Acute on chronic systolic heart failure: (7) HTN (hypertension): (8) Hypercholesteremia: (9) Interstitial lung disease: (10) Biventricular ICD (implantable cardioverter-defibrillator) in place: (11) Non-ischemic cardiomyopathy: (12) Chronic hyponatremia: Plan 73 yo male PMHx non-ischemic cardiomyopathy, biventricular ICD, CHF EF 22%, HTN, CAD, ILD, BPH here with 3 days of worsening LE edema and shortness of breath. #HFrEF/acute hypotension/poor end organ perfusion -Recent EF in [employer] showed EF 22%, mod-severe MR, severe TR -Pitting Edema to b/l knees -CXR shows pulmonary congestion -On milrinone pump 0.375mcg/kg/min -Metoprolol 25mg daily -Amiodarone 200mg BID until 09/11/23 then 200mg daily -Spironolactone 12.5mg daily -Bumex 2mg BID -Chlorothiazide 250mg Friday and Friday -Will start dobutamine 2.5mcg/kg/min with plan to titrate to 5mg if BP tolerates -Has multiple non-sustained runs of Vtach on monitor keep K>4, Mg >2 -BNP 2504, High sensitivity trop 30.4-->26.2 -Albumin 2.7 will give 25g IV to decrease 3rd spacing -Cardiology consult- appreciate recs -Consider palliative care consult: patient was seen by palliative care in [employer], considering hospice if clinical condition continues to deteriorate #LEONILA -Prerenal -Cr 2.12 (1.64 on discharge from [employer]) -Hold diuretics for now -Albumin, dobutamine #CAD -non occlusive CAD on recent cath -Eliquis 5mg BID #HLD -Atorvastatin 10mg daily -Fish oil #Anemia -Iron 325mg daily -Vitamin D3 3000IU daily #Interstitial lung disease -Albuterol 2 puff QID PRN #Pacemaker in place -Recently interrogated at [facility] and [facility] [place] -Pt reports that it is beeping/signaling low battery and that this was going on during his recent stay at [facility] [place]. FENGI: Heart healthy Code status: DNR/DNI DVT prophylaxis: Yakelin Isolation: none Disposition: PCU w/ tele History of Present Illness Primary Care Provider: Shankar Aguirre, III, TECHNICAL APPLICATIONS SCIENTIST 73 yo male PMHx non-ischemic cardiomyopathy, biventricular ICD, CHF EF 22%, HTN, CAD, ILD, BPH here with 3 days of worsening LE edema and shortness of breath. He was recently discharged (09/10/23) from [facility] where he underwent extensive workup for his cardiomyopathy and heart failure. TTE at that time showed EF 22% with moderate-severe MR, severe TR. He underwent aggressive diuresis and required dobutamine infusion. R&L cardiac cath showed non-occlusive atherosclerotic CAD. Required multiple inotropes and vasopressor support. Ultimately, pt was discharged on 0.375mcg/kg/min as palliative measure. History obtained from patient and family says he was doing well until 08/12/23. At this time urine output decreased and he began retaining fluid in spite of Bumex 2mg BID. Today he endorses increased SOB, exercise intolerance, LE pitting edema now to his knees, orthopnea, abdominal pain 2/2 known biliary and hepatocellular disease. Denies Fevers, chills, ALDANA, CP, N/V/D. In ED: CXR: Interval development of perihilar opacities, right greater than left. The findings favor alveolar pulmonary edema. Pneumonia could appear similar. Radiographic follow-up to ensure resolution is recommended. Had multiple episodes of non-sustained V tach Labs: Na 120, Cr 2.12, K 3.9, Mg 2.0, BNP 2504, Trop 26.2 Vitals: BP 80-90s/60-70s, HR 101, O2 low-mid 90s. Allergies Allergy/AdvReac Type Severity Reaction Status Date / Time morphine Allergy Unknown Difficulty Verified 08/13/23 10:26 Breathing mycophenolate mofetil AdvReac Intermediate Dizziness Verified 08/13/23 10:26 Home Medications Medication Instructions Recorded Confirmed Type [id number] acid-vit 1 tab PO QPM 03/21/20 09/15/23 History K-lycop 400 mcg-20 mcg-370 mcg tablet (One-A-Day Men's 50 Plus (with vitamin K)) acetaminophen 500 mg tablet 1,000 mg PO Q6H PRN Pain 07/30/22 09/15/23 History albuterol sulfate 90 mcg/actuation 2 inh inhalation Q4 PRN shortness 01/20/23 09/15/23 Rx aerosol inhaler of breath or wheezing #3 Inhalers cholecalciferol (vitamin D3) 50 50 mcg PO QAM 03/05/23 09/15/23 History mcg (2,000 unit) capsule gabapentin 400 mg capsule 400 mg PO TID PRN Pain #270 caps 04/21/23 09/15/23 Rx atorvastatin 10 mg tablet 10 mg PO QPM #90 tabs 06/18/23 09/15/23 Rx ferrous sulfate 325 mg (65 mg 325 mg PO DAILY 06/25/23 09/15/23 History iron) tablet metoprolol succinate 25 mg 25 mg PO DAILY #90 tabs 06/25/23 09/15/23 Rx tablet,extended release 24 hr pantoprazole 40 mg tablet,delayed See Rx Instructions .Route 07/30/23 09/15/23 Rx release .COMPLEX #60 tabs amiodarone 200 mg tablet 200 mg PO DAILY 09/12/23 09/15/23 History apixaban 5 mg tablet (Eliquis) 5 mg PO BID 09/12/23 09/15/23 History bumetanide 1 mg tablet 2 mg PO BID 09/12/23 09/15/23 History chlorothiazide 250 mg/5 mL oral 250 mg PO .COMPLEX 09/12/23 09/15/23 History suspension empagliflozin 10 mg tablet 10 mg PO DAILY 09/12/23 09/15/23 History (Jardiance) fluticasone propionate 50 1 spray intranasal DAILY 09/12/23 09/15/23 History mcg/actuation nasal spray,suspension (Allergy Relief (fluticasone)) milrinone 1 mg/mL intravenous See Rx Instructions continuous IV 09/12/23 09/15/23 History solution infusion .COMPLEX spironolactone 25 mg tablet 12.5 mg PO DAILY 09/12/23 09/15/23 History diphenhydramine 25 1 tab PO UD 09/15/23 09/15/23 History mg-acetaminophen 500 mg tablet (Tylenol PM Extra Strength) melatonin See Rx Instructions .Route .COMPLEX 09/15/23 09/15/23 History Past Med/Surg History Medical History (Updated 09/15/23 @ 21:41 by Terence Carlin DO) Mitral regurgitation Atrial tachycardia Tachycardia Sustained ventricular tachycardia Paroxysmal atrial fibrillation Defibrillator discharge NSVT (nonsustained ventricular tachycardia) Pneumothorax Community acquired pneumonia Idiopathic interstitial pneumonia Hypotension recent [place] cardio visit --- checks BP at home and hypotensive, light headed. see cardio note. Presence of combination internal cardiac defibrillator (ICD) and pacemaker medtronic. checked [address] Mcnulty. Idiopathic interstitial pneumonia Interstitial lung disease Dyspnea on exertion Bibasilar crackles Hx of gastric ulcer BPH with obstruction/lower urinary tract symptoms Abnormal TSH noted 02/2020 due to use of prednisone, repeat labs normal in 03/2020 including TSI Biventricular ICD (implantable cardioverter-defibrillator) in place original placed in 2013, follows with Dr Mcnulty; new one placed 06/2022, [facility] Chronic systolic congestive heart failure Left bundle branch block Osteoarthritis Rib fractures hx Pneumothorax on left ~2013. chest tube drain placed and treated inpatient. HTN (hypertension) Hypercholesteremia CAD (coronary artery disease) Non-ischemic cardiomyopathy (04/14/14) Surgical History Hx of eye surgery age 4 History of esophagogastroduodenoscopy (EGD) History of colonoscopy History of inguinal hernia repair x 2 History of arthroscopy of knee right History of eye surgery at age 4 - right eye surgery Family History Father Emphysema, unspecified Mother Urinary bladder cancer Brother Prediabetes Denies family history of Ovarian cancer Prostate cancer Myocardial infarction Breast cancer Colorectal cancer Social History Smoking Status: Never smoker Second Hand Exposure: No; Do You Dip or Chew Tobacco: No; Hx Alcohol Use: No Hx Substance Use: No Preferred Language: Pashto Communication Ability: Effective Visual Impairment: No Limitations Hearing Ability: Normal Associate Technician Required: No Beliefs That Will Affect Care: None marital status: Current Living Situation: Spouse Current Living Situation Comment: with , Faith current occupational status: retired current occupation: Retired [employer] for [employer]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 How many Children do You have: 2 Feels Safe at Home: Yes Safety Concerns: Feels Safe At This Time Childhood Exposure to Second-Hand Smoke: No Diet: regular Dental Care, Regularly: No Physical Activity Frequency: Daily Seatbelt Use: always Sunscreen Use: No Assistive Devices: Walker Review of Systems Review of Systems: reviewed, per HPI Physical Exam Physical Exam: Constitutional: ill appearing, not acutely in distress HEENT: NCAT, no conjunctival injection, mild scleral icterus CV: regular rhythm, grade 3-4 murmur, extremities well-perfused, 2+pitting edema to b/l knees Resp: poor air entry, b/l rales appreciated, no increased work of breathing GI: soft, nondistended, TTP RUQ, BS normoactive MSK: no gross deformities appreciated Skin: warm, dry, no rash appreciated Neuro: alert, oriented, no focal neurologic deficit appreciated Results & Data Results & Data Vital Signs (Past 12 Hours) Vital Signs Temp Pulse Pulse Resp BP BP Pulse Ox 09/15/23 20:30 101 H 22 97/71 L 92 09/15/23 20:00 101 H 23 100/69 94 09/15/23 19:55 101 H 23 94/67 L 94 09/15/23 19:00 99 H 25 H 89/65 L 97 09/15/23 18:45 103 H 09/15/23 18:45 103 H 18 89/67 L 93 09/15/23 17:01 36.9 C 104 H 16 103/69 96 O2 Del Method 09/15/23 20:30 Room Air 09/15/23 20:00 Room Air 09/15/23 19:55 Room Air 09/15/23 19:00 Room Air 09/15/23 18:45 09/15/23 18:45 Room Air 09/15/23 17:01 Room Air Laboratory Results 09/15/23 09/15/23 09/15/23 Range/Units 19:50 19:19 18:08 WBC 11.72 H (4.8-10.8) K/ul RBC 3.28 L (4.70-6.10) M/uL Hgb 10.0 L (14.0-18.0) g/dl Hct 29.5 L (42.0-52.0) % MCV 89.9 (80.0-100.0) fL MCH 30.5 (25.0-34.0) pg MCHC 33.9 (32.0-36.0) g/dL RDW Std Deviation 45.2 (36.4-46.3) fL RDW Coeff of Bull 14.0 (11.5-14.5) % Plt Count 250 (130-400) K/uL MPV 9.3 L (9.4-12.4) fL Immature Gran % (Auto) 1.0 % Neut % (Auto) 77.8 % Lymph % (Auto) 10.6 % Oliver % (Auto) 10.3 % Eos % (Auto) 0.2 % Baso % (Auto) 0.1 % Neut # (Auto) 9.12 H (1.40-6.50) K/uL Lymph # (Auto) 1.24 (1.20-3.40) K/uL Oliver # (Auto) 1.21 H (0.11-0.59) K/uL Eos # (Auto) 0.02 (0.00-0.50) K/uL Baso # (Auto) 0.01 (0.00-0.20) K/uL Immature Gran # (Auto) 0.12 (0.01-0.20) K/uL Sodium 120 L (136-145) mmol/L Potassium 3.9 (3.5-5.1) mmol/L Chloride 82 L (98-107) mmol/L Carbon Dioxide 29 (21-32) mmol/L Anion Gap 9 (3-11) BUN 46 H (6-23) mg/dl Creatinine 2.12 H (0.6-1.4) mg/dl Est Cr Clr Drug Dosing Not Reportable Est GFR ( Amer) 34.5 ml/min Est GFR (Non-Af Amer) 29.8 ml/min BUN/Creatinine Ratio 21.7 H (10-20) Glucose 101 H (70-99(Fasting)) mg/dl Osmolality 265 L (280-300) mOsm/kg Calcium 8.3 L (8.6-10.3) mg/dl Total Bilirubin 3.4 H (0.2-1.0) mg/dl AST 28 (13-39) U/L ALT 39 (7-52) U/L Alkaline Phosphatase 381 H (34-104) U/L Troponin I High Sens 26.2 H 30.5 H (0-20) pg/ml B-Natriuretic Peptide 2504 H (0-100) pg/ml Total Protein 6.3 (6.0-8.3) gm/dl Albumin 2.7 L (3.4-5.0) gm/dl Globulin 3.6 (2.5-4.0) gm/dl Albumin/Globulin Ratio 0.8 L (0.9-2) Urine Color Yellow Urine Appearance Clear (Clear) Urine pH 7.0 (4.5-7.5) Ur Specific [place] 1.009 (1.000-1.030) Urine Protein Negative (Negative) Urine Glucose (UA) 1+ H (Negative) Urine Ketones Negative (Negative) Urine Blood Negative (Negative) Urine Nitrite Negative (Negative) Urine Bilirubin Negative (Negative) Urine Urobilinogen Negative (Negative) Ur Leukocyte Esterase Negative (Negative) Urine Osmolality 290 L (500-800) mOsm/kg Ur Random Sodium 42 mmol/L Supervising Physician Co-Signing Physician Notes Attending addendum: I have physically seen this patient, have supervised the medical residents activities, and agree with the H&P unless as otherwise noted. Assessment and Plan: HFrEF exacerbation/hypotension/acute kidney injury due to decreased perfusion- Most recent echo on 08/19/2023 with ejection fraction 22% Cardiac catheterization 08/21/2023 with nonocclusive CAD On milrinone continuous infusion, which will be continued Balance will be between diuresing with Bumex IV, and maintaining adequate blood pressure. If MAP drops below 60-65, patient will be started on dobutamine infusion and titrate as needed Limiting factor with dobutamine infusion will be episodes of nonsustained V. tach noted in the ED, anywhere from 4-8 beats Hold spironolactone and HCTZ Continue apixaban 5 mg twice daily, and metoprolol succinate 25 mg daily Bumex 2 mg IV twice daily Had been on amiodarone 200 mg twice daily loading dose until 09/11/2023, and since then has been on 200 mg daily, further adjustments in dosing upward will be left cardiology Target potassium greater than 4 and magnesium greater than 2 Hypoalbuminemia, albumin 2.7, will give 25 g albumin IV, with possible need to double dose Consult to cardiology Diabetes mellitus- Hold empagliflozin due to acute kidney injury, which likely has been given for diabetes mellitus and CHF Placed on Accu-Cheks with NovoLog SSI Acute kidney injury/hyponatremia- Creatinine 2.12, with base 1.25 Likely secondary to decreased forward flow associated with systolic heart dysfunction Holding chlorothiazide as a potential contributing cause of hyponatremia Treatment as above, and recheck laboratories in a.m. (2) CHF (congestive heart failure) Heart failure chronicity: unspecified Heart failure type: unspecified Qualified Code(s): I50.9 - Heart failure, unspecified (7) HTN (hypertension) Hypertension type: primary hypertension Qualified Code(s): I10 - Essential (primary) hypertension
[2023-09-16] MEDS ORDERED: ONDANSETRON INJ 2 MG/ML 2 ML VIAL IV PRN (00:14)
[2023-09-16] MEDS ORDERED: ALBUTEROL HFA 8 GM INHALER INH PRN (00:14)
[2023-09-16] MEDS ORDERED: POLYETHYLENE (MIRALAX) 17 GM PACK PO PRN (00:14)
--- OUTSIDE RECORDS SUMMARY | 2023-09-16 03:46 | External Medical Summary | Continuity of Care Document ---
Author Name Unknown Organization [facility] Address [address] [place] [address] [phone] Care Team Providers Care Outside Cutter Name Role Phone Shankar Aguirre Primary Care Physician [phone] Encounter [facility] [id number] Date(s): 08/18/23 - 09/10/[address] [phone] Encounter Diagnosis Cardiogenic shock(Discharge Diagnosis) - 08/19/23 Sepsis(Discharge Diagnosis) - 08/18/23 Cholelithiases(Discharge Diagnosis) - 08/18/23 Atrial tachycardia(Discharge Diagnosis) - 08/18/23 Ventricular tachycardia(Discharge Diagnosis) - 08/18/23 Dilated cardiomyopathy(Discharge Diagnosis) - 08/22/23 LEONILA (acute kidney injury)(Discharge Diagnosis) - 08/25/23 Acute on chronic clinical systolic heart failure(Discharge Diagnosis) - 08/31/23 Chronic hyponatremia(Discharge Diagnosis) - 09/08/23 Encounter for palliative care(Discharge Diagnosis) - 09/09/23 Counseling regarding advance care planning and goals of care(Discharge Diagnosis) - 09/09/23 Discharge Disposition: Home or Self Care Attending Physician: MD Blunt Nandini Admitting Physician: MD Jessica, Leann Sanders Referring Physician: DO Sorto Brian W Allergies, Adverse Reactions, Alerts Substance Reaction Severity Status morphine Confusion Mild Active Functional Status 09/10/23 Level of Consciousness Neuro Alert 09/10/23 Neurological Symptoms Weakness ADLs Minimal assistance Facial Symmetry Symmetric Gait Steady Swallowing Difficulty None Hallucinations Present None History of Fall in Last 3 Months Wood N o Presence of Secondary Diagnosis Owod Ye s Use of Ambulatory Aid Wood Crutches/can e/walker IV/Heparin Lock Fall Risk Wood Yes Gait/Transferring Fall Risk Wood Weak Mental Status Fall Risk Wood Oriented t o own ability Wood Fall Risk Score 60 Wood Fall Risk High risk Speech Pattern Clear Immunizations Given and Recorded Vaccine Date Status Refusal Reason tetanus/diphtheria/pertuss, acel (Tdap) 1 05/21/23 Recorded SARS-CoV-2 (COVID-19) mRNA-1273 vaccine 2 07/23/21 Recorded SARS-CoV-2 (COVID-19) Ad26 vaccine 3 10/20/20 Francis rded pneumococcal 23-valent vaccine 4 05/09/15 Recorded pneumococcal 23-valent vaccine 5 02/01/14 Recorded zoster vaccine live 6 12/24/14 Recorded pneumococcal 13-valent vaccine 7 09/20/14 Recorded 1Result Comment: 2023-08-19: Historical information-source unspecified 2Result Comment: 2023-08-19: Historical information-source unspecified 3Result Comment: 2023-08-19: Historical information-source unspecified 4Result Comment: 2023-08-19: Historical information-source unspecified 5Result Comment: 2023-08-19: Historical information-source unspecified 6Result Comment: 2023-08-19: Historical information-source unspecified 7Result Comment: 2023-08-19: Historical information-source unspecified Medications albuterol CFC free 90 mcg/inh MDI Start: 08/18/23 10:22:00 EST, 2 puff, inhaled, qid, PRN: as needed for wheezing Start Date: 08/18/23 Status: Ordered amiodarone 200 mg oral tablet Start: 09/08/23 17:06:00 EST, 1 tab, PO, Daily, Disp# 30 tab, Refills: 11, Take 200mg twice daily until Sep 11. Then starting Sep 12, take 200mg once daily., Pharmacy: [facility] Start Date: 09/08/23 Stop Date: 09/02/24 Status: Ordered atorvastatin 10 mg oral tablet Start: 08/18/23 10:22:00 EST, 1 tab, PO, qhs Start Date: 08/18/23 Status: Ordered bumetanide 1 mg oral tablet Start: 09/08/23 17:05:00 EST, 2 tab, PO, bid (6a - 2p), Disp# 120 tab, Refills: 11, Pharmacy: [facility] Start Date: 09/08/23 Stop Date: 09/02/24 Status: Ordered Diuril 250 mg/5 mL oral suspension Start: 09/10/23 11:28:00 EST, 5 mL, PO, qMonFri, Disp# 40 mL, Refills: 3, Pharmacy: [facility] Start Date: 09/10/23 Status: Ordered Eliquis 5 mg oral tablet Start: 09/08/23 17:05:00 EST, 1 tab, PO, bid, Disp# 60 tab, Refills: 11, Pharmacy: [facility] Start Date: 09/08/23 Stop Date: 09/02/24 Status: Ordered ferrous sulfate 325 mg (65 mg elemental iron) oral tablet Start: 08/18/23 10:22:00 EST, 1 tab, PO, Daily Start Date: 08/18/23 Status: Ordered Fish Oil oral capsule Start: 01/31/16 13:58:00, 2 cap, PO, Daily Start Date: 01/31/16 Status: Ordered Flonase 50 mcg/inh nasal spray Start: 09/08/23 17:05:00 EST, 1 spray, each nostril, Daily, Disp# 15.8 mL, Refills: 11, Pharmacy: [facility] Start Date: 09/08/23 Stop Date: 08/07/29 Status: Ordered gabapentin 300 mg oral capsule Start: 09/08/23 17:04:00 EST, 1 cap, PO, tid Start Date: 09/08/23 Status: Ordered HumaLOG Sliding Scale Ultra Low Dose Range: SSI, injection, subQ, 09/04/23 22:00:00 EST, 09/04/23 22:00:00 EST, Estimated correction need for patients using total insulin daily dose less than or equal to 30 units. Nursing to order low dose syringes from [facility] (see order comments)., ... Start Date: 09/04/23 Stop Date: 09/04/23 Status: Completed HumaLOG Sliding Scale Ultra Low Dose Range: SSI, injection, subQ, 09/05/23 7:30:00 EST, 09/05/23 7:30:00 EST, Estimated correction need for patients using total insulin daily dose less than or equal to 30 units. Nursing to order low dose syringes from [facility] (see order comments)., 01/2... Start Date: 09/05/23 Stop Date: 09/05/23 Status: Completed Jardiance 10 mg oral tablet Start: 09/09/23 15:04:00 EST, 1 tab, PO, Daily, Disp# 30 tab, Refills: 3, Pharmacy: [facility] Start Date: 09/09/23 Status: Ordered metoprolol succinate (ER) 25 mg, XL tablet, PO, 09/10/23 9:00:00 EST, 09/10/23 9:00:00 EST, Extended Release product, 09/01/23 11:04:00 EST Start Date: 09/10/23 Stop Date: 09/10/23 Status: Completed Metoprolol Succinate ER Start: 08/22/14 10:36:00, 25 mg =, PO, Daily Start Date: 08/22/14 Status: Ordered milrinone infusion Start: 09/08/23 17:11:00 EST, IV, Infusion Instructions: IV milrinone 0.375mcg/kg/min. Continuous infusion. Start Date: 09/08/23 Stop Date: 10/08/23 Status: Ordered multivitamin Start: 01/31/16 13:58:00, 1 tab, PO, Daily Start Date: 01/31/16 Status: Ordered pantoprazole 40 mg oral delayed release tablet Start: 08/18/23 10:22:00 EST, 1 tab, PO, Daily Start Date: 08/18/23 Status: Ordered Sliding Scale Low Dose Range: SSI, injection, subQ, 09/04/23 16:30:00 EST, 09/04/23 16:30:00 EST, 08/29/23 14:29:00 EST Start Date: 09/04/23 Stop Date: 09/04/23 Status: Completed spironolactone 25 mg oral tablet Start: 09/08/23 17:05:00 EST, 0.5 tab, PO, Daily, Disp# 15 tab, Refills: 11, Pharmacy: [facility] Start Date: 09/08/23 Stop Date: 09/02/24 Status: Ordered Vitamin D3 Start: 08/18/23 10:21:00 EST, 3000 IU, PO, Daily Start Date: 08/18/23 Status: Ordered Mental Status 08/18/23 Primary Language Haitian Problem List Condition Confirmation Course Effective Dates Status Health St atus Informant Arthritis Confirmed Active Pacemaker Confirmed 07/2014 Active Cardiogenic shock Confirmed Active Rib pain on left side Confirmed Active Skin lesion Confirmed Active Diagnosis Diagnosis Type Effective Dates Health Status Clinical Service Informant Sepsis Discharge Diagnosis 08/18/23 Non-Specified Cholelithiases Discharge Diagnosis 08/18/23 Non-Specified Atrial tachycardia Discharge Diagnosis 08/18/23 Non-Specified Ventricular tachycardia Discharge Diagnosis 08/18/23 Non-Specified Cardiogenic shock Discharge Diagnosis 08/19/23 Dilated cardiomyopathy Discharge Diagnosis 08/22/23 Non-Specified LEONILA (acute kidney injury) Discharge Diagnosis 08/25/23 Non-Specified Acute on chronic clinical systolic heart failure Discharge Diagnosis 08/31/23 Non-Specified Chronic hyponatremia Discharge Diagnosis 09/08/23 Non-Specified Encounter for palliative care Discharge Diagnosis 09/09/23 Non-Specified Counseling regarding advance care planning and goals of care Discharge Diagnosis 09/09/23 Non-Specified Procedures Procedure Date Related Diagnosis Body Site Status Shave biopsy and cauterizati on of skin 1 01/31/16 Completed Pacemaker 2 07/2014 Completed Procedure 3 1953 Completed Hernia repair 4 Completed Surgery 5 Completed 1with curettage 2pacemaker/defibrillator placement 3eye surgery [id number] and 2009 meniscus: knee repair right knee Results Laboratory List Name Date ALT Level (ALT) 09/10/23 AST Level (AST) 09/10/23 Alkaline Phosphatase (ALKALINE PHOSPHATA SE) 09/10/23 Bilirubin, Direct (BILIRUBIN, DIRECT) Bilirubin, Total (BILIRUBIN, TOTAL) 09/10 Calcium, Ionized (Ionized Calcium) Complete Blood Count (CBC w Platelets) Magnesium Level 09/10/23 Nephrology Panel 09/10/23 Protein, Total (PROTEIN) 09/10/23 Basic Metabolic Panel (BMP) 09/09/23 Magnesium Level 09/09/23 Nephrology Panel 09/09/23 Complete Blood Count (CBC w Platelets) Calcium, Ionized (Ionized Calcium) ALT Level (ALT) 09/09/23 AST Level (AST) 09/09/23 Alkaline Phosphatase (ALKALINE PHOSPHATA SE) 09/09/23 Bilirubin, Direct (BILIRUBIN, DIRECT) Bilirubin, Total (BILIRUBIN, TOTAL) 09/09 Protein, Total (PROTEIN) 09/09/23 Magnesium Level 09/09/23 Nephrology Panel 09/09/23 Calcium, Ionized (Ionized Calcium) Complete Blood Count (CBC w Platelets) ALT Level (ALT) 09/09/23 AST Level (AST) 09/09/23 Alkaline Phosphatase (ALKALINE PHOSPHATA SE) 09/09/23 Bilirubin, Direct (BILIRUBIN, DIRECT) Bilirubin, Total (BILIRUBIN, TOTAL) 09/09 Protein, Total (PROTEIN) 09/09/23 Urea Nitrogen, Urine, Random (Urine Urea Nitrogen, Random) 09/08/23 Urine Analysis w/ Reflexed Microscopic. (UA w/ Reflexed Microscopic.) 09/08/23 Creatinine, Urine, Random (Urine Creatin ine, Random) 09/08/23 Glucose Meter (GLUCOSE METER) 09/05/23 Glucose Meter (GLUCOSE METER) 09/04/23 Glucose Meter (GLUCOSE METER) 09/04/23 Istat Gases Venous (RES THERAPY) (I-STAT GAS,BIJAN(RESPIRATORY THERAPY)) 09/02/23 Partial Thromboplastin Time (PTT) 4 Prothrombin Time w/ INR (PT/INR) 08/31/23 Partial Thromboplastin Time (PTT) 4 Prothrombin Time w/ INR (PT/INR) 08/30/23 Cortisol Level 08/30/23 Partial Thromboplastin Time (PTT) 4 Prothrombin Time w/ INR (PT/INR) 08/30/23 Thyroid Stimulating Hormone (TSH) 4 Thyroid Stimulating Hormone (TSH) 4 Arterial Blood Gases w/ Hgb and O2 Sat ( ABGs, w/ Hgb and O2 Sat) 08/29/23 Lactic Acid Level, Whole Blood 08/29/23 Venous Blood Gases w/ Hgb, O2Sat 08/29/23 Venous Blood Gases w/ Hgb, O2Sat 08/29/23 Arterial Blood Gases w/ Hgb and O2 Sat ( ABGs, w/ Hgb and O2 Sat) 08/29/23 Lactic Acid Level, Whole Blood 08/29/23 Arterial Blood Gases w/ Hgb and O2 Sat ( ABGs, w/ Hgb and O2 Sat) 08/28/23 Lactic Acid Level, Whole Blood 08/28/23 Venous Blood Gases w/ Hgb, O2Sat 08/28/23 Venous Blood Gases w/ Hgb, O2Sat 08/28/23 Arterial Blood Gases w/ Hgb and O2 Sat ( ABGs, w/ Hgb and O2 Sat) 08/28/23 Arterial Blood Gases w/ Hgb and O2 Sat Venous Blood Gases w/ Hgb, O2Sat 08/28/23 Potassium Level, Whole Blood (K Level, W hole Blood) 08/27/23 Arterial Blood Gases w/ Hgb and O2 Sat ( ABGs, w/ Hgb and O2 Sat) 08/27/23 Arterial Blood Gases w/ Hgb and O2 Sat ( ABGs, w/ Hgb and O2 Sat) 08/26/23 Venous Blood Gases w/ Hgb, O2Sat 08/26/23 Osmolality 08/26/23 Osmolality, Urine (Urine Osmolality) 08/11 02/01 Sodium, Urine, Random (Urine Sodium, Ran dom) 08/26/23 Specimen Type (SPECIMEN TYPE) 08/26/23 Urine Container on Hold in Laboratory (E XTRA URINE) 08/26/23 Osmolality, Urine (Urine Osmolality) 08/11 01/01 Sodium, Urine, Random (Urine Sodium, Ran dom) 08/25/23 Osmolality 08/25/23 Arterial Blood Gases w/ Hgb and O2 Sat ( ABGs, w/ Hgb and O2 Sat) 08/25/23 Venous Blood Gases w/ Hgb, O2Sat 08/25/23 Venous Blood Gases w/ Hgb, O2Sat 08/25/23 Procalcitonin 08/24/23 C Reactive Protein, Quantitation (CRP, Q uantitation) 08/24/23 Osmolality, Urine (Urine Osmolality) 08/11 12/02 Urea Nitrogen, Urine, Random (Urine Urea Nitrogen, Random) 08/24/23 Creatinine, Urine, Random (Urine Creatin ine, Random) 08/24/23 Sodium, Urine, Random 08/24/23 Procalcitonin 08/24/23 Lactic Acid Level 08/24/23 Lactic Acid Level 08/24/23 Complete Blood Count w Differential (CBC w Platelets and Diff) 08/24/23 Lactic Acid Level 08/23/23 Complete Blood Count w Differential (CBC w Platelets and Diff) 08/23/23 Complete Blood Count w Differential (CBC w Platelets and Diff) 08/23/23 Added on Lab order 08/22/23 Procalcitonin (PROCALCITONIN) 08/22/23 Istat Gases Arterial (CCL, HVOU) (I-STAT GAS,ART(CCL,HVOU)) 08/21/23 Istat Gases Venous (CCL, HVOU) (I-STAT G ,BIJAN(CCL,HVOU)) 08/21/23 Istat Gases Venous (CCL, HVOU) (I-STAT G ,BIJAN(CCL,HVOU)) 08/21/23 Complete Blood Count w Differential (CBC w Platelets and Diff) 08/21/23 Troponin T 08/19/23 Hepatitis A Antibody, IgM 08/19/23 Creatinine, Urine, Random (Urine Creatin ine, Random) 08/18/23 Urea Nitrogen, Urine, Random (Urine Urea Nitrogen, Random) 08/18/23 Added on Lab order 08/18/23 HEPATITIS E AB IGG/M 08/18/23 CB with Reflex titer 08/18/23 Anti-Hepatitis A Total Anitbodies 08/18/23 F-Actin Ab Igg W/Reflex To Titer 08/18/23 Hepatitis B Surface Antigen 08/18/23 Hepatitis C Antibody (HCV Antibody) Urine Analysis w/ Reflexed Microscopic. 08/18/23 Added on Lab order 08/18/23 MRSA Surveillance (Nasal Swab) 08/18/23 NT-Pro BNP 08/18/23 T4, Free (T4, FREE) 08/18/23 Thyroid Stimulating Hormone (TSH) 08/18/23 Most recent to oldest [Reference Range]: 1 2 3 Hct, POC [38-51 %] 38 % (09/02/23 7:46 PM) 46 % (08/21/23 10:50 AM) 45 % (08/21/23 10:50 AM) Hgb, POC [12-17 g/dL] 12.9 g/dL (09/02/23 7:46 PM) 15.6 g/dL (08/21/23 10:50 AM) 15.3 g/dL (08/21/23 10:50 AM) Urine Container Specimen available from 0 to 3 days based on specimen stability. Please use addon order if you wish to order testing. (08/26/23 3:05 AM) CReacProt [<0.50 mg/dL] 6.55 mg/dL *HI* (08/24/23 10:46 PM) eGFR CKD-EPI [>60 mL/min/1.73 m2] 44 mL/min/1.73 m2 *LOW* (09/10/23 5:22 AM) 43 mL/min/1.73 m2 *LOW* (09/09/23 5:02 PM) 45 mL/min/1.73 m2 *LOW* (09/09/23 7:33 AM) Base Deficit (v), POC 4 mmol/L (09/02/23 7:46 PM) Blood Glucose [70-120 mg/dL] 115 mg/dL 1 (09/05/23 6:01 AM) 86 mg/dL 2 (09/04/23 11:10 PM) 148 mg/dL 3 *HI* (09/04/23 4:03 PM) Glu (wb), POC by IStat [70-105 mg/dL] 115 mg/dL *HI* (09/02/23 7:46 PM) 110 mg/dL *HI* (08/21/23 10:50 AM) 111 mg/dL *HI* (08/21/23 10:50 AM) SaO2(a), POC [92-98 %] 97 % (08/21/23 10:50 AM) SaO2(v), POC [40-70 %] 42 % (09/02/23 7:46 PM) 59 % (08/21/23 10:50 AM) 60 % (08/21/23 10:44 AM) Lactate, Whole Blood [0.6-1.8 mmol/L] 1.0 mmol/L (08/29/23 7:48 AM) 1.0 mmol/L (08/29/23 3:05 AM) 1.0 mmol/L (08/28/23 11:57 PM) Request of Physician Procal (08/22/23 4:48 AM) BNP (08/18/23 10:41 AM) TSH and FT4 (08/18/23 10:40 AM) Action Taken YES (08/22/23 4:48 AM) YES (08/18/23 10:41 AM) YES (08/18/23 10:40 AM) FiO2 (a) ROOM AIR % (08/29/23 3:05 AM) ROOM AIR % (08/28/23 7:57 PM) ROOM AIR % (08/28/23 5:57 PM) FiO2 (v) ROOM AIR % (08/29/23 3:05 AM) ROOM AIR % (08/28/23 7:57 PM) ROOM AIR % (08/28/23 5:57 PM) O2 Flow (a) ROOM AIR L/min (08/29/23 7:48 AM) ROOM AIR L/min (08/28/23 7:57 PM) ROOM AIR L/min (08/28/23 5:57 PM) CB, by IFA [L80N] POSITIVE *Abnormal* (08/18/23 1:56 PM) CB Titer/Pattern (1) 1:1280 Speckled (08/18/23 1:56 PM) O2 Flow (v) ROOM AIR L/min (08/29/23 7:48 AM) ROOM AIR L/min (08/28/23 7:57 PM) ROOM AIR L/min (08/28/23 5:57 PM) Polychromasia INCREASED (08/21/23 4:51 AM) Platelet Morphology NORMAL (08/21/23 4:51 AM) BNP, NT-Pro [<125 pg/mL] 37892 pg/mL *HI* (08/18/23 10:36 AM) Hep A Ab, IgM NEGATIVE 4 (08/19/23 4:19 AM) Estimated CrCl 37.17 mL/min (09/10/23 7:01 AM) 36.94 mL/min (09/09/23 5:40 PM) 37.86 mL/min (09/09/23 8:22 AM) Hepatitis E Ab Igg NEGATIVE 5 (08/18/23 1:56 PM) Hepatitis E Ab Igm NEGATIVE 6 (08/18/23 1:56 PM) Hepatitis E Ab Intrp NEGATIVE 7 (08/18/23 1:56 PM) Smooth Muscle Ab Igg 17 8 (08/18/23 1:56 PM) Troponin T [<0.010 ng/mL] <0.010 ng/mL 9 (08/19/23 10:14 AM) Troponin T Delta NOT CALCULATED (08/19/23 10:14 AM) Procalcitonin. [<0.08 ng/mL] 1.24 ng/mL 10 *HI* (08/24/23 10:46 PM) 1.14 ng/mL 11 *HI* (08/24/23 7:13 PM) 0.18 ng/mL 12 *HI* (08/22/23 4:47 AM) MPV [9.0-12.2 fL] 9.5 fL (09/10/23 5:22 AM) 9.9 fL (09/09/23 7:33 AM) REQUEST CREDITED fL 13 (09/09/23 7:24 AM) Immature Gran% 1.2 % (08/24/23 4:38 AM) 0.8 % (08/23/23 3:42 PM) 0.7 % (08/23/23 4:39 AM) Neut% 70.9 % (08/24/23 4:38 AM) 65.1 % (08/23/23 3:42 PM) 63.5 % (08/23/23 4:39 AM) Lymph% 15.4 % (08/24/23 4:38 AM) 19.7 % (08/23/23 3:42 PM) 22.9 % (08/23/23 4:39 AM) [place]% 12.1 % (08/24/23 4:38 AM) 13.8 % (08/23/23 3:42 PM) 12.0 % (08/23/23 4:39 AM) Baso% 0.3 % (08/24/23 4:38 AM) 0.4 % (08/23/23 3:42 PM) 0.4 % (08/23/23 4:39 AM) Eos% 0.1 % (08/24/23 4:38 AM) 0.2 % (08/23/23 3:42 PM) 0.5 % (08/23/23 4:39 AM) Immat Gran, Abs [0-0.4 K/uL] 0.18 K/uL (08/24/23 4:38 AM) 0.13 K/uL (08/23/23 3:42 PM) 0.10 K/uL (08/23/23 4:39 AM) Neut, Abs [2.0-7.7 K/uL] 10.78 K/uL *HI* (08/24/23 4:38 AM) 10.76 K/uL *HI* (08/23/23 3:42 PM) 9.25 K/uL *HI* (08/23/23 4:39 AM) Lymph, Abs [1.0-3.4 K/uL] 2.34 K/uL (08/24/23 4:38 AM) 3.26 K/uL (08/23/23 3:42 PM) 3.34 K/uL (08/23/23 4:39 AM) [place], Abs [0-1.0 K/uL] 1.84 K/uL *HI* (08/24/23 4:38 AM) 2.28 K/uL *HI* (08/23/23 3:42 PM) 1.75 K/uL *HI* (08/23/23 4:39 AM) Baso, Abs [0-0.1 K/uL] 0.05 K/uL (08/24/23 4:38 AM) 0.06 K/uL (08/23/23 3:42 PM) 0.06 K/uL (08/23/23 4:39 AM) Eos, Abs [0-0.5 K/uL] 0.01 K/uL (08/24/23 4:38 AM) 0.03 K/uL (08/23/23 3:42 PM) 0.08 K/uL (08/23/23 4:39 AM) Type of Diff: AUTO (08/24/23 4:38 AM) AUTO (08/23/23 3:42 PM) AUTO (08/23/23 4:39 AM) RDW [11.5-14.2 %] 13.2 % (09/10/23 5:22 AM) 13.2 % (09/09/23 7:33 AM) REQUEST CREDITED % 14 (09/09/23 7:24 AM) Base Deficit 1.2 mmol/L (08/27/23 11:07 AM) REQUEST CREDITED mmol/L 15 (08/26/23 7:41 AM) 1.3 mmol/L (08/25/23 3:06 PM) Base Defic(v) REQUEST CREDITED mmol/L 16 (08/26/23 7:41 AM) 0.8 mmol/L (08/25/23 3:06 PM) 2.0 mmol/L (08/25/23 3:03 AM) K, wb [3.5-5.0 mmol/L] 4.0 mmol/L (08/27/23 9:25 PM) Joseph pH REQUEST CREDITED uni t 17 (08/26/23 7:41 AM) REQUEST CREDITED unit 18 (08/26/23 7:41 AM) Joseph pCO2 REQUEST CREDITED mmH g 19 (08/26/23 7:41 AM) REQUEST CREDITED mmHg 20 (08/26/23 7:41 AM) Joseph pO2 REQUEST CREDITED mmH g 21 (08/26/23 7:41 AM) REQUEST CREDITED mmHg 22 (08/26/23 7:41 AM) Urea Nitro (u) 268 mg/dL 23 (09/08/23 10:36 AM) 414 mg/dL 24 (08/24/23 9:10 PM) 450 mg/dL 25 (08/18/23 9:43 PM) pH (a), POC [7.35-7.45 unit] 7.433 unit (08/21/23 10:50 AM) pCO2 (a), POC [35-45 mmHg] 40.8 mmHg (08/21/23 10:50 AM) pO2 (a), POC [80-105 mmHg] 85 mmHg (08/21/23 10:50 AM) Base XS(a), POC 3 mmol/L (08/21/23 10:50 AM) HCO3(a), POC [22-26 mmol/L] 27.2 mmol/L *HI* (08/21/23 10:50 AM) Ion Ca(wb), POC [1.12-1.32 mmol/L] 1.25 mmol/L (09/02/23 7:46 PM) 1.21 mmol/L (08/21/23 10:50 AM) 1.20 mmol/L (08/21/23 10:50 AM) Na (wb), POC [138-146 mmol/L] 127 mmol/L *LOW* (09/02/23 7:46 PM) 135 mmol/L *LOW* (08/21/23 10:50 AM) 135 mmol/L *LOW* (08/21/23 10:50 AM) K (wb), POC [3.5-4.9 mmol/L] 4.6 mmol/L (09/02/23 7:46 PM) 3.7 mmol/L (08/21/23 10:50 AM) 3.7 mmol/L (08/21/23 10:50 AM) pH (v), POC [7.31-7.41 unit] 7.379 unit (09/02/23 7:46 PM) 7.414 unit *HI* (08/21/23 10:50 AM) 7.402 unit (08/21/23 10:44 AM) pCO2 (v), POC [41-51 mmHg] 35.6 mmHg *LOW* (09/02/23 7:46 PM) 52.5 mmHg *HI* (08/21/23 10:50 AM) 49.1 mmHg (08/21/23 10:44 AM) pO2 (v), POC [80-105 mmHg] 23 mmHg *LOW* (09/02/23 7:46 PM) 31 mmHg *LOW* (08/21/23 10:50 AM) 32 mmHg *LOW* (08/21/23 10:44 AM) Base XS(v), POC [0-2 mmol/L] 7 mmol/L *HI* (08/21/23 10:50 AM) 5 mmol/L *HI* (08/21/23 10:44 AM) HCO3(v), POC [23-28 mmol/L] 21.2 mmol/L *LOW* (09/02/23 7:46 PM) 33.6 mmol/L *HI* (08/21/23 10:50 AM) 30.6 mmol/L *HI* (08/21/23 10:44 AM) MRSA Surveillance, on Admission [MSND] MRSA NOT detected (08/18/23 11:11 AM) Anion Gap [5-14 mmol/L] 10 mmol/L (09/10/23 5:22 AM) 8 mmol/L (09/09/23 5:02 PM) 10 mmol/L (09/09/23 7:33 AM) Hgb(a) [12.0-18.0 g/dL] 10.9 g/dL *LOW* (08/29/23 7:48 AM) 10.9 g/dL *LOW* (08/29/23 3:05 AM) 10.4 g/dL *LOW* (08/28/23 11:57 PM) Alb [3.5-5.2 g/dL] 2.5 g/dL *LOW* (09/10/23 5:22 AM) 2.7 g/dL *LOW* (09/09/23 7:33 AM) REQUEST CREDITED g/dL 26 (09/09/23 7:24 AM) Alk Phos [40-130 unit/L] 443 unit/L *HI* (09/10/23 5:22 AM) 431 unit/L *HI* (09/09/23 7:33 AM) REQUEST CREDITED unit/L 27 (09/09/23 7:24 AM) ALT [0-41 unit/L] 83 unit/L *HI* (09/10/23 5:22 AM) 95 unit/L *HI* (09/09/23 7:33 AM) REQUEST CREDITED unit/L 28 (09/09/23 7:24 AM) AST [0-40 unit/L] 62 unit/L 29 *HI* (09/10/23 5:22 AM) 56 unit/L *HI* (09/09/23 7:33 AM) REQUEST CREDITED unit/L 30 (09/09/23 7:24 AM) Base XS(a) 0.6 mmol/L (08/29/23 7:48 AM) 1.0 mmol/L (08/29/23 3:05 AM) 1.7 mmol/L (08/28/23 11:57 PM) Bili (u) [NEG] NEGATIVE (09/08/23 10:36 AM) NEGATIVE (08/18/23 1:56 PM) BUN [6-23 mg/dL] 41 mg/dL *HI* (09/10/23 5:22 AM) 47 mg/dL *HI* (09/09/23 5:02 PM) 46 mg/dL *HI* (09/09/23 7:33 AM) Ca [8.4-10.2 mg/dL] 8.2 mg/dL *LOW* (09/10/23 5:22 AM) 8.3 mg/dL *LOW* (09/09/23 5:02 PM) 7.9 mg/dL *LOW* (09/09/23 7:33 AM) Ion Ca [1.15-1.27 mmol/L] 1.00 mmol/L *LOW* (09/10/23 5:22 AM) 1.03 mmol/L *LOW* (09/09/23 7:33 AM) REQUEST CREDITED mmol/L 31 (09/09/23 7:24 AM) Cl- [98-107 mmol/L] 85 mmol/L *LOW* (09/10/23 5:22 AM) 86 mmol/L *LOW* (09/09/23 5:02 PM) 84 mmol/L *LOW* (09/09/23 7:33 AM) HCO3 [22-29 mmol/L] 22 mmol/L (09/10/23 5:22 AM) 27 mmol/L (09/09/23 5:02 PM) 25 mmol/L (09/09/23 7:33 AM) Cortisol [2.3-19.4 ug/dL] 15.3 ug/dL 32 (08/30/23 7:54 AM) Cret [0.70-1.30 mg/dL] 1.64 mg/dL *HI* (09/10/23 5:22 AM) 1.65 mg/dL *HI* (09/09/23 5:02 PM) 1.61 mg/dL *HI* (09/09/23 7:33 AM) D Bili [0.0-0.3 mg/dL] 0.8 mg/dL 33 *HI* (09/10/23 5:22 AM) 1.0 mg/dL *HI* (09/09/23 7:33 AM) REQUEST CREDITED mg/dL 34 (09/09/23 7:24 AM) BF Source Urine in TIGER top tube good for UA only (08/26/23 3:05 AM) Glu [74-109 mg/dL] 139 mg/dL 35 *HI* (09/10/23 5:22 AM) 139 mg/dL 36 *HI* (09/09/23 5:02 PM) 231 mg/dL 37 *HI* (09/09/23 7:33 AM) Gluc Meter [74-109 mg/dL] 115 mg/dL *HI* (09/05/23 6:00 AM) 86 mg/dL (09/04/23 11:10 PM) 148 mg/dL *HI* (09/04/23 3:50 PM) HBsAg [NR] NONREACTIVE (08/18/23 1:56 PM) HCO3(a) [21-28 mmol/L] 24.3 mmol/L (08/29/23 7:48 AM) 25.1 mmol/L (08/29/23 3:05 AM) 25.7 mmol/L (08/28/23 11:57 PM) Hct [39-48 %] 29.5 % *LOW* (09/10/23 5:22 AM) 30.2 % *LOW* (09/09/23 7:33 AM) REQUEST CREDITED % 38 (09/09/23 7:24 AM) HCV Ab [NR] NONREACTIVE (08/18/23 1:56 PM) Hgb [13.0-17.0 g/dL] 9.9 g/dL *LOW* (09/10/23 5:22 AM) 10.2 g/dL *LOW* (09/09/23 7:33 AM) REQUEST CREDITED g/dL 39 (09/09/23 7:24 AM) INR [0.9-1.1] 1.4 40 *HI* (08/31/23 4:32 AM) 1.3 41 *HI* (08/30/23 5:09 PM) 1.3 42 *HI* (08/30/23 4:43 AM) K [3.5-5.1 mmol/L] 4.2 mmol/L 43 (09/10/23 5:22 AM) 4.1 mmol/L (09/09/23 5:02 PM) 4.0 mmol/L (09/09/23 7:33 AM) Ketones [NEG mg/dL] NEGATIVE mg/dL (09/08/23 10:36 AM) NEGATIVE mg/dL (08/18/23 1:56 PM) Lactate [0.5-2.2 mmol/L] 3.3 mmol/L *HI* (08/24/23 8:49 AM) 3.5 mmol/L *HI* (08/24/23 4:38 AM) 2.8 mmol/L *HI* (08/23/23 11:28 PM) Leuk Est [NEG] NEGATIVE (09/08/23 10:36 AM) NEGATIVE (08/18/23 1:56 PM) MCH [28-33 pg] 30.2 pg (09/10/23 5:22 AM) 31.1 pg (09/09/23 7:33 AM) REQUEST CREDITED pg 44 (09/09/23 7:24 AM) MCHC [32-36 g/dL] 33.6 g/dL (09/10/23 5:22 AM) 33.8 g/dL (09/09/23 7:33 AM) REQUEST CREDITED g/dL 45 (09/09/23 7:24 AM) MCV [81-96 fL] 89.9 fL (09/10/23 5:22 AM) 92.1 fL (09/09/23 7:33 AM) REQUEST CREDITED fL 46 (09/09/23 7:24 AM) Mg [1.6-2.6 mg/dL] 2.0 mg/dL (09/10/23 5:22 AM) 2.0 mg/dL (09/09/23 7:33 AM) REQUEST CREDITED mg/dL 47 (09/09/23 7:24 AM) Na [136-145 mmol/L] 117 mmol/L *Critical Low* (09/10/23 5:22 AM) 121 mmol/L *LOW* (09/09/23 5:02 PM) 119 mmol/L *Critical Low* (09/09/23 7:33 AM) Nitrite (u) [NEG] NEGATIVE (09/08/23 10:36 AM) NEGATIVE (08/18/23 1:56 PM) SaO2(a) [95.0-98.0 %] 97.6 % (08/29/23 7:48 AM) 97.4 % (08/29/23 3:05 AM) 97.2 % (08/28/23 11:57 PM) Osmolality [275-295 mOsm/kg] 277 mOsm/kg (08/26/23 3:24 AM) 275 mOsm/kg (08/25/23 3:06 PM) pCO2(a) [35-48 mmHg] 35.0 mmHg (08/29/23 7:48 AM) 37.0 mmHg (08/29/23 3:05 AM) 37.0 mmHg (1/18/24 11:57 PM) pH(a) [7.35-7.45 unit] 7.450 unit (08/29/23 7:48 AM) 7.440 unit (08/29/23 3:05 AM) 7.450 unit (08/28/23 11:57 PM) PO4 [2.5-4.5 mg/dL] 2.8 mg/dL (09/10/23 5:22 AM) 3.2 mg/dL (09/09/23 7:33 AM) REQUEST CREDITED mg/dL 48 (09/09/23 7:24 AM) Plts [150-350 K/uL] 222 K/uL (09/10/23 5:22 AM) 242 K/uL (09/09/23 7:33 AM) REQUEST CREDITED K/uL 49 (09/09/23 7:24 AM) pO2(a) [83-108 mmHg] 71.0 mmHg *LOW* (08/29/23 7:48 AM) 72.0 mmHg *LOW* (08/29/23 3:05 AM) 68.0 mmHg *LOW* (08/28/23 11:57 PM) PT [12.0-14.2 seconds] 17.3 seconds *HI* (08/31/23 4:32 AM) 16.0 seconds *HI* (08/30/23 5:09 PM) 16.5 seconds *HI* (08/30/23 4:43 AM) PTT [23-35 seconds] 36 seconds 50 *HI* (08/31/23 4:32 AM) 36 seconds 51 *HI* (08/30/23 5:09 PM) 37 seconds 52 *HI* (08/30/23 4:43 AM) RBC [4.40-5.60 M/uL] 3.28 M/uL *LOW* (09/10/23 5:22 AM) 3.28 M/uL *LOW* (09/09/23 7:33 AM) REQUEST CREDITED M/uL 53 (09/09/23 7:24 AM) Free T4 [0.9-1.7 ng/dL] 1.64 ng/dL (08/18/23 10:36 AM) T Bili [0.0-1.2 mg/dL] 2.1 mg/dL *HI* (09/10/23 5:22 AM) 2.0 mg/dL *HI* (09/09/23 7:33 AM) REQUEST CREDITED mg/dL 54 (09/09/23 7:24 AM) Temp(a) 37 C (08/29/23 7:48 AM) 36.9 C (08/29/23 3:05 AM) 37.1 C (08/28/23 11:57 PM) Prot [6.4-8.3 g/dL] 6.0 g/dL *LOW* (09/10/23 5:22 AM) 6.0 g/dL *LOW* (09/09/23 7:33 AM) REQUEST CREDITED g/dL 55 (09/09/23 7:24 AM) TSH [0.30-4.20 uIU/mL] REQUEST CREDITED uIU/mL 56 (08/29/23 2:50 PM) 1.84 uIU/mL (08/29/23 2:50 PM) 1.93 uIU/mL (08/18/23 10:36 AM) Appear (u) CLEAR (09/08/23 10:36 AM) CLEAR (08/18/23 1:56 PM) Color (u) YELLOW (09/08/23 10:36 AM) YELLOW (08/18/23 1:56 PM) Creat (u) 18.65 mg/dL 57 (09/08/23 10:36 AM) 78.88 mg/dL 58 (08/24/23 9:10 PM) 41.74 mg/dL 59 (08/18/23 9:43 PM) Glu (u) [NEG mg/dL] >=500 mg/dL *Abnormal* (09/08/23 10:36 AM) NEGATIVE mg/dL (08/18/23 1:56 PM) Hgb (u) [NEG] NEGATIVE (09/08/23 10:36 AM) NEGATIVE (08/18/23 1:56 PM) Na (u) 52 mmol/L 60 (08/26/23 3:23 AM) 55 mmol/L 61 (08/25/23 3:29 PM) 20 mmol/L 62 (08/24/23 9:10 PM) Osmol (u) [100-1000 mOsm/kg] 368 mOsm/kg (08/26/23 3:23 AM) 332 mOsm/kg (08/25/23 3:29 PM) 408 mOsm/kg (08/24/23 9:10 PM) pH (u) [5.0-8.0 unit] 6.0 unit (09/08/23 10:36 AM) 5.0 unit (08/18/23 1:56 PM) Prot (u) [NEG mg/dL] NEGATIVE mg/dL (09/08/23 10:36 AM) 30 mg/dL *Abnormal* (08/18/23 1:56 PM) Urobili [0.1-1.0 EU/dL] 0.1-1.0 EU/dL (09/08/23 10:36 AM) 0.1-1.0 EU/dL (08/18/23 1:56 PM) SG [1.005-1.030] 1.005 (09/08/23 10:36 AM) 1.020 (08/18/23 1:56 PM) Temp(v) 36.2 C (09/02/23 7:46 PM) 37 C (08/29/23 7:48 AM) 36.9 C (08/29/23 3:05 AM) Base XS(v) 2.4 mmol/L (08/29/23 7:48 AM) 1.8 mmol/L (08/29/23 3:05 AM) 3.2 mmol/L (08/28/23 11:57 PM) HCO3(v) [24-28 mmol/L] 27.2 mmol/L (08/29/23 7:48 AM) 27.2 mmol/L (08/29/23 3:05 AM) 28.5 mmol/L *HI* (08/28/23 11:57 PM) Hgb(v) [12.0-18.0 g/dL] 10.8 g/dL *LOW* (08/29/23 7:48 AM) 10.9 g/dL *LOW* (08/29/23 3:05 AM) 10.6 g/dL *LOW* (08/28/23 11:57 PM) SaO2(v) 53.3 % (08/29/23 7:48 AM) 52.0 % (08/29/23 3:05 AM) 60.9 % (08/28/23 11:57 PM) pCO2(v) [41-51 mmHg] 42.0 mmHg (08/29/23 7:48 AM) 45.0 mmHg (08/29/23 3:05 AM) 46.0 mmHg (08/28/23 11:57 PM) pH(v) [7.33-7.43 unit] 7.420 unit (08/29/23 7:48 AM) 7.390 unit (08/29/23 3:05 AM) 7.400 unit (08/28/23 11:57 PM) pO2(v) 29.0 mmHg (08/29/23 7:48 AM) 30.0 mmHg (08/29/23 3:05 AM) 32.0 mmHg (08/28/23 11:57 PM) WBC [4.0-10.4 K/uL] 10.18 K/uL (09/10/23 5:22 AM) 12.73 K/uL *HI* (09/09/23 7:33 AM) REQUEST CREDITED K/uL 63 (09/09/23 7:24 AM) Anti-Hepatitis A Total Anitbodies [NR] REACTIVE *Abnormal* (08/18/23 1:56 PM) 1Result Comment: Performed at: [address] [place] [address] 2Result Comment: Performed at: [address] [place] [address] 3Result Comment: Performed at: [address] [place] [address] 4Result Comment: Reference range: NEGATIVE Performed By: [facility] [address] [place] [id number] Jigger Machine Operator: Julio Mckeon MD, PhD CLIA Number: [id number] 5Result Comment: Reference range: NEGATIVE INTERPRETIVE INFORMATION: Hepatitis E Virus Ab, IgG by OFELIA This test was developed and its performance characteristics determined by [facility]. It has not been cleared or approved by the [place] Food and Drug Administration. This test was performed in a CLIA certified laboratory and is intended for clinical purposes. 6Result Comment: Reference range: NEGATIVE INTERPRETIVE INFORMATION: Hepatitis E Virus Ab, IgM by OFELIA This test was developed and its performance characteristics determined by [facility]. It has not been cleared or approved by the [place] Food and Drug Administration. This test was performed in a CLIA certified laboratory and is intended for clinical purposes. 7Result Comment: Performed By: [facility] [address] [place] [address] Jigger Machine Operator: Julio Mckeon MD, PhD CLIA Number: [id number] 8Result Comment: Reference range: 0 to 19 Unit: Units If F-Actin (Smooth Muscle) Antibody, IgG is negative, the Smooth Muscle Antibody titer by IFA is not performed. REFERENCE INTERVAL: F-Actin (Smooth Muscle) Antibody, IgG by OFELIA 19 Units or less ....... Negative 20 - 30 Units .......... Weak Positive-Suggest repeat testing in two to three weeks with fresh specimen. 31 Units or greater..... Positive-Suggestive of autoimmune hepatitis type 1 or chronic active hepatitis. F-actin IgG antibodies have been shown to have increased sensitivity for autoimmune hepatitis (AIH) but lower specificity than smooth muscle antibodies (SMA). F-actin IgG antibodies can also be seen in SMA-negative disease controls (non-AIH), especially in patients with primary biliary cirrhosis and chronic hepatitis C infections. Some patients with AIH may be SMA-positive but negative for F-actin IgG. Consider testing for SMA by IFA if suspicion for AIH is strong. Performed By: [facility] [address] [place] [address] Jigger Machine Operator: Julio Mckeon MD, PhD CLIA Number: [id number] 9Result Comment: cTnT >= 0.030 ng/ml: myocardial necrosis present. This may be due to acute myocardial ischemia (AMI) or other myocardial injury. cTnT < 0.010 ng/ml: 99th percentile upper reference limit for ostensibly healthy adult referencepopulation (male and female). 10Result Comment: For possible community-acquired pneumonia (CAP), if there is diagnostic uncertainty: <0.10 ng/mL Antibiotics strongly discouraged 0.10 - 0.25 ng/mL Antibiotics discouraged 0.26 - 0.50 ng/mL Antibiotics recommended >0.5 ng/mL Antibiotics strongly recommended For sepsis or hospital-acquired pneumonia (HAP). if the patient has stabilized and there is diagnostic uncertainty: <0.51 ng/ml or decrease of >79% Consider stopping antibiotics unless needed for another diagnosis. 11Result Comment: For possible community-acquired pneumonia (CAP), if there is diagnostic uncertainty: <0.10 ng/mL Antibiotics strongly discouraged 0.10 - 0.25 ng/mL Antibiotics discouraged 0.26 - 0.50 ng/mL Antibiotics recommended >0.5 ng/mL Antibiotics strongly recommended For sepsis or hospital-acquired pneumonia (HAP). if the patient has stabilized and there is diagnostic uncertainty: <0.51 ng/ml or decrease of >79% Consider stopping antibiotics unless needed for another diagnosis. 12Result Comment: For possible community-acquired pneumonia (CAP), if there is diagnostic uncertainty: <0.10 ng/mL Antibiotics strongly discouraged 0.10 - 0.25 ng/mL Antibiotics discouraged 0.26 - 0.50 ng/mL Antibiotics recommended >0.5 ng/mL Antibiotics strongly recommended For sepsis or hospital-acquired pneumonia (HAP). if the patient has stabilized and there is diagnostic uncertainty: <0.51 ng/ml or decrease of >79% Consider stopping antibiotics unless needed for another diagnosis. 13Result Comment: DUPLICATE REQUEST 14Result Comment: DUPLICATE REQUEST 15Result Comment: VENOUS AND ARTERIAL LABELS SWITCHED SHELLI CONKLIN 08/26/23 0803 16Result Comment: VENOUS AND ARTERIAL LABELS SWITCHED SHELLI CONKLIN 08/26/23 0803 17Result Comment: VENOUS AND ARTERIAL LABELS SWITCHED SHELLI CONKLIN 08/26/23 0803 18Result Comment: VENOUS AND ARTERIAL LABELS SWITCHED SHELLI CONKLIN 08/26/23 0803 19Result Comment: VENOUS AND ARTERIAL LABELS SWITCHED SHELLI CONKLIN 08/26/23 0803 20Result Comment: VENOUS AND ARTERIAL LABELS SWITCHED SHELLI CONKLIN 08/26/23 0803 21Result Comment: VENOUS AND ARTERIAL LABELS SWITCHED SHELLI CONKLIN 08/26/23 0803 22Result Comment: VENOUS AND ARTERIAL LABELS SWITCHED SHELLI CONKLIN 08/26/23 0803 23Result Comment: Reference Range for Random Urine Not Established. 24Result Comment: Reference Range for Random Urine Not Established. 25Result Comment: Reference Range for Random Urine Not Established. 26Result Comment: DUPLICATE REQUEST 27Result Comment: DUPLICATE REQUEST 28Result Comment: DUPLICATE REQUEST 29Result Comment: HEMOLYZED SPECIMEN 30Result Comment: DUPLICATE REQUEST 31Result Comment: DUPLICATE REQUEST 32Result Comment: Reference Range: MORNING (7AM-10AM) 6.20-19.4 UG/DL AFTERNOON (4PM-8PM) 2.30-11.9 UG/DL 33Result Comment: HEMOLYZED SPECIMEN 34Result Comment: DUPLICATE REQUEST 35Result Comment: ADA recommendation for FASTING Serum/Plasma Glucose: Normal: 70-100 mg/dL Prediabetes: 100-125 mg/dL Diabetes: 126 mg/dL or higher 36Result Comment: ADA recommendation for FASTING Serum/Plasma Glucose: Normal: 70-100 mg/dL Prediabetes: 100-125 mg/dL Diabetes: 126 mg/dL or higher 37Result Comment: ADA recommendation for FASTING Serum/Plasma Glucose: Normal: 70-100 mg/dL Prediabetes: 100-125 mg/dL Diabetes: 126 mg/dL or higher 38Result Comment: DUPLICATE REQUEST 39Result Comment: DUPLICATE REQUEST 40Result Comment: Suggested therapeutic range for low-intensity Coumadin therapy for venous thromboembolism is INR 2.0-3.0 (ex: atrial fibrillation, history of TIA/stroke). For high risk patients, the suggested therapeutic range is INR 2.5-3.5 (ex: mechanical prosthetic valves). 41Result Comment: Suggested therapeutic range for low-intensity Coumadin therapy for venous thromboembolism is INR 2.0-3.0 (ex: atrial fibrillation, history of TIA/stroke). For high risk patients, the suggested therapeutic range is INR 2.5-3.5 (ex: mechanical prosthetic valves). 42Result Comment: Suggested therapeutic range for low-intensity Coumadin therapy for venous thromboembolism is INR 2.0-3.0 (ex: atrial fibrillation, history of TIA/stroke). For high risk patients, the suggested therapeutic range is INR 2.5-3.5 (ex: mechanical prosthetic valves). 43Result Comment: HEMOLYZED SPECIMEN 44Result Comment: DUPLICATE REQUEST 45Result Comment: DUPLICATE REQUEST 46Result Comment: DUPLICATE REQUEST 47Result Comment: DUPLICATE REQUEST 48Result Comment: DUPLICATE REQUEST 49Result Comment: DUPLICATE REQUEST 50Result Comment: Heparin therapeutic range for Anti XA Activity from 0.3 to 0.7 IU/mL is 65-105 seconds. 51Result Comment: Heparin therapeutic range for Anti XA Activity from 0.3 to 0.7 IU/mL is 65-105 seconds. 52Result Comment: Heparin therapeutic range for Anti XA Activity from 0.3 to 0.7 IU/mL is 65-105 seconds. 53Result Comment: DUPLICATE REQUEST 54Result Comment: DUPLICATE REQUEST 55Result Comment: DUPLICATE REQUEST 56Result Comment: DUPLICATE REQUEST 57Result Comment: Reference Range for Random Urine Not Established. 58Result Comment: Reference Range for Random Urine Not Established. 59Result Comment: Reference Range for Random Urine Not Established. 60Result Comment: Reference Range for Random Urine Not Established. 61Result Comment: Reference Range for Random Urine Not Established. 62Result Comment: Reference Range for Random Urine Not Established. 63Result Comment: DUPLICATE REQUEST Orders for Microbiology Reports Name Date Nasal Culture 09/01/23 Sputum Culture w Smear 08/19/23 Urine Culture 08/18/23 Blood Culture (Aerobic AND Anaerobic) 08/18/23 Blood Culture (Aerobic AND Anaerobic) 08/18/23 Microbiology Reports TEST:Thr/Nasal.Cx STATUS:Auth (Verified) BODY SITE: SOURCE:Nasal COLLECTED DATE/TIME:09/01/23 3:42 PM Status FINAL 09/03/2023 TEST:Sputum.Culture STATUS:Auth (Verified) BODY SITE: SOURCE:Sputum COLLECTED DATE/TIME:08/19/23 4:25 AM Culture 1+ ENTEROBACTER CLOACAE COMPLEX This organism may have an inducible AmpC beta-lactamase, which can cause resistance to third-generation cephalosporins and piperacillin-tazobactam during treatment. Though ceftriaxone or piperacillin-tazobactam could be used for uncomplicated cystitis if the organism is reported as susceptible, serious infections should be treated with cefepime (unless not fully susceptible) or with a carbapenem or npn-vdsc-lsicog antibiotic. Please contact Infectious Diseases or the Antibiotic Stewardship Program with any questions. 1+ NORMAL RESPIRATORY DANIELA ORGANISM:Enterobacter Cloacae Complex TEST:Urine.Cx STATUS:Auth (Verified) BODY SITE: SOURCE:Urine COLLECTED DATE/TIME:08/18/23 1:56 PM Status FINAL 08/20/2023 TEST:Blood.Cx STATUS:Auth (Verified) BODY SITE: SOURCE:Blood COLLECTED DATE/TIME:08/18/23 11:20 AM Status FINAL 08/23/2023 TEST:Blood.Cx STATUS:Auth (Verified) BODY SITE: SOURCE:Blood COLLECTED DATE/TIME:08/18/23 10:36 AM Culture NO GROWTH IN 5 DAYS Radiology Reports (Most Recent Ten) * Exam Date Time Procedure Performing Provider Status 09/06/23 2:18 PM XR Chest 1 View Shanta Forman; Final Notes: (XR Chest 1 View) Reason For Exam: pain with deep breaths, new today, feels more SOB as well XR Chest 1 View EXAMINATION: XR Chest 1 View CLINICAL HISTORY: pain with deep breaths, new today, feels more SOB as well COMPARISON: Prior chest radiograph 30/09/2023. FINDINGS: Left chest pacemaker. Unchanged enlarged cardiopericardial silhouette. Prominent central pulmonary vasculature. Unchanged mid and lower lung interstitial and airspace parenchymal opacities, ranged abdullahi cephalocaudal gradient, likely representing pulmonary edema. Small pleural effusions. No pneumothorax. No acute osseous abnormality. IMPRESSION: Congestive heart failure, without significant change or improvement from prior. Dr. Emil Cota is the dictating resident. Finalized reports status indicates that the attending has reviewed the images and report, and agrees with the interpretation. Preliminary report status should be regarded as NOT interpreted by the attending radiologist. Workstation ID: [id number] Final Dictated by:DO Cota Nrutya Dictated DT/TM:09/06/2023 2:51 Resident:DO Cota Nrutya Signed by:MD Sanchez Michael A Signed (Electronic Signature):09/06/2023 2:50 p * Exam Date Time Procedure Performing Provider Status 08/29/23 9:14 AM XR Chest 1 View Juan Heredia; Yelena lyle Notes: (XR Chest 1 View) Reason For Exam: eval effusions XR Chest 1 View EXAMINATION: XR Chest 1 View CLINICAL HISTORY: eval effusions COMPARISON: Comparison with prior imaging, most recent from yesterday FINDINGS: Pacemaker. Right IJ pulmonary artery catheter tip in the left pulmonary artery. Unchanged enlarged cardiopericardial silhouette. Prominent central pulmonary vasculature. Mid and lower lung parenchymal opacities appear increased since yesterday. Small pleural effusions. No pneumothorax. No acute osseous abnormality. IMPRESSION: Pulmonary edema appears increased since yesterday. Small pleural effusions. Workstation ID: [id number] Final Dictated by:MD Fernández Rekha Dictated DT/TM:08/29/2023 9:35 Signed by:MD Fernández Rekha Signed (Electronic Signature):08/29/2023 9:34 a * Exam Date Time Procedure Performing Provider Status 08/28/23 6:23 AM XR Chest 1 View Janice Woods; Final Notes: (XR Chest 1 View) Reason For Exam: Eval effusions/atelectasis XR Chest 1 View EXAMINATION: XR Chest 1 View CLINICAL HISTORY: Eval effusions/atelectasis COMPARISON: Chest radiograph 08/27/2023 FINDINGS: Upright AP radiograph of the chest. Right IJ Cam[place]-Leander catheter with tip in the main pulmonary artery. Pacemaker/ICD. Unchanged cardiac silhouette and pulmonary vasculature. No large effusion. No pneumothorax. Unchanged bibasilar scarring/atelectasis. Osseous structures are unchanged. IMPRESSION: No acute change. Dr. Prakash Collins is the dictating resident. Finalized reports status indicates that the attendinghas reviewed the images and report, and agrees with the interpretation. Preliminary report status should be regarded as NOT interpreted by the attending radiologist Workstation ID: [id number] Final Dictated by:DO Collins Matthew Dictated DT/TM:08/28/2023 10:25 Resident:DO Collins Matthew Signed by:DO Brown Matthew D Signed (Electronic Signature):08/28/2023 10:24 * Exam Date Time Procedure Performing Provider Status 08/27/23 6:32 AM XR Chest 1 View Jael Alarcon; Final Notes: (XR Chest 1 View) Reason For Exam: pulmonary vascular congestion, PA catheter XR Chest 1 View EXAMINATION: XR Chest 1 View CLINICAL HISTORY: pulmonary vascular congestion, PA catheter COMPARISON: Comparison with prior imaging, most recent from yesterday FINDINGS: Right IJ pulmonary artery catheter tip in the left pulmonary artery. Stable AICD/history. Unchangedenlarged cardiopericardial silhouette. Normal pulmonary vascularity. Hypoinflation. Unchanged bibasal opacities. No significant effusion. No pneumothorax. IMPRESSION: Pulmonary artery catheter tip in the left pulmonary artery. Unchanged basal scarring/atelectasis. Workstation ID: [id number] Final Dictated by:MD Fernández Rekha Dictated DT/TM:08/27/2023 9:28 Signed by:MD Fernández Rekha Signed (Electronic Signature):08/27/2023 9:27 a * Exam Date Time Procedure Performing Provider Status 08/26/23 11:14 AM US Retroperitoneal Complete Stack, Dev an N; Final Notes: (US Retroperitoneal Complete) Reason For Exam: LEONILA US Retroperitoneal Complete EXAMINATION: US Retroperitoneal Complete CLINICAL HISTORY: LEONILA COMPARISON: Outside CT abdomen and pelvis from 08/13/2023. FINDINGS: BLADDER: Decompressed with Wilson catheter in place. RIGHT KIDNEY: Normal in size, shape, and echogenicity. Renal cortical thickness is maintained. No hydronephrosis. 5.5 cm right lower pole renal cyst. Length: 9.6 cm LEFT KIDNEY: Normal in size, shape, and echogenicity. Renal cortical thickness is maintained. No hydronephrosis. Length: 11.1 cm OTHER: The IVC and aorta are normal in caliber where visualized. IMPRESSION: 1. Unremarkable sonographic appearance of both kidneys. 2. Decompressed bladder with Wilson catheter in place. [place] Act 112: This study does not meet the requirements of [place] Act 112. Dr. Marleen Maguire is the dictating resident. Finalized reports status indicates that the attendinghas reviewed the images and report, and agrees with the interpretation. Preliminary report status should be regarded as NOT interpreted by the attending radiologist. Workstation ID: [id number] Final Dictated by:MD Maguire Janelle Dictated DT/TM:08/26/2023 11:39 Resident:MD Maguire Janelle Signed by:MD Dinh Kathryn L Signed (Electronic Signature):08/26/2023 11:38 * Exam Date Time Procedure Performing Provider Status 08/26/23 7:23 AM XR Chest 1 View Jael Alarcon; Final Notes: (XR Chest 1 View) Reason For Exam: eval pulm edema XR Chest 1 View EXAMINATION: XR Chest 1 View CLINICAL HISTORY: eval pulm edema COMPARISON: Multiple prior chest x-rays most recent from yesterday 08/25/2023 FINDINGS: Single AP semiupright view of the chest. Pulmonary artery catheter with tip in unchanged position within the main pulmonary artery. Left chest wall ICD/pacemaker with unchanged leads. Unchanged cardiomediastinal silhouette. Pulmonary vasculature is indistinct. Patchy bibasilar opacities, not significantly changed. Trace pleural effusions. No pneumothorax. Osseous structures are unchanged. IMPRESSION: 1. Persistent bibasilar opacities, likely scarring/atelectasis. Dr. Prasanna Alaniz is the dictating resident. Finalized reports status indicates that the attending has reviewed the images and report, and agrees with the interpretation. Preliminary report status should be regarded as NOT interpreted by the attending radiologist. Workstation ID: [id number] Final Dictated by:MD Alaniz Chase Dictated DT/TM:08/26/2023 11:02 Resident:MD Alaniz Chase Signed by:MD Fernández Rekha Signed (Electronic Signature):08/26/2023 11:01 * Exam Date Time Procedure Performing Provider Status 08/25/23 6:17 AM XR Chest 1 View Rula Carroll Notes: (XR Chest 1 View) Reason For Exam: HF exacerbation XR Chest 1 View EXAMINATION: XR Chest 1 View CLINICAL HISTORY: HF exacerbation COMPARISON: 08/25/2023 at 0035 hours FINDINGS: Supine chest radiograph. Pulmonary artery catheter tip remains in the outflow tract. Triple lead pacer/AICD is unchanged. Left upper extremity approach PICC line tip is visualized to the cavoatrial junction. The heart remains enlarged. The mediastinum is not widened. Decreased pulmonary vascular prominence. Persistent patchy airspace opacities at both bases. No large pleural effusion or pneumothorax. IMPRESSION: Persistent bibasilar opacities, likely atelectasis. Improved pulmonary vascular congestion. Workstation ID: [id number] Final Dictated by:MD Sorensen Pamela L Dictated DT/TM:08/25/2023 10:11 Signed by:MD Sorensen Pamela L Signed (Electronic Signature):08/25/2023 10:09 * Exam Date Time Procedure Performing Provider Status 08/25/23 12:52 AM XR Chest 1 View Ginger Pyle; Teodoro mejias Notes: (XR Chest 1 View) Reason For Exam: swan placement (already done) XR Chest 1 View EXAMINATION: XR Chest 1 View, XR Chest 1 View, XR Chest 1 View CLINICAL HISTORY: Camden position. COMPARISON: [facility], most recent chest radiograph dated 08/24/2023. FINDINGS: Chest (0024): Single supine AP view of the chest. Unchanged left chest wall pacemaker/AICD and leads. Left PICC line with tip not well visualized although assumed to be near the superior cavoatrial junction. Right internal jugular approach [place]-Leander catheter loops within the right atrium with tip about the proximal main pulmonary artery. Unchanged enlarged cardiomediastinal silhouette. Mild pulmonary vascular congestion. Mildly hypoventilated lungs. Unchanged bilateral left greater than right lower lung predominant airspace opacities. Left greater than right trace pleural effusions. No pneumothorax. Unchanged osseous structures. Chest (0027): Interval repositioning of right internal jugular approach [place]- Leander catheter with tipretracted to the right atrium. No additional interval change. Chest (0035): Interval repositioning of right internal jugular approach [place]- Leander catheter with tipwithin the proximal right pulmonary artery. No additional interval change. IMPRESSION: 1. Serial chest radiographs for Camden-Leander catheter repositioning with the final position of the tipwithin the proximal right pulmonary artery. 2. Unchanged bilateral left greater than right lower lung airspace opacities. Dr. Prasanth Mobley is the dictating resident. Finalized report status indicates that the attending has reviewed the images and report, and agrees with the interpretation. Preliminary report status should be regarded as NOT interpreted by the attending radiologist. Workstation ID: [id number] Final Dictated by:MD Mobley Luis T Dictated DT/TM:08/25/2023 8:03 Resident:MD Mobley Luis T Signed by:MD Sorensen Pamela L Signed (Electronic Signature):08/25/2023 8:01 a * Exam Date Time Procedure Performing Provider Status 08/25/23 12:52 AM XR Chest 1 View Ginger Pyle; Teodoro mejias Notes: (XR Chest 1 View) Reason For Exam: swan placement (already done) XR Chest 1 View EXAMINATION: XR Chest 1 View, XR Chest 1 View, XR Chest 1 View CLINICAL HISTORY: Camden position. COMPARISON: [facility], most recent chest radiograph dated 08/24/2023. FINDINGS: Chest (0024): Single supine AP view of the chest. Unchanged left chest wall pacemaker/AICD and leads. Left PICC line with tip not well visualized although assumed to be near the superior cavoatrial junction. Right internal jugular approach [place]-Leander catheter loops within the right atrium with tip about the proximal main pulmonary artery. Unchanged enlarged cardiomediastinal silhouette. Mild pulmonary vascular congestion. Mildly hypoventilated lungs. Unchanged bilateral left greater than right lower lung predominant airspace opacities. Left greater than right trace pleural effusions. No pneumothorax. Unchanged osseous structures. Chest (0027): Interval repositioning of right internal jugular approach [place]- Leander catheter with tipretracted to the right atrium. No additional interval change. Chest (0035): Interval repositioning of right internal jugular approach [place]- Leander catheter with tipwithin the proximal right pulmonary artery. No additional interval change. IMPRESSION: 1. Serial chest radiographs for Camden-Leander catheter repositioning with the final position of the tipwithin the proximal right pulmonary artery. 2. Unchanged bilateral left greater than right lower lung airspace opacities. Dr. Prasanth Mobley is the dictating resident. Finalized report status indicates that the attending has reviewed the images and report, and agrees with the interpretation. Preliminary report status should be regarded as NOT interpreted by the attending radiologist. Workstation ID: [id number] Final Dictated by:MD Mobley Luis T Dictated DT/TM:08/25/2023 8:03 Resident:MD Mobley Luis T Signed by:MD Sorensen Pamela L Signed (Electronic Signature):08/25/2023 8:01 a * Exam Date Time Procedure Performing Provider Status 08/25/23 12:52 AM XR Chest 1 View Ginger Pyle; Teodoro mejias Notes: (XR Chest 1 View) Reason For Exam: swan position XR Chest 1 View EXAMINATION: XR Chest 1 View, XR Chest 1 View, XR Chest 1 View CLINICAL HISTORY: Camden position. COMPARISON: Priors, most recent chest radiograph dated 08/24/2023. FINDINGS: Chest (0024): Single supine AP view of the chest. Unchanged left chest wall pacemaker/AICD and leads. Left PICC line with tip not well visualized although assumed to be near the superior cavoatrial junction. Right internal jugular approach Camden-Leander catheter loops within the right atrium with tip about the proximal main pulmonary artery. Unchanged enlarged cardiomediastinal silhouette. Mild pulmonary vascular congestion. Mildly hypoventilated lungs. Unchanged bilateral left greater than right lower lung predominant airspace opacities. Left greater than right trace pleural effusions. No pneumothorax. Unchanged osseous structures. Chest (0027): Interval repositioning of right internal jugular approach Camden- Leander catheter with tipretracted to the right atrium. No additional interval change. Chest (0035): Interval repositioning of right internal jugular approach Camden- Leander catheter with tipwithin the proximal right pulmonary artery. No additional interval change. IMPRESSION: 1. Serial chest radiographs for Camden-Leander catheter repositioning with the final position of the tipwithin the proximal right pulmonary artery. 2. Unchanged bilateral left greater than right lower lung airspace opacities. Dr. Prasanth Mobley is the dictating resident. Finalized report status indicates that the attending has reviewed the images and report, and agrees with the interpretation. Preliminary report status should be regarded as NOT interpreted by the attending radiologist. Workstation ID: [id number] Final Dictated by:MD Mobley Luis T Dictated DT/TM:08/25/2023 8:03 Resident:MD Mobley Luis T Signed by:MD Sorensen Pamela L Signed (Electronic Signature):08/25/2023 8:01 a Vital Signs Most recent to oldest [Reference Range]: 1 2 3 Height 172.72 cm (08/18/23 9:45 AM) Patient Weight 72.5 kg (09/10/23 5:30 AM) 69.7 kg (09/09/23 5:08 AM) 72.0 kg (09/08/23 6:07 AM) Body Mass Index 22.96 kg/m2 (08/19/23 6:00 AM) 24.84 kg/m2 (08/18/23 10:00 AM) Temperature [36.5-37.9 DegC] 36 DegC *LOW* (09/10/23 11:18 AM) 36 DegC *LOW* (09/10/23 8:09 AM) 36.1 DegC *LOW* (09/10/23 5:00 AM) Heart Rate 97 bpm (09/10/23 11:18 AM) 90 bpm (09/10/23 8:13 AM) 88 bpm (09/10/23 8:09 AM) Respiratory Rate 16 br/min (09/10/23 11:18 AM) 18 br/min (09/10/23 8:09 AM) 16 br/min (09/10/23 5:00 AM) Blood Pressure 84/60mmHg (09/10/23 11:18 AM) 87/71mmHg (09/10/23 8:09 AM) 96/68mmHg (09/10/23 5:00 AM) Mean Blood Pressure 69 mmHg (09/10/23 11:18 AM) 78 mmHg (09/10/23 8:09 AM) 79 mmHg (09/10/23 5:00 AM) Cuff Pulse Pressure 24 mmHg (09/10/23 11:18 AM) 16 mmHg (09/10/23 8:09 AM) 28 mmHg (09/10/23 5:00 AM) BP Location # 1 Right Arm (09/10/23 11:18 AM) Right Arm (09/10/23 8:09 AM) Right Arm, Non-invasive (09/10/23 5:00 AM) Social History Social History Type Response Smoking Status Never smoked cigaret pillo Sex Male Radiology * Contributor_system, [email or web address]: VERIFY, PERFORM Event Display: EKG Authored Date: Please click on link to see image. * Contributor_system, [email or web address]: VERIFY, PERFORM Event Display: EKG Authored Date: [id number] Please click on link to see image. * Event Display: Cardiac Device Check Authored Date: [id number] Please click on link to see image. History and physical note * MD Lopez Anita K: MODIFY MD Lopez Anita K: MODIFY, MODIFY, MODIFY, MODIFY, MODIFY, MODIFY, MODIFY, MODIFY, MODIFY, MODIFY, MODIFY, MODIFY, PERFORM Event Display: H&P Authored Date: HISTORY AND PHYSICAL Name: RAMON CHAPMAN Patient Number: [id number] : 1950 Date of Service: 08/18/2023 Surgical Hospital Day/Procedure: No procedures found Chief Complaint: _ Transferred from [facility] with cholelithiasis for further evaluation and management History of Present Illness: _ 73 years old male patient with past medical history of hypertension, coronary artery disease, interstitial lung disease/idiopathic interstitial pneumonia, heart failure with reduced ejection fraction, paroxysmal atrial fibrillation, history of ventricular tachycardia and Non ischemic Cardiomyopathystatus post biventricular ICD who presented to [facility] as direct transfer from [facility] for further evaluation and management of cholelithiasis and IR evaluation for cholecystostomy tube. Patient presented initially with complaints of periumbilical and right upperquadrant pain which was acutely worsened 1 day presented to presentation. He was also complaining of ongoing dyspnea on exertion. Initially he presented to his PCP office and PCP recommended ED evaluation due to concerns of cholecystitis. Of note, patient recently underwent EGD which showed stomachulcer and completed course of metronidazole, clarithromycin and was continued on pantoprazole. Patient complains of intermittent nausea with vomiting. He denied any chest pain or palpitation. No urinary frequency, urgency, dysuria or hematuria. In outside hospital, he was noted to be tachycardic in 120s, chest x-ray showed cardiomegaly with no evidence of pulmonary edema, lower lung interstitial thickening and opacities which is probably chronic and no superimposed consolidation. CT abdomen and pelvis with IV contrast was obtained which showed liver is enlarged, heterogeneous with morphological changes of cirrhosis, small to moderate pleural effusion with dependent consolidation, marked cardiomegaly, calcified gallstones with distended gallbladder, the gallbladder wall is thickened and edematous with pericholecystic infiltration andfluid, although this findings could be related to adjacent hepatocellular disease and fluid overload, acute cholecystitis is not excluded. Right upper quadrant abdominal ultrasound showed cholelithiasis with abnormal appearing gallbladder, no intra or extrahepatic biliary ductal dilatation, small volume perihepatic ascites and right pleural effusion, enlarged liver and cirrhotic in morphology. Patient was admitted with possible cholecystitis and heart failure exacerbation. His laboratory workupshowed hemoglobin of 13.7, no leukocytosis, elevated total bilirubin of 2.0 which is chronically elevated otherwise normal transaminases, alkaline phosphatase was slightly elevated at 144 and lipase was within normal. He was started on Zosyn. Patient was seen by surgery for evaluation of cholecystitis and recommended HIDA scan to further evaluate for cholecystitis. HIDA scan was obtained and did not show any evidence of cystic duct obstruction or evidence of acute cholecystitis per surgery note. Patient was also seen by cardiology for CHF exacerbation and was given IV Lasix with subsequent imp rovement in his breathing and for his nonischemic cardiomyopathy was advised to continue on metoprolol succinate and cardiology mentioned that patient is intolerant to ACEi or ARB due to hypotension.His device was also interrogated at outside hospital. For surgical evaluation, cardiology mentionedacceptable cardiac risk factor for surgery once CHF exacerbation resolved. Hospital course was complicated by acute onsets of chest tightness with syncopal-like episode, heart rate at that time was ranging between 1 30-1 60 and wide-complex tachycardia noted on telemetry and patient was given 50 mg of metoprolol IV. CT angio of the chest showed elevated right heart pressure, small pleural effusion, pulmonary edema, opacities in the dependent lower lobes bilaterally represented atelectasis. Transthoracic echo performed on August 16 showed mildly dilated left ventricle with EF of 15 to 20%, global hypokinesia, moderately dilated right ventricle with moderately reducedsystolic function and severe biatrial dilatation, severe MR, severe TR. Upon arrival to [facility], patient was afebrile, tachycardic with heart rate of 115, blood pressure was 108/83 and he was satting 97% on room air. EKG showed atrial and ventricular paced rhythm. Review Of Systems: _ A complete 14 point ROS is otherwise negative unless mentioned in the above HPI Past Medical History: _ Hypertension Coronary artery disease Interstitial lung disease/idiopathic interstitial pneumonia Congestive heart failure Nonischemic cardiomyopathy status post biventricular ICD Ventricular tachycardia Paroxysmal atrial fibrillation History of gastric ulcer Benign prostate hyperplasia Osteoarthritis History of rib fracture Procedure History Procedure Procedure Date Comments Hernia repair - [id number] Surgery - 2007 and 2009 meniscus: knee repair right knee Shave biopsy and cauterization of skin 01/31/2016 - with curettage Pacemaker 07/2014 - pacemaker/defibrillator placement Procedure 1953 - eye surgery Surgical History: _ As above Family History: _ Father with history of Liver disease, Mother with history of bladder cancer and Brother with Pre diabetes Social History: _ Denied any tobacco, alcohol or illegal drugs use. Lives at home with his . Allergies and Sensitivities: No Known Medication Allergies Current Home Meds: (Last Updated 08/18 10:32) albuterol (albuterol CFC free 90 mcg/inh MDI) 2 puff inhaled qid PRN: as needed for wheezing aspirin (aspirin 81 mg oral tablet, chewable) 81 mg PO Daily atorvastatin (atorvastatin 10 mg oral tablet) 10 mg PO qhs cholecalciferol (Vitamin D3) PO Daily ferrous sulfate (ferrous sulfate 325 mg (65 mg elemental iron) oral tablet) 325 mg PO Daily gabapentin 400 mg PO tid PRN: pain meloxicam (meloxicam 7.5 mg oral tablet) 7.5 mg PO bid metoprolol (Metoprolol Succinate ER) 25 mg PO Daily metroNIDAZOLE (metroNIDAZOLE 500 mg oral tablet) 500 mg PO Daily multivitamin 1 tab PO Daily omega-3 polyunsaturated fatty acids (Fish Oil oral capsule) 2 cap PO Daily pantoprazole (pantoprazole 40 mg oral delayed release tablet) 40 mg PO Daily tadalafil (tadalafil 5 mg oral tablet) Vitals: Last Updated 08/18/23 09:50 Weights: No Weight Data Available Date Temp Pulse BP RR SpO2 FIO2 Date Wt(kg) Wt(lb) 08/18 09:50 107 21 97 08/18 09:45 36.4 115 16 24 Hr Tmax: 36.4 at 08/18 09:45 Initial Wt: No Data Available Physical Exam: General: _ Looks well, in no acute distress HEENT: _ Head normocephalic atraumatic, moist mucous membrane, EOMI Neck: _ No lymphadenopathy or thyromegaly Cardiac: _ Normal s1/2, no murmurs, rubs or gallops. Lungs: _ Bilateral Basal crackles, no wheezes Abdomen: _ soft, lax, mild RUQ tenderness, positive bowel sounds, no guarding or rebound : _ No suprapubic tenderness Musculoskeletal: _ No edema, cyanosis or pallor, no laceration or deformities Neuro: _ Alert and orientedx4, no focal deficit Skin: _ Warm and dry, no rash noted Most Recent 24 Hour CBC/BMP Results No Latest CBC or BMP Found. No 24 Hour Lab Data. Studies: Pending or Completed in the Last 24 Hours EKG Ordered Device Check/Reprogram Ordered ASSESSMENT: _ 73 years old male patient with past medical history of nonischemic cardiomyopathy status post biventricular ICD, coronary artery disease, hypertension, interstitial lung disease/idiopathic interstitial pneumonia, paroxysmal atrial fibrillation, history of ventricular tachycardia and hypertension who presented to [facility] as direct transfer from [facility] with cholelithiasis for further evaluation by interventional radiology and heart failure exacerbation. Patient admitted to MICU for further evaluation and management. PLAN: _ Neurologic/Psych # Chronic pain -Continue Gabapentin 400mg TID PRN for Moderate pain and Tylenol as needed for mild pain. -Holding Home Meloxicam due to LEONILA Pulmonary # History of interstitial lung disease/idiopathic interstitial pneumonia -Continue home albuterol 2 puff 4 times daily as needed for shortness of breath # Possible Community Acquired Pneumonia -CXR with lower lobes opacities -RVP at OSH was negative -Continue Zosyn -Start Doxycycline 100mg BID -Will obtain Sputum culture and 2 sets Blood cultures Cardiac #Acute Exacerbation of HFrEF # Nonischemic cardiomyopathy status post biventricular ICD # Coronary artery disease -Continue Home aspirin and Atorvastatin -Didn't tolerate ACEi/ARB in the past due to hypotension -Will give Lasix 20mg IV once # Paroxysmal Atrial Fibrillation # History of Ventricular Tachycardia # Wide Complex Tachycardia -Patient isn't on any blood thinners at home -Was on Heparin drip at outside hospital -Had Episode of Wide complex Tachycardia at OSH with hypotension, was given Metoprolol 15mg IV once -TTE at OSH on 08/16/2023: mildly dilated left ventricle with EF of 15 to 20%, global hypokinesia, moderately dilated right ventricle with moderately reduced systolic function and severe biatrial dilatation, severe MR, severe TR. -Continue Metoprolol succinate 25mg daily -Keep on media monitor -Ordered Device check GI # Cholelithiasis At OSH, CT abdomen and pelvis with IV contrast was obtained which showed liver is enlarged, heterogeneous with morphological changes of cirrhosis, small to moderate pleural effusion with dependent consolidation, marked cardiomegaly, calcified gallstones with distended gallbladder, the gallbladder wall is thickened and edematous with pericholecystic infiltration and fluid, although this findings could be related to adjacent hepatocellular disease and fluid overload, acute cholecystitis is not excluded. Right upper quadrant abdominal ultrasound showed cholelithiasis with abnormal appearing gallbladder, no intra or extrahepatic biliary ductal dilatation, small volume perihepatic ascites and right pleural effusion, enlarged liver and cirrhotic in morphology. HIDA scan did not show any evidence of cystic duct obstruction or evidence of acute cholecystitis -Continue Zosyn -Will obtain 2 sets of blood cultures -Will upload the images obtained at OSH to for read by radiologist at [facility]. # Transaminitis # Hyperbilirubinemia # Liver Cirrhosis -Elevated LFT could be due to ischemic hepatitis, need to rule out other causes -Will obtain direct Bilirubin -Will obtain Hepatitis serology, CB, ASMA -Continue to monitor Hepatic function daily # Recent History of Gastric ulcer -Completed Triple therapy for H. Pylori recently with Clarithromycin and Metronidazole -Continue Pantoprazole 40mg daily Renal # Non Oliguric LEONILA likely ATN in settings of altered hemodynamic due to Vtac and infection -Continue to monitor Kidney function daily # Hyponatremia -Likely hypervolemic, continue with diuresis as needed # Elevated Lactate -Could be due to sepsis vs Cardiac due to Arrhythmias -Continue to monitor Lactate q4 hrs # Benign Prostate Hyperplasia -Not any medications -Continue to monitor for symptoms Heme/Onc # Mild Leukocytosis -likely reactive -Continue to monitor CBC with Diff daily ID # Sepsis due to Cholelithiasis and Possible Pneumonia -Will obtain Blood culturesx2, urine analysis and culture and Sputum culture -Continue Zosyn -Will start Doxycycline 100mg q12 hrs -Continue to monitor lactate q4 hrs -Will upload the images obtained at OSH to for read by radiologist at [facility] -Will consider IR consult based on images read Endo # No acute concerns # Will obtain TSH and FT4 Feeding: _ N.p.o Except for medications in case procedure is needed Analgesia: _ none Sedation: _ none Thrombo-ppx: _ Holding for possible procedure Stress ulcer ppx: _ Pantoprazole Glucose control: _ Monitor Glucose q6 hrs Lines: _ 2 PIV's Dispo: _ MICU Code Status: _ Full Code, confirmed with patient at bedside NOK: _ MICU Critical Care Attending Physician Current critical conditions treated requiring ICU care: ?sepsis, NICMO, LEONILA, lactic acidosis, hepatic injury I saw and evaluated the patient with the resident team. I have reviewed the resident note, labs, imaging, and performed a detailed physical examination of the patient and the findings have been confirmed. I agree with the assessment and plan as documented and/or amended above. I provided 49 minutes of critical care services for this critically ill patient today, not including any time spent performing procedures. Zuleyka Lopez MD Cost Engineer of Anesthesiology and Medicine Electronic Signature on File Electronically Reviewed/Signed by: Niko Chase MD Author Signature Dt/Tm:08/18/2023 01:07 PM Resident Division of Internal Medicine Electronically Reviewed/Signed by: Niko Chase MD Cosigner Signature Dt/Tm: 08/18/2023 01:27 PM Resident Division of Internal Medicine Electronically Reviewed/Signed by: Niko Chase MD Cosigner Signature Dt/Tm: 08/18/2023 02:24 PM Resident Division of Internal Medicine Electronically Reviewed/Signed by: Leann Lopez MD Cosigner Signature Dt/Tm: 08/19/2023 03:32 PM Department of Anesthesia OS Palliative care Consult note * BRADFORD Zavala Cheryl M: MODIFY, PERFORM Event Display: Palliative Care Consult Authored Date: [id number] PALLIATIVE CARE INPATIENT CONSULTATION REPORT Name: RAMON CHAPMAN Patient Number: [id number] : 1950 Date of Service: 09/09/2023 Diagnosis: Cardiogenic shock Atrial tachycardia Acute on chronic clinical systolic heart failure Cholelithiasis Ventricular tachycardia LEONILA (acute kidney injury) Chronic hyponatremia Sepsis Dilated cardiomyopathy REQUESTING SERVICE: Cardiology REQUESTING ATTENDING: Minna Barber MD REASON FOR CONSULTATION: Goals of Care/Advanced care planning ASSESSMENT: 73 year old gentleman transferred from OSH 23 days ago with concerns for an acute HFrEFexacerbation, wide complex tachycardia, PAF, and possible CAP. Brief HPI: Mr. Chapman is a pleasant 73 year old gentleman with significant cardiac and pulmonary history who presented to a hospital close to home with complaints of abdominal pain, nausea, and JUAN. During evaluation of possible cholelithiasis, patient was found to be tachycardic and underwent XR ofthe chest (revealing cardiomegaly and chronic interstitial thickening and opacities), CT of the abdomen/pelvis (demonstrating enlarged liver, cirrhosis, small to moderate pleural effusion, market cardiomegaly, calcified gallstones with a distended gallbladder). Further work up cleared the concern for acute cholecystitis. His stay was then complicated by an acute onset of chest tightness, syncopalepisode, tachycardia (130-160) and wide complex tachycardia on telemetry. Due to follow up results of a CT Angio of the chest and a TTE, transfer to a higher level of care was determined to be necessary. Upon consultation, patient is able to provide good background information and expresses his clear understanding of his current clinical picture. He is able to clearly discuss his goals and the potential limitations he may face as his condition worsens. He reports that when his quality of life suffers, he will likely transition to hospice. In the interim, he will continue to seek guidance from hiscardiologist and palliative care in his area if he feels it beneficial. He reports being sore from being in bed so long and is looking forward to being at home where he can move about independently. Family participates in the conversation appropriately and acknowledges that time may be short; they are already processing the days and weeks to come. CHIEF COMPLAINT: Eager to leave; feels he will be better rested at home. ## Code Status/Level of Support -- Was listed as total support. Reviewed this with Malcolm and family and he does NOT want cardiac resuscitation nor intubation. -- Please change status to DNR/DNI (limited support) ## Goals of Care -- Malcolm's number one goal is discharge to home, which he hopes will be tomorrow. -- Malcolm expresses willingness to trial home Milrinone but notes if it interferes to much in his homelife and affects his quality of life, he will not proceed further. -- Malcolm wishes to spend as much time with his family as is possible, noting he has a large loving family and a lot of dear friends. -- Malcolm is hopeful to have a home ; ultimately hopeful to just in his sleep. ## Advanced Care Planning/HCPOA -- Completed (at their home). Malcolm names his Jovon as his primary agent and his daughter Rosyeas his alternate. -- Malcolm reports that he has a living will that was done some time ago; encouraged him to review it and confirm his wishes are still the same. -- Encouraged family to continue ongoing discussions regarding Malcolm's wishes (what would and would not be acceptable), which family agrees will ease decision making if/when he is unable to do so himself. ## Follow up -- Per family, they will schedule a clinic visit with a graphic manager from here that makes occasional trips to the [place] area to follow with [facility] patients. -- Will provide family with a palliative providers name & number closer to their home that theycan connect with. We will send a referral and notes from our department to: Palliative Care, [place]. -- Did discuss hospice care and what role they may play in the days/weeks/months to come. They are open to this and will seek more information once they are home. ## Communication -- Collaborated with primary RN -- Collaborated with primary team -- Collaborated with palliative team in [place] ADDITIONAL HISTORY: Illness Understanding: Patient and family appear to have a good understanding of his heart failure,the purpose of the milrinone, and the limited prognosis. Realistic in their understanding and trajectory of the disease. Communication Preferences: Patient and family request straight-forward information regarding diagnosis & prognosis. Social History: Grew up in an orphanage and foster homes; met his spouse years later when he went to visit the orphanage and she happened to work there. They (Malcolm & Jovon) have been 53 years. They have two children (Jennifer & Ramon) and five grandchildren (Dasia, Mariela, Aric, Johnny, Evert). 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 He likes to "sam". History: [employer] (3 yrs); connected to the [place] Spirituality: Very faithful. Currently enjoys watching pentecostalism services from home. Starts his day inprayer and ends his day with prayer. Feels very supported in this regard. Expresses no concerns with and dying. Prognosis: Per family, they were advised 6 months +/-. Functional Status: Currently weak and frail; patient attributes this to his 4 weeks of being in thehospitals and having to remain in bed for so long. He also does not like the hospital food. It is his belief that in getting home, he will be more comfortable, sleep better, eat better, and be able to exercise more which will increase his functional status. We spoke about the challenges of recoveryafter a long hospitalization and the necessity of taking things slowly and safely, especially in light of the new milrinone requirement. PDMP: reviewed; no concerns noted. PAST MEDICAL HISTORY: Cardiogenic shock, arthritis, skin lesions (BCC), hernia, meniscus tear (left), falls, pneumothorax, rib fractures (left, 5-8), HTN, CAD, Interstitial lung disease, CHF, VTach, gastric ulcer, BPH, Osteoarthritis, chronic pain, liver cirrhosis PAST SURGICAL HISTORY: Procedure Procedure Date Comments Hernia repair - [id number] Surgery - 2007 and 2009 meniscus: knee repair right knee Shave biopsy and cauterization of skin 01/31/2016 - with curettage Pacemaker 07/2014 - pacemaker/defibrillator placement Procedure 1953 - eye surgery FAMILY HISTORY: Reviewed. + cancer history (mother: bladder). No CHF history. No stroke history. + for liver disease (father) REVIEW OF SYSTEMS: as noted in the HPI, comprehensive review of all other systems are negative. PHYSICAL EXAM: Constitutional: Resting in bed; Appears stated age; NAD Eyes: anicteric sclera, normal lids, no discharge noted; + for corrective lenses ENMT: moist mucous membranes, patent nasal passages; neck supple Cardiovascular: RRR; mild edema present in BLE Respiratory: Equal rise & fall; no increased work of breathing; on room air Abdomen: Soft, non-tender Musculoskeletal: Moves all extremities spontaneously Skin: Warm, dry, intact Neuro: grossly non-focal Psych: non-anxious; normal mood & affect MEDICATIONS: Active Inpt Meds: amiodarone 200 mg PO bid amiodarone 200 mg PO Daily apixaban (Eliquis) 5 mg PO bid atorvastatin 10 mg PO qhs bumetanide 2 mg PO bid (6a - 2p) cholecalciferol (Vitamin D3) 75 mcg PO Daily dapagliflozin 10 mg PO Daily ferrous sulfate 325 mg PO Daily fluticasone nasal (Flonase 50 mcg/inh nasal spray) 50 mcg each nostril Daily gabapentin 300 mg PO tid lidocaine topical (lidocaine 4% patch) 1 patch transdermal q24h metoprolol (metoprolol succinate (ER)) 25 mg PO Daily multivitamin 1 tab PO Daily pantoprazole 40 mg PO Daily senna 8.6 mg PO bid spironolactone 12.5 mg PO Daily Active PRN Meds: acetaminophen (Tylenol) 650 mg PO q8h albuterol (albuterol CFC free 90 mcg/inh MDI) 2 puff inhaled qid calcium carbonate (Tums 500 mg oral tablet, chewable) 500 mg PO qid dextrose (Dextrose 50% syringe) 50 mL IV Push As indicated diphenhydrAMINE (Benadryl) 25 mg PO qhs melatonin (Melatonin) 3 mg PO qhs polyethylene glycol 3350 (MiraLax) 17 g PO Daily One Time Meds: (Completed) alteplase (Cathflo Activase 2 mg / 2 mL) 1 mL w/ intracatheter ONCE(Completed) calcium gluconate 1,000 mg w/ IV ONCE(Completed) lidocaine patch off 1 patch_OFF w/ transdermal ONCE(Ordered) lidocaine patch off 1 patch_OFF w/ transdermal ONCE(Completed) sodium phosphate 15 mmol w/ IV ONCE Active IV Meds: milrinone 20 mg [0.375 mcg/kg/min] + Dextrose 5% in Water 100 mL (milrinone for infusion 20 mg [0.375 mcg/kg/min] + dextrose 5% (normalized drips) 100 mL) 100 mL 7.48 mL/HR Allergies and Sensitivities: morphine(Confusion) Vitals: Last Updated 09/09/23 13:50 Weights: Last Updated 09/09/23 05:08 Date Temp Pulse BP RR SpO2 FIO2 Date Wt(kg) Wt(lb) 09/09 13:50 36.2 99 91/67 18 98 09/09 05:08 69.7 153 09/09 09:38 101 09/08 06:07 72.0 158 09/09 09:23 35.9 100 107/66 18 99 09/07 04:00 72.0 158 09/09 04:53 36.0 86 95/71 18 97 09/06 04:09 72.4 159 09/08 23:17 36.0 101 106/89 16 95 09/05 06:20 73.3 161 24 Hr Tmax: 36.2 at 09/09 13:50 Initial Wt: 08/18 74.1 kg 163 lb Today's Labs: 09/09/23 0822 Estimated CrCl 37.86 09/09/23 0733 RDW 13.2 MCV 92.1 Hgb 10.2 L MPV 9.9 MCHC 33.8 RBC 3.28 L Plts 242 Hct 30.2 L MCH 31.1 WBC 12.73 H Ion Ca 1.03 L PO4 3.2 K 4.0 Cret 1.61 H HCO3 25 eGFR CKD-EPI 45 L Ca 7.9 L Mg 2.0 BUN 46 H Na 119 CL Cl- 84 L Glu 231 H Anion Gap 10 D Bili 1.0 H Alk Phos 431 H ALT 95 H AST 56 H T Bili 2.0 H Prot 6.0 L Alb 2.7 L 09/09/23 0724 WBC REQUEST CREDITED RBC REQUEST CREDITED Hgb REQUEST CREDITED Hct REQUEST CREDITED MCV REQUEST CREDITED MCH REQUEST CREDITED MCHC REQUEST CREDITED RDW REQUEST CREDITED Plts REQUEST CREDITED MPV REQUEST CREDITED Mg REQUEST CREDITED Na REQUEST CREDITED K REQUEST CREDITED Cl- REQUEST CREDITED HCO3 REQUEST CREDITED BUN REQUEST CREDITED Cret REQUEST CREDITED Glu REQUEST CREDITED Ca REQUEST CREDITED PO4 REQUEST CREDITED Anion Gap REQUEST CREDITED eGFR CKD-EPI REQUEST CREDITED Ion Ca REQUEST CREDITED Alk Phos REQUEST CREDITED ALT REQUEST CREDITED D Bili REQUEST CREDITED AST REQUEST CREDITED T Bili REQUEST CREDITED Alb REQUEST CREDITED Prot REQUEST CREDITED 09/08/23 1538 Estimated CrCl 32.08 09/08/23 1459 Anion Gap 12 Cl- 86 L Ca 8.3 L BUN 52 H Glu 117 H K 4.2 eGFR CKD-EPI 36 L PO4 2.7 HCO3 23 Cret 1.90 H Na 121 L Alb 2.7 L 09/08/23 1036 Glu (u) >=500 Ketones NEGATIVE Prot (u) NEGATIVE Urobili 0.1-1.0 Hgb (u) NEGATIVE Color (u) YELLOW Leuk Est NEGATIVE Bili (u) NEGATIVE Creat (u) 18.65 pH (u) 6.0 Nitrite (u) NEGATIVE Appear (u) CLEAR SG 1.005 Urea Nitro (u) 268 09/08/23 0638 Estimated CrCl 32.08 09/08/23 0545 MPV 10.1 RBC 3.26 L MCHC 34.2 Hct 30.1 L Plts 247 WBC 13.02 H MCH 31.6 Hgb 10.3 L RDW 13.3 MCV 92.3 HCO3 24 PO4 3.0 Ion Ca 1.08 L Na 118 CL Mg 2.1 Anion Gap 10 Cret 1.90 H Ca 8.3 L Cl- 84 L BUN 49 H Glu 149 H K 4.3 eGFR CKD-EPI 36 L D Bili 1.1 H Alk Phos 380 H ALT 113 H AST 67 H T Bili 2.0 H Prot 6.1 L Alb 2.8 L 09/07/23 0539 Estimated CrCl 32.77 09/07/23 0435 MCV 93.8 MPV 9.9 RBC 3.39 L MCHC 32.7 Hct 31.8 L Plts 263 WBC 15.63 H MCH 30.7 Hgb 10.4 L RDW 13.3 Ion Ca 1.03 L BUN 51 H Mg 2.1 K 4.2 eGFR CKD-EPI 37 L Glu 104 HCO3 22 PO4 3.0 Na 123 L Anion Gap 11 Cret 1.86 H Ca 7.7 L Cl- 90 L Alk Phos 353 H ALT 136 H T Bili 2.3 H D Bili 1.2 H AST 100 H Alb 2.9 L Prot 6.1 L 09/06/23 0526 Estimated CrCl 31.58 09/06/23 0431 MCV 93.8 MPV 9.7 RBC 3.40 L MCHC 33.2 Hct 31.9 L Plts 286 WBC 9.20 MCH 31.2 Hgb 10.6 L RDW 13.3 BUN 62 H K 3.7 eGFR CKD-EPI 36 L Glu 93 HCO3 22 PO4 3.1 Na 125 L Anion Gap 11 Cret 1.93 H Mg 1.8 Ca 7.7 L Cl- 92 L Alk Phos 304 H ALT 148 H D Bili 1.2 H T Bili 2.2 H AST 147 H Alb 2.6 L Prot 5.7 L 09/06/23 0430 Ion Ca 0.98 L 09/05/23 0601 Blood Glucose 115 09/05/23 0600 Gluc Meter 115 H 09/05/23 0544 Estimated CrCl 27.83 09/05/23 0453 RDW 13.4 MPV 9.9 MCV 91.7 RBC 3.49 L MCHC 33.4 Plts 328 Hct 32.0 L MCH 30.7 WBC 10.99 H Hgb 10.7 L BUN 67 H Glu 97 K 4.5 eGFR CKD-EPI 31 L HCO3 20 L PO4 3.9 Mg 2.0 Na 125 L Anion Gap 14 Cret 2.19 H Ca 8.1 L Cl- 91 L Alk Phos 335 H D Bili 1.3 H ALT 155 H T Bili 2.4 H AST 184 H Alb 2.8 L Prot 6.1 L 09/05/23 0452 Ion Ca 1.12 L 09/04/23 2310 Gluc Meter 86 Blood Glucose 86 09/04/23 1651 Estimated CrCl 25.19 09/04/23 1603 Blood Glucose 148 H 09/04/23 1550 Gluc Meter 148 H 09/04/23 1548 HCO3 21 L PO4 4.6 H Mg 2.2 Na 121 L Anion Gap 12 Cret 2.42 H Cl- 88 L Ca 8.8 BUN 68 H Glu 151 H K 5.0 eGFR CKD-EPI 27 L Ion Ca 1.18 Alb 2.9 L 09/04/23 1210 Blood Glucose 114 09/04/23 1209 Gluc Meter 114 H 09/04/23 0700 Gluc Meter 107 09/04/23 0531 Estimated CrCl 28.89 09/04/23 0409 WBC 11.67 H MCH 30.7 Hgb 10.3 L RDW 13.2 MCV 91.4 MPV 9.9 RBC 3.36 L MCHC 33.6 Hct 30.7 L Plts 355 H Ion Ca 1.10 L BUN 67 H Glu 100 K 5.2 H eGFR CKD-EPI 32 L PO4 4.7 H HCO3 21 L Mg 2.2 Cret 2.11 H Na 125 L Anion Gap 13 Cl- 91 L Ca 8.7 D Bili 1.0 H T Bili 2.2 H Alk Phos 242 H AST 109 H ALT 105 H Alb 2.7 L Prot 6.1 L 09/03/23 2132 Gluc Meter 124 H 09/03/23 1720 Estimated CrCl 26.62 09/03/23 1632 Blood Glucose 118 09/03/23 1629 Gluc Meter 118 H 09/03/23 1625 K 4.9 eGFR CKD-EPI 29 L Glu 125 H HCO3 20 L Mg 2.2 PO4 5.2 H Na 123 L Anion Gap 14 Cret 2.29 H Ca 9.2 Cl- 89 L Ion Ca 1.19 BUN 66 H Alb 2.9 L 09/03/23 1147 Gluc Meter 124 H Blood Glucose 124 H 09/03/23 0632 Gluc Meter 96 09/03/23 0520 Estimated CrCl 31.10 09/03/23 0431 RDW 13.5 MPV 10.1 MCV 94.0 MCHC 33.1 RBC 3.69 L Hct 34.7 L Plts 346 MCH 31.2 WBC 12.73 H Hgb 11.5 L eGFR CKD-EPI 35 L Mg 2.2 Ion Ca 1.12 L Ca 9.0 BUN 58 H K 5.3 H Glu 100 PO4 4.9 H HCO3 20 L Cret 1.96 H Na 125 L Anion Gap 13 Cl- 92 L D Bili 0.8 H ALT 90 H AST 72 H Alk Phos 264 H T Bili 2.0 H Prot 6.5 Alb 2.8 L 09/02/23 1946 HCO3(v), POC 21.2 L pH (v), POC 7.379 SaO2(v), POC 42 pO2 (v), POC 23 L pCO2 (v), POC 35.6 L Temp(v) 36.2 Base Deficit (v), POC 4 Hgb, POC 12.9 Hct, POC 38 Ion Ca(wb), POC 1.25 Glu (wb), POC by IStat 115 H Na (wb), POC 127 L K (wb), POC 4.6 09/02/23 1710 K 5.1 eGFR CKD-EPI 41 L Glu 138 H PO4 4.4 HCO3 19 L Na 122 L Cret 1.73 H Anion Gap 11 Ion Ca 1.10 L Cl- 92 L Mg 2.2 BUN 52 H Ca 9.2 Alb 2.9 L 09/02/23 1659 Gluc Meter 154 H XR Chest (09/06) Impression: Left chest pacemaker. Unchanged enlarged cardiopericardial silhouette. Prominent central pulmonary vasculature. Unchanged mid and lower lung interstitial and airspace parenchymal opacities, ranged abdullahi cephalocaudal gradient, likely representing pulmonary edema. Small pleural effusions. No pneumothorax. No acute osseous abnormality. Congestive heart failure, without significant change or improvement from prior. US Retroperitoneal (08/26) Impression: 1. Unremarkable sonographic appearance of both kidneys. 2. Decompressed bladder with Wilson catheter in place. I verify that I have reviewed all laboratory results and imaging pertaining to this patient. Thank you for allowingcollaborative care on this patient. [facility] can be [facility]. Palliative care will continue to follow throughout his stay. I, BRADFORD Lieberman spent95 minutes on this patient encounter, with greater than 50% of time spent in counseling and/or care coordination as noted above. Electronic Signature on File Electronically Reviewed/Signed by: BRADFORD Bryant Author Signature Dt/Tm:09/10/2023 03:05PM Division of Palliative Care [facility] Nephrology Consult * MD Ruff Muhammad: MODIFY MD Ruff Muhammad: MODIFY, PERFORM Event Display: Nephrology Consult Authored Date: [id number] NEPHROLOGY INPATIENT CONSULTATION REPORT Name: RAMON CHAPMAN Patient Number: [id number] : 1950 Date of Admission: 08/18/2023 Date of Service: 08/25/2023 REQUESTING PHYSICIAN'S NAME: MD Nath Amit A REASON FOR CONSULTATION: _ Hyponatremia and LEONILA on CKD ASSESSMENT: _ Mr. Chapman is a 73 year old male who presented as a transfer from [facility] to the MICU for cholelithiasis with concern for sepsis, LEONILA, nonischemic cardiomyopathy, and hepatic injury. Patient was found to be in cardiogenic shock and started on dobutamine on 08/19. Other PMH includes n onischemic cardiomyopathy s/p biventricular ICD placement, HFrEF (EF22 % 08/19/23), HTN, CAD, interstitial lung disease/idiopathic interstitial pneumonia, paroxysmal atrial fibrillation, and atrial tachycardia (per outside [facility] medical record). On 08/22 patient was started on Amiodarone secondary to concern for ventricular tachycardia. After further evaluation, likely atrial flutter leading to the wide complex tachycardia. Heart Failure service was consulted for guideline directed medical therapy. He was noted with worsening LEONILA and hyponatremia, hence, nephrology were consulted # Non-oliguric LEONILA, Likely ischemic ATN element is present, it was stable but started to worsen over the last few days likely overdiuresis FeNa/FeUrea is consistent with pre renal # Chronic hyponvolemic hyponatremia, likely related to overdiuresis RECOMMENDATIONS: _ 1 ) _ Recommend aiming for net even balance, can use IV NaCl 0.9% at 75 mlhr to achieve that 2 ) _ Recommend close monitoring of sodium, kindly make sure to check it every 6 hours. Target correction is 6 meq over the next 24 hours 3 ) _ US retroperitoneal 4) _ Avoid nephrotoxic agents 5) _ Monitor nephrology panel daily 6) _ Daily serum and urine osm and urine sodium The patient was discussed with the attending on the day of service, , who agrees with the assessment and plan except as detailed below. Note written By Dr Dontrell Drew PGY4, Nephrology HPI: _ Mr. Chapman is a 73 year old male who presented as a transfer from [facility] to the MICU for cholelithiasis with concern for sepsis, LEONILA, nonischemic cardiomyopathy, and hepatic injury. Patient was found to be in cardiogenic shock and started on dobutamine on 08/19. Other PMH includes n onischemic cardiomyopathy s/p biventricular ICD placement, HFrEF (EF22 % 08/19/23), HTN, CAD, interstitial lung disease/idiopathic interstitial pneumonia, paroxysmal atrial fibrillation, and atrial tachycardia (per outside [facility] medical record). On 08/22 patient was started on Amiodarone secondary to concern for ventricular tachycardia. After further evaluation, likely atrial flutter leading to the wide complex tachycardia. Heart Failure service was consulted for guideline directed medical therapy. He was noted with worsening LEONILA and hyponatremia, hence, nephrology were consulted PAST MEDICAL HISTORY: Problems: Cardiogenic shock Arthritis Skin lesion Rib pain on left side Pacemaker Hospital Day: 7 Surgical Hospital Day/Procedure: POD#: 4 - Diagnostic Cardiac Catheterization POD#: 4 - Right Heart Catheterization MEDICATIONS: Active Inpt Meds: aspirin 81 mg PO Daily atorvastatin 10 mg PO qhs cholecalciferol (Vitamin D3) 75 mcg PO Daily ferrous sulfate 325 mg PO Daily fluticasone nasal (Flonase 50 mcg/inh nasal spray) 50 mcg each nostril Daily gabapentin 400 mg PO tid heparin 5,000 unit subQ q8h lidocaine topical (lidocaine 4% patch) 1 patch transdermal q24h lidocaine topical (lidocaine 4% patch) 1 patch transdermal q24h multivitamin 1 tab PO Daily pantoprazole 40 mg PO Daily polyethylene glycol 3350 (MiraLax) 17 g PO Daily senna 8.6 mg PO bid Active PRN Meds: acetaminophen (Tylenol) 650 mg PO q8h albuterol (albuterol CFC free 90 mcg/inh MDI) 2 puff inhaled qid calcium gluconate 2,000 mg IV As indicated dextrose (Dextrose 50% syringe) 50 mL IV Push As indicated dextrose (Dextrose 50% syringe) 25 mL IV Push As indicated lidocaine (lidocaine 1% injectable solution) 1 mL subQ As indicated magnesium sulfate 2,000 mg IV As indicated magnesium sulfate 4,000 mg IV As indicated melatonin (Melatonin) 3 mg PO qhs ondansetron (Zofran) 4 mg IV Push q6h Active IV Meds: DOBUTamine 500 mg [5 mcg/kg/min] + Dextrose 5% in Water 250 mL (DOBUTamine 500 mg [5 mcg/kg/min] + dextrose 5% (normalized drips) 250 mL) 250 mL 9.98 mL/HR EPINEPHrine 4 mg [0.04 mcg/kg/min] + Sodium Chloride 0.9% 250 mL (EPINEPHrine for infusion 4 mg [0.04 mcg/kg/min] + sodium chloride 0.9% (normalized drips) 250 mL) 250 mL 9.98 mL/HR amiodarone 360 mg [0.5 mg/min] + Dextrose 5% in Water 200 mL (amiodarone for infusion 360 mg [0.5 mg/min] + dextrose 5% (normalized drips) 200 mL) 200 mL 16.67 mL/HR insulin regular 100 unit + Sodium Chloride 0.9% 100 mL (insulin regular for infusion 100 unit + sodium chloride 0.9% (normalized drips) 100 mL) 100 mL Per Protocol Allergies and Sensitivities: morphine(Confusion) SOCIAL HISTORY: _ FAMILY HISTORY: _ Non contribuitory ROS: (Eliseo with an X to the left of the System if asked and negative; otherwise detail under Symptoms) System Symptoms (details) _ Constitutional No fever X Eyes _ X Ears, Nose, Mouth, Throat _ _ Cardiovascular No chest pain _ Respiratory No cough X Genitourinary _ _ Gastrointestinal No nausea x Musculoskeletal _ X Skin _ X Neurologic _ X Psychiatric _ X Endocrine _ X Hematologic/Lymphatic _ X Allergic/Immunologic _ VITAL SIGNS AND EXAM: Vitals Temp Pulse BP RR SpO2 FIO2 Date Wt(kg) Wt(lb) 08/25 08:03 36.9 84 97/67 20 93 RA 08/25 69.4 153 08/25 07:00 36.9 86 100/70 22 95 08/24 66.5 146 08/25 06:00 36.9 86 99/72 23 97 08/24 66.5 146 08/25 05:00 36.8 84 103/68 20 94 08/23 64.5 142 08/25 04:00 36.6 114 114/73 18 100 08/22 65.0 143 24 Hr Tmax: 36.9 at 08/25 08:03 36 Hr Tmax: 36.9 at 08/25 08:03 Vital Signs are the last 5 in the past 48 hours. Weights display the last 5 within 7 days. Initial Wt: 08/18 kg 163 lb Recorded Input Output Balance 08/24 7a-3p 652 100 552 3p-11p 2008 620 1388 11p-7a 415 1840 -1424 24 Total 3077 2560 516 08/23 7a-3p 190 650 -460 3p-11p 47 350 -303 11p-7a 215 0 215 24 Total 452 1000 -548 Refer to the I-VIEW - I and O tab for details Physical Exam: General: _ On bed, not in distress HEENT: _ Mild pallor Neck: _ no JVD Cardiac: _ RRR Lungs: _ Clear Abdomen: _ SOft lax Back: _ nO SACRAL EDEMA Extremities: _ No LL edema Neuro: _ Alert Skin: _ No skin rash LABS: Most Recent 24 Hour CBC/BMP Results CBC: on 08/25/2023 03:03 Nephrology Panel: on 08/25/2023 03:03 11.6 119 79 64 13.0 241 142 33.6 4.4 23 2.52 Ca = 10.1 Most Recent 24 Hour Labs: 08/25/23 0750 Gluc Meter 128 H 08/25/23 0506 Lactate, Whole Blood 2.0 H 08/25/23 0440 Estimated CrCl 24.19 08/25/23 0303 Temp(v) 36.8 HCO3(v) 23.7 L Hgb(v) 12.9 SaO2(v) 71.3 pCO2(v) 43.0 pH(v) 7.350 pO2(v) 43.0 Base Defic(v) 2.0 FiO2 (v) ROOM AIR MCH 31.0 MCHC 34.5 MCV 89.8 RBC 3.74 L MPV 10.8 RDW 12.8 Anion Gap 17 H BUN 64 H Ca 10.1 Ion Ca 1.23 Cl- 79 CL HCO3 23 Cret 2.52 H Glu 142 H K 4.4 Mg 2.1 Na 119 CL PO4 5.7 H eGFR CKD-EPI 26 L INR 1.5 H PT 18.2 H PTT 36 H Alk Phos 212 H ALT 666 H AST 701 H D Bili 0.5 H T Bili 1.0 Alb 3.5 Prot 7.3 08/24/23 2246 Procalcitonin. 1.24 H CReacProt 6.55 H 08/24/23 2155 O2 Flow (v) ROOM AIR 08/24/23 2110 Creat (u) 78.88 Na (u) 20 Osmol (u) 408 Urea Nitro (u) 414 08/24/23 1617 Blood Glucose 215 H 08/24/23 0849 Lactate 3.3 H eGFR CKD-EPI: 26 OTHER LABS: RELEVANT IMAGING: RELEVANT CULTURES: Attending Attestation: I reviewed the history and clinical data, examined the patient, and discussed the plan with the nephrology fellow, Dr. Dontrell Drew, on the date of service. I agree with the findings and plan as outlined above. Recommendations were communicated to the primary team in person. Omaira Ruff MD [facility] Nephrology Electronic Signature on File Electronically Reviewed/Signed by: Dontrell Drew MD Author Signature Dt/Tm:08/25/2023 01:57 PM Resident Division of Nephrology Electronically Reviewed/Signed by: Omaira Ruff MD, [facility] Cosigner Signature Dt/Tm: 08/25/2023 09:37 PM Division of Nephrology AM * MD Negra, Shailesh: PERFORM, MODIFY Event Display: EP Inpt Consult Authored Date: [id number] ELECTROPHYSIOLOGY INPATIENT CONSULTATION REPORT Name: RAMON CHAPMAN Patient Number: [id number] : 1950 Date of Service: 08/22/2023 REQUESTING SERVICE: MICU REASON FOR CONSULTATION: Wide complex tachycardia ASSESSMENT: Ramon Chapman is a 73-year-old male with a medical history significant for nonischemic cardiomyopathy (ejection fraction 22% on 08/19/2023), status post [employer]-D, nonocclusive coronary artery disease, interstitial lung disease, paroxysmal atrial fibrillation, history of ventricular tachycardia for whom electrophysiology is consulted regarding wide-complex tachycardia. His ECG and telemetry seem to be consistent with an atrial flutter as the cause of his wide-complex tachycardia in the setting of his known left bundle branch block. He is now off dobutamine and the heart failure team is making recommendations regarding GDMT including metoprolol which will hopefully afford him some rate control. In the interim, he can remain on IV amiodarone though we will remain cognizant of the fact that he carries a history of lung disease and has elevations in his liver enzymes with findings of cirrhosis on imaging. We discussed ablation with him and he seems to be willing to proceed. This can be scheduled on an outpatient basis, but may be considered earlier if his arrhythmia is not well-controlled. 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 He was initially admitted on 08/18/2023 as a transfer from [facility] for acute cholecystitis secondary to cholelithiasis complicated by suspected cardiogenic shock. He has been maintained on a dobutamine drip and cardiology was consulted shortly after admission. He ultimately underwent coronary angiography with right heart catheterization on 08/21 which showed relatively normal right and left-sided filling pressures with a cardiac index of 2.2 (on dobutamine at that time). His coronary angiography showed non-occlusive coronary artery disease. Since his admission he has been noted on telemetry to have multiple episodes of tachycardia, mostlywith ventricular rates in the 140s which appear wide-complex and there has been concern for ventricular tachycardia. He does have a left bundle branch at baseline and there is an ECG from 08/21 showing what appears to be atrial flutter with a ventricular rate of 143 bpm and a left bundle branch block with PVC's. Per his problem-list from outside institutions he does carry history of atrial tachycardia/atrial flutter and believes he has had an ablation in the past but was not clear on the details. His device was placed at [place] by Dr. Lerma. Review Of Systems: A 14 point ROS was performed and is negative except as indicated in the HPI. Past Medical History: Problems: Cardiogenic shock Arthritis Skin lesion Rib pain on left side Pacemaker Surgical History: Procedure History Procedure Procedure Date Comments Hernia repair - [id number] Surgery - 2007 and 2009 meniscus: knee repair right knee Shave biopsy and cauterization of skin 01/31/2016 - with curettage Pacemaker 07/2014 - pacemaker/defibrillator placement Procedure 1953 - eye surgery Family History: FMHx of diabetes Social History: No smoking, alcohol, drug use Allergies and Sensitivities: morphine(Confusion) Active Inpt Meds: aspirin 81 mg PO Daily atorvastatin 10 mg PO qhs carbamide peroxide otic (carbamide peroxide 6.5% otic solution) 5 drop both ears bid cefTRIAXone (Rocephin) 1,000 mg IV q24h cholecalciferol (Vitamin D3) 75 mcg PO Daily doxycycline 100 mg IV q12h ferrous sulfate 325 mg PO Daily heparin 5,000 unit subQ q8h multivitamin 1 tab PO Daily mupirocin topical (mupirocin 2% nasal ointment) 1 appl each nostril bid pantoprazole 40 mg PO Daily polyethylene glycol 3350 (MiraLax) 17 g PO Daily senna 8.6 mg PO bid Active PRN Meds: acetaminophen (Tylenol) 650 mg PO q12h albuterol (albuterol CFC free 90 mcg/inh MDI) 2 puff inhaled qid gabapentin 400 mg PO tid melatonin (Melatonin) 3 mg PO qhs One Time Meds: (Completed) amiodarone 150 mg w/ IV ONCE(Completed) amiodarone 150 mg w/ IV ONCE(Completed) potassium chloride (KCl) 20 mEq w/ PO ONCE Active IV Meds: DOBUTamine 500 mg [2.5 mcg/kg/min] + Dextrose 5% in Water 250 mL (DOBUTamine 500 mg [2.5 mcg/kg/min] + dextrose 5% (normalized drips) 250 mL) 250 mL 5.56 mL/HR amiodarone 360 mg [0.5 mg/min] + Dextrose 5% in Water 200 mL (amiodarone for infusion 360 mg [0.5 mg/min] + dextrose 5% (normalized drips) 200 mL) 200 mL 16.67 mL/HR amiodarone 360 mg [1 mg/min] + Dextrose 5% in Water 200 mL (amiodarone for infusion 360 mg [1 mg/min] + dextrose 5% (normalized drips) 200 mL) 200 mL 33.33 mL/HR Vitals: Last Updated 08/22/23 06:00 Weights: Last Updated 08/22/23 05:02 Date Temp Pulse BP RR SpO2 FIO2 Date Wt(kg) Wt(lb) 08/22 06:00 130 108/85 29 97 08/22 05:02 65.0 143 08/22 05:00 92 104/74 19 97 08/21 04:00 65.1 143 08/22 04:00 36.5 91 92/67 10 99 08/20 05:00 66.6 147 08/22 03:00 124 110/82 21 99 08/19 06:00 68.5 151 08/22 02:00 135 112/88 24 99 08/18 12:28 74.1 163 24 Hr Tmax: 36.5 at 08/22 04:00 Initial Wt: 08/18 74.1 kg 163 lb Physical Exam: General: Awake, alert, well-appearing. NAD. HEENT: Mucous membranes moist Neck: No JVD, No LAD, neck supple Cardiac: Normal rate and regular rhythm, no murmurs/rubs/gallops Lungs: Crackles at bilateral bases. Abdomen: Soft, nontender, non-distended, BS present Extremities: Warm, well perfused Psych: Alert/oriented X3, appropriate mood and affect. Neuro: No gross deficits Skin: Warm, dry, intact. Most Recent 24 Hour CBC/BMP Results CBC: on 08/22/2023 04:47 CMP: on 08/22/2023 04:47 13.8 129 92 31 10.9 291 134 40.7 4.0 26 1.14 Abs Neut = 6.2 Ca = 9.4 Most Recent 24 Hour Labs: 08/22/23 0526 Estimated CrCl 55.00 01/12/24 0447 MCH 31.0 MCHC 33.9 MCV 91.5 RBC 4.45 MPV 9.4 Immature Gran% 0.5 Neut% 56.3 Lymph% 26.7 [place]% 13.5 Baso% 0.6 Eos% 2.4 Immat Gran, Abs 0.05 Lymph, Abs 2.92 [place], Abs 1.47 H Baso, Abs 0.07 Eos, Abs 0.26 Type of Diff: See Flowsheet RDW 14.0 Anion Gap 11 Mg 2.2 PO4 3.0 eGFR CKD-EPI 67 Alk Phos 203 H ALT 183 H AST 108 H T Bili 1.9 H Alb 3.8 Prot 7.7 08/21/23 1050 Temp(a) NOT PROVIDED Temp(v) NOT PROVIDED pH (a), POC 7.433 pCO2 (a), POC 40.8 pO2 (a), POC 85 Base XS(a), POC 3 HCO3(a), POC 27.2 H pH (v), POC 7.414 H pCO2 (v), POC 52.5 H pO2 (v), POC 31 L Base XS(v), POC 7 H HCO3(v), POC 33.6 H SaO2(a), POC 97 SaO2(v), POC 59 Hct, POC 45 Hct, POC 46 Hgb, POC 15.6 Hgb, POC 15.3 Ion Ca(wb), POC 1.21 Ion Ca(wb), POC 1.20 Na (wb), POC 135 L Na (wb), POC 135 L K (wb), POC 3.7 K (wb), POC 3.7 Glu (wb), POC by IStat 110 H Glu (wb), POC by IStat 111 H Studies: Pending or Completed in the Last [address] Abdomen and Pelvis Consult Ordered OO NM Abdomen Consult Ordered Device Check/Reprogram Ordered Device Check/Reprogram Ordered Electronic Signature on File Electronically Reviewed/Signed by: Shailesh Omer MD Author Signature Dt/Tm:08/22/2023 10:50 AM Resident [facility] [place] Electronically Reviewed/Signed by: Mahin Whitmore MD Cosigner Signature Dt/Tm: 08/22/2023 04:17PM Division of General Cardiology JR * Mahin Whitmore: PERFORM Event Display: EP Inpt Consult Authored Date: [id number] I have seen and evaluated the patient. I agree with Dr. Omer's note as written The patient continues to go in and out of atrial flutter. He has robust AV amina conduction so unfortunately yields 2:1 AVN conduction with left bundle branch block and rapid ventricular rate In the acute setting I agree with amiodarone but he may require ablation in the future which may stefan more ideal option considering his medical history and morbidities. With him being off inotrope now and starting HF GDMT this will hopefully add to his rhythm or at least rate control. Digoxin is anoption but the amiodarone was just recently started and we should give it a chance to work. With him going in and out of arrhythmia cardioversion is not warranted He lives near [place]. I think he would be best served at least following initially with Dr Gamboa there. I can follow through with again ablation plans Electronic Signature on File Electronically Reviewed/Signed by: Mahin Whitmore MD Author Signature Dt/Tm:08/22/2023 04:21 PM Division of General Cardiology .D/C Summary * DO Gunn Bradley Scott: PERFORM DO Gunn Bradley Scott: PERFORM Event Display: .D/C Summary Authored Date: [id number] [facility] For medical concerns, call: . Address: [address] [place] [address] [id number] (MOBILE) :1950 . Date of Admission:08/18/2023 Date of Discharge:09/10/2023 Physician:MD Blunt Nandini Service:Cardiology Discharge Disposition: Primary Care Provider/Phone: BRADFORD AGUIRRE LESTER C (BUSINESS) [phone] (FAX BUSINESS) Principal Diagnosis: Cardiogenic shock Other Diagnoses: Sepsis Cholelithiases Atrial tachycardia Ventricular tachycardia Dilated cardiomyopathy LEONILA (acute kidney injury) Acute on chronic clinical systolic heart failure Chronic hyponatremia Counseling regarding advance care planning and goals of care Encounter for palliative care Major Tests and Procedures: Diagnostic Cardiac Catheterization 08/21/2023 Right Heart Catheterization 08/21/2023 Hospital Course: Joseph Chapman is a 73-year-old male with aPMH of HTN, CAD, interstitial lung disease/idiopathic interstitial pneumonia, HFrEF, paroxysmal atrial fibrillation, history of ventricular tachycardia and non-ischemic cardiomyopathy status-post biventricular ICD who presented to [facility] direct transfer from [facility] for further evaluation and management of cholelithiasis and IR evaluation for cholecystostomy tube. Patient presented initially with complaints of periumbilical and right upper quadrant pain. CT abdomen and pelvis with IV contrast was obtained which showed liver is enlarged, heterogeneous with morphological changes of cirrhosis, small to moderate pleural effusion with dependent consolidation, marked cardiomegaly, calcified gallstones with distended/thickened gallbladder edematous with pericholecystic infiltration and fluid.Right upper quadrant abdominal ultrasound showed cholelithiasis with abnormal appearing gallbladder. He was s tarted on Zosyn. Patient was seen by surgery for evaluation of cholecystitis and recommended HIDA scan to further evaluate for cholecystitis. HIDA scan was obtained and did not show any evidence ofcystic duct obstruction or evidence of acute cholecystitis per surgery note. Patient was also seen by cardiology for CHF exacerbation and was given IV Lasix with subsequent improvement in his breathing and for his nonischemic cardiomyopathy was advised to continue on metoprolol succinate. Hospital course was complicated by acute onsets of chest tightness with syncopal-like episode, heart rate at that time was ranging between 1 30-1 60 and wide-complex tachycardia noted on telemetry and patient w as given 50 mg of metoprolol IV. CT angio of the chest showed elevated right heart pressure, small pleural effusion, pulmonary edema, opacities in the dependent lower lobes bilaterally represented atelectasis. Transthoracic echo performed on August 16 showed mildly dilated left ventricle with EF of 15 to 20%, global hypokinesia, moderately dilated right ventricle with moderately reduced systolic function and severe biatrial dilatation, severe MR, severe TR. Upon arrival to [facility] blood cultures were obtained. Pt was continued on and started on piperacillin-tazobactam (changed to ceftriaxone on 08/19) and doxycycline. TTEshowed EF 22% with moderate to severe MR and severe TR, cardiac index 1.8. He was aggressively diuresed and started on dobutamine inf usion. Cardiology was consulted. Right and left heart cath on 08/21showed non-occlusive atherosclerotic CAD, Jose Manuel CO 2.91 with PCW 14.He was weaned off dobutamine on 08/22, started on GDMT withmetoprolol, spironolactone, & dapagliflozin.He had episodic non-sustained VT, electrophysiology consulted and amiodarone infusion started, he required further support with vasopressors and inotropes, these were weaned, milrinone was titrated up to 0.375 mcg/kg/min which he will continue at home as a palliative measure. Exam on Discharge: Vitals & Measurements: T:36C TMIN:35.8C TMAX:36.4C HR:97(Monitored) RR:16 BP:84/60 SpO2:98% Oxygen Therapy:Room air WT:72.5kg General:No apparent distress, cooperative, seen in bed. HEENT:MMM, no scleral icterus. Neck:No JVD. Cardiac:Regular rate, extremities well-perfused. Lungs:No accessory muscle use, speaks in full sentences, full inspiration/expiration with good effort. Abdomen:Soft, non-tender, non-distended. Extremities:No LE edema. Neuro:A&Ox3, CN II-XII grossly intact. Skin:Warm/dry, no rashes noted. NYHA Heart Failure Class: NYHA Heart Failure Class II - Mild HF; symptomatic with moderate exertion Medication indication for use are noted under the principal diagnosis Discharge Medications: 1.Metoprolol (Metoprolol Succinate ER) 25 mg by mouth once daily. 2.Multivitamin 1 tab by mouth once daily. 3.Raritan-3 polyunsaturated fatty acids (Fish Oil oral capsule) 2 cap by mouth once daily. 4.Atorvastatin (atorvastatin 10 mg oral tablet) 10 mg (1 tab) by mouth at bedtime. 5.Pantoprazole (pantoprazole 40 mg oral delayed release tablet) 40 mg (1 tab) by mouth once daily. 6.Albuterol (albuterol CFC free 90 mcg/inh MDI) 2 puff Inhalation 4 times daily, as needed for wheezing. 7.Ferrous sulfate (ferrous sulfate 325 mg (65 mg elemental iron) oral tablet) 325 mg (1 tab) by mouth once daily. 8.Cholecalciferol (Vitamin D3) 3000 IU by mouth once daily. 9.Apixaban (Eliquis 5 mg oral tablet) 5 mg (1 tab) by mouth 2 times daily. 10.Fluticasone nasal (Flonase 50 mcg/inh nasal spray) 50 mcg (1 spray) in each nostril once daily. 11.Amiodarone (amiodarone 200 mg oral tablet) 200 mg (1 tab) by mouth once daily. Take 200mg twice daily until Sep 11. Then starting Sep 2, take 200mg once daily.. 12.Milrinone (milrinone infusion) See Infusion Instructions intravenously As indicated. IV milrinone 0.375mcg/kg/min. Continuous infusion.. 13.Gabapentin (gabapentin 300 mg oral capsule) 300 mg (1 cap) by mouth 3 times daily. 14.Spironolactone (spironolactone 25 mg oral tablet) 12.5 mg (0.5 tab) by mouth once daily. 15.Bumetanide (bumetanide 1 mg oral tablet) 2 mg (2 tab) by mouth 2 times daily. 16.Empagliflozin (Jardiance 10 mg oral tablet) 10 mg (1 tab) by mouth once daily. 17.Chlorothiazide (Diuril 250 mg/5 mL oral suspension) 250 mg (5 mL) by mouth Friday and Friday. Allergies and Sensitivities: morphine (Mild)Confusion Tests Pending: None Follow-Up Tests and Studies After Discharge: Home health will be checking your sodium and renal function once a week. The results will be faxed to your primary care doctor. Scheduled Appointments: You are schedule to be seen by Dr. Kim on October 13 at 12:40pm at [address] [place] [address] [address], [place], [address]. Phone number: [phone] Other Appointments: Follow Up withMartin Services Orded- [facility] [place]. p- [phone] Why: IV meds, supplies and nursing Discharge Services: Service: Organization: Business Address: Phone Number: [facility] [place] [place] [address], [address], [place], [address] Immunizations Received this Hospital Stay: pneumococcal 13-valent vaccine (09/20/2014) pneumococcal 23-valent vaccine (02/01/2014) pneumococcal 23-valent vaccine (05/09/2015) SARS-CoV-2 (COVID-19) Ad26 vaccine (10/20/2020) SARS-CoV-2 (COVID-19) mRNA-1273 vaccine (07/23/2021) tetanus/diphtheria/pertuss, acel (Tdap) (05/21/2023) zoster vaccine live (12/24/2014) . Advance Directive:Living will, Health Care Power of Bilingual Teacher I personally spent30 minutes in discharge planning. Electronic Signature on File Electronically Reviewed/Signed by: Sacha Gunn DO Author Signature Dt/Tm:09/10/2023 12:22 PM Resident Department of Anesthesia Electronically Reviewed/Signed by: Judy Blunt MD Cosigner Signature Dt/Tm: 09/10/2023 07:07 PM Division of Heart Failure Services [facility] Discharge instructions * SHELLI Rivera Madeleine: MODIFY SHELLI Rivera Madeleine: MODIFY, MODIFY Event Display: Patient Discharge Instructions Authored Date: [id number] RAMON CHAPMAN :1950 Visit Date:08/18/2023 Patient Discharge Instructions [facility] For medical concerns, call: . Date of Admission:08/18/2023 Date of Discharge:09/10/2023 Physician:MD Blunt Nandini Service:Cardiology Discharge Disposition:Home . Advance Directive:Living will, Health Care Power of Bilingual Teacher Reason for Hospitalization Cardiogenic shock Your Diagnoses Cardiogenic shock Sepsis Cholelithiases Atrial tachycardia Ventricular tachycardia Dilated cardiomyopathy LEONILA (acute kidney injury) Acute on chronic clinical systolic heart failure Chronic hyponatremia Counseling regarding advance care planning and goals of care Encounter for palliative care [employer] Patient Portal: RRsat makes it easy for you to manage your health information online. My RRsat is a free service that provides you instant, secure access to your medical information anytime, anywhere. Sign in or set up your account today at [email or web address] Thank you for allowing us to assist you with your healthcare needs. If you need additional community resources, [facility] [employer] can help at https://www.[place]211.org. 211 can assist you in connecting with social programs based on your unique needs and locations. 211 is an anonymous search that can help you locate resources for: Food, Housing, Transportation, Goods, Education and Healthcare. Medications Patient is enrolled in Rx-to-Go Program New medications will be delivered from [facility] to patient's room at discharge: Mon-Sun from 9AM-5 PM. Medications MUST be PICKED UP at [facility] if patient is discharged Mon-Sun after 5 PM or anytime on holidays. Please note, the [facility] closes at 8 PM on week and 5:30 PM on Saturdays, Sundays, and holidays. What How Much When Instructions Next Dose New amiodarone (amiodarone 200 mg oral tablet) 1 tab(s) by mouth Once daily Duration: 30 Days Refills: 11 Take 200mg twice daily until Sep 11. Then starting Sep 12, take 200mg once daily. Pickup at [facility] 09/10 9 PM New apixaban (Eliquis 5 mg oral tablet) 1 tab(s) by mouth 2 times daily Duration: 30 Days Refills: 11 Pickup at [facility] 09/29 AM New bumetanide (bumetanide 1 mg oral tablet) 2 tab(s) by mouth 2 times daily Duration: 30 Days Refills: 11 Pickup at [facility] 09/10 3 PM New chlorothiazide (Diuril 250 mg/ 5 mL oral suspension) 5 Milliliter by mouth Friday and Friday Refills: 3 Pickup at [facility] Friday New empagliflozin (Jardiance 10 mg oral tablet) 1 tab(s) by mouth Once daily Refills: 3 Pickup at [facility] 09/11 9 AM New fluticasone nasal (Flonase 50 mcg/ inh nasal spray) 1 spray(s) in each nostril Once daily Duration: 180 Days Refills: 11 Pickup at [facility] 09/11 9 AM New spironolactone (spironolactone 25 mg oral tablet) 0.5 tab(s) by mouth Once daily Duration: 30 Days Refills: 11 Pickup at [facility] 09/11 9 AM Changed gabapentin (gabapentin 300 mg oral capsule) 1 cap by mouth 3 times daily 09/10 3 PM Unchanged albuterol (albuterol CFC free 90 mcg/ inh MDI) 2 puff(s) Inhalation 4 times daily as needed for as needed for wheezing Unchanged atorvastatin (atorvastatin 10 mg oral tablet) 1 tab(s) by mouth At bedtime 09/10 9 PM Unchanged cholecalciferol (Vitamin D3) 3000 IU by mouth Once daily 09/11 9 AM Unchanged ferrous sulfate (ferrous sulfate 325 mg (65 mg elemental iron) oral tablet) 1 tab(s) by mouth Once daily 09/11 9 AM Unchanged metoprolol (Metoprolol Succinate ER) 25 Milligram by mouth Once daily 09/11 9 AM Unchanged milrinone (milrinone infusion) See Infusion Instructions intravenously As indicated IV milrinone 0.375mcg/ kg/ min. Continuous infusion. continuous Unchanged multivitamin 1 tab(s) by mouth Once daily 09/11 9 AM Unchanged omega-3 polyunsaturated fatty acids (Fish Oil oral capsule) 2 cap by mouth Once daily 09/10 9 PM Unchanged pantoprazole (pantoprazole 40 mg oral delayed release tablet) 1 tab(s) by mouth Once daily 09/11 30 min. before 1st meal Pharmacy Information [facility] [place]: [address] [place] [address] RUI Macias [phone] What How Much When Comments Stop Taking aspirin (aspirin 81 mg oral tablet, chewable) 1 tab(s) by mouth Once daily Stop Taking carvedilol (carvedilol 12.5 mg oral tablet) 1 tab(s) by mouth 2 times daily Stop Taking meloxicam (meloxicam 7.5 mg oral tablet) 1 tab(s) by mouth 2 times daily Stop Taking metroNIDAZOLE (metroNIDAZOLE 500 mg oral tablet) 1 tab(s) by mouth Once daily Stop Taking ramipril (ramipril 5 mg oral capsule) 1 cap by mouth Once daily Stop Taking tadalafil (tadalafil 5 mg oral tablet) Allergies morphine (Mild)Confusion What to do next Instructions From Your Doctor You were admitted to [facility] for treatment of heart failure exacerbation and possible cholecystitis. Work-up for cholecystitis was negative and abdominal pain resolved. You were treated with IV diuretics for your heart failure exacerbation. #Heart Failure - You are being discharged on Milrinone 0.375mcg/kg/min. You will be provided with education regarding management of the pump. - You are being discharged on new medications to help with your heart failure: Spironolactone 25mg daily, and Jardiance 10mg daily. - To help prevent fluid build up, you will need to take Bumex 2mg (water pill) twice a day. We are also adding another medication to help with fluid build up called Diuril ( chlorothiazide) 250mg/5mL. You will need to take 5mL on every Friday and Friday - You are schedule to be seen by Dr. Kim on October 13 at 12:40pm at [address] [place] [address] [address], [place], [address]. Phone number: [phone] #Hyponatremia (Low Sodium) - Your sodium was low during this admission. - Home health will be checking your sodium and renal function once a week. The results will be faxed to your primary care doctor. - We encourage you to eat a normal diet. Do Not restrict your sodium intake. #Atrial Fibrillation -For your atrial fibrillation, we started you on a new medication called Amiodarone. Please take Amiodarone 200mg twice daily until 09/11/2023. Start taking Amiodarone 200mg once daily on 09/12/2023. - Continue taking your Metoprolol 25mg daily - Decision was also made to start anticoagulation to prevent stroke. You are being discharged on Eliquis 5mg twice daily. #Palliative Care Follow-up - Palliative care saw you during your hospitalization. - A referral was placed by the [place] [facility] care team. You should be contacted to schedule anappointment. - If you do hear from them to schedule, please call Palliative [facility]. A discharge summary will be sent to your primary care physician to ensure continuity of care. Please bring this discharge summary with you to your next office appointment so that your provider can review it at that time. Follow-up appointments: 1. Keep all your follow-up appointments as already scheduled. If you cannot make an appointment, notify your provider. 2. Please call for an appointment with your primary care provider within 1 week of discharge. Medications: - Your medication list has been reviewed and reconciled upon discharge to ensure accuracy and continuity of care. - You are provided with a list of all your current medications at this time. Please review closely and make note of any changes. - Please take all of your medications exactly as prescribed. - Tell your primary care provider if you cannot afford your medications. - Call your primary care provider if you are having any side effects or any other problems. - Call your primary care provider before taking any over the counter medications or supplements, including herbals and vitamins, because some of these may interact with your current medications and/or make your symptoms worse. It was our pleasure to care for you during your hospitalization. CHF INSTRUCTIONS: Please weigh yourself every day in the morning after your first void and before breakfast. Please keep a list of your weights and bring this to your doctor appointments. If you gain more than 2-3 pounds over night or 4-5 pounds in one week, please notify your heart failure team. If you notice the following symptoms Please call your primary care doctor for symptoms including, but not limited to: fevers (temperatures >100.4 degrees F or 38.1 degrees Celsius),chills, intractable nausea or vomiting, diarrhea, rash, shortness of breath, bleeding, pain, or if you experience any worsening of the symptoms that brought you to the hospital. Foremergencyandvery serioushealth related issues such as seizures, confusion, chest pain, shortness of breath, severe abdominal pain you may need to call 911 or go directly to the Emergency Room. Contact our Careline at . If unable to contact your physician and you feel it is an emergency, go to the nearest Emergency Room or call 911 Diet Instructions Speech Therapy Recommendations: DIET: Please eat a healthy diabetic/cardiac friendly diet as you can tolerate. This includes a diet rich in vegetables and fruits, whole grains, high fiber foods, lean meat and poultry, fish, and fat-free or 1% dairy products. Your diet should be low in sugars, carbohydrates, saturated fat, trans fat, and cholesterol. - No need for sodium restriction Activity Instructions You may resume your previous home activities, but go slowly and pace yourself as tolerated. Always take fall precautions, and ask for assistance as you regain your strength, coordination, and endurance. Follow-Up Appointments Scheduled Follow-Up Appointments - Please schedule a follow-up appointment with your primary care doctor within 7 days of discharge You Need to Schedule the Following Appointments Follow Up withHome Services Orded- [facility] [place] p- [phone] Why: IV meds, supplies and nursing Someone Will Contact You Regarding These Appointments - You will be contacted to schedule an appointment with Palliative care - You will be contacted regarding your cardiology appointment with Dr. Lisa The Following Services Have Been Arranged for You Service: Organization: Business Address: Phone Number: [facility] [place] [address], [address], [place], [address] Tests Pending None Procedures Performed Diagnostic Cardiac Catheterization 08/21/2023 Right Heart Catheterization 08/21/2023 Special Instructions Heart Failure Instructions Heart Failure-You were hospitalized for heart failure. The last ejection fraction of your heart was22%. Your heart failure care tools include the following: DIET Follow a 2000 mg sodium diet ACTIVITY Balance activity with rest periods MEDICATIONS Take all medications that you see on your discharge medication sheet WEIGHT MANAGEMENT Weigh yourself every morning, at the same time, and write it down. Bring a record of your weights to all doctor visits Your weight at discharge was 158 lb. Your goal weight is 158 lb. Compare your weights daily for rapid gain and follow the Zones Green Zone: ALL CLEAR. This zone is your goal Your symptoms are under control. Your weight has not changed by more than two pounds No swelling in feet, legs or abdomen No shortness of breath Yellow Zone: CAUTION - This zone is a warning! Use your Action Plan Weight gain of more than two or three pounds overnight or four or five pounds in a week More short of breath with ususal activity and/or more swelling of feet, ankles, hands or stomach Feeling tired--no energy Dry hacky cough--worse at night No appetite New or increased chest pain Need more pillows to sleep, or now need to sleep in a chair YELLOW ZONE ACTION PLAN Call your graphic manager Red Zone: DANGER - Act now! Short of breath while sitting still Chest pain Confusion/cannot think clearly WHAT TO DO? Call 911 or go to your local emergency room Common Emergency Awareness Tips Call 911 immediately if: experiencing any of the warning signs and symptoms of stroke: B.E. F.A.S.T. Balance: is there trouble with walking or coordination Eyes: is there double vision or visual loss Face: Smile, do both sides of face move equally Arm: Raise arms, do both arms move equally Speech: Is speech slurred or inappropriate Time: Time is critical, call 911 immediately Heart Attack Signs Chest discomfort: Most heart attacks involve discomfort in the center of the chest and lasts more than a few minutes, or goes away and comes back. It can feel like uncomfortable pressure, squeezing, fullness or pain. Discomfort in upper body: Symptoms can include pain or discomfort in one or both arms, back, neck, jaw or stomach. Shortness of breath: With or without discomfort. Other signs: Breaking out in a cold sweat, nausea, or lightheaded. Remember, MINUTES DO MATTER. If you experience any of these heart attack warning signs, call to get immediate medical attention! Education Materials PICC Guide Insertion, Care, and Removal PICC is short for Peripherally Inserted Central Catheter. A PICC is a long, soft, thin, flexible tube that is inserted into a vein in the upper arm and ends in the superior vena cava (SVC), a large vein just above the heart where there is a lot of blood flow (your central circulation). This allows medicines and IV fluids to be quickly distributed throughout the body. Intravenous (IV) therapy is the infusion of liquid substances directly into a vein. A PICC is a form of IV therapy/access that allows intravenous fluids, medications (antibiotics), chemotherapy, and total parenteral nutrition to be given. A PICC is inserted using a sterile technique by a specially trained health care provider. After insertion, correct placement of the PICC is confirmed using a tip confirmation system, and in some instances a portable chest x-ray. If taken care of properly, a PICC can remain in place for several months. A PICC can allow a personin need of further IV therapy to be discharged from the hospital early, either to home or to a rehabilitation facility. PICC care and teaching will be done by a home health care team if discharged tolowber. Potential Problems Problems with a PICC can occasionally occur. These may include the following: Total or partial occlusion of the catheter caused by an accumulation of fibrin and blood cells (thrombus). There is a clot-dissolving medicine that can be given through the PICC to break up the occlusion. Inflammation of the vein (phlebitis) in which the PICC is placed. Signs of inflammation may includeredness, red streaks, pain at insertion site, or being able to feel a cord in the vein where the PICC is located. Upper arm venous thrombosis (clot) of superficial or deep vein. PICC movement (malposition). The PICC tip may move from its original position due to excessive physical activity or forceful coughing, sneezing, or vomiting. Infection in the PICC or at the insertion site. Signs of infection may include fever, chills, redness, swelling, or pus drainage from the PICC insertion site. A break or cut in the PICC. Never use scissors near the PICC. Nerve or tendon irritation or injury during PICC insertion. Activities and Restrictions You may bend your arm and move it freely. Moderate exercise such as walking does not harm your PICC. Avoid strenuous activity or activities that have constant arm movement or reaching such as weight lifting, jumping jacks, or vacuuming. Avoid moving/lifting heavy objects greater than 10 pounds. Avoid carrying bags or purses over your PICC shoulder or using crutches with the PICC arm. Avoid getting the PICC dressing (bandage) wet. When you shower or bathe wrap the PICC arm with plastic wrap and tape closed. Avoid swimming or hot tubs. Do not totally submerse the arm under water even if it is covered as it is difficult to stop water from getting under the PICC dressing. Moisture under the dressing can cause the dressing to fall off and is a source for infection. Care of Your PICC If you are an INPATIENT at a hospital or rehabilitation facility, your PICC care and medication administration will be done by a nurse. If you are DISCHARGED to home, a Community/Home Health Nurse will be assigned to change your dressing and teach you how to give your IV medication. Look at your site once a day. The PICC dressing should be dry and intact. The PICC site should be free from tenderness, redness, swelling, or drainage. Weekly dressing changes are needed and MUST be done ONLY by a nurse (more frequently if dressing gets wet, soiled, or loose). If your dressing looks loose, wet, or soiled, contact your nurse. If needed, reinforce the dressing with tape until the nurse arrives. NEVER REMOVE your PICC dressing. Flush PICC as directed by your nurse. Make them aware if PICC is difficult to flush or does not flush. DO NOT use force to flush PICC. NEVER allow blood pressure checks or blood draws on the PICC arm. NEVER use anything but the supplies provided by your nurse to care for your PICC or administer yourmedications. DO NOT remove your own PICC! Only a trained professional should remove your PICC. Contact your Community/Home Health Nurse if you have a problem or concern. Seek IMMEDIATE Medical Care If: Your PICC is accidentally pulled all the way out. If this happens, cover the insertion site with a bandage or gauze dressing. DO NOT throw the PICC away. Your nurse will need to inspect it. There is any type of drainage, redness, or swelling at the PICC insertion site. You cannot flush the PICC, it is difficult to flush, or the PICC leaks around the insertion site when it is flushed. You hear a flushing sound when the PICC is flushed. You have a pain, discomfort, or numbness in your arm, shoulder, or jaw on the same side as the PICC. You feel your heart racing or skipping beats. You notice a hole or tear in the PICC. You develop chills or fever. PICC Removal and Care A PICC is removed when it is no longer needed (treatment is complete), when it is not working properly (clotted), or when there are complications (swelling of the arm, which could be from a blood clot or infection). Risks and Complications: Generally this is a safe procedure. However, as with any procedure, problems can occur: Bleeding Infection Procedure: DO NOT remove the PICC yourself. An order from a health care provider is needed to remove the PICC. Only a health care provider trained in PICC removal, such as a PICC nurse, should take the PICC out. The PICC may be removed in the hospital or in an outpatient setting. Having a PICC removed is usually painless. Removal of the tape that holds the PICC in place may be the most uncomfortable part. After taking the PICC out the health care provider will hold gentle pressure on the exit site and place a bandage over the exit site. After the Procedure: Do not remove the bandage for 24 hours. When the bandage is removed, the small PICC insertion site may have a small scab. This site may be gently washed with soap and water, but do not remove or pickoff the scab. You do not need to put another bandage on the site. Avoid heavy or strenuous activity for 24 hours after the PICC is removed. This includes things likeweight lifting, strenuous yard work, or any physical activity with repetitive arm movement (baseball, football, etc.). Seek Medical Care If: Call or see your health care provider if you develop any of the following symptoms: Increasing tenderness, pain, or swelling in the PICC arm. Redness or a red streak, bleeding, or drainage from the PICC site. Numbness or tingling in your fingers, hand, or arm that had the PICC. Your PICC arm has a bluish color and is cold to the touch. You start to have chills or a fever. References Johnathon Carpio M.D.,MD [place]. [facility]. Peripherally Inserted Central Catheter (PICC).[email or web address].. [facility]. All About Your Peripherally Inserted Central Catheter (PICC).[email or web address]. [place] [address] [place]: [employer], 2007. Print. Anesthesia records * Services, CPDI: PERFORM Event Display: Sedation & Analgesia Record Authored Date: [id number] Patient Care team information Care Team Personnel Name: BRADFORD Aguirre Lester C Position: Referring Member Role: Primary Care Provider Address: Address: [address] [place] [id number] Name: Lynda Rico Ashley Position: Pharmacist Schedule II Member Role: Pharmacy - Lifetime Name: Lynda Lomeli Mohammed Position: Pharmacist Schedule II Member Role: Pharmacy - Lifetime Care Team Related Persons Name: AVIS JOVON Address: home [address] [place], [place] [address] [phone]
[2023-09-16 07:26] LABS: Basophils # (auto) 0.02 K/uL (0.00-0.20); Basophils % (auto) 0.2 %; Eosinophils # (auto) 0.04 K/uL (0.00-0.50); Eosinophils % (auto) 0.3 %; Hematocrit (blood only) 30.8 % (42.0-52.0); Hemoglobin 10.4 g/dl (14.0-18.0); Immature Granulocytes # (auto) 0.14 K/uL (0.01-0.20); Immature Granulocytes % (auto) 1.2 %; Lymphocytes # (auto) 1.12 K/uL (1.20-3.40); Lymphocytes % (auto) 9.7 %; Mean Corpuscular Hemoglobin 30.3 pg (25.0-34.0); Mean Corpuscular Hgb Conc 33.8 g/dL (32.0-36.0); Mean Corpuscular Volume 89.8 fL (80.0-100.0); Mean Platelet Volume 9.3 fL (9.4-12.4); Monocytes # (auto) 1.22 K/uL (0.11-0.59); Monocytes % (auto) 10.6 %; Neutrophils # (auto) 8.95 K/uL (1.40-6.50); Platelet Count 239 K/uL (130-400); RDW Coefficient of Variation 14.2 % (11.5-14.5); Red Blood Count 3.43 M/uL (4.70-6.10); White Blood Count 11.49 K/ul (4.8-10.8)
[2023-09-16 07:51] LABS: Albumin Level 2.9 gm/dl (3.4-5.0); Bilirubin,Total 4.2 mg/dl (0.2-1.0); Calcium 8.6 mg/dl (8.6-10.3); Magnesium 2.1 mg/dl (1.7-2.4); Potassium 3.7 mmol/L (3.5-5.1)
--- NOTE | 2023-09-16 07:56 | Electrocardiogram Report ---
Test Reason : Blood Pressure : / mmHG Vent. Rate : 105 BPM Atrial Rate : 105 BPM P-R Int : 132 ms QRS Dur : 168 ms QT Int : 428 ms P-R-T Axes : 049 269 076 degrees QTc Int : 565 ms Poor data quality, interpretation may be adversely affected Atrial-sensed ventricular-paced rhythm with intermittent A-V pacing Biventricular pacemaker detected Abnormal ECG When compared with ECG of 17-AUG-2023 10:53, Vent. rate has increased BY 26 BPM Confirmed by Kd Mcdermott ([id number]) on 09/16/2023 7:56:29 AM Referred By: REFERRED SELF Confirmed By:Kd Mcdermott
[2023-09-16 07:57] LABS: Albumin Globulin Ratio 0.9 (0.9-2); BUN Creatinine Ratio 24.9 (10-20); Creatinine Clr Calc Pharmacy 32.1 ml/min; Est GFR (African American) 39.6 ml/min; Est GFR (Non-African American) 34.2 ml/min; Globulin 3.3 gm/dl (2.5-4.0); Phosphorus 4.1 mg/dl (2.5-4.9); Total Protein 6.2 gm/dl (6.0-8.3)
--- NOTE | 2023-09-16 07:58 | Hospitalist Progress Note ---
Date of Service September 16, 2023 Assessment & Plan (1) HFrEF (heart failure with reduced ejection fraction): (2) CHF (congestive heart failure): (3) Acute hypotension: (4) LEONILA (acute kidney injury): (5) Shortness of breath: (6) Acute on chronic systolic heart failure: (7) HTN (hypertension): (8) Hypercholesteremia: (9) Interstitial lung disease: (10) Biventricular ICD (implantable cardioverter-defibrillator) in place: (11) Non-ischemic cardiomyopathy: (12) Chronic hyponatremia: Plan 73 yo male PMHx non-ischemic cardiomyopathy, biventricular ICD, CHF EF 22%, HTN, CAD, ILD, BPH here with 3 days of worsening LE edema and shortness of breath. 1) HFrEF (acute on chronic)/acute hypotension/poor end organ perfusion -Recent EF in [place] showed EF 22%, mod-severe MR, severe TR -Pitting Edema to b/l knees -CXR shows pulmonary edema/congestion -On milrinone pump 0.375mcg/kg/min -Metoprolol 25mg daily, -Spironolactone 12.5mg daily -Amiodarone 200mg BID until 09/11/23 then 200mg daily -Bumex 2mg BID, -Chlorothiazide 250mg Friday and Friday -Has multiple non-sustained runs of Vtach on monitor keep K>4, Mg >2 -BNP, 1701 <-- 2504, HS-trop, 26.2 <-- 30.4 -Albumin 2.7 will give 25g IV to decrease 3rd spacing -Cardiology consulted, recommendations given 2) paroxysmal atrial fibrillation, atrial flutter - continue amiodarone 3) Interstitial lung disease - albuterol, 90 mcg/puff, 2 puffs, QID, PRN 4) Goals of care - Consider palliative care consult: patient was seen by palliative care in [place], considering hospice if clinical condition continues to deteriorate - Patient doesn't have a preference regarding where to spend his remaining days (home or hospital) - confirmed code status with patient 5)LEONILA -Prerenal -Cr 2.12 (1.64 on discharge from [place]) -Hold diuretics for now -Albumin 6)CAD -non occlusive CAD on recent cath -Eliquis 5mg BID 7)HLD -Atorvastatin 10mg daily, -Fish oil 8)Anemia - Hgb, 10.4 -Iron 325mg daily -Vitamin D3 3000IU daily 9) Hypotonic, hyponatremia - Na, 120; osmolality, 265 - likely secondary to CHF - Bumex, 2 mg, BID -Chlorthiazide, 250 mg, MF - trend BMP 10)Pacemaker in place -Recently interrogated at [facility] reports that it is beeping/signaling low battery and that this was going on during his recent [place] [facility] [place] FENGI: Heart healthy Code status: DNR/DNI DVT prophylaxis: Eliquis Isolation: none Disposition: PCU w/ tele Admission and Anticipated Discharge Date Admission Date: September 15, 2023 Supervising Physician Co-Signing Physician Notes Attending Physician Supervision Note: I independently interviewed and examined the patient and verified the velasco history and physical, reviewed labs and image studies and agree with findings and care plan noted above. overall worsening fatigue, more short of breath, doesn't feel the strength to get out of bed or chair. sitting in chair. family at bedside. vitals noted nad heent nc at mmm breathing unlabored no accessory muscles good effort skin no rashes no pallor or icterus neuro no focal deficits. Acute on chronic exacerbation of HFrEF 22% - noted to be a flutter during ICD interrogation. likely etiology. -continue diuresis with bumex. -continue milrinone at home dose -continue salt and fluid restriction. -continue metoprolol succinate, Jardiance, Milrinone, spironolactone, and Bumex. -can not tolerate Entresto due to symptomatic, relative hypotension. A flutter, rapid -switch PO amiodarone to IV amiodarone drip Paroxysmal atrial fibrillation/Paroxysmal ventricular tachycardia: -continue amiodarone drip, metoprolol succinate, and Eliquis. LEONILA -monitor renal function Cirrhosis/ILD -cirrhosis noted on CT scan. will complicate already existing severe cardiovascular compromise. Hyponatremia -sec to fluid overaload. follow sodium while diuresing. limit free water intake. GOC - had discussion with patient and family about involving palliative care/hospice care. Patient prefer to be home with family. -Further discussion in am. grigsby for UO monitoring Review of Systems Constitutional: + fatigue and + weakness; no fever and n o chills Respiratory: + dyspnea; no chest congestion Cardiovascular: no chest pain, no radiating jaw, neck or arm pain and no calf pain Gastrointestinal: no abdominal pain, no nausea, no vomiting and no diarrhea/loose stools Genitourinary: no dysuria or no difficulty urinating Neurologic: no tingling and no numbness Hematologic / Lymphatic: no easy bleeding and no easy bruising Physical Exam Constitutional: + ill appearing, + cachectic, + frail ap pearing and cooperative Eyes: + anicteric sclerae; normal pupil size Respiratory: Auscultation: + crackles (appreciated bilaterally, upper and lower lung barbosa) Cardiovascular: Rate/Rhythm: + tachycardic; + abnormal rhythm Heart Sounds: + murmur Vessels: + JVD Extremities: + pedal edema; no calf tenderness Gastrointestinal (Abdomen): normal bowel sounds, soft, nontender, no hepatosplenomegaly Inspection/Auscultation: + scaphoid Musculoskeletal: decreased muscle mass throughout body Psychiatric: A+Ox3, euthymic affect Speech: normal rate/rhythm/volume of speech Insight: good insight Results & Data Results & Data Vital Signs (Past 12 Hours) Vital Signs Temp Pulse Pulse Resp BP BP Pulse Ox 09/16/23 07:41 36.4 C L 100 H 18 95/63 L 96 09/16/23 06:00 99 H 18 95/63 L 95 09/16/23 05:00 99 H 17 93/60 L 99 09/16/23 04:00 97 H 17 100/64 97 09/16/23 02:53 36.9 C 105 H 18 98/65 L 96 09/16/23 02:00 102/67 09/16/23 01:00 90/70 L 09/16/23 00:14 36.9 C 72 17 90/63 L 100 09/16/23 00:14 09/16/23 00:00 09/15/23 23:45 09/15/23 23:30 36.9 C 101 H 17 92/57 L 100 09/15/23 22:56 112 H 25 H 94/71 L 98 09/15/23 22:36 99 H 09/15/23 22:34 89 L 09/15/23 22:30 103 H 21 93/67 L 89 L 09/15/23 22:00 102 H 24 91/67 L 94 09/15/23 21:43 101 H 24 92/67 L 95 09/15/23 21:30 101 H 16 93/64 L 94 09/15/23 21:00 101 H 21 99/70 L 92 09/15/23 20:30 101 H 22 97/71 L 92 09/15/23 20:00 101 H 23 100/69 94 Pulse Ox O2 Del Method O2 Del Method O2 Flow Rate O2 Flow Rate 09/16/23 07:41 Nasal Cannula 1 09/16/23 06:00 Nasal Cannula 2 09/16/23 05:00 Nasal Cannula 2 09/16/23 04:00 Nasal Cannula 1 09/16/23 02:53 Nasal Cannula 1 09/16/23 02:00 09/16/23 01:00 09/16/23 00:14 Nasal Cannula 2 09/16/23 00:14 100 Nasal Cannula 2 09/16/23 00:00 Nasal Cannula 2 09/15/23 23:45 Nasal Cannula 2 09/15/23 23:30 Nasal Cannula 2 09/15/23 22:56 Nasal Cannula 2 09/15/23 22:36 09/15/23 22:34 Nasal Cannula 0 09/15/23 22:30 Room Air 09/15/23 22:00 Room Air 09/15/23 21:43 Room Air 09/15/23 21:30 Room Air 09/15/23 21:00 Room Air 09/15/23 20:30 Room Air 09/15/23 20:00 Room Air (2) CHF (congestive heart failure) Heart failure chronicity: unspecified Heart failure type: unspecified Qualified Code(s): I50.9 - Heart failure, unspecified (7) HTN (hypertension) Hypertension type: primary hypertension Qualified Code(s): I10 - Essential (primary) hypertension
[2023-09-16] MEDS ORDERED: STAT IV Infusion **Titration per Protocol STA ×2 (08:13→15:33)
[2023-09-16] MEDS ORDERED: [UNRECOGNIZED DRUG - OTHER] EXT SCH (08:30)
[2023-09-16] MEDS ORDERED: MILRINONE EXT SCH (08:30)
[2023-09-16] MEDS ORDERED: ACETAMINOPHEN 500 MG TAB PO PRN (09:00)
[2023-09-16] MEDS ORDERED: SPIRONOLACTONE 12.5 MG TAB PO SCH (09:00)
[2023-09-16] MEDS: APIXABAN 5 MG TABLET PO SCH (09:59)
[2023-09-16] MEDS: EMPAGLIFLOZIN 10 MG TAB PO SCH (09:59)
[2023-09-16] MEDS: AMIODARONE 200 MG TAB PO SCH (09:59)
[2023-09-16] MEDS ORDERED: MILRINONE LACTATE/D5W 20,000 MCG/100 ML BAG IV SCH (10:00)
--- NOTE | 2023-09-16 10:32 | Cardiology Consultation ---
Date of Consultation September 16, 2023 Assessment & Plan (1) HFrEF (heart failure with reduced ejection fraction): -uncertain etiology of this decompensation. -would continue intravenous Milrinone. -no need for intravenous dobutamine. -agree with intravenous Bumex. -continue salt and fluid restriction. (2) Non-ischemic cardiomyopathy: -LVEF 22% on recent echocardiogram. -continue metoprolol succinate, Jardiance, Milrinone, spironolactone, and Bumex. -can not tolerate Entresto due to symptomatic, relative hypotension. (3) Paroxysmal atrial fibrillation: -continue amiodarone, metoprolol succinate, and Eliquis. (4) Paroxysmal ventricular tachycardia: -continue amiodarone. (5) Biventricular ICD (implantable cardioverter-defibrillator) in place: -we will have [employer] interrogate his device today. History of Present Illness Attending Physician: Poppy Sheriff MD History of Present Illness Mr. Chapman is a 73-year-old male admitted yesterday in decompensated CHF. This consultation was ordered to assistance cardiac management. Of note, the patient is well known to me from the inpatient and outpatient settings. His recent history began on August 13 when he presented to our institution with what was presumed to be acute cholecystitis. He was transferred to [facility] on the 17 of August for consideration of a percutaneous procedure on his gallbladder. Unfortunately, while at [facility], the patient decompensated. An echocardiogram revealed an ejection fraction of 20%. He was placed on intravenous diuretics and intravenous dobutamine. He un derwent a cardiac catheterization which revealed nonobstructive coronary artery disease. He also developed paroxysms of ventricular tachycardia and was seen by the electrophysiology team. He was started on amiodarone at that time. He was discharged from [facility] on September 10. Was placed on a continuous intravenous Milrinone at 0.375 micrograms/kilogram per minute. Over the 3 days prior to presentation, patient was noticing increasing shortness of breath, increasing lower extremity edema, and orthopnea. He presented to the emergency room for further care. He does carry a longstanding history of an idiopathic dilated cardiomyopathy. He did well with medical management for many years. He did have a biventricular ICD placed back in 2013 which was replaced in June 2022. Currently, patient is resting comfortably in bed without complaints of chest pain or dyspnea. Does note considerable fatigue. Past medical and surgical history 1. Nonobstructive coronary artery disease-August [id number] 2. Idiopathic dilated cardiomyopathy 3. Severe left ventricular dysfunction-20%, August 2023 4. Chronic systolic CHF 5. LBBB 6. Biventricular ICD-June 2022 7. Paroxysmal atrial fibrillation/flutter 8. Paroxysmal ventricular tachycardia 9. Moderate to severe mitral regurgitation 10. Severe tricuspid regurgitation 11Hypertension 12. Statin intolerant hypercholesterolemia 13. Idiopathic interstitial lung disease 14. Chronic renal failure 15. History of gastric ulcer 16. BPH 17. Inguinal hernia repair x2 Social history and lives with his No tobacco alcohol Family history Noncontributory Review of systems A 10 point review systems was undertaken and negative except that described above. Allergies Allergy/AdvReac Type Severity Reaction Status Date / Time morphine Allergy Unknown Difficulty Verified 08/13/23 10:26 Breathing mycophenolate mofetil AdvReac Intermediate Dizziness Verified 08/13/23 10:26 Home Medications Medication Instructions Recorded Confirmed Type ukpdroutqniy-yld-awxor acid-vit 1 tab PO QPM 03/21/20 09/15/23 History K-lycop 400 mcg-20 mcg-370 mcg tablet (One-A-Day Men's 50 Plus (with vitamin K)) acetaminophen 500 mg tablet 1,000 mg PO Q6H PRN Pain 07/30/22 09/15/23 History albuterol sulfate 90 mcg/actuation 2 inh inhalation Q4 PRN shortness 01/20/23 09/15/23 Rx aerosol inhaler of breath or wheezing #3 Inhalers cholecalciferol (vitamin D3) 50 50 mcg PO QAM 03/05/23 09/15/23 History mcg (2,000 unit) capsule gabapentin 400 mg capsule 400 mg PO TID PRN Pain #270 caps 04/21/23 09/15/23 Rx atorvastatin 10 mg tablet 10 mg PO QPM #90 tabs 06/18/23 09/15/23 Rx ferrous sulfate 325 mg (65 mg 325 mg PO DAILY 06/25/23 09/15/23 History iron) tablet metoprolol succinate 25 mg 25 mg PO DAILY #90 tabs 06/25/23 09/15/23 Rx tablet,extended release 24 hr pantoprazole 40 mg tablet,delayed See Rx Instructions .Route 07/30/23 09/15/23 Rx release .COMPLEX #60 tabs amiodarone 200 mg tablet 200 mg PO DAILY 09/12/23 09/15/23 History apixaban 5 mg tablet (Eliquis) 5 mg PO BID 09/12/23 09/15/23 History bumetanide 1 mg tablet 2 mg PO BID 09/12/23 09/15/23 History chlorothiazide 250 mg/5 mL oral 250 mg PO .COMPLEX 09/12/23 09/15/23 History suspension empagliflozin 10 mg tablet 10 mg PO DAILY 09/12/23 09/15/23 History (Jardiance) fluticasone propionate 50 1 spray intranasal DAILY 09/12/23 09/15/23 History mcg/actuation nasal spray,suspension (Allergy Relief (fluticasone)) milrinone 1 mg/mL intravenous See Rx Instructions continuous IV 09/12/23 09/15/23 History solution infusion .COMPLEX spironolactone 25 mg tablet 12.5 mg PO DAILY 09/12/23 09/15/23 History diphenhydramine 25 1 tab PO UD 09/15/23 09/15/23 History mg-acetaminophen 500 mg tablet (Tylenol PM Extra Strength) melatonin See Rx Instructions .Route .COMPLEX 09/15/23 09/15/23 History Patient History Medical History (Updated 09/15/23 @ 21:41 by Terence Carlin DO) Mitral regurgitation Atrial tachycardia Tachycardia Sustained ventricular tachycardia Paroxysmal atrial fibrillation Defibrillator discharge NSVT (nonsustained ventricular tachycardia) Pneumothorax Community acquired pneumonia Idiopathic interstitial pneumonia Hypotension recent [facility] cardio visit --- checks BP at home and hypotensive, light headed. see cardio note. Presence of combination internal cardiac defibrillator (ICD) and pacemaker medtronic. checked [address] Mcnulty. Idiopathic interstitial pneumonia Interstitial lung disease Dyspnea on exertion Bibasilar crackles Hx of gastric ulcer BPH with obstruction/lower urinary tract symptoms Abnormal TSH noted 02/2020 due to use of prednisone, repeat labs normal in 03/2020 including TSI Biventricular ICD (implantable cardioverter-defibrillator) in place original placed in 2013, follows with Dr Mcnulty; new one placed 06/2022, [facility] Chronic systolic congestive heart failure Left bundle branch block Osteoarthritis Rib fractures hx Pneumothorax on left ~2013. chest tube drain placed and treated inpatient. HTN (hypertension) Hypercholesteremia CAD (coronary artery disease) Non-ischemic cardiomyopathy (04/14/14) Surgical History Hx of eye surgery age 4 History of esophagogastroduodenoscopy (EGD) History of colonoscopy History of inguinal hernia repair x 2 History of arthroscopy of knee right History of eye surgery at age 4 - right eye surgery Family History Father Emphysema, unspecified Mother Urinary bladder cancer Brother Prediabetes Denies family history of Ovarian cancer Prostate cancer Myocardial infarction Breast cancer Colorectal cancer Social History Smoking Status: Never smoker Second Hand Exposure: No; Do You Dip or Chew Tobacco: No; Hx Alcohol Use: No Hx Substance Use: No Preferred Language: Frisian Communication Ability: Effective Visual Impairment: No Limitations Hearing Ability: Normal Mail Processor Required: No Beliefs That Will Affect Care: None marital status: Current Living Situation: Spouse Current Living Situation Comment: with Faith current occupational status: retired current occupation: Retired [employer] for [employer]. 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 How many Children do You have: 2 Feels Safe at Home: Yes Safety Concerns: Feels Safe At This Time Childhood Exposure to Second-Hand Smoke: No Diet: regular Dental Care, Regularly: No Physical Activity Frequency: Daily Seatbelt Use: always Sunscreen Use: No Assistive Devices: Denture - Upper, Denture - Lower and Glasses Physical Exam Physical Exam: In general this is a well-developed well-nourished white male in no acute distress. HEENT exam is negative. Neck reveals normal carotid upstrokes without bruits. Jugular venous pressure is 10 cm of water at 90. There is no thyromegaly. Cardiovascular exam reveals a regular rhythm with a normal S1 and S2. No murmurs, S3, or S4 are noted. Lungs are clear without rales, rhonchi, or wheezes. Chest reveals a palpable device in the left subclavicular region. Abdomen is soft without bruits. Extremities reveal intact radial artery and posterior tibial pulses bilaterally. There is trace to 1+ pedal and pretibial edema. Results & Data Vital Signs (Past 12 Hours) Vital Signs Temp Pulse Pulse Resp BP BP Pulse Ox 09/16/23 07:41 36.4 C L 100 H 18 95/63 L 96 09/16/23 06:00 99 H 18 95/63 L 95 09/16/23 05:00 99 H 17 93/60 L 99 09/16/23 04:00 97 H 17 100/64 97 09/16/23 02:53 36.9 C 105 H 18 98/65 L 96 09/16/23 02:00 102/67 09/16/23 01:00 90/70 L 09/16/23 00:14 36.9 C 72 17 90/63 L 100 09/16/23 00:14 09/16/23 00:00 09/15/23 23:45 09/15/23 23:30 36.9 C 101 H 17 92/57 L 100 09/15/23 22:56 112 H 25 H 94/71 L 98 09/15/23 22:36 99 H 09/15/23 22:34 89 L 09/15/23 22:30 103 H 21 93/67 L 89 L Pulse Ox O2 Del Method O2 Del Method O2 Flow Rate O2 Flow Rate 09/16/23 07:41 Nasal Cannula 1 09/16/23 06:00 Nasal Cannula 2 09/16/23 05:00 Nasal Cannula 2 09/16/23 04:00 Nasal Cannula 1 09/16/23 02:53 Nasal Cannula 1 09/16/23 02:00 09/16/23 01:00 09/16/23 00:14 Nasal Cannula 2 09/16/23 00:14 100 Nasal Cannula 2 09/16/23 00:00 Nasal Cannula 2 09/15/23 23:45 Nasal Cannula 2 09/15/23 23:30 Nasal Cannula 2 09/15/23 22:56 Nasal Cannula 2 09/15/23 22:36 09/15/23 22:34 Nasal Cannula 0 09/15/23 22:30 Room Air Laboratory Results CBC notes hemoglobin 10.4, hematocrit 30.8, white count 11.5, and platelet count of 167823. Electrolytes note a sodium of 120, potassium 3.7, chloride 84, bicarb 27, BUN 47, creatinine 1.89, glucose of 89. BNP on presentation was 2504 and is currently 1701. High sensitivity troponin was 30.5 on presentation, currently 26.2. Diagnostic Findings ECG notes atrial sense and ventricular pacing. Chest x-ray notes cardiomegaly, an ICD, and interstitial pulmonary edema. PG Care Time/CCT Total # of Minutes Spent Total Time Spent with Patient: Total time spent is greater than 50% in coordination of care (as documented) at patient's floor/unit and/or counseling patient: Coding Level of Care Code 40865 INT INP/OBS CARE 3/75MIN Diagnoses HFrEF (heart failure with reduced ejection fraction) I50.20 Non-ischemic cardiomyopathy I42.8 Paroxysmal atrial fibrillation I48.0 Paroxysmal ventricular tachycardia I47.29 Biventricular ICD (implantable cardioverter-defibrillator) in place Z95.810
[2023-09-16] MEDS: MILRINONE LACTATE/D5W 20,000 MCG/100 ML BAG IV SCH (11:02)
[2023-09-16] MEDS: PANTOprazole 40 MG TAB PO SCH (11:17)
[2023-09-16] MEDS: FERROUS SULFATE 325 MG TAB PO SCH (11:18)
[2023-09-16] MEDS: GABAPENTIN 400 MG CAP PO PRN (11:18)
[2023-09-16] MEDS: CHOLECALCIFEROL 25 MCG (1000 UNITS) TAB PO SCH (11:18)
[2023-09-16] MEDS: FLUTICASONE PROPIONATE NA SPR 16 GM BTL NAE SCH (11:19)
[2023-09-16] MEDS: METOPROLOL SUCC 25MG EXT REL TAB PO SCH (11:20)
[2023-09-16] MEDS ORDERED: 0.2 MICRON FILTER SET 1 EACH IV STA (15:33)
[2023-09-16] MEDS ORDERED: AMIODARONE IV BOLUS & DRIP IV STA (15:33)
[2023-09-16] MEDS: AMIODARONE / D5W 150 MG/100 ML BAG IV STA (16:02)
[2023-09-16] MEDS: AMIODARONE / D5W 360 MG/200 ML BAG IV ONE (16:17)
[2023-09-16] MEDS: BUMETANIDE 2 MG in SYRINGE 0 ML IV SCH (18:05)
[2023-09-16] MEDS: ATORVASTATIN 10 MG TAB PO SCH (18:05)
[2023-09-16] MEDS: hydrOXYzine HCl 25 MG TAB PO SCH (20:25)
[2023-09-16] MEDS: MELATONIN 3 MG TAB PO SCH (20:25)
[2023-09-16] MEDS: CEROVITE ADV FORMULA TAB PO SCH (20:25)
[2023-09-16] MEDS: AMIODARONE / D5W 360 MG/200 ML BAG IV SCH (20:52)
[2023-09-16] MEDS: NYSTATIN SUSP 500,000 U/5 ML UDC PO SCH (20:52)
--- NOTE | 2023-09-16 21:02 | Billing Data ---
Date of Service September 16, 2023 Coding Level of Care Code 83095 INT INP/OBS CARE
[2023-09-17] MEDS: ACETAMINOPHEN 325 MG TAB PO PRN (01:10)
--- NOTE | 2023-09-17 07:06 | Hospitalist Progress Note ---
Date of Service September 17, 2023 Assessment & Plan (1) HFrEF (heart failure with reduced ejection fraction): (2) CHF (congestive heart failure): (3) Acute hypotension: (4) LEONILA (acute kidney injury): (5) Shortness of breath: (6) Acute on chronic systolic heart failure: (7) HTN (hypertension): (8) Hypercholesteremia: (9) Interstitial lung disease: (10) Biventricular ICD (implantable cardioverter-defibrillator) in place: (11) Non-ischemic cardiomyopathy: (12) Chronic hyponatremia: Plan 73 yo male PMHx non-ischemic cardiomyopathy, biventricular ICD, CHF EF 22%, HTN, CAD, ILD, BPH here with 3 days of worsening LE edema and shortness of breath. 1) HFrEF (acute on chronic)/acute hypotension/poor end organ perfusion -Recent EF in [place] showed EF 22%, mod-severe MR, severe TR -Pitting Edema to b/l knees -CXR shows pulmonary edema/congestion -On milrinone pump 0.375mcg/kg/min -Metoprolol 25mg daily, -Spironolactone 12.5mg daily -Amiodarone 200mg BID until 09/11/23 then 200mg daily -Bumex 2mg BID, -Chlorothiazide 250mg Friday and Friday -Has multiple non-sustained runs of Vtach on monitor keep K>4, Mg >2 -BNP, 1701 <-- 2504, HS-trop, 26.2 <-- 30.4 -Albumin 2.7 will give 25g IV to decrease 3rd spacing -Cardiology consulted, recommendations given: planning an AV node ablation tomorrow - will remove Grigsby once inputs and outputs no longer strictly monitored 2) paroxysmal atrial flutter w/ RVR - continue amiodarone -Cardiology consulted, recommendations given: planning an AV node ablation tomorrow 3) Interstitial lung disease - albuterol, 90 mcg/puff, 2 puffs, QID, PRN 4) Goals of care - Consider palliative care consult: patient was seen by palliative care in [place], considering hospice if clinical condition continues to deteriorate - Patient doesn't have a preference regarding where to spend his remaining days (home or hospital) - confirmed code status with patient 5)LEONILA -Prerenal -Cr 2.12 (1.64 on discharge from [place]) -Hold diuretics for now -Albumin 6)CAD -non occlusive CAD on recent cath -Eliquis 5mg BID 7)HLD -Atorvastatin 10mg daily, -Fish oil 8)Anemia - Hgb, 10.4 -Iron 325mg daily -Vitamin D3 3000IU daily 9) Hypotonic, hyponatremia - Na, 120; osmolality, 265 - likely secondary to CHF - Bumex, 2 mg, BID -Chlorthiazide, 250 mg, MF - trend BMP 10)Pacemaker in place -Recently interrogated at [facility] and [facility] -Pt reports that it is beeping/signaling low battery and that this was going on during his recent stay at [facility]. FENGI: Grigsby catheter, Fluid-restricted (0318-2965 mL/day), Heart healthy diet Code status: DNR/DNI DVT prophylaxis: Eliquis Isolation: none Disposition: PCU w/ tele Admission and Anticipated Discharge Date Admission Date: September 15, 2023 Supervising Physician Co-Signing Physician Notes Attending Physician Supervision Note: I independently interviewed and examined the patient and verified the velasco history and physical, reviewed labs and image studies and agree with findings and care plan noted above. no change this am. didn't sleep much last night. family at bedside. reports being thirsty. vitals noted nad heent nc at mmm breathing unlabored no accessory muscles good effort skin no rashes no pallor or icterus neuro no focal deficits. Acute on chronic exacerbation of HFrEF 22% (non-ischemic CMP) - noted to be a flutter during ICD interrogation. likely etiology. -continue diuresis with bumex. I and O in neg balance. fluid restriction. -continue milrinone at home dose -continue salt and fluid restriction. -continue metoprolol succinate, Jardiance, Milrinone, spironolactone, and Bumex. -can not tolerate Entresto due to symptomatic, relative hypotension. A flutter, rapid -continue IV amiodarone drip -for ablation today. Paroxysmal atrial fibrillation/Paroxysmal ventricular tachycardia: -continue amiodarone drip (holding home PO dose), metoprolol succinate, and Eliquis (on hold). LEONILA -creatinine stable. follow Cirrhosis/ILD -cirrhosis noted on CT scan. will complicate already existing severe cardiovascular compromise. Hyponatremia -sec to fluid overaload and diuretics. limit free water intake. -Na 120. add another dose of tolvaptan today. GOC - had discussion with patient and family about involving palliative care/hospice care. Patient prefer to be home with family. -Further discussion pending response from ablative treatment for a flutter. grigsby for UO monitoring Apixaban on hold, SCD until then Subjective 73 yo M w/ PMHx non-ischemic cardiomyopathy, biventricular ICD, CHF EF 22%, HTN, CAD, ILD, BPH here with 3 days of worsening LE edema and shortness of breath. He was recently discharged (09/10/23) from [facility] where he underwent extensive workup for his cardiomyopathy and heart failure. TTE at that time showed EF 22% with moderate-severe MR, severe TR. He underwent aggressive diuresis and required dobutamine infusion. R&L cardiac cath showed non-occlusive atherosclerotic CAD. Required multiple inotropes and vasopressor support. Ultimately, pt was discharged on 0.375mcg/kg/min milrinone as palliative measure. History obtained from patient and family says he was doing well until 08/12/23. At this time urine output decreased and he began retaining fluid in spite of Bumex 2mg BID. Today he endorses increased SOB, exercise intolerance, LE pitting edema now to his knees, orthopnea, abdominal pain 2/2 known biliary and hepatocellular disease. Denied fevers, chills, ALDANA, CP, N/V/D. This morning patient feels more rested, had a better night's sleep, likely a combination of the better controlled heart rate/rhythm and hydroxyzine. Review of Systems Review of Systems: reviewed, per HPI Constitutional: + fatigue (less fatigued than prior day) and + weakness; no fever and no chills Respiratory: + cough (less frequent) and + dyspnea; n o chest congestion Cardiovascular: no chest pain, no radiating jaw, neck or arm pain, no palpitations (none since amiodarone administration yesterday) and no calf pain Gastrointestinal: no abdominal pain, no nausea, no vomiting and no diarrhea/loose stools Genitourinary: no dysuria or no difficulty urinating Neurologic: no tingling and no numbness Hematologic / Lymphatic: no easy bleeding and no easy bruising Physical Exam Constitutional: + ill appearing, + cachectic, + frail ap pearing and cooperative Eyes: + anicteric sclerae; normal pupil size Respiratory: Auscultation: + crackles (appreciated bilaterally lower lung barbosa) Cardiovascular: Rate/Rhythm: + tachycardic; + abnormal rhythm Heart Sounds: + murmur Vessels: + JVD Extremities: + pedal edema; no calf tenderness Gastrointestinal (Abdomen): Inspection/Auscultation: + scaphoid Percussion/Palpation: + abdomen tender (tender RUQ, positive Bravo's sign/increased w/ inspiration) Psychiatric: A+Ox3, euthymic affect Speech: normal rate/rhythm/volume of speech Insight: good insight Results & Data Results & Data Vital Signs (Past 12 Hours) Vital Signs Temp Pulse Pulse Resp BP Pulse Ox Pulse Ox 09/17/23 03:06 36.4 C L 96 H 18 103/68 99 09/17/23 00:14 94 09/16/23 23:27 102 H 09/16/23 22:46 36.4 C L 103 H 20 95/61 L 93 09/16/23 20:00 09/16/23 19:19 36.3 C L 108 H 18 91/63 L 92 O2 Del Method O2 Del Method O2 Flow Rate O2 Flow Rate 09/17/23 03:06 Nasal Cannula 2 09/17/23 00:14 Nasal Cannula 2 09/16/23 23:27 09/16/23 22:46 Nasal Cannula 1 09/16/23 20:00 Nasal Cannula 2 09/16/23 19:19 Nasal Cannula 2 (2) CHF (congestive heart failure) Heart failure chronicity: unspecified Heart failure type: unspecified Qualified Code(s): I50.9 - Heart failure, unspecified (7) HTN (hypertension) Hypertension type: primary hypertension Qualified Code(s): I10 - Essential (primary) hypertension
[2023-09-17 07:48] LABS: Basophils # (auto) 0.02 K/uL (0.00-0.20); Basophils % (auto) 0.2 %; Eosinophils # (auto) 0.01 K/uL (0.00-0.50); Eosinophils % (auto) 0.1 %; Hematocrit (blood only) 33.6 % (42.0-52.0); Hemoglobin 11.6 g/dl (14.0-18.0); Immature Granulocytes # (auto) 0.13 K/uL (0.01-0.20); Immature Granulocytes % (auto) 1.2 %; Lymphocytes # (auto) 1.07 K/uL (1.20-3.40); Lymphocytes % (auto) 9.6 %; Mean Corpuscular Hgb Conc 34.5 g/dL (32.0-36.0); Mean Corpuscular Volume 89.8 fL (80.0-100.0); Mean Platelet Volume 9.7 fL (9.4-12.4); Monocytes # (auto) 1.21 K/uL (0.11-0.59); Monocytes % (auto) 10.9 %; Neutrophils # (auto) 8.71 K/uL (1.40-6.50); Platelet Count 220 K/uL (130-400); RDW Coefficient of Variation 14.6 % (11.5-14.5); RDW Standard Deviation 46.5 fL (36.4-46.3); Red Blood Count 3.74 M/uL (4.70-6.10); White Blood Count 11.15 K/ul (4.8-10.8)
[2023-09-17 08:12] LABS: Albumin Globulin Ratio 0.9 (0.9-2); Albumin Level 2.9 gm/dl (3.4-5.0); BUN Creatinine Ratio 26.2 (10-20); Calcium 8.6 mg/dl (8.6-10.3); Creatinine Clr Calc Pharmacy 28.3 ml/min; Est GFR (African American) 34.1 ml/min; Est GFR (Non-African American) 29.4 ml/min; Globulin 3.4 gm/dl (2.5-4.0); Magnesium 2.2 mg/dl (1.7-2.4); Phosphorus 4.6 mg/dl (2.5-4.9); Total Protein 6.3 gm/dl (6.0-8.3)
[2023-09-17] MEDS: TOLVAPTAN 15 MG TABLET PO ONE (09:14)
--- NOTE | 2023-09-17 13:08 | Cardiology Progress Note ---
Date of Service September 17, 2023 Assessment & Plan (1) HFrEF (heart failure with reduced ejection fraction): Plan: -suspect atrial flutter with a rapid ventricular response responsible for his recent decompensation. -continue intravenous Milrinone. -agree with intravenous Bumex. -continue salt and fluid restriction. (2) Paroxysmal atrial flutter: Plan: -ventricular rate better controlled on intravenous amiodarone. -Dr. Liang to perform an AV node ablation tomorrow. (3) Non-ischemic cardiomyopathy: Plan: -LVEF 22% on recent echocardiogram. -continue metoprolol succinate, Jardiance, Milrinone, spironolactone, and Bumex. -can not tolerate Entresto due to symptomatic, relative hypotension. (4) Paroxysmal ventricular tachycardia: Plan: -continue amiodarone. (5) Biventricular ICD (implantable cardioverter-defibrillator) in place: Plan: -interrogation yesterday discovered atrial flutter with a rapid v entricular response. Admission and Anticipated Discharge Date Admission Date: September 15, 2023 Subjective The patient is resting comfortably in bed. Says he is improved over yesterday, however, still very fatigued. Denies chest pain, dyspnea, and palpitations. Physical Exam Physical Exam: In general this is a well-developed well-nourished white male in no acute distress. HEENT exam is negative. Neck reveals normal carotid upstrokes without bruits. Jugular venous pressure is 8 cm of water at 90. There is no thyromegaly. Cardiovascular exam reveals a regular rhythm with a normal S1 and S2. No murmurs, S3, or S4 are noted. Lungs are clear without rales, rhonchi, or wheezes. Chest reveals a palpable device in the left subclavicular region. Abdomen is soft without bruits. Extremities reveal intact radial artery and posterior tibial pulses bilaterally. There is trace to 1+ pedal and pretibial edema. Results & Data Vital Signs (Past 12 Hours) Vital Signs Temp Pulse Resp BP Pulse Ox O2 Del Method O2 Flow Rate 09/17/23 11:30 36.3 C L 103 H 18 100/70 95 Nasal Cannula 09/17/23 08:18 36.3 C L 99 H 18 101/67 96 Nasal Cannula 09/17/23 08:00 Nasal Cannula 2 09/17/23 03:06 36.4 C L 96 H 18 103/68 99 Nasal Cannula 2 PG Care Time/CCT Total # of Minutes Spent Total Time Spent with Patient: Total time spent is greater than 50% in coordination of care (as documented) at patient's floor/unit and/or counseling patient: Coding Level of Care Code 94704 SUB INP/OBS CARE 3/50MIN Diagnoses HFrEF (heart failure with reduced ejection fraction) I50.20 Paroxysmal atrial flutter I48.92 Non-ischemic cardiomyopathy I42.8 Paroxysmal ventricular tachycardia I47.29 Biventricular ICD (implantable cardioverter-defibrillator) in place Z95.810
--- NOTE | 2023-09-18 07:06 | Hospitalist Progress Note ---
Date of Service September 18, 2023 Assessment & Plan (1) HFrEF (heart failure with reduced ejection fraction): (2) CHF (congestive heart failure): (3) Acute hypotension: (4) LEONILA (acute kidney injury): (5) Shortness of breath: (6) Acute on chronic systolic heart failure: (7) HTN (hypertension): (8) Hypercholesteremia: (9) Interstitial lung disease: (10) Biventricular ICD (implantable cardioverter-defibrillator) in place: (11) Non-ischemic cardiomyopathy: (12) Chronic hyponatremia: Plan 73 yo male PMHx non-ischemic cardiomyopathy, biventricular ICD, CHF EF 22%, HTN, CAD, ILD, BPH here with 3 days of worsening LE edema and shortness of breath. 1) HFrEF (acute on chronic)/acute hypotension/poor end organ perfusion -Recent EF in [place] showed EF 22%, mod-severe MR, severe TR -Pitting Edema to b/l knees -CXR shows pulmonary edema/congestion -On milrinone pump 0.375mcg/kg/min -Metoprolol 25mg daily, -Spironolactone 12.5mg daily -Amiodarone 200mg BID until 09/11/23 then 200mg daily -Bumex 2mg BID, -Chlorothiazide 250mg Friday and Friday -Has multiple non-sustained runs of Vtach on monitor keep K>4, Mg >2 -BNP, 1701 <-- 2504, HS-trop, 26.2 <-- 30.4 -Albumin 2.7 will give 25g IV to decrease 3rd spacing -Cardiology consulted, recommendations given: planning an AV node ablation today - will remove Grigsby once inputs and outputs no longer strictly monitored 2) paroxysmal atrial flutter w/ RVR - continue amiodarone -Cardiology consulted, recommendations given: planning an AV node ablation today 3) Interstitial lung disease - albuterol, 90 mcg/puff, 2 puffs, QID, PRN 4) Goals of care - Consider palliative care consult: patient was seen by palliative care in [place], considering hospice if clinical condition continues to deteriorate - Patient doesn't have a preference regarding where to spend his remaining days (home or hospital) - confirmed code status with patient 5)LEONILA -Prerenal -Cr 2.12 (1.64 on discharge from [place]) -Hold diuretics for now -Albumin 6)CAD -non occlusive CAD on recent cath -Eliquis 5mg BID 7)HLD -Atorvastatin 10mg daily, -Fish oil 8)Anemia - Hgb, 10.4 -Iron 325mg daily -Vitamin D3 3000IU daily 9) Hypotonic, hyponatremia - Na, 120; osmolality, 265 - likely secondary to CHF - Bumex, 2 mg, BID -Chlorthiazide, 250 mg, MF - trend BMP 10)Pacemaker in place -Recently interrogated at [facility] and [facility] -Pt reports that it is beeping/signaling low battery and that this was going on during his recent stay at [facility]. FENGI: Grigsby catheter, Fluid-restricted (2000 mL/day), Heart healthy diet Code status: DNR/DNI DVT prophylaxis: Eliquis Isolation: none Disposition: PCU w/ tele Admission and Anticipated Discharge Date Admission Date: September 15, 2023 Supervising Physician Co-Signing Physician Notes Attending Physician Supervision Note: I independently interviewed and examined the patient and verified the velasco history and physical, reviewed labs and image studies and agree with findings and care plan noted above. no change this am. didn't sleep much last night. family at bedside. reports being thirsty. vitals noted nad heent nc at mmm breathing unlabored no accessory muscles good effort skin no rashes no pallor or icterus neuro no focal deficits. Acute on chronic exacerbation of HFrEF 22% (non-ischemic CMP) - noted to be a flutter during ICD interrogation. likely etiology. -continue diuresis with bumex. I and O in neg balance. fluid restriction. -continue milrinone at home dose -continue salt and fluid restriction. -continue metoprolol succinate, Jardiance, Milrinone, spironolactone, and Bumex. -can not tolerate Entresto due to symptomatic, relative hypotension. Cardiogenic shock: sec to A flutter - see below. A flutter, rapid -continue IV amiodarone drip -for ablation today. Paroxysmal atrial fibrillation/Paroxysmal ventricular tachycardia: -continue amiodarone drip (holding home PO dose), metoprolol succinate, and Eliquis (on hold). LEONILA -creatinine stable. follow Cirrhosis/ILD -cirrhosis noted on CT scan. will complicate already existing severe car diovascular compromise. Hyponatremia -sec to fluid overaload and diuretics. limit free water intake. -Na 120. add another dose of tolvaptan today. GOC - had discussion with patient and family about involving palliative care/hospice care. Patient prefer to be home with family. -Further discussion pending response from ablative treatment for a flutter. grigsby for UO monitoring Apixaban on hold, SCD until then Subjective The patient is resting comfortably in bed. Says he is improved over yesterday, however, still very fatigued. Denies chest pain, dyspnea, and palpitations. Review of Systems Review of Systems: reviewed, per HPI Constitutional: + fatigue (less fatigued than prior day) and + weakness; no fever and no chills Respiratory: + cough (less frequent) and + dyspnea; n o chest congestion Cardiovascular: no chest pain, no radiating jaw, neck or arm pain, no palpitations (none since amiodarone administration yesterday) and no calf pain Gastrointestinal: no abdominal pain, no nausea, no vomiting and no diarrhea/loose stools Genitourinary: no dysuria or no difficulty urinating Neurologic: no tingling and no numbness Hematologic / Lymphatic: no easy bleeding and no easy bruising Physical Exam Constitutional: + ill appearing, + cachectic, + frail ap pearing and cooperative Eyes: + anicteric sclerae; normal pupil size Respiratory: Auscultation: + crackles (appreciated bilaterally lower lung barbosa) Cardiovascular: Rate/Rhythm: + tachycardic; + abnormal rhythm Heart Sounds: + murmur Vessels: + JVD Extremities: + pedal edema; no calf tenderness Gastrointestinal (Abdomen): normal bowel sounds, soft, nontender, no hepatosplenomegaly Inspection/Auscultation: + scaphoid Percussion/Palpation: + abdomen tender (tender RUQ, positive Bravo's sign/increased w/ inspiration) Psychiatric: A+Ox3, euthymic affect Speech: normal rate/rhythm/volume of speech Insight: good insight Results & Data Results & Data Vital Signs (Past 12 Hours) Vital Signs Temp Pulse Pulse Resp BP Pulse Ox O2 Del Method 09/18/23 03:26 36.5 C 96 H 18 100/70 94 Nasal Cannula 09/17/23 23:00 105 H 09/17/23 22:48 36.8 C 97 H 18 96/67 L 94 Nasal Cannula 09/17/23 20:00 Nasal Cannula 09/17/23 19:16 36.5 C 97 H 20 105/70 94 Nasal Cannula O2 Flow Rate 09/18/23 03:26 2 09/17/23 23:00 09/17/23 22:48 2 09/17/23 20:00 2 09/17/23 19:16 2 Resident Activity Tracking Resident Involvement: Resident Care Provided Care Provided: Adult Hospital Medicine (2) CHF (congestive heart failure) Heart failure chronicity: unspecified Heart failure type: unspecified Qualified Code(s): I50.9 - Heart failure, unspecified (7) HTN (hypertension) Hypertension type: primary hypertension Qualified Code(s): I10 - Essential (primary) hypertension
[2023-09-18 08:04] LABS: Basophils # (auto) 0.01 K/uL (0.00-0.20); Basophils % (auto) 0.1 %; Eosinophils # (auto) 0.01 K/uL (0.00-0.50); Eosinophils % (auto) 0.1 %; Hematocrit (blood only) 31.9 % (42.0-52.0); Immature Granulocytes % (auto) 0.8 %; Lymphocytes # (auto) 0.95 K/uL (1.20-3.40); Lymphocytes % (auto) 7.6 %; Mean Corpuscular Hemoglobin 30.7 pg (25.0-34.0); Mean Corpuscular Hgb Conc 34.5 g/dL (32.0-36.0); Mean Corpuscular Volume 89.1 fL (80.0-100.0); Mean Platelet Volume 9.5 fL (9.4-12.4); Monocytes # (auto) 1.15 K/uL (0.11-0.59); Monocytes % (auto) 9.2 %; Neutrophils # (auto) 10.24 K/uL (1.40-6.50); Neutrophils % (auto) 82.2 %; Platelet Count 235 K/uL (130-400); RDW Coefficient of Variation 14.6 % (11.5-14.5); RDW Standard Deviation 45.8 fL (36.4-46.3); Red Blood Count 3.58 M/uL (4.70-6.10); White Blood Count 12.46 K/ul (4.8-10.8)
[2023-09-18 08:10] LABS: Albumin Globulin Ratio 0.9 (0.9-2); Albumin Level 2.9 gm/dl (3.4-5.0); BUN Creatinine Ratio 27.7 (10-20); Bilirubin,Total 3.8 mg/dl (0.2-1.0); Calcium 8.5 mg/dl (8.6-10.3); Creatinine Clr Calc Pharmacy 28.9 ml/min; Est GFR (African American) 35.7 ml/min; Est GFR (Non-African American) 30.8 ml/min; Globulin 3.3 gm/dl (2.5-4.0); Magnesium 2.3 mg/dl (1.7-2.4); Phosphorus 4.5 mg/dl (2.5-4.9); Potassium 3.9 mmol/L (3.5-5.1); Total Protein 6.2 gm/dl (6.0-8.3)
--- NOTE | 2023-09-18 12:51 | Pre Anesthesia Assessment ---
Date of Service September 18, 2023 Pre Sedation Assessment Vital Signs Temp Pulse Pulse Resp BP Pulse Ox O2 Del Method 09/18/23 11:32 36.4 C L 98 H 17 101/63 94 Nasal Cannula 09/18/23 11:23 98 H 18 90/68 L 93 Room Air 09/18/23 08:00 Nasal Cannula 09/18/23 07:40 36.4 C L 98 H 18 93/66 L 98 Nasal Cannula 09/18/23 07:38 36.4 C L 96 H 17 91/65 L 97 Nasal Cannula 09/18/23 03:26 36.5 C 96 H 18 100/70 94 Nasal Cannula 09/17/23 23:00 105 H 09/17/23 22:48 36.8 C 97 H 18 96/67 L 94 Nasal Cannula 09/17/23 20:00 Nasal Cannula 09/17/23 19:16 36.5 C 97 H 20 105/70 94 Nasal Cannula 09/17/23 15:42 96 09/17/23 15:37 36.3 C L 95 H 19 94/66 L 98 Nasal Cannula O2 Flow Rate 09/18/23 11:32 2 09/18/23 11:23 09/18/23 08:00 2 09/18/23 07:40 2 09/18/23 07:38 2 09/18/23 03:26 2 09/17/23 23:00 09/17/23 22:48 2 09/17/23 20:00 2 09/17/23 19:16 2 09/17/23 15:42 09/17/23 15:37 Cardiovascular + tachycardic and + irregularly irregular Respiratory + respiratory effort normal Pre-Sedation Airway Assessment Smoking Status: Never smoker Hx Sleep Apnea: Yes Hx Difficult Intubation: No Short, Thick Neck: No Thyromental Distance: > or= 3.5 Finger Breadths Oral Cavity: + Dentures Mallampati Class: III ASA: ASA3 NPO Status Date of Last Intake of Fluids: 09/18/23 Time of Last Intake of Fluids: 07:00 Date of Last Intake of Solid Food: 09/17/23 Procedure Planning Contraindications for Sedation: none Current Medications Reviewed: Yes Notes The planned sedation has been discussed with the patient. Informed Consent was obtained. I have identified the patient, determined the appropriateness of sedation and have assessed the patient immediately prior to the procedure. All medicine(s) and interventions are by my order.
[2023-09-18] MEDS: LIDOCAINE 1% LOCAL 20 ML VIAL ONE (14:19)
--- NOTE | 2023-09-18 14:24 | Electrophysiology Report ---
Date of Service September 18, 2023 Electrophysiology Procedure Electrophysiology Procedure Report Procedure performed AV node ablation Staff assistant research scientist: Barry Liang MD Indication: The patient is a 73-year-old gentleman with a history of severely reduced LV systolic function. He is developed atrial fibrillation and poorly controlled ventricular rates. Previously undergone implantation of a biventricular ICD. He was brought to the electrophysiology suite for an AV node ablation in an attempt to better control his heart rate Procedure in detail The patient was informed the risks benefits and alternatives to the intended procedure. He understood which proceed. He was taken to the electrophysiology suite in a fasting state. The patient was monitored electrocardiographically throughout today's procedure. The right femoral area was prepped and draped in usual sterile fashion. This area was anesthetized using subcutaneous menstruation of lidocaine solution. The right femoral vein was accessed using modified Seldinger technique and a sheath was placed over guidewire at this site. The sheath was used facilitate passage of the ablation catheter to the area of the AV node. Multiple lesions were then placed with the ablation catheter in attempt to eliminate AV conduction. When this appeared to be unsuccessful the catheter and sheath were removed. Hemostasis was achieved at the access site using manual pressure. The patient tolerated procedure well. There were no immediate complications. Ablation Ablation was carried out using a 7 Prydeinig 8 mm radiofrequency ablation catheter in a temperature limited mode Multiple radiofrequency lesions were placed with good power and temperature but failed to eliminate AV conduction. Impression: Unsuccessful ablation of AV amina conduction. [facility] Electrophysiology codes EP Procedure 1: Electrophysiology: 24920 Ablation AV Node w/wo pace PG Moderate Sedation Codes Moderate Sedation Codes Procedure 1: Sedation/Anesthesia: 59346 Mod Sedation by the same physician;Init15 Min Child Age 5 & Up Procedure 2: Sedation/Anesthesia: 87212 Mod Sedation by the same physician; Ea [id number] Minutes
[2023-09-18] MEDS: ALTEPLASE, RECOMBINANT 1 MG/ML 2ML VIAL INSTIL SCH (16:05)
[2023-09-18] MEDS: TOLVAPTAN 15 MG TABLET PO STA (16:27)
[2023-09-18] MEDS ORDERED: fentaNYL citrate PF 100 MCG/2 ML VIAL IV PRN (17:42)
[2023-09-18] MEDS ORDERED: LIDOCAINE 5% 1 PATCH TD STA (20:31)
[2023-09-18] MEDS: LIDOCAINE 5% 1 PATCH TD SCH (20:57)
[2023-09-18] MEDS: APIXABAN 5 MG TABLET PO SCH (20:57)
[2023-09-18] MEDS: GABAPENTIN 400 MG CAP PO ONE (20:58)
[2023-09-19] MEDS: diphenhydrAMINE Capsule 25 MG CAP PO PRN (00:08)
[2023-09-19 01:27] LABS: Albumin Globulin Ratio 0.8 (0.9-2); Albumin Level 2.7 gm/dl (3.4-5.0); BUN Creatinine Ratio 27.2 (10-20); Bilirubin,Total 4.2 mg/dl (0.2-1.0); Calcium 8.3 mg/dl (8.6-10.3); Creatinine Clr Calc Pharmacy 27.9 ml/min; Est GFR (African American) 34.3 ml/min; Est GFR (Non-African American) 29.6 ml/min; Globulin 3.6 gm/dl (2.5-4.0); Magnesium 2.4 mg/dl (1.7-2.4); Potassium 3.8 mmol/L (3.5-5.1); Total Protein 6.3 gm/dl (6.0-8.3)
[2023-09-19] MEDS: ALBUMIN 25% 25 GM/100 ML VIAL IV SCH (02:55)
[2023-09-19 07:40] LABS: Eosinophils # (auto) 0.01 K/uL (0.00-0.50); Eosinophils % (auto) 0.1 %; Hematocrit (blood only) 27.7 % (42.0-52.0); Hemoglobin 9.8 g/dl (14.0-18.0); Immature Granulocytes # (auto) 0.13 K/uL (0.01-0.20); Immature Granulocytes % (auto) 1.1 %; Lymphocytes # (auto) 0.76 K/uL (1.20-3.40); Lymphocytes % (auto) 6.5 %; Mean Corpuscular Hemoglobin 30.4 pg (25.0-34.0); Mean Corpuscular Hgb Conc 35.4 g/dL (32.0-36.0); Mean Platelet Volume 9.6 fL (9.4-12.4); Monocytes # (auto) 0.88 K/uL (0.11-0.59); Monocytes % (auto) 7.6 %; Neutrophils # (auto) 9.86 K/uL (1.40-6.50); Neutrophils % (auto) 84.7 %; Platelet Count 192 K/uL (130-400); RDW Coefficient of Variation 14.7 % (11.5-14.5); RDW Standard Deviation 44.9 fL (36.4-46.3); Red Blood Count 3.22 M/uL (4.70-6.10); White Blood Count 11.64 K/ul (4.8-10.8)
[2023-09-19 08:17] LABS: Albumin Globulin Ratio 1.2 (0.9-2); Albumin Level 3.4 gm/dl (3.4-5.0); BUN Creatinine Ratio 28.8 (10-20); Bilirubin,Total 4.1 mg/dl (0.2-1.0); Calcium 8.5 mg/dl (8.6-10.3); Creatinine Clr Calc Pharmacy 28.4 ml/min; Est GFR (African American) 35.3 ml/min; Est GFR (Non-African American) 30.5 ml/min; Globulin 2.8 gm/dl (2.5-4.0); Magnesium 2.4 mg/dl (1.7-2.4); Phosphorus 4.1 mg/dl (2.5-4.9); Potassium 3.6 mmol/L (3.5-5.1); Total Protein 6.2 gm/dl (6.0-8.3)
--- NOTE | 2023-09-19 08:48 | Communication Note ---
Date of Service: September 19, 2023 I discussed the option of deactivating ICD therapies with the patient yesterday prior to his procedure and again this morning. He made it clear to me that he did not want any life-saving intervention should he have a life-threatening arrhythmia. He has said on more than 1 occasion that he wants to simply go home and be with the Lord. I was very clear that deactivated the ICD therapies could result in his should he have a life-threatening arrhythmia. At this point ICD therapies have been deactivated, no therapy would be delivered in the setting of ventricular fibrillation or ventricular tachycardia. Should the patient change his mind, please contact [employer] or cardiology to have the therapies re-initiated.
[2023-09-19] MEDS ORDERED: LIDOCAINE 5% 1 PATCH TD SCH (09:00)
[2023-09-19] MEDS ORDERED: ONDANSETRON INJ 2 MG/ML 2 ML VIAL IV PRN (16:42)
[2023-09-19] MEDS ORDERED: ONDANSETRON 4 MG OD TAB SL PRN (16:42)
[2023-09-19] MEDS ORDERED: LORazepam 0.5 MG TAB PO PRN (16:42)
[2023-09-19] MEDS ORDERED: LORazepam 0.5 MG in SYRINGE 0.25 ML IV PRN (16:42)
--- NOTE | 2023-09-19 17:31 | Hospitalist Progress Note ---
Date of Service September 19, 2023 Assessment & Plan (1) HFrEF (heart failure with reduced ejection fraction): (2) CHF (congestive heart failure): (3) Acute hypotension: (4) LEONILA (acute kidney injury): (5) Shortness of breath: (6) Acute on chronic systolic heart failure: (7) HTN (hypertension): (8) Hypercholesteremia: (9) Interstitial lung disease: (10) Biventricular ICD (implantable cardioverter-defibrillator) in place: (11) Non-ischemic cardiomyopathy: (12) Chronic hyponatremia: Plan 73 yo male PMHx non-ischemic cardiomyopathy, biventricular ICD, CHF EF 22%, HTN, CAD, ILD, BPH here with 3 days of worsening LE edema and shortness of breath. 1) HFrEF (acute on chronic)/acute hypotension/poor end organ perfusion -Recent EF in [place] showed EF 22%, mod-severe MR, severe TR -Pitting Edema to b/l knees -CXR shows pulmonary edema/congestion -Milrinone stopped -Metoprolol stopped, -Spironolactone stopped -Amiodarone stopped -Bumex stopped, -Chlorothiazide stopped -BNP, 1701 <-- 2504, HS-trop, 26.2 <-- 30.4 -Cardiology consulted, recommendations given: trev - will keep catheter in for comfort measures 2) paroxysmal atrial flutter w/ RVR - discontinued amiodarone -Cardiology consulted: attempted AV node ablation failed yesterday 3) Interstitial lung disease - 4) Goals of care - Consider palliative care consult: patient was seen by palliative care in [place], considering hospice if clinical condition continues to deteriorate - confirmed code status with patient - patient is on comfort care measures and prefers to remain in hospital for now instead of returning home with home hospice care - went over medications that contributed to patient's comfort: - continued hydroxyzine, diphenhydramine, gabapentin, lidocaine patches 5)LEONILA -Prerenal -Cr 2.12 (1.64 on discharge from [place]) -Hold diuretics for now 6)CAD -non occ 7)HLD -discontinue Atorvastatin 8)Anemia - Hgb, 10.4 -discontinue Iron 325mg daily -discontinue Vitamin D3 3000IU daily 9) Hypotonic, hyponatremia - Na, 118; osmolality, 265 - likely secondary to CHF 10)Pacemaker in place -Recently interrogated at [facility]: Grigsby catheter, Fluid-restricted (2000 mL/day), Heart healthy diet Code status: DNR/DNI DVT prophylaxis: Eliquis Isolation: none Disposition: PCU w/ tele Admission and Anticipated Discharge Date Admission Date: September 15, 2023 Supervising Physician Co-Signing Physician Notes Attending Physician Supervision Note: I independently interviewed and examined the patient and verified the velasco history and physical, reviewed labs and image studies and agree with findings and care plan noted above. continuing to feel very tired. family at bedside. vitals noted nad heent nc at mmm breathing unlabored no accessory muscles good effort skin no rashes no pallor or icterus neuro no focal deficits. Acute on chronic exacerbation of HFrEF 22% (non-ischemic CMP) - noted to be a flutter during ICD interrogation. likely etiology - underwent a flutter ablation 09/18. Cardiogenic shock LEONILA PAF/PVF Cirrhosis Hyponatremia -After extensive discussion patient and family and care team - transitioned care to comfort care considering grave prognosis. ICD turned off by cardiology as per patient wishes. grigsby for comfort care. case management following for discharge planning/hospice. Subjective The patient is resting comfortably in bed but with considerable fatigue. Says he is improved over yesterday, however, still very fatigued. Patient had severe back pain after the attempted AV node ablation yesterday. Denies chest pain and palpitations but with dyspnea and fatigue. Patient has decided to go with comfort care measures and prefers, for now, to stay in the hospital as he doesn't have enough energy for trip home and doesn't think he'll have enough energy to use the bathroom himself. Review of Systems Constitutional: + fatigue and + weakness; no fever and n o chills Respiratory: + cough (less frequent) and + dyspnea; n o chest congestion Cardiovascular: no chest pain, no radiating jaw, neck or arm pain, no palpitations (none since amiodarone administration yesterday) and no calf pain Gastrointestinal: + abdominal pain (pos Bravo's sign/RUQ pain); no nausea, no vomiting and no diarrhea/loose stools Genitourinary: no dysuria or no difficulty urinating Neurologic: no tingling and no numbness Hematologic / Lymphatic: no easy bleeding and no easy bruising Physical Exam Constitutional: + ill appearing, + cachectic, + frail ap pearing and cooperative Eyes: + anicteric sclerae; normal pupil size Respiratory: Auscultation: + crackles Cardiovascular: Rate/Rhythm: + tachycardic Heart Sounds: + murmur Vessels: + JVD Extremities: + pedal edema; no calf tenderness Gastrointestinal (Abdomen): normal bowel sounds, soft, nontender, no hepatosplenomegaly Inspection/Auscultation: + scaphoid Percussion/Palpation: + abdomen tender (tender RUQ, positive Bravo's sign/increased w/ inspiration) Psychiatric: A+Ox3, euthymic affect Speech: normal rate/rhythm/volume of speech Insight: good insight Results & Data Results & Data Vital Signs (Past 12 Hours) Vital Signs Temp Pulse Pulse Resp BP Pulse Ox O2 Del Method 09/19/23 15:24 36.2 C L 88 18 91/54 L 95 Nasal Cannula 09/19/23 11:13 36.4 C L 87 19 99/60 L 94 Nasal Cannula 09/19/23 07:40 Nasal Cannula 09/19/23 07:23 36.3 C L 89 19 93/63 L 95 Nasal Cannula 09/19/23 07:00 89 O2 Flow Rate 09/19/23 15:24 4 09/19/23 11:13 4 09/19/23 07:40 4 09/19/23 07:23 4 09/19/23 07:00 Resident Activity Tracking Resident Involvement: Resident Care Provided Care Provided: Adult Hospital Medicine (2) CHF (congestive heart failure) Heart failure chronicity: unspecified Heart failure type: unspecified Qualified Code(s): I50.9 - Heart failure, unspecified (7) HTN (hypertension) Hypertension type: primary hypertension Qualified Code(s): I10 - Essential (primary) hypertension
[2023-09-19] MEDS: diphenhydrAMINE Capsule 25 MG CAP PO SCH (20:19)
[2023-09-19] MEDS: GABAPENTIN 400 MG CAP PO SCH (20:19)
[2023-09-19] MEDS: HYDROmorphone INJ 0.5 MG/0.5 ML SYR IV PRN (23:33)
--- NOTE | 2023-09-20 07:13 | Hospitalist Progress Note ---
Date of Service September 20, 2023 Assessment & Plan (1) HFrEF (heart failure with reduced ejection fraction): (2) CHF (congestive heart failure): (3) Acute hypotension: (4) LEONILA (acute kidney injury): (5) Shortness of breath: (6) Acute on chronic systolic heart failure: (7) HTN (hypertension): (8) Hypercholesteremia: (9) Interstitial lung disease: (10) Biventricular ICD (implantable cardioverter-defibrillator) in place: (11) Non-ischemic cardiomyopathy: (12) Chronic hyponatremia: Plan 73 yo male PMHx non-ischemic cardiomyopathy, biventricular ICD, CHF EF 22%, HTN, CAD, ILD, BPH here with 3 days of worsening LE edema and shortness of breath. 1) HFrEF (acute on chronic)/acute hypotension/poor end organ perfusion -Recent EF in [place] showed EF 22%, mod-severe MR, severe TR -Pitting Edema to b/l knees -CXR shows pulmonary edema/congestion -Milrinone stopped -Metoprolol stopped, -Spironolactone stopped -Amiodarone stopped -Bumex stopped, -Chlorothiazide stopped -BNP, 1701 <-- 2504, HS-trop, 26.2 <-- 30.4 -Cardiology consulted, recommendations given: trev - will keep catheter in for comfort measures 2) paroxysmal atrial flutter w/ RVR - discontinued amiodarone -Cardiology consulted: attempted AV node ablation failed yesterday 3) Interstitial lung disease - 4) Goals of care - Consider palliative care consult: patient was seen by palliative care in [place], considering hospice if clinical condition continues to deteriorate - confirmed code status with patient - patient is on comfort care measures and prefers to remain in hospital for now instead of returning home with home hospice care - went over medications that contributed to patient's comfort: - continued hydroxyzine, diphenhydramine, gabapentin, lidocaine patches 5)LEONILA -Prerenal -Cr 2.12 (1.64 on discharge from [place]) -Hold diuretics for now 6)CAD -non occ 7)HLD -discontinue Atorvastatin 8)Anemia - Hgb, 10.4 -discontinue Iron 325mg daily -discontinue Vitamin D3 3000IU daily 9) Hypotonic, hyponatremia - Na, 118; osmolality, 265 - likely secondary to CHF 10)Pacemaker in place -Recently interrogated at [facility] and [facility] FENGI: Wilson catheter, Fluid restriction lifted, Heart healthy diet Code status: DNR/DNI DVT prophylaxis: Eliquis Isolation: none Disposition: PCU w/ tele Admission and Anticipated Discharge Date Admission Date: September 15, 2023 Supervising Physician Co-Signing Physician Notes Attending Physician Supervision Note: I independently interviewed and examined the patient and verified the velasco history and physical, reviewed labs and image studies and agree with findings and care plan noted above. had restful sleep last night. family at bedside. vitals noted nad heent nc at mmm breathing unlabored no accessory muscles good effort skin no rashes no pallor or icterus neuro no focal deficits. Acute on chronic exacerbation of HFrEF 22% (non-ischemic CMP) A flutter during ICD interrogation - underwent a flutter ablation 09/18. Cardiogenic shock LEONILA PAF/PVF Cirrhosis Hyponatremia -With extensive recurrent hospitalization, poor quality of life, patient desired comfort care. -After extensive discussion patient and family and care team - transitioned care to comfort care considering grave prognosis. ICD turned off by cardiology as per patient wishes. seb for comfort care. case management following for discharge planning/hospice. Subjective The patient is resting comfortably in bed but with less fatigue than yesterday. Patient slept much better last night with the hydroxyzine, diphenhydramine, lidocaine patches and scheduled gabapentin. Says he is improved over yesterday, however, still very fatigued. Patient's back pain improving after the attempted AV node ablation this week. Denies chest pain and palpitations but with dyspnea and fatigue. Patient has decided to go with comfort care measures and prefers, for now, to stay in the hospital as he doesn't have enough energy for trip home and doesn't think he'll have enough energy to use the bathroom himself. Asked him about this again this morning and patient continues to want to remain in the hospital. Patient still has almost no appetite but drinking root beer when he wants something refreshing. Review of Systems Review of Systems: reviewed, per HPI Constitutional: + fatigue and + weakness; no fever and n o chills Respiratory: + cough (less frequent) and + dyspnea; n o chest congestion Cardiovascular: no chest pain, no radiating jaw, neck or arm pain, no palpitations (none since amiodarone administration yesterday) and no calf pain Gastrointestinal: + abdominal pain (pos Bravo's sign/RUQ pain); no nausea, no vomiting and no diarrhea/loose stools Genitourinary: no dysuria or no difficulty urinating Neurologic: no tingling and no numbness Hematologic / Lymphatic: no easy bleeding and no easy bruising Physical Exam Constitutional: + ill appearing, + cachectic, + frail ap pearing and cooperative Eyes: + anicteric sclerae; normal pupil size Respiratory: Auscultation: + crackles Cardiovascular: Rate/Rhythm: + tachycardic; + abnormal rhythm Heart Sounds: + murmur Vessels: + JVD Extremities: + pedal edema; no calf tenderness Gastrointestinal (Abdomen): normal bowel sounds, soft, nontender, no hepatosplenomegaly Inspection/Auscultation: + scaphoid Percussion/Palpation: + abdomen tender (tender RUQ, positive Bravo's sign/increased w/ inspiration) Psychiatric: A+Ox3, euthymic affect Speech: normal rate/rhythm/volume of speech Insight: good insight Results & Data Results & Data Vital Signs (Past 12 Hours) Vital Signs O2 Del Method 09/19/23 20:20 Room Air (2) CHF (congestive heart failure) Heart failure chronicity: unspecified Heart failure type: unspecified Qualified Code(s): I50.9 - Heart failure, unspecified (7) HTN (hypertension) Hypertension type: primary hypertension Qualified Code(s): I10 - Essential (primary) hypertension
--- NOTE | 2023-09-21 06:56 | Hospitalist Progress Note ---
Date of Service September 21, 2023 Assessment & Plan (1) HFrEF (heart failure with reduced ejection fraction): (2) CHF (congestive heart failure): (3) Acute hypotension: (4) LEONILA (acute kidney injury): (5) Shortness of breath: (6) Acute on chronic systolic heart failure: (7) HTN (hypertension): (8) Hypercholesteremia: (9) Interstitial lung disease: (10) Biventricular ICD (implantable cardioverter-defibrillator) in place: (11) Non-ischemic cardiomyopathy: (12) Chronic hyponatremia: Plan 73 yo male PMHx non-ischemic cardiomyopathy, biventricular ICD, CHF EF 22%, HTN, CAD, ILD, BPH here with 3 days of worsening LE edema and shortness of breath. 1) HFrEF (acute on chronic)/acute hypotension/poor end organ perfusion -Recent EF in [place] showed EF 22%, mod-severe MR, severe TR -Pitting Edema to b/l knees -CXR shows pulmonary edema/congestion -Milrinone stopped -Metoprolol stopped, -Spironolactone stopped -Amiodarone stopped -Bumex stopped, -Chlorothiazide stopped -BNP, 1701 <-- 2504, HS-trop, 26.2 <-- 30.4 -Cardiology consulted, recommendations given: trev - will keep catheter in for comfort measures 2) paroxysmal atrial flutter w/ RVR - discontinued amiodarone -Cardiology consulted: attempted AV node ablation failed 3) Interstitial lung disease/chronic cough - added Jorge Palumbo 4) Goals of care - Consider palliative care consult: patient was seen by palliative care in [place], considering hospice if clinical condition continues to deteriorate - confirmed code status with patient - patient is on comfort care measures and prefers to remain in hospital for now instead of returning home with home hospice care - went over medications that contributed to patient's comfort: - continued hydroxyzine, gabapentin, lidocaine patches 5)LEONILA -Prerenal -Cr 2.12 (1.64 on discharge from [place]) -Hold diuretics for now 6)CAD -holding meds 7)HLD -discontinue Atorvastatin 8)Anemia - Hgb, 10.4 -discontinue Iron 325mg daily -discontinue Vitamin D3 3000IU daily 9) Hypotonic, hyponatremia - Na, 118; osmolality, 265 - likely secondary to CHF 10)Pacemaker in place -Recently interrogated at [facility] and [facility]: Wilson catheter, Fluid restriction lifted, Heart healthy diet Code status: DNR/DNI DVT prophylaxis: Eliquis Isolation: none Disposition: PCU w/ tele Admission and Anticipated Discharge Date Admission Date: September 15, 2023 Supervising Physician Co-Signing Physician Notes Attending Physician Supervision Note: I independently interviewed and examined the patient and verified the velasco history and physical, reviewed labs and image studies and agree with findings and care plan noted above. felt sleepy this am. family at bedside. vitals noted nad heent nc at mmm breathing unlabored no accessory muscles good effort skin no rashes no pallor or icterus neuro no focal deficits. Acute on chronic exacerbation of HFrEF 22% (non-ischemic CMP) A flutter during ICD interrogation - underwent a flutter ablation 09/18. Cardiogenic shock LEONILA PAF/PVF Cirrhosis Hyponatremia -With extensive recurrent recent hospitalizations, poor quality of life, patient desired comfort care. -After extensive discussion with patient and family and care team - transitioned care to comfort care considering grave prognosis. ICD turned off by cardiology as per patient wishes. seb for comfort care. case management following for discharge planning/hospice. (patient is preferring to stay hospitalized for end of life) Subjective The patient is resting comfortably in bed but with less fatigue than yesterday. Patient slept well last night with the hydroxyzine, diphenhydramine, lidocaine patches and scheduled gabapentin. Is waking up groggier and less oriented than he would like, confused about where he is. Patient's back pain improving after the attempted AV node ablation this week. Denies chest pain and palpitations but with continued dyspnea and fatigue. Patient still with comfort care measures and continues to prefer, for now, to stay in the hospital as he doesn't have enough energy for trip home and doesn't think he'll have enough energy to use the bathroom himself. Patient still has almost no appetite and still drinking root beer when he wants something refreshing. Review of Systems Review of Systems: reviewed, per HPI Constitutional: + fatigue and + weakness; no fever and n o chills Respiratory: + cough (frequent, phlegmy) and + dyspne a Cardiovascular: no chest pain, no radiating jaw, neck or arm pain and no calf pain Gastrointestinal: + abdominal pain (pos Bravo's sign/RUQ pain); no nausea, no vomiting and no diarrhea/loose stools Genitourinary: no dysuria or no difficulty urinating Neurologic: no tingling and no numbness Physical Exam Constitutional: + ill appearing, + cachectic, + frail ap pearing and cooperative Eyes: + anicteric sclerae; normal pupil size Respiratory: Auscultation: + crackles Cardiovascular: Rate/Rhythm: regular rate Vessels: + JVD Gastrointestinal (Abdomen): normal bowel sounds, soft, nontender, no hepatosplenomegaly Inspection/Auscultation: + scaphoid Percussion/Palpation: + abdomen tender (tender RUQ, positive Bravo's sign/increased w/ inspiration) Psychiatric: A+Ox3, euthymic affect Speech: normal rate/rhythm/volume of speech Insight: good insight Results & Data Results & Data Vital Signs (Past 12 Hours) Vital Signs O2 Del Method O2 Flow Rate 09/20/23 19:40 Nasal Cannula 2 Resident Activity Tracking Resident Involvement: Resident Care Provided Care Provided: Adult Hospital Medicine (2) CHF (congestive heart failure) Heart failure chronicity: unspecified Heart failure type: unspecified Qualified Code(s): I50.9 - Heart failure, unspecified (7) HTN (hypertension) Hypertension type: primary hypertension Qualified Code(s): I10 - Essential (primary) hypertension
[2023-09-21] MEDS: BENZONATATE 100 MG CAPSULE PO SCH (15:05)
--- NOTE | 2023-09-21 20:11 | Palliative Care Consultation ---
Date of Consultation September 21, 2023 Assessment & Plan (1) Dyspnea and respiratory abnormalities: (2) Fatigue: (3) Weakness generalized: (4) Advanced care planning/counseling discussion: I had a 60min face to face ACP meeting with pt , his and his dtr at bedside. with their consent and voluntary participation we discussed his concerns about the current medical issues. Malcolm tellls me he met with Palliative Med at [facility] and had a long conversation about desires/goals at this junction. He spoke with them about hospice.. He says he wants to go home with hospice, focus on comfort, no more interventions/poking/prodding. He says he is not feeling anything getting better and he just wants to be home. His was leaning towards agreeing with him/being advocate but dtr very opposed/wants milrinone and amiodarone infusions etc. I advised hospice may not cover these at home. We discussed the goals of hospice as a patient service and the goals of care; we discussed EOL trajectories and transitions patsy the emotional impact of realizing mortality as a concrete reality from prior abstract considerations. Pt was reassured that no matter where they are along this trajectory, they are not alone - their medical team will remain by their side through their journey. Discussed the pros/cons of accepting help when especially weakened and distressed by pain-which would also help provide relief/decrease caregiver burden/strain. I provided education about the hospice benefit: an interdisciplinary program offered by nurses, nurses aides, social workers, chaplains and a medical researcher for patients with a terminal condition and a life expectancy of less than 6 months. This is covered by Medicare at 100%/no out of pocket expense to patient and all meds/supplies needed by patient for the reason they are on hospice are paid for/covered by hospice. The goal is assure quality of life of the patient in their home setting (home, assisted, inpatient hospice setting) by providing symptoms management, psychosocial and spiritual support. However, they cannot offer 24 hours care and if the family is unable to provide that care, they will have to consider personal care with out of pocket cost vs. assisted placement. We discussed the goals of hospice as a patient service and the goals of care; we discussed EOL trajectories and transitions patsy the emotional impact of realizing mortality as a concrete reality from prior abstract considerations. Pt was reassured that no matter where they are along this trajectory, they are not alone - their medical team will remain by their side through their journey. Discussed the pros/cons of accepting help when especially weakened and distressed by pain-which would also help provide relief/decrease caregiver burden/strain. I did review that when patients tell us they feel worse in spite of our escalated supports and interventions these are signs their illness is progressing to end stage and transitioning focus to be more about QOL/comfort is appropriate. pt says he is "tired of things prolonging this suffering' and 'merle gging things out." I think some formal guidance re: are those therapies offering a meaningful benefit to pt as he would define it is needed. Dtr also felt pt was not in his right mind but I will note he was decisionally competent with me, followed commands and answered all questions accurately.I suggested they further discuss as a family. They are seeking guidance/answers re is it time to stop mil rinone and would hospice cover it etc. I advised I would update primary tea, cardiology and care mgt. (5) Palliative care by specialist: Met with pt/family. Provided overview of Palliative Medicine, a subspecialty that provides specialized medical care for people living with a serious illness by offering a focus on quality of life. Palliative Medicine is often conflated with hospice: I advised patient/family that Palliative and hospice can be partners but we are not the same. It is important to understand the difference so that we may be informed, and not afraid. Palliative Medicine works to improve QOL through reduction of symptom burden/more control over their illness, for both the patient and family. Palliative medicine clinicians are board certified, specially-trained and another member of the patient's medical care team. We often provide an extra layer of support because our care is based on the needs of the patient, not the prognosis; as such, it's appropriate at any age/advancing stage of a serious illness and can be provided along with curative treatment. Palliative Medicine clinicians are also trained in advanced communication methodologies, to facilitate complex discussions about advanced illness planning, which are needed to help assure that the treatment choices match the patient's goals, aka delivering Goal Concordant care. Finally, we discussed that hospice is a visiting nurse service that focuses on care delivered at the very end of life for patients with terminal illness, with life expectancy less than 6 month. Plan * ACP discussion as noted above * Dtr distressed, enc they speak more as a family and advised I would ask for other teams to get them the additional info * in general hospices in this region do not offer home infusion support, though it is NOT against hospice regs to provide supportive comfort focused milrinone support. This is usually done through larger agencies associated with academic centers. Rural areas suffer from the lack of broader / expanded hospice services. Thank you for allowing us to participate in the ongoing care of this patient. Please don't hesitate to call or page with any additional concerns. Dr. Bambi Ramirez DNP Director, Palliative Care History of Present Illness Reason for Consultation: [facility], "family interested in palliative care" Attending Physician: Poppy Sheriff MD History of Present Illness Malcolm Chapman is a 73 yo male with NICM, BiV ICD, CHF EF 22%, HTN, CAD, ILD, BPH who is now adimtted with worsening dyspnea and BLE edema. He has very severe HF with severe end organ perfusion defects He shares that he was recently transferred to [facility] where echo showed EF 22%, mod- severe MR, severe TR. He was given an ICD and transferred back to [facility] He is seen bedside with his and daughter. Daughter reports he has been on home milrinone which is underway here as well. states he has been having worsneing dyspnea, fatigue,w eakness, poor appetite, diminished mood and LE edema Patient states "I am done with all of this, I am not getting better no matter what you all are doing.Now, I just want to go home. I want to be left alone and be home. I know this isn't getting better." Allergies Allergy/AdvReac Type Severity Reaction Status Date / Time morphine Allergy Unknown Difficulty Verified 08/13/23 10:26 Breathing mycophenolate mofetil AdvReac Intermediate Dizziness Verified 08/13/23 10:26 Home Medications Medication Instructions Recorded Confirmed Type bmicuherfbzo-gec-edbfn acid-vit 1 tab PO QPM 03/21/20 09/15/23 History K-lycop 400 mcg-20 mcg-370 mcg tablet (One-A-Day Men's 50 Plus (with vitamin K)) acetaminophen 500 mg tablet 1,000 mg PO Q6H PRN Pain 07/30/22 09/15/23 History albuterol sulfate 90 mcg/actuation 2 inh inhalation Q4 PRN shortness 01/20/23 09/15/23 Rx aerosol inhaler of breath or wheezing #3 Inhalers cholecalciferol (vitamin D3) 50 50 mcg PO QAM 03/05/23 09/15/23 History mcg (2,000 unit) capsule gabapentin 400 mg capsule 400 mg PO TID PRN Pain #270 caps 04/21/23 09/15/23 Rx atorvastatin 10 mg tablet 10 mg PO QPM #90 tabs 06/18/23 09/15/23 Rx ferrous sulfate 325 mg (65 mg 325 mg PO DAILY 06/25/23 09/15/23 History iron) tablet metoprolol succinate 25 mg 25 mg PO DAILY #90 tabs 06/25/23 09/15/23 Rx tablet,extended release 24 hr pantoprazole 40 mg tablet,delayed See Rx Instructions .Route 07/30/23 09/15/23 R x release .COMPLEX #60 tabs amiodarone 200 mg tablet 200 mg PO DAILY 09/12/23 09/15/23 History apixaban 5 mg tablet (Eliquis) 5 mg PO BID 09/12/23 09/15/23 History bumetanide 1 mg tablet 2 mg PO BID 09/12/23 09/15/23 History chlorothiazide 250 mg/5 mL oral 250 mg PO .COMPLEX 09/12/23 09/15/23 History suspension empagliflozin 10 mg tablet 10 mg PO DAILY 09/12/23 09/15/23 History (Jardiance) fluticasone propionate 50 1 spray intranasal DAILY 09/12/23 09/15/23 History mcg/actuation nasal spray,suspension (Allergy Relief (fluticasone)) milrinone 1 mg/mL intravenous See Rx Instructions continuous IV 09/12/23 09/15/23 History solution infusion .COMPLEX spironolactone 25 mg tablet 12.5 mg PO DAILY 09/12/23 09/15/23 History diphenhydramine 25 1 tab PO UD 09/15/23 09/15/23 History mg-acetaminophen 500 mg tablet (Tylenol PM Extra Strength) melatonin See Rx Instructions .Route .COMPLEX 09/15/23 09/15/23 History Patient History Medical History (Updated 09/21/23 @ 20:02 by Bambi Ramirez DNP) Palliative care by specialist Advanced care planning/counseling discussion Weakness generalized Fatigue Dyspnea and respiratory abnormalities Mitral regurgitation Atrial tachycardia Tachycardia Sustained ventricular tachycardia Paroxysmal atrial fibrillation Defibrillator discharge NSVT (nonsustained ventricular tachycardia) Pneumothorax Community acquired pneumonia Idiopathic interstitial pneumonia Hypotension recent [place] cardio visit --- checks BP at home and hypotensive, light headed. see cardio note. Presence of combination internal cardiac defibrillator (ICD) and pacemaker medtronic. checked [address] Mcnulty. Idiopathic interstitial pneumonia Interstitial lung disease Dyspnea on exertion Bibasilar crackles Hx of gastric ulcer BPH with obstruction/lower urinary tract symptoms Abnormal TSH noted 02/2020 due to use of prednisone, repeat labs normal in 03/2020 including TSI Biventricular ICD (implantable cardioverter-defibrillator) in place original placed in 2013, follows with Dr Mcnulty; new one placed 06/2022, [facility] Chronic systolic congestive heart failure Left bundle branch block Osteoarthritis Rib fractures hx Pneumothorax on left ~2013. chest tube drain placed and treated inpatient. HTN (hypertension) Hypercholesteremia CAD (coronary artery disease) Non-ischemic cardiomyopathy (04/14/14) Surgical History Hx of eye surgery age 4 History of esophagogastroduodenoscopy (EGD) History of colonoscopy History of inguinal hernia repair x 2 History of arthroscopy of knee right History of eye surgery at age 4 - right eye surgery Family History Father Emphysema, unspecified Mother Urinary bladder cancer Brother Prediabetes Denies family history of Ovarian cancer Prostate cancer Myocardial infarction Breast cancer Colorectal cancer Social History Smoking Status: Never smoker Second Hand Exposure: No; Do You Dip or Chew Tobacco: No; Hx Alcohol Use: No Hx Substance Use: No Preferred Language: Syrian Communication Ability: Effective Visual Impairment: No Limitations Hearing Ability: Normal Pasting Machine Offbearer Required: No Beliefs That Will Affect Care: None marital status: Current Living Situation: Spouse Current Living Situation Comment: with Faith current occupational status: retired current occupation: Retired [employer]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 How many Children do You have: 2 Feels Safe at Home: Yes Safety Concerns: Feels Safe At This Time Childhood Exposure to Second-Hand Smoke: No Diet: regular Dental Care, Regularly: No Physical Activity Frequency: Daily Seatbelt Use: always Sunscreen Use: No Assistive Devices: Walker Review of Systems Review of Systems: All systems reviewed & are unremarkable except as noted in Subjective Physical Exam Physical Exam: frail, cachectic, +resp distress +weakness +conversational dyspnea +pallor tachy, +murmur, irreg irreg inc resp effort +abd breathing generalized weakness BLE edema + AAOx3 but tires easily voice very hoarse and sometimes will whisper - speaking is an effort d/t dyspnea Results & Data Vital Signs (Past 12 Hours) Vital Signs O2 Del Method O2 Flow Rate 09/21/23 08:30 Nasal Cannula 2 Laboratory Results data reviewed Diagnostic Findings data reviewed PG Care Time/CCT Total # of Minutes Spent Total Time Spent: 135 Total Time Spent with Patient: Total time spent is greater than 50% in coordination of care (as documented) at patient's floor/unit and/or counseling patient: I spent 135 minutes overall addressing this case: 25 min in medical data review/discussion with referring provider(s) and/or preparation for the visit 15 min in direct interaction with the patient/exam 60 min in Advance Care Planning/Goals of Care discussions as detailed above in note (must be >16min) 15 min in subsequent review and synthesis of assessment and plan 20 min communicating with other providers regarding the patient's case: Advanced Care Planning 96785 Advanced Care Planning 30 Min 41037 Advanced Care Planning Additional 30 [place] [address] IN/OBS CONSULT LVL 4,60M Patient Type New History Comprehensive Exam Comprehensive Medical Decision Making High Complexity Diagnoses Dyspnea and respiratory abnormalities R06.00; R06.89 Fatigue R53.83 Weakness generalized R53.1 Advanced care planning/counseling discussion Z71.89 Palliative care by specialist Z51.5 Additional Codes Advanced Care Planning - 77749 Advanced Care Planning 30 Min: 13512 Advanced Care Planning 30 Min ([id number]) Advanced Care Planning - 20799 Advanced Care Planning Additional 30 Min: 44018 Advanced Care Planning Additional 30 Min ([id number])
--- NOTE | 2023-09-22 06:49 | Hospitalist Progress Note ---
Date of Service September 22, 2023 Assessment & Plan (1) HFrEF (heart failure with reduced ejection fraction): (2) CHF (congestive heart failure): (3) Acute hypotension: (4) LEONILA (acute kidney injury): (5) Shortness of breath: (6) Acute on chronic systolic heart failure: (7) HTN (hypertension): (8) Hypercholesteremia: (9) Interstitial lung disease: (10) Biventricular ICD (implantable cardioverter-defibrillator) in place: (11) Non-ischemic cardiomyopathy: (12) Chronic hyponatremia: Plan 73 yo male PMHx non-ischemic cardiomyopathy, biventricular ICD, CHF EF 22%, HTN, CAD, ILD, BPH here with 3 days of worsening LE edema and shortness of breath. 1) HFrEF (acute on chronic)/acute hypotension/poor end organ perfusion -Recent EF in [place] showed EF 22%, mod-severe MR, severe TR -Pitting Edema to b/l knees -CXR shows pulmonary edema/congestion -Milrinone stopped -Metoprolol stopped, -Spironolactone stopped -Amiodarone stopped -Bumex stopped, -Chlorothiazide stopped -BNP, 1701 <-- 2504, HS-trop, 26.2 <-- 30.4 -Cardiology consulted, recommendations given: trev - will keep catheter in for comfort measures 2) paroxysmal atrial flutter w/ RVR - discontinued amiodarone -Cardiology consulted: attempted AV node ablation failed 3) Interstitial lung disease/chronic cough - added Jorge Palumbo 4) Goals of care - Consider palliative care consult: patient was seen by palliative care in [place], considering hospice if clinical condition continues to deteriorate - confirmed code status with patient - patient is on comfort care measures and prefers to remain in hospital for now instead of returning home with home hospice care - went over medications that contributed to patient's comfort: - continued hydroxyzine, gabapentin, lidocaine patches 5)LEONILA -Prerenal -Cr 2.12 (1.64 on discharge from [place]) -Hold diuretics for now 6)CAD/HLD -holding med -discontinue Atorvastatin 7) Insomnia - 25 mg hydroxyzine, PO, QHS, gabapentin, 400 mg, PO, TID - consider other alternatives if pt to experience insomnia 8)Anemia - Hgb, 10.4 -discontinue Iron 325mg daily -discontinue Vitamin D3 3000IU daily 9) Hypotonic, hyponatremia - Na, 118; osmolality, 265 - likely secondary to CHF 10)Pacemaker in place -Recently interrogated at [facility] and [facility] FENGI: Wilson catheter, Fluid restriction lifted, Heart healthy diet Code status: DNR/DNI DVT prophylaxis: Eliquis Isolation: none Disposition: PCU w/ tele Admission and Anticipated Discharge Date Admission Date: September 15, 2023 Supervising Physician Co-Signing Physician Notes I personally examined the patient and verified all velasco points of history and exam, discussed case, and agree with decision making with Dr Carranza Feeling very tired. Not short of breath. Discussed with patient and family in detail inpatient care versus home hospice. Tried to outline differences and risk/benefit of both, answered questions to the best my ability, then later discussed the situation with case management so they could also discuss with patient and family. Vitals noted, in general he is very fatigued but no distress. Breathing unlabored no accessory muscle use good effort. Skin shows no rashes no pallor or icterus. Neuro without focal deficits. Acute on chronic exacerbation of HFrEF 22% (non-ischemic CMP) A flutter during ICD interrogation - underwent a flutter ablation 09/18. Cardiogenic shock LEONILA PAF/PVF Cirrhosis Hyponatremia -With extensive recurrent recent hospitalizations, poor quality of life, patient desired comfort care. -After extensive discussion with patient and family and care team Prior to my assuming his care - transitioned care to comfort care considering grave prognosis. ICD turned off by cardiology as per patient wishes. seb for comfort care. case management following for discharge planning/hospice. extensive discussion with patient and family on risk/benefit of inpatient versus homethey will then discuss further together. Subjective The patient is resting comfortably in bed but with less fatigue than yesterday. Patient slept a little worse last night with the hydroxyzine, lidocaine patches and scheduled gabapentin after cancelling the diphenhydramine. Patient's back pain improving after the attempted AV node ablation this week. Denies chest pain and palpitations but with continued dyspnea and fatigue. Patient still with comfort care measures and continues to prefer, for now, to stay in the hospital as he doesn't have enough energy for trip home and doesn't think he'll have enough energy to use the bathroom himself. Patient still has almost no appetite but attempted to eat some of his breakfast, drinking root beer when thirsty. Review of Systems Review of Systems: reviewed, per HPI Constitutional: + fatigue and + weakness; no fever and n o chills Respiratory: + cough (frequent, phlegmy) and + dyspne a Cardiovascular: no chest pain, no radiating jaw, neck or arm pain and no calf pain Gastrointestinal: + abdominal pain (pos Bravo's sign/RUQ pain); no nausea, no vomiting and no diarrhea/loose stools Genitourinary: no dysuria or no difficulty urinating Neurologic: no tingling and no numbness Hematologic / Lymphatic: no easy bleeding and no easy bruising Physical Exam Constitutional: + ill appearing, + cachectic, + frail ap pearing and cooperative Eyes: + anicteric sclerae; normal pupil size Respiratory: Auscultation: + crackles Cardiovascular: Rate/Rhythm: regular rate and + tachycardic; + abnormal rhythm Heart Sounds: + murmur Vessels: + JVD Extremities: + pedal edema; no calf tenderness Gastrointestinal (Abdomen): normal bowel sounds, soft, nontender, no hepatosplenomegaly Inspection/Auscultation: + scaphoid Percussion/Palpation: + abdomen tender (tender RUQ, positive Bravo's sign/increased w/ inspiration) Psychiatric: A+Ox3, euthymic affect Speech: normal rate/rhythm/volume of speech Insight: good insight Results & Data Results & Data Vital Signs (Past 12 Hours) Vital Signs O2 Del Method O2 Flow Rate 09/21/23 20:35 Nasal Cannula 2 Resident Activity Tracking Resident Involvement: Resident Care Provided Care Provided: Adult Hospital Medicine (2) CHF (congestive heart failure) Heart failure chronicity: unspecified Heart failure type: unspecified Qualified Code(s): I50.9 - Heart failure, unspecified (7) HTN (hypertension) Hypertension type: primary hypertension Qualified Code(s): I10 - Essential (primary) hypertension
--- NOTE | 2023-09-22 18:45 | Billing Data ---
Date of Service September 22, 2023 Coding Level of Care Code 41408 SUB INP/OBS CARE
[2023-09-23] MEDS: ACETAMINOPHEN 1,000 MG/100 ML VIAL IV PRN (01:08)
--- NOTE | 2023-09-23 06:50 | Hospitalist Progress Note ---
Date of Service September 23, 2023 Assessment & Plan (1) HFrEF (heart failure with reduced ejection fraction): (2) CHF (congestive heart failure): (3) Acute hypotension: (4) LEONILA (acute kidney injury): (5) Shortness of breath: (6) Acute on chronic systolic heart failure: (7) HTN (hypertension): (8) Hypercholesteremia: (9) Interstitial lung disease: (10) Biventricular ICD (implantable cardioverter-defibrillator) in place: (11) Non-ischemic cardiomyopathy: (12) Chronic hyponatremia: Plan 73 yo male PMHx non-ischemic cardiomyopathy, biventricular ICD, CHF EF 22%, HTN, CAD, ILD, BPH here with 3 days of worsening LE edema and shortness of breath. 1) HFrEF (acute on chronic)/acute hypotension/poor end organ perfusion -Recent EF in [place] showed EF 22%, mod-severe MR, severe TR -Pitting Edema to b/l knees -CXR shows pulmonary edema/congestion -Milrinone stopped -Metoprolol stopped, -Spironolactone stopped -Amiodarone stopped -Bumex stopped, -Chlorothiazide stopped -BNP, 1701 <-- 2504, HS-trop, 26.2 <-- 30.4 -Cardiology consulted, recommendations given: trev - will keep catheter in for comfort measures 2) paroxysmal atrial flutter w/ RVR - discontinued amiodarone -Cardiology consulted: attempted AV node ablation failed - continue metoprolol for symptom control, excess fatigue if BP's and HR's allow it 3) Interstitial lung disease/chronic cough - added Jorge Palumbo 4) Goals of care - Palliative care consult placed: patient was seen by palliative care in [place], seen by palliative medicine here at [facility] too, considering hospice if clinical condition continues to deteriorate - confirmed code status with patient - patient is on comfort care measures and prefers to remain in hospital for now instead of returning home with home hospice care - went over medications that contributed to patient's comfort: - continued hydroxyzine, gabapentin, lidocaine patches - could consider a medication that simultaneously addresses patient's decreased appetite and relative insomnia, such as mirtazapine 5)LEONILA -Prerenal -Cr 2.12 (1.64 on discharge from [place]) -Hold diuretics for now 6)CAD/HLD -holding med -discontinue Atorvastatin 7) Insomnia - 25 mg hydroxyzine, PO, QHS, gabapentin, 400 mg, PO, TID - consider other alternatives if pt to experience insomnia 8)Anemia - Hgb, 10.4 -discontinue Iron 325mg daily -discontinue Vitamin D3 3000IU daily 9) Hypotonic, hyponatremia - Na, 118; osmolality, 265 - likely secondary to CHF 10)Pacemaker in place -Recently interrogated at [facility] and [facility] 11) Recent Hx of cholecystitis without evidence of cholestasis - Patient noticeably more jaundiced on exam on 09/23/23, but still comfort care only FENGI: Wilson catheter, Fluid restriction lifted, Heart healthy diet Code status: DNR/DNI DVT prophylaxis: Eliquis Isolation: none Disposition: PCU w/ tele Admission and Anticipated Discharge Date Admission Date: September 15, 2023 Supervising Physician Co-Signing Physician Notes I personally examined the patient and verified all velasco points of history and exam, discussed case, and agree with decision making with Dr Dillon alanis. Discussed with family extensively. Offered guidance to the best of my ability. Vitals noted, Sleeping and appears in no distress. Breathing unlabored no accessory muscle use good effort. Skin shows no rashes no pallor or icterus. Neuro without focal deficits. Acute on chronic exacerbation of HFrEF 22% (non-ischemic CMP) A flutter during ICD interrogation - underwent a flutter ablation 09/18. Cardiogenic shock LEONILA PAF/PVF Cirrhosis Hyponatremia -With extensive recurrent recent hospitalizations, poor quality of life, patient desired comfort care. - continuing to work together with patient and family to guide them on what may be the best plan for him for hospice. They are continuing to discuss Subjective The patient is resting comfortably in bed but with less fatigue than yesterday. Patient slept a little worse last night with the hydroxyzine, lidocaine patches and scheduled gabapentin after cancelling the diphenhydramine. Patient's back pain improving after the attempted AV node ablation this week. Denies chest pain and palpitations but with continued dyspnea and fatigue. Patient still with comfort care measures and continues to prefer, for now, to stay in the hospital as he doesn't have enough energy for trip home and doesn't think he'll have enough energy to use the bathroom himself. Patient is attempting to eat more at mealtime, drink more regularly but, secondary to fatigue, sometimes prefers to skip meals. Review of Systems Review of Systems: reviewed, per HPI Constitutional: + fatigue and + weakness; no fever and n o chills Respiratory: + cough (frequent, phlegmy) and + dyspne a Cardiovascular: no chest pain, no radiating jaw, neck or arm pain and no calf pain Gastrointestinal: + abdominal pain (pos Bravo's sign/RUQ pain); no nausea, no vomiting and no diarrhea/loose stools Genitourinary: no dysuria or no difficulty urinating Neurologic: no tingling and no numbness Hematologic / Lymphatic: no easy bleeding and no easy bruising Physical Exam Constitutional: + ill appearing, + cachectic, + frail ap pearing and stoney ative Eyes: + anicteric sclerae; normal pupil size Respiratory: Auscultation: + crackles Cardiovascular: Rate/Rhythm: regular rate and + tachycardic; + abnormal rhythm Heart Sounds: + murmur Vessels: + JVD Extremities: + pedal edema; no calf tenderness Gastrointestinal (Abdomen): normal bowel sounds, soft, nontender, no hepatosplenomegaly Inspection/Auscultation: + scaphoid Percussion/Palpation: + abdomen tender (tender RUQ, positive Bravo's sign/increased w/ inspiration) Psychiatric: A+Ox3, euthymic affect Speech: normal rate/rhythm/volume of speech Insight: good insight Results & Data Results & Data Vital Signs (Past 12 Hours) Vital Signs Temp Pulse Resp BP Pulse Ox O2 Del Method O2 Flow Rate 09/22/23 22:24 36.3 C L 81 16 97/63 L 98 Nasal Cannula 2 09/22/23 19:35 Nasal Cannula 2 (2) CHF (congestive heart failure) Heart failure chronicity: unspecified Heart failure type: unspecified Qualified Code(s): I50.9 - Heart failure, unspecified (7) HTN (hypertension) Hypertension type: primary hypertension Qualified Code(s): I10 - Essential (primary) hypertension
--- NOTE | 2023-09-23 19:06 | Billing Data ---
Date of Service September 23, 2023 Coding Level of Care Code 19752 SUB INP/OBS CARE
--- NOTE | 2023-09-24 07:01 | Hospitalist Progress Note ---
Date of Service September 24, 2023 Assessment & Plan (1) HFrEF (heart failure with reduced ejection fraction): (2) CHF (congestive heart failure): (3) Acute hypotension: (4) LEONILA (acute kidney injury): (5) Shortness of breath: (6) Acute on chronic systolic heart failure: (7) HTN (hypertension): (8) Hypercholesteremia: (9) Interstitial lung disease: (10) Biventricular ICD (implantable cardioverter-defibrillator) in place: (11) Non-ischemic cardiomyopathy: (12) Chronic hyponatremia: Plan 73 yo male PMHx non-ischemic cardiomyopathy, biventricular ICD, CHF EF 22%, HTN, CAD, ILD, BPH here with 3 days of worsening LE edema and shortness of breath. 1) HFrEF (acute on chronic)/acute hypotension/poor end organ perfusion -Recent EF in [place] showed EF 22%, mod-severe MR, severe TR -Pitting Edema to b/l knees -CXR shows pulmonary edema/congestion -Milrinone stopped -Metoprolol stopped, -Spironolactone stopped -Amiodarone stopped -Bumex stopped, -Chlorothiazide stopped -BNP, 1701 <-- 2504, HS-trop, 26.2 <-- 30.4 -Cardiology consulted, recommendations given: trev - will keep catheter in for comfort measures 2) paroxysmal atrial flutter w/ RVR - discontinued amiodarone -Cardiology consulted: attempted AV node ablation failed - continue metoprolol for symptom control, excess fatigue if BP's and HR's allow it 3) Interstitial lung disease/chronic cough - added Jorge Palumbo 4) Goals of care - Palliative care consult placed: patient was seen by palliative care in [place], seen by palliative medicine here at [facility] too, considering hospice if clinical condition continues to deteriorate - confirmed code status with patient - patient is on comfort care measures and prefers to remain in hospital for now instead of returning home with home hospice care - went over medications that contributed to patient's comfort: - continued hydroxyzine, gabapentin, lidocaine patches; added temazepam - could consider a medication that improves patient's relative insomnia, such as temazepam, 7.5 mg, QHZ - patient and patient's family prefers him to stay in the hospital for now, with possible transition to home hospice later 5)LEONILA -Prerenal -Cr 2.12 (1.64 on discharge from [place]) -Hold diuretics for now 6)CAD/HLD -holding med -discontinue Atorvastatin 7) Insomnia - 25 mg hydroxyzine, PO, QHS, gabapentin, 400 mg, PO, TID temazepam, 7.5 mg, PO, QHS - consider other alternatives if pt to experience insomnia 8)Anemia - Hgb, 10.4 -discontinue Iron 325mg daily -discontinue Vitamin D3 3000IU daily 9) Hypotonic, hyponatremia - Na, 118; osmolality, 265 - likely secondary to CHF 10)Pacemaker in place -Recently interrogated at [facility] and [facility] 11) Recent Hx of cholecystitis without evidence of cholestasis - Patient noticeably more jaundiced on exam on 09/23/23, but still comfort care only FENGI: Wilson catheter, Fluid restriction lifted, Heart healthy diet Code status: DNR/DNI DVT prophylaxis: Eliquis Isolation: none Disposition: PCU w/ tele Admission and Anticipated Discharge Date Admission Date: September 15, 2023 Supervising Physician Co-Signing Physician Notes I personally examined the patient and verified all velasco points of history and exam, discussed case, and agree with decision making with Dr Carranza very tired. didn't sleep well last night. Vitals noted, awake/asleep during my discussion with . no distress. Breathing unlabored no accessory muscle use good effort. Skin shows no rashes no pallor or icterus. Neuro without focal deficits. some occassional myoclonus. Acute on chronic exacerbation of HFrEF 22% (non-ischemic CMP) A flutter during ICD interrogation - underwent a flutter ablation 09/18. Cardiogenic shock LEONILA PAF/PVF Cirrhosis Hyponatremia -With extensive recurrent recent hospitalizations, poor quality of life, patient desired comfort care. -for now, pt/family most comfortable with in hospital plan, continue to follow closely Subjective The patient is resting comfortably in bed but with less fatigue than yesterday. Patient slept a little worse last night with the hydroxyzine, lidocaine patches and scheduled gabapentin after cancelling the diphenhydramine. Patient's back pain improving after the attempted AV node ablation this week. Denies chest pain and palpitations but with continued dyspnea and fatigue. Patient still with comfort care measures and continues to prefer, for now, to stay in the hospital as he doesn't have enough energy for trip home and doesn't think he'll have enough energy to use the bathroom himself. Patient is attempting to eat more at mealtime, drink more regularly but, secondary to fatigue, sometimes prefers to skip meals. Patient is feeling more fatigued during the daytime with decreased restorative power of sleep. Review of Systems Review of Systems: reviewed, per HPI Constitutional: + fatigue and + weakness; no fever and n o chills Respiratory: + cough (frequent, phlegmy) and + dyspne a Cardiovascular: no chest pain, no radiating jaw, neck or arm pain and no calf pain Gastrointestinal: + abdominal pain (pos Bravo's sign/RUQ pain); no nausea, no vomiting and no diarrhea/loose stools Genitourinary: no dysuria or no difficulty urinating Neurologic: no tingling and no numbness Hematologic / Lymphatic: no easy bleeding and no easy bruising Physical Exam Constitutional: + ill appearing, + cachectic, + frail ap pearing and cooperative Eyes: sclerae not anicteric and normal pupil size Respiratory: Auscultation: + crackles Cardiovascular: Rate/Rhythm: regular rate and + tachycardic; + abnormal rhythm Heart Sounds: + murmur Vessels: + JVD Extremities: + pedal edema; no calf tenderness Gastrointestinal (Abdomen): normal bowel sounds, soft, nontender, no hepatosplenomegaly Inspection/Auscultation: + scaphoid Percussion/Palpation: + abdomen tender (tender RUQ, positive Bravo's sign/increased w/ inspiration) Skin: + jaundice Psychiatric: A+Ox3, euthymic affect Speech: normal rate/rhythm/volume of speech Insight: good insight Results & Data Results & Data Vital Signs (Past 12 Hours) Vital Signs Temp Pulse Resp BP Pulse Ox O2 Del Method O2 Flow Rate 09/23/23 21:22 Nasal Cannula 2 09/23/23 21:05 36.1 C L 80 18 94/62 L 95 Nasal Cannula 2 Resident Activity Tracking Resident Involvement: Resident Care Provided Care Provided: Adult Hospital Medicine (2) CHF (congestive heart failure) Heart failure chronicity: unspecified Heart failure type: unspecified Qualified Code(s): I50.9 - Heart failure, unspecified (7) HTN (hypertension) Hypertension type: primary hypertension Qualified Code(s): I10 - Essential (primary) hypertension
[2023-09-24] MEDS ORDERED: TEMAZEPAM 7.5 MG CAPSULE PO PRN (12:20)
--- NOTE | 2023-09-24 16:15 | Billing Data ---
Date of Service September 24, 2023 Coding Level of Care Code 44252 SUB INP/OBS CARE
[2023-09-25] MEDS: TEMAZEPAM 7.5 MG CAPSULE PO SCH ×2 (00:26→19:49)
--- NOTE | 2023-09-25 06:45 | Hospitalist Progress Note ---
Date of Service September 25, 2023 Assessment & Plan (1) HFrEF (heart failure with reduced ejection fraction): (2) CHF (congestive heart failure): (3) Acute hypotension: (4) LEONILA (acute kidney injury): (5) Shortness of breath: (6) Acute on chronic systolic heart failure: (7) HTN (hypertension): (8) Hypercholesteremia: (9) Interstitial lung disease: (10) Biventricular ICD (implantable cardioverter-defibrillator) in place: (11) Non-ischemic cardiomyopathy: (12) Chronic hyponatremia: Plan 73 yo male PMHx non-ischemic cardiomyopathy, biventricular ICD, CHF EF 22%, HTN, CAD, ILD, BPH here with 3 days of worsening LE edema and shortness of breath. 1) HFrEF (acute on chronic)/acute hypotension/poor end organ perfusion -Recent EF in [place] showed EF 22%, mod-severe MR, severe TR -Pitting Edema to b/l knees -CXR shows pulmonary edema/congestion -Milrinone stopped -Metoprolol stopped, -Spironolactone stopped -Amiodarone stopped -Bumex stopped, -Chlorothiazide stopped -BNP, 1701 <-- 2504, HS-trop, 26.2 <-- 30.4 -Cardiology consulted, recommendations given: trev - will keep catheter in for comfort measures - patient re-started on Bumex and placed on digoxin for comfort measures 2) paroxysmal atrial flutter w/ RVR - discontinued amiodarone -Cardiology consulted: attempted AV node ablation failed - continue metoprolol for symptom control, excess fatigue if BP's and HR's allow it 3) Interstitial lung disease/chronic cough - added Jorge Palumbo 4) Goals of care - Palliative care consult placed: patient was seen by palliative care in [facility], seen by palliative medicine here at [facility] too, considering hospice if clinical condition continues to deteriorate - confirmed code status with patient - patient is on comfort care measures and prefers to remain in hospital for now instead of returning home with home hospice care - went over medications that contributed to patient's comfort: - continued hydroxyzine, gabapentin, lidocaine patches; added temazepam - could consider a medication that improves patient's relative insomnia, such as temazepam, 7.5 mg, QHZ - patient and patient's family prefers him to stay in the hospital for now, with possible transition to home hospice later - Patient re-started on Bumex and started on digoxin for comfort care measures 5)LEONILA -Prerenal -Cr 2.12 (1.64 on discharge from [place]) -Hold diuretics for now 6)CAD/HLD -holding med -discontinue Atorvastatin 7) Insomnia - 25 mg hydroxyzine, PO, QHS, gabapentin, 400 mg, PO, TID temazepam, 7.5 mg, PO, QHS - consider other alternatives if pt to experience insomnia 8)Anemia - Hgb, 10.4 -discontinue Iron 325mg daily -discontinue Vitamin D3 3000IU daily 9) Hypotonic, hyponatremia - Na, 118; osmolality, 265 - likely secondary to CHF 10)Pacemaker in place -Recently interrogated at [facility] [place] [facility] [place]) Recent Hx of cholecystitis without evidence of cholestasis - Patient noticeably more jaundiced on exam on 09/23/23, but still comfort care only FENGI: Wilson catheter, Fluid restriction lifted, Heart healthy diet Code status: DNR/DNI DVT prophylaxis: Eliquis Isolation: none Disposition: PCU w/ tele Admission and Anticipated Discharge Date Admission Date: September 15, 2023 Supervising Physician Co-Signing Physician Notes I personally examined the patient and verified all velasco points of history and exam, discussed case, and agree with decision making with Dr Carranza family pleased with care. Vitals noted, pt asleep during my discussion with . no distress. Breathing unlabored no accessory muscle use good effort. Skin shows no rashes no pallor or icterus. Neuro without focal deficits. some occassional myoclonus. Acute on chronic exacerbation of HFrEF 22% (non-ischemic CMP) A flutter during ICD interrogation - underwent a flutter ablation 09/18. Cardiogenic shock LEONILA PAF/PVF Cirrhosis Hyponatremia -With extensive recurrent recent hospitalizations, poor quality of life, patient desired comfort care. -for now, pt/family most comfortable with in hospital plan, continue to follow closely, continue comfort care - restarting diuretics some to help w breathing otherwise as above Subjective The patient is resting comfortably in bed but with less fatigue than yesterday. Patient slept a little worse last night with the hydroxyzine, lidocaine patches and scheduled gabapentin after cancelling the diphenhydramine. Patient's back pain improving after the attempted AV node ablation this week. Denies chest pain and palpitations but with continued dyspnea and fatigue. Patient still with comfort care measures and continues to prefer, for now, to stay in the hospital as he doesn't have enough energy for trip home and doesn't think he'll have enough energy to use the bathroom himself. Patient is attempting to eat more at mealtime, drink more regularly but, secondary to fatigue, sometimes prefers to skip meals. Patient is feeling more fatigued during the daytime with decreased restorative power of sleep with increasing crackles upon lung exam. Review of Systems Review of Systems: reviewed, per HPI Constitutional: + fatigue and + weakness; no fever and n o chills Respiratory: + cough (frequent, phlegmy) and + dyspne a Cardiovascular: no chest pain, no radiating jaw, neck or arm pain and no calf pain Gastrointestinal: + abdominal pain (pos Bravo's sign/RUQ pain); no nausea, no vomiting and no diarrhea/loose stools Genitourinary: no dysuria or no difficulty urinating Neurologic: no tingling and no numbness Hematologic / Lymphatic: no easy bleeding and no easy bruising Physical Exam Constitutional: + ill appearing, + cachectic, + frail ap pearing and cooperative Eyes: sclerae not anicteric and normal pupil size Respiratory: Auscultation: + crackles Cardiovascular: Rate/Rhythm: regular rate and + tachycardic; + abnormal rhythm Heart Sounds: + murmur Vessels: + JVD Extremities: + pedal edema; no calf tenderness Gastrointestinal (Abdomen): normal bowel sounds, soft, nontender, no hepatosplenomegaly Inspection/Auscultation: + scaphoid Percussion/Palpation: + abdomen tender (tender RUQ, positive Bravo's sign/increased w/ inspiration) Skin: + jaundice Psychiatric: A+Ox3, euthymic affect Speech: normal rate/rhythm/volume of speech Insight: good insight Results & Data Results & Data Vital Signs (Past 12 Hours) Vital Signs O2 Del Method O2 Flow Rate 09/24/23 20:02 Nasal Cannula 2 Resident Activity Tracking Resident Involvement: Resident Care Provided Care Provided: Adult Hospital Medicine (2) CHF (congestive heart failure) Heart failure chronicity: unspecified Heart failure type: unspecified Qualified Code(s): I50.9 - Heart failure, unspecified (7) HTN (hypertension) Hypertension type: primary hypertension Qualified Code(s): I10 - Essential (primary) hypertension
[2023-09-25] MEDS: BUMETANIDE 1 MG TAB PO SCH ×2 (14:10→19:48)
[2023-09-25] MEDS: DIGOXIN 0.125 MG TAB PO SCH (16:26)
--- NOTE | 2023-09-25 18:42 | Billing Data ---
Date of Service September 25, 2023 Coding Level of Care Code 93465 SUB INP/OBS CARE
[2023-09-25] MEDS: hydrOXYzine HCl 25 MG TAB PO SCH (19:50)
[2023-09-26] MEDS: GLYCOPYRROLATE 0.2 MG/ML VIAL IV ONE (01:39)
[2023-09-26] MEDS ORDERED: LORazepam 0.5 MG in SYRINGE 0.25 ML IV PRN (10:05)
--- NOTE | 2023-09-26 18:43 | Discharge Summary ---
Date of Service September 26, 2023 Admission HPI Per Admitting Provider 73 yo male PMHx non-ischemic cardiomyopathy, biventricular ICD, CHF EF 22%, HTN, CAD, ILD, BPH here with 3 days of worsening LE edema and shortness of breath. He was recently discharged (09/10/23) from [facility] where he underwent extensive workup for his cardiomyopathy and heart failure. TTE at that time showed EF 22% with moderate-severe MR, severe TR. He underwent aggressive diuresis and required dobutamine infusion. R&L cardiac cath showed non-occlusive atherosclerotic CAD. Required multiple inotropes and vasopressor support. Ultimately, pt was discharged on 0.375mcg/kg/min as palliative measure. History obtained from patient and family says he was doing well until 08/12/23. At this time urine output decreased and he began retaining fluid in spite of Bumex 2mg BID. Today he endorses increased SOB, exercise intolerance, LE pitting edema now to his knees, orthopnea, abdominal pain 2/2 known biliary and hepatocellular disease. Denies Fevers, chills, ALDANA, CP, N/V/D. In ED: CXR: Interval development of perihilar opacities, right greater than left. The findings favor alveolar pulmonary edema. Pneumonia could appear similar. Radiographic follow-up to ensure resolution is recommended. Had multiple episodes of non-sustained V tach Labs: Na 120, Cr 2.12, K 3.9, Mg 2.0, BNP 2504, Trop 26.2 Vitals: BP 80-90s/60-70s, HR 101, O2 low-mid 90s. Principal Diagnosis End-stage cardiomyopathy Discharge Exam Pronouncement: No response to verbal or noxious stim. No heart tones or pulses. No breath sounds or spontaneous respirations. Pupils fixed and equal nonreactive. Time of 1340 09/26/23. Discharge Data Allergies Allergy/AdvReac Type Severity Reaction Status Date / Time morphine Allergy Unknown Difficulty Verified 08/13/23 10:26 Breathing mycophenolate mofetil AdvReac Intermediate Dizziness Verified 08/13/23 10:26 Consultations 09/15/23 19:05 ED Decision to Admit Stat 09/16/23 00:14 Consult Cardiology Routine 09/19/23 07:17 Consult Palliative Care Routine Procedures Performed Operation Date: 09/18/23 10:00 Actual Procedures p AV Node Ablation - Barry Liang MD Ordered Studies 09/18/23 07:15 EP Lab Images for PACS ONCE Hospital Course (1) HFrEF (heart failure with reduced ejection fraction): (2) CHF (congestive heart failure): (3) Acute hypotension: (4) LEONILA (acute kidney injury): (5) Shortness of breath: (6) Acute on chronic systolic heart failure: (7) HTN (hypertension): (8) Hypercholesteremia: (9) Interstitial lung disease: (10) Biventricular ICD (implantable cardioverter-defibrillator) in place: (11) Non-ischemic cardiomyopathy: (12) Chronic hyponatremia: Plan End-stage cardiomyopathyboth from his cardiomyopathy/systolic CHF, as well as his refractory rhythm issues even failing an ablation last week. Patient/family wanted palliative/comfort. He had no affiliation with [facility], and family did not feel they could meet his needs at homeso he was made palliative/comfort measures only in the hospital. He did not meet criteria for "inpatient hospice" but really the right thing to do for him was to keep him comfortable in the hospital given the all of the above circumstances. He was kept comfortable, and passed peacefully today, 09/26/2023. Offered empathy and support to family. Total Time Total Time Spent Total Time Spent (In Minutes): Less than 30 Discharge Plan Discharge Items Patient Disposition: Other Date/Time: 09/26/23 13:40 Coding Level of Care Code 74533 IN/OBS DISCH 30 MIN/LESS Diagnoses HFrEF (heart failure with reduced ejection fraction) I50.20 CHF (congestive heart failure) I50.9 Heart failure chronicity: unspecified Heart failure type: unspecified Acute hypotension I95.9 LEONILA (acute kidney injury) N17.9 Shortness of breath R06.02 Acute on chronic systolic heart failure I50.23 Primary hypertension I10 Hypertension type: primary hypertension Hypercholesteremia E78.00 Interstitial lung disease J84.9 Biventricular ICD (implantable cardioverter-defibrillator) in place Z95.810 Non-ischemic cardiomyopathy I42.8 Chronic hyponatremia E87.1
[2023-09-27] MEDS ORDERED: BUMETANIDE 0.5 MG in SYRINGE 0 ML IV SCH (09:00)
== END 2023-09-26 17:02 | disposition expired | DRG 273 ==
LOC: ED 16:18 → SUATTDRO 22:11 → 2S 22:11 → 3E 09-19 18:04
DX: Z95.810 Presence of automatic (implantable) cardiac defibrillator; Z51.5 Encounter for palliative care; I47.20 Ventricular tachycardia, unspecified; I42.0 Dilated cardiomyopathy; Z79.899 Other long term (current) drug therapy; Z79.01 Long term (current) use of anticoagulants; I48.0 Paroxysmal atrial fibrillation; E87.1 Hypo-osmolality and hyponatremia; I08.1 Rheumatic disorders of both mitral and tricuspid valves; I25.10 Atherosclerotic heart disease of native coronary artery without angina pectoris; I50.23 Acute on chronic systolic (congestive) heart failure; D64.9 Anemia, unspecified; J84.9 Interstitial pulmonary disease, unspecified; Z66 Do not resuscitate; I48.92 Unspecified atrial flutter; R57.0 Cardiogenic shock; N17.9 Acute kidney failure, unspecified; E78.00 Pure hypercholesterolemia, unspecified; K74.60 Unspecified cirrhosis of liver; E11.9 Type 2 diabetes mellitus without complications; I42.8 Other cardiomyopathies; Z88.5 Allergy status to narcotic agent; Z79.84 Long term (current) use of oral hypoglycemic drugs; I11.0 Hypertensive heart disease with heart failure; E88.09 Other disorders of plasma-protein metabolism, not elsewhere classified; I95.9 Hypotension, unspecified; Z88.8 Allergy status to other drugs, medicaments and biological substances